=== PATIENT | male | born 1960 | race Caucasian/White ===

== ENCOUNTER 2016-12-25 20:22 | Inpatient (IN) | payer MEDICAID ==
[~2016-12-25] VITALS: Ht 175.3 cm; Wt 60.1 kg
[~2016-12-25 20:22] MED LIST: AMIT8CAP6 PO; BACL20TA PO; CIPR500T4 PO; FURO1TAB93 PO; GABA600T PO; HYDR10TA16 PO; POTA20PA PO; PROS5TAB2 PO
[2016-12-25 20:30] VITALS: BP 103/55; PULSE 108; RESP 20; TEMP 98.5; O2SAT 95
[2016-12-25] MEDS ORDERED: PIPERACIL-TAZO 4.5 GM PREMIX 100 ML IV STA (20:40)
[2016-12-25] MEDS ORDERED: SODIUM CHLOR 0.9% 1000 ML INJ 1,000 ML IV ONE (20:40)
[2016-12-25] MEDS ORDERED: SODIUM CHLOR 0.9% 1000 ML INJ 800 ML IV ONE (20:40)
[2016-12-25] MEDS ORDERED: VANCOMYCIN INJ 1,000 MG in SODIUM CHLOR 0.9% 250 ML INJ 250 ML IV STA (20:40)
[2016-12-25] MEDS ORDERED: BACL20TA PO (20:45)
[2016-12-25] MEDS ORDERED: CIPR-9 PO (20:45)
[2016-12-25] MEDS ORDERED: GABA600T PO (20:45)
[2016-12-25] MEDS ORDERED: FURO40TA PO (20:45)
[2016-12-25] MEDS ORDERED: POTA-243 PO (20:45)
[2016-12-25] MEDS ORDERED: HYDR-3583 PO (20:45)
[2016-12-25] MEDS ORDERED: AMIT24CA5 PO (20:45)
[2016-12-25] MEDS ORDERED: FINA5TAB2 PO (20:45)
[2016-12-25 20:52] VITALS: O2SAT 96
[2016-12-25 21:09] LABS: AUTOMATED NEUTROPHIL # 13.2 TH/MM3 (1.8-7.7); BASOPHIL # 0.1 TH/MM3 (0-0.2); BASOPHIL % 0.4 % (0.0-2.0); EOSINOPHIL # 0.1 TH/MM3 (0-0.4); EOSINOPHIL % 0.4 % (0.0-4.0); HEMATOCRIT 32.7 % (39.0-51.0); LYMPH % 7.8 % (9.0-44.0); LYMPHOCYTE # 1.2 TH/MM3 (1.0-4.8); MEAN CELL VOLUME 70.5 FL (80.0-100.0); MEAN CORPUSCULAR HEMOGLOBIN 21.6 PG (27.0-34.0); MEAN CORPUSCULAR HGB CONC 30.6 % (32.0-36.0); MONO % 6.7 % (0.0-8.0); NEUT % 84.7 % (16.0-70.0); PLATELET COUNT 527 TH/MM3 (150-450); RED BLOOD COUNT 4.64 MIL/MM3 (4.50-5.90); RED CELL DISTRIBUTION WIDTH 18.8 % (11.6-17.2); WHITE BLOOD COUNT 15.6 TH/MM3 (4.0-11.0)
[2016-12-25 21:12] LABS: HEMO FLAGS AUTO DIFF
--- NOTE | 2016-12-25 21:12 | PD ---
HPI Chief Complaint: Wound/Suture/Staple Re-Check Time Seen by Provider: 20:40 Travel History International Travel<30 days: No Contact w/Intl Traveler<30days: No Traveled to known affect area: No History of Present Illness HPI Patient is a 56-year-old male with history of T1 fracture and resultant paraplegia, neurogenic bowel and bladder, tobacco abuse and with peripheral vascular disease and left lower extremity BKA approximately one month ago at [facility] with complaint of wound. Patient states that he has had wounds on the sacrum/back and bilateral hips that has been increasingly malodorous, draining and painful. Patient also notes that the left lower shortly BKA site is black and malodorous. He has "stay well home health" that has been coming on to dress his wounds and states that despite this they have been getting worse. He denies any fevers but states that he has been having "hot flashes". PFSH Past Medical History Arthritis: No Asthma: No Autoimmune Disease: No Depression: Yes Heart Rhythm Problems: No Cancer: No Cardiovascular Problems: No High Cholesterol: No Chest Pain: No Congestive Heart Failure: No COPD: No Cerebrovascular Accident: No Diabetes: No Diminished Hearing: No Gastrointestinal Disorders: No GERD: No Glaucoma: No Headaches: No Hepatitis: No Hiatal Hernia: No Hypertension: No Kidney Stones: No Medical other: No Musculoskeletal: Yes (;FRACTURED LEFT TIBULA, FIBULA 01/22) Neurologic: No Respiratory: Yes (SLEEP APNEA, SMOKER 2 PPD) Integumentary: No Myocardial Infarction: No Renal Failure: No Seizures: No Sleep Apnea: No Thyroid Disease: No Ulcer: No Tetanus Vaccination: Unknown Past Surgical History Abdominal Surgery: No AICD: No Cardiac Surgery: No Ear Surgery: No Endocrine Surgery: No Eye Surgery: No Genitourinary Surgery: No Gynecologic Surgery: No Neurologic Surgery: No Oral Surgery: No Pacemaker: No Thoracic Surgery: No Tonsillectomy: Yes ( A CHILD) Other Surgery: Yes Social History Alcohol Use: No Tobacco Use: Yes (1/2 PPD) Substance Use: Yes (MARIJUANA ) Allergies-Medications (Allergen,Severity, Reaction): Coded Allergies: Levaquin (Verified Allergy, Severe, 12/25/16) *MDRO Multi-Drug Resistant Organism (Verified Allergy, Unknown, 12/25/16) MDR-Acinetobacter baumannii Urine 9/6/16 Septra (Verified Allergy, Unknown, 12/25/16) Reported Meds & Prescriptions Reported Meds & Active Scripts Active Reported Amitiza (Lubiprostone) 24 Mcg Cap 24 Mg PO DAILY Gabapentin 600 Mg Tab 600 Mg PO QID Finasteride 5 Mg Tab 5 Mg PO DAILY Do not crush. Cipro (Ciprofloxacin HCl) 500 Mg Tab 500 Mg PO BID Klor-Con 10 (Potassium Chloride) 10 Meq Tab 10 Meq PO DAILY Furosemide 40 Mg Tab 40 Mg PO BID Baclofen 20 Mg Tab 20 Mg PO QID Hydrocodone-Acetaminophen 10-325 mg Tab 1 Tab PO Q6H PRN Review of Systems ROS Limitations: Poor Historian Except as stated in HPI: all other systems reviewed are Neg Physical Exam Exam Limitations: Poor Historian Narrative GENERAL: Cachectic male in no acute distress SKIN: Multiple wounds on the bilateral hips, sacrum and perineal region that are malodorous. The area on the sacrum and perineum is deep and appears to tunnel possibly to bone of the pelvic anatomy. Left lower extremity BKA is gangrenous, malodorous HEAD: Normocephalic. EYES: No scleral icterus. No injection or drainage. ENT: Mucous membranes pink and moist. NECK: Supple CARDIOVASCULAR: Tachycardic with heart rate in the 100s, regular rhythm. No murmur appreciated. RESPIRATORY: No accessory muscle use. Clear to auscultation. Breath sounds equal bilaterally. GASTROINTESTINAL: Abdomen soft, non-tender, nondistended. Scaphoid abdomen GENITOURINARY: Indwelling Blood catheter MUSCULOSKELETAL: Left lower extremity BKA gangrenous as above. Right lower extremity with no palpable pulses but dopplerable pulses, poor capillary refill , cold but not painful. Chronic per patient. NEUROLOGICAL: Awake and alert. Normal speech. PSYCHIATRIC: insight and judgment poor Data Data Last Documented VS Vital Signs Date Time Temp Pulse Resp B/P Pulse Ox O2 Delivery O2 Flow Rate FiO2 12/25/16 20:52 96 Room Air 12/25/16 20:30 98.5 108 20 103/55 Orders Complete Blood Count With Diff (12/25/16 20:40) Comprehensive Metabolic Panel (12/25/16 20:40) Lactic Acid Sepsis Protocol (12/25/16 20:40) Troponin I (12/25/16 20:40) Urinalysis - C+S If Indicated (12/25/16 20:40) Blood Culture (12/25/16 20:40) Wound Culture And Gram Stain (12/25/16 20:40) Chest, Single Ap (12/25/16 20:40) Ecg Monitoring (12/25/16 20:40) Iv Access Insert/Monitor (12/25/16 20:40) Oximetry (12/25/16 20:40) Urinary Catheter Insert/Apply (12/25/16 20:40) Piperacil-Tazo 4.5 Gm Premix (Zosyn 4.5 (12/25/16 20:40) Vancomycin Inj (Vancomycin Inj) (12/25/16 20:40) Sodium Chlor 0.9% 1000 Ml Inj (Ns 1000 M (12/25/16 20:40) Sodium Chlor 0.9% 1000 Ml Inj (Ns 1000 M (12/25/16 20:40) Ct Pelvis W/O Iv Contrast (12/25/16 ) Urine Culture (12/25/16 21:15) Potassium Chloride (Kcl) (12/25/16 21:45) Labs Laboratory Tests Test 12/25/16 12/25/16 20:50 21:15 White Blood Count 15.6 TH/MM3 Red Blood Count 4.64 MIL/MM3 Hemoglobin 10.0 GM/DL Hematocrit 32.7 % Mean Corpuscular Volume 70.5 FL Mean Corpuscular Hemoglobin 21.6 PG Mean Corpuscular Hemoglobin 30.6 % Concent Red Cell Distribution Width 18.8 % Platelet Count 527 TH/MM3 Mean Platelet Volume 6.8 FL Neutrophils (%) (Auto) 84.7 % Lymphocytes (%) (Auto) 7.8 % Monocytes (%) (Auto) 6.7 % Eosinophils (%) (Auto) 0.4 % Basophils (%) (Auto) 0.4 % Neutrophils # (Auto) 13.2 TH/MM3 Lymphocytes # (Auto) 1.2 TH/MM3 Monocytes # (Auto) 1.0 TH/MM3 Eosinophils # (Auto) 0.1 TH/MM3 Basophils # (Auto) 0.1 TH/MM3 CBC Comment AUTO DIFF Differential Comment AUTO DIFF CONFIRMED Platelet Estimate HIGH Platelet Morphology Comment NORMAL Sodium Level 130 MEQ/L Potassium Level 2.5 MEQ/L Chloride Level 87 MEQ/L Carbon Dioxide Level 31.5 MEQ/L Anion Gap 12 MEQ/L Blood Urea Nitrogen 8 MG/DL Creatinine 1.02 MG/DL Estimat Glomerular Filtration 76 ML/MIN Rate Random Glucose 117 MG/DL Lactic Acid Level 3.2 mmol/L Calcium Level 8.6 MG/DL Total Bilirubin 0.4 MG/DL Aspartate Amino Transf 42 U/L (AST/SGOT) Alanine Aminotransferase 27 U/L (ALT/SGPT) Alkaline Phosphatase 123 U/L Troponin I LESS THAN 0.02 NG/ML Total Protein 8.9 GM/DL Albumin 2.3 GM/DL Urine Color LIGHT-YELLOW Urine Turbidity CLEAR Urine pH 7.0 Urine Specific [place] 1.005 Urine Protein NEG mg/dL Urine Glucose (UA) NEG mg/dL Urine Ketones NEG mg/dL Urine Occult Blood SMALL Urine Nitrite NEG Urine Bilirubin NEG Urine Urobilinogen LESS THAN 2.0 MG/DL Urine Leukocyte Esterase LARGE Urine RBC 15 /hpf Urine WBC 46 /hpf Urine Squamous Epithelial <1 /hpf Cells Urine Hyaline Casts 1 /lpf Urine Mucus FEW /lpf Urine Yeast (Budding) Microscopic Urinalysis Comment CULTURE INDICATED MDM Medical Decision Making Medical Screen Exam Complete: Yes Emergency Medical Condition: Yes Medical Record Reviewed: Yes Differential Diagnosis 56-year-old male here with complaint of wound. Patient on exam has multiple significant pressure ulcers, most importantly the one on his sacrum and perineal region that appears to tunnel deep to the bony anatomy. Concern for osteomyelitis of the pelvis, concurrent abscess, sepsis, wound, per full vascular disease, gangrene. Narrative Course Patient placed on monitor, IV established and blood obtained. His wounds were measured and documented appropriately by nursing. He was given IV fluids and empirically cover with vancomycin and Zosyn. CBC, CMP, lactate, troponin, urinalysis, blood and wound cultures were obtained and notable for WBC 15.6, hemoglobin 10.0, platelets 527, sodium 130, potassium 2.5. He was replaced with 80 mEq orally. Lactate elevated at 3.2. Blood catheter was replaced for a new, clean catheter as his current indwelling catheter appeared unkempt. It urine sample from his new catheter shows leukocyte esterase with white cells. Portable chest x-ray obtained that by my read shows no acute abnormalities. CT of the pelvis showed multiple decubitus ulcers which overlie the bilateral greater trochanters, left Neel, sacrum and coccyx with associated subcutaneous and muscular infiltration most significant over the left greater trochanter. Underlying osteo-difficult to rule out, recommend bone scan or MRI. Patient will be admitted for further management, vascular surgery consultation for his gangrenous left BKA stump, wound consult, etc. Critical Care Narrative Aggregate critical care time was 45 minutes. Time to perform other separately billable procedures was not included in the critical care time. My time did not include minutes spent treating any other patients simultaneously or on activities that did not directly contribute to the patient's treatment. The services I provided to this patient were to treat and/or prevent clinically significant deterioration that could result in: Cardio Pulmonary decompensation , loss of limb, , disability I provided critical care services requiring my management, as noted below: Chart data review, documentation time, medication orders and management, vital sign assessments/reviewing monitor data, ordering and reviewing lab tests, ordering and interpreting/reviewing x-rays and diagnostic studies, care of the patient and discussion of the patient with the admitting physicians. Sepsis Criteria SIRS Criteria (2 or more): Heart rate over 90, WBC > 12281, < 4000 or > 10% bands Sepsis Criteria (SIRS+source): Infect source susp/known Severe Sepsis (+one): Lactate >2 Criteria Outcome: Meets severe sepsis criteria Diagnosis Primary Impression: Severe sepsis Additional Impressions: Pressure ulcer Qualified Code: L89.94 - Pressure ulcer, stage 4, unspecified location Gangrene Leukocytosis Qualified Code: D72.829 - Leukocytosis, unspecified type Lactate blood increase Admitting Information Admitting Physician Requests: Admit Zuleika Medina MD December 25, 2016 21:12
--- NOTE | 2016-12-25 21:14 | RADRPT ---
EXAM DATE/TIME: 12/25/2016 21:00 [facility] COMPARISON: No previous studies available for comparison. INDICATIONS : Fever MEDICAL HISTORY : None. Left lower leg amputation, necrosis SURGICAL HISTORY : None. Cervical fusion ENCOUNTER: Initial ACUITY: 1 day PAIN SCORE: Non-responsive. LOCATION: Bilateral chest FINDINGS: The heart and mediastinal structures are normal. The pulmonary vascular pattern is also normal. The lungs are clear. Degenerative changes and scoliosis of the thoracic spine are noted. Hardware is noted within the upper thoracic spine. CONCLUSION: 1. No acute cardiopulmonary disease. 2. Degenerative changes and scoliosis of the thoracic spine. Hema Villalobos MD on December 25, 2016 at 21:09 Board Certified Radiologist. This report was verified electronically.
[2016-12-25 21:31] LABS: BLOOD, URINE SMALL (NEG); COMMENT (UR) CULTURE INDICATED; CULTURE IF INDICATED CULTURE INDICATED; GLUCOSE,URINE NEG (NEG); HYALINE CAST, URINE 1 /lpf (RARE); KETONE, URINE NEG (NEG); MUCUS URINE FEW /lpf (OCC); NITRITE,URINE NEG (NEG); SQUAMOUS EPITHELIAL CELL URINE <1 /hpf (0-5); URINE COLOR LIGHT-YELLOW (YELLW/STRAW)
[2016-12-25 21:38] LABS: ANION GAP 12 MEQ/L (5-15); AST (GOT) 42 U/L (15-37); BICARBONATE 31.5 MEQ/L (21.0-32.0); BLOOD UREA NITROGEN 8 MG/DL (7-18); CHLORIDE 87 MEQ/L (98-107); GLOMERULAR FILTRATION RATE 76 ML/MIN (>89); SODIUM (NA) 130 MEQ/L (136-145)
[2016-12-25 21:39] LABS: POTASSIUM 2.5 MEQ/L (3.5-5.1)
[2016-12-25 21:42] LABS: ALKALINE PHOSPHATASE 123 U/L (45-117); ALT (GPT) 27 U/L (12-78); TOTAL BILIRUBIN ADULT 0.4 MG/DL (0.2-1.0)
[2016-12-25] MEDS ORDERED: POTASSIUM CHLORIDE 20 MEQ CONTROLLED RELEASE TAB PO ONE (21:45)
[2016-12-25 21:47] LABS: PLATELET ESTIMATE SMEAR HIGH (NORMAL); PLATELET MORPHOLOGY NORMAL (NORMAL); SCAN/DIFF AUTO DIFF CONFIRMED
--- NOTE | 2016-12-25 22:29 | RADRPT ---
EXAM DATE/TIME: 12/25/2016 21:50 [facility] COMPARISON: No previous studies available for comparison. INDICATIONS : Evaluate for osteomyelitis. ORAL CONTRAST: No oral contrast ingested. RADIATION DOSE: 10.37 CTDIvol (mGy) MEDICAL HISTORY : None SURGICAL HISTORY : Tonsillectomy. Cervical fusion. Left lower leg amputation, necrosis. ENCOUNTER: Initial ACUITY: 1 day PAIN SCALE: 5/10 LOCATION: Pelvis TECHNIQUE: Volumetric scanning of the pelvis was performed. Using automated exposure control and adjustment of the mA and/or kV according to patient size, radiation dose was kept as low as reasonably achievable t o obtain optimal diagnostic quality images. FINDINGS: Large decubitus ulcers are noted overlying the left proximal femoral greater trochanter and the left ischium and to a lesser extent the right proximal femoral greater trochanter. Infiltration of the cao bcutaneous tissues and overlying musculature in the regions of the greater trochanters is also noted and is slightly worse on the left than the right. Underlying osteomyelitis is difficult to rule out on the basis of this examination. There is also a decubitus ulcer overlying the sacrum and coccyx. Bone scan or MRI with contrast would be much more sensitive to rule out osteomyelitis in this patient , if clinically indicated. Extensive hypertrophic bone formation is noted surrounding the proximal f emurs bilaterally. A Blood catheter is noted within the urinary bladder. An inferior vena cava filt er is noted. Calcification of the visualized portion of the abdominal aorta and iliac arteries is no willian. Scattered cystic lesions are noted within the left hemipelvis and may represent bladder diverti cula. A small umbilical hernia containing a portion of a bowel loop is noted. CONCLUSION: Multiple decubitus ulcers which overlie the bilateral greater trochanters, left ischium and sacrum/co ccyx with associated subcutaneous and muscular infiltration which is most significant overlying the l eft greater trochanter. Underlying osteomyelitis is difficult to rule out on the basis of this exami nation. Bone scan or MRI with contrast would be more sensitive for osteomyelitis, if clinically migdalia cated. Hema Villalobos MD on December 25, 2016 at 22:09 Board Certified Radiologist. This report was verified electronically.
[2016-12-25] MEDS ORDERED: HYDROmorphone HCL PF 1 MG/ML VIAL IV PRN (23:00)
[2016-12-25] MEDS ORDERED: BISACODYL 10 MG SUPP RECTAL PRN (23:00)
[2016-12-25] MEDS ORDERED: ONDANSETRON HCL 4 MG/2 ML VIAL IVP PRN (23:00)
[2016-12-25] MEDS ORDERED: SODIUM CHLORIDE 0.9% FLUSH 10 ML FLUSH IV FLUSH PRN (23:00)
[2016-12-25] MEDS ORDERED: ACETAMINOPHEN 325 MG TAB PO PRN (23:00)
[2016-12-25] MEDS ORDERED: Vancomycin Consult Pharmacy 1 EA OTHER SCH (23:00)
[2016-12-25 23:04] LABS: LACTIC ACID GHOST NOT REPORTABLE
[2016-12-25] MEDS: SODIUM CHLOR 0.9% 1000 ML INJ 1,000 ML IV SCH (23:18)
[2016-12-26] VITALS (7 sets, daily range): BP systolic 90–109; BP diastolic 50–59; PULSE 77–98; RESP 16–24; TEMP 97.8–99; O2SAT 97–100
--- NOTE | 2016-12-26 01:47 | HHI.HP ---
HPI Service [facility] Primary Care Physician Dustin Coleman Admission Diagnosis severe sepsis, wound infection/r/o osteo, L BKA stump gangrene Diagnoses: (1) Sepsis Diagnosis: Principal (2) Gangrene of lower extremity Diagnosis: Principal (3) Osteomyelitis Diagnosis: Principal (4) Decubitus skin ulcer Diagnosis: Principal (5) Pressure ulcer Diagnosis: Principal (6) UTI (urinary tract infection) Diagnosis: Principal (7) Lactic acidosis Diagnosis: Principal (8) Hypokalemia Diagnosis: Principal Travel History International Travel<30 Days: No Contact w/Intl Traveler <30 Da: No Traveled to Known Affected Are: No History of Present Illness This is a 56 year old male with a PMH of T1 Fracture, Paraplegia, Neurogenic Bowel/Bladder, PVD, Depression, Tobacco Abuse and Left BKA who presented to the ER with complaints of worsening decubitus ulcers and worsening stump infection. Recent Left BKA at [facility] approx 1 month ago, now w/ worsening wound infection. Also reports multiple sacral decubitus ulcers, now foul-smelling and increasingly painful. Per pt, [facility] has been visiting him daily for dressing changes, however no improvement. On arrival, WBC 15.6. K+ 2.5. Lactate 3.2, repeat 1.2. Trop negative. UA positive for UTI. CXR with no acute findings. CT Pelvis with multiple decubitus ulcers and associated subcutaneous and muscular infiltration, possible. S/p Wound/Blood Cultures, Vanc/Zosyn in ER. Vascular Surgery consulted for further eval of stump infection w/ likely conversion to AKA. Review of Systems Except as stated in HPI: all other systems reviewed are Neg ROS: 14 point review of systems otherwise negative. Past Family Social History Past Medical History PMH: T1 Fracture, Paraplegia, Neurogenic Bowel/Bladder, PVD, Depression, Tobacco Abuse and Left BKA Past Surgical History PAST SURGICAL HISTORY: Tonsillectomy Allergies: Coded Allergies: Levaquin (Verified Allergy, Severe, 12/25/16) *MDRO Multi-Drug Resistant Organism (Verified Allergy, Unknown, 12/25/16) MDR-Acinetobacter baumannii Urine 04/20/16 Septra (Verified Allergy, Unknown, 12/25/16) Family History PAST FAMILY HISTORY: Reviewed. No h/o DM or CAD Social History PAST SOCIAL HISTORY: Negative for alcohol. Positive for tobacco. Positive for Marijuana. Physical Exam Vital Signs Vital Signs Date Time Temp Pulse Resp B/P Pulse Ox O2 Delivery O2 Flow Rate FiO2 12/25/16 20:52 96 Room Air 12/25/16 20:30 98.5 108 20 103/55 95 Physical Exam PE: GENERAL: Middle-aged male in no acute distress, foul-smelling odor due to infections. HEENT: PERRLA, EOMI. No scleral icterus or conjunctival pallor. No lid lag or facial droop. CARDIOVASCULAR: Regular rate and rhythm. No obvious murmurs to auscultation. No chest tenderness to palpation. RESPIRATORY: No obvious rhonchi or wheezing. Clear to auscultation. Breath sounds equal bilaterally. GASTROINTESTINAL: Abdomen soft, non-tender, nondistended. BS normal. MUSCULOSKELETAL: Extremities without clubbing, cyanosis, or edema. No obvious deformities. Multiple wounds involving sacrum and perineum, malodorous, + drainage. Left BKA +gangrene. Right heel ulcer NEUROLOGICAL: Awake, alert and oriented x4. No focal neurologic deficits. Moving both upper and lower extremities spontaneously. Laboratory Laboratory Tests Test 12/25/16 12/25/16 12/25/16 20:50 21:15 23:45 White Blood Count 15.6 Red Blood Count 4.64 Hemoglobin 10.0 Hematocrit 32.7 Mean Corpuscular Volume 70.5 Mean Corpuscular Hemoglobin 21.6 Mean Corpuscular Hemoglobin 30.6 Concent Red Cell Distribution Width 18.8 Platelet Count 527 Mean Platelet Volume 6.8 Neutrophils (%) (Auto) 84.7 Lymphocytes (%) (Auto) 7.8 Monocytes (%) (Auto) 6.7 Eosinophils (%) (Auto) 0.4 Basophils (%) (Auto) 0.4 Neutrophils # (Auto) 13.2 Lymphocytes # (Auto) 1.2 Monocytes # (Auto) 1.0 Eosinophils # (Auto) 0.1 Basophils # (Auto) 0.1 CBC Comment AUTO DIFF Differential Comment AUTO DIFF CONFIRMED Platelet Estimate HIGH Platelet Morphology Comment NORMAL Sodium Level 130 Potassium Level 2.5 Chloride Level 87 Carbon Dioxide Level 31.5 Anion Gap 12 Blood Urea Nitrogen 8 Creatinine 1.02 Estimat Glomerular Filtration 76 Rate Random Glucose 117 Lactic Acid Level 3.2 1.2 Calcium Level 8.6 Total Bilirubin 0.4 Aspartate Amino Transf 42 (AST/SGOT) Alanine Aminotransferase 27 (ALT/SGPT) Alkaline Phosphatase 123 Troponin I LESS THAN 0.02 Total Protein 8.9 Albumin 2.3 Urine Color LIGHT-YELLOW Urine Turbidity CLEAR Urine pH 7.0 Urine Specific [place] 1.005 Urine Protein NEG Urine Glucose (UA) NEG Urine Ketones NEG Urine Occult Blood SMALL Urine Nitrite NEG Urine Bilirubin NEG Urine Urobilinogen LESS THAN 2.0 Urine Leukocyte Esterase LARGE Urine RBC 15 Urine WBC 46 Urine Squamous Epithelial <1 Cells Urine Hyaline Casts 1 Urine Mucus FEW Urine Yeast (Budding) Microscopic Urinalysis Comment CULTURE INDICATED Date/Time Procedure Status Source Growth 12/25/16 21:15 Urine Culture Received Urine Clean Catch Pending 12/25/16 20:50 Gram Stain Received Wound Buttock Pending 12/25/16 20:50 Wound Culture Received Wound Buttock Pending 12/25/16 20:50 Aerobic Blood Culture Received Blood Peripheral Pending 12/25/16 20:50 Anaerobic Blood Culture Received Blood Peripheral Pending Result Diagram: 12/25/16204912/25/162049 Assessment and Plan Problem List: (1) Sepsis ICD Code: A41.9 Status: Acute (2) Gangrene of lower extremity ICD Code: I96 Status: Acute (3) Osteomyelitis ICD Code: M86.9 Status: Acute (4) Decubitus skin ulcer ICD Code: L89.90 Status: Acute (5) Pressure ulcer ICD Code: L89.90 Status: Acute (6) UTI (urinary tract infection) ICD Code: N39.0 Status: Acute (7) Lactic acidosis ICD Code: E87.2 Status: Acute (8) Hypokalemia ICD Code: E87.6 Status: Acute Assessment and Plan A/P: 1. Sepsis: HR 108, WBC 15.6, Lactate 3.2, s/p Blood/Wound Cultures, Vanc/ Zosyn in ER. Follow up cultures, continue w/ IV Abx, IVF for hydration, repeat Lactate normalized. 2. Left BKA Wound Infection: s/p Left BKA approx 1 month ago at [facility], now w/ gangrenous stump infection, +malodorous, +drainage, s/p Wound Culture/ Blood Cultures. Continue w/ IV Abx as above. Vascular Surgery consulted by ER physician for further eval and likely transition to Left AKA. 3. Decubitus Ulcers: h/o TI Fx w/ Paraplegia, mostly wheelchair bound w/ limited mobility, multiple decubitus ulcers present on arrival. CT Pelvis w/ decubitus ulcers overlying bilateral greater trochanters, left ischium and sacrum/coccyx, possible underlying osteomyelitis, images reviewed by me. Continue w/ above IV Abx therapy as mentioned, Wound Consult, Vascular Sx eval. 4. Osteomyelitis: CT Pelvis w/ above findings, recommendation for MRI w/ contrast for further evaluation of osteomyelitis. 5. Pressure Ulcer: Right Heel. Wound Management for eval. 6. UTI: U/a w/ UTI, IV Abx, IVF for hydration. 7. Lactic Acidosis: secondary to infection/sepsis, now resolved. Continue w/ IVF, monitor, repeat lactate in am. 8. Tobacco Abuse: Counselled. Ativan prn if needed. No NicoDerm to avoid further vasoconstriction. 9. DVT Prophylaxis: Mechanical contraindication in light of lower extremity wounds. 10. Social work for d/c planning as needed. 11. Case discussed w/ ER physician at length. Physician Certification 2 Midnight Certification Type: Admission for Inpatient Services Order for Inpatient Services The services are ordered in accordance with Medicare regulations or non- Medicare payer requirements, as applicable. In the case of services not specified as inpatient-only, they are appropriately provided as inpatient services in accordance with the 2-midnight benchmark. Estimated LOS (days): 2 days is the estimated time the patient will need to remain in the hospital, assuming treatment plan goals are met and no additional complications. Post-Hospital Plan: Not yet determined Problem Qualifiers (1) Pressure ulcer: Qualified Code: L89.94 - Pressure ulcer, stage 4, unspecified location Antonia Farley MD December 26, 2016 01:47
[2016-12-26] MEDS ORDERED: SODIUM CHLORID 0.9% 500 ML INJ 500 ML IV ONE (02:15)
[2016-12-26] MEDS: FINASTERIDE 5 MG TAB PO SCH (08:23)
[2016-12-26] MEDS: GABAPENTIN 300 MG CAP PO SCH ×4 (08:23→20:38)
[2016-12-26] MEDS: SODIUM CHLORIDE 0.9% FLUSH 10 ML FLUSH IV FLUSH SCH ×2 (08:24→20:38)
[2016-12-26] MEDS: AMITIZA 24 MG PO SCH (08:24)
[2016-12-26] MEDS: BACLOFEN 20 MG TAB PO SCH ×4 (08:24→20:37)
[2016-12-26] MEDS: CEFEPIME INJ 1,000 MG in SODIUM CHLORIDE 0.9% INJ 100 ML IV SCH ×2 (08:25→20:37)
[2016-12-26] MEDS: SODIUM CHLOR 0.9% 1000 ML INJ 1,000 ML IV SCH ×2 (08:33→18:36)
[2016-12-26 09:14] LABS: AUTOMATED NEUTROPHIL # 9.3 TH/MM3 (1.8-7.7); BASOPHIL # 0.1 TH/MM3 (0-0.2); BASOPHIL % 0.6 % (0.0-2.0); EOSINOPHIL # 0.1 TH/MM3 (0-0.4); EOSINOPHIL % 0.9 % (0.0-4.0); HEMATOCRIT 25.8 % (39.0-51.0); LYMPH % 12.3 % (9.0-44.0); LYMPHOCYTE # 1.5 TH/MM3 (1.0-4.8); MEAN CORPUSCULAR HGB CONC 31.4 % (32.0-36.0); MONO % 8.9 % (0.0-8.0); NEUT % 77.3 % (16.0-70.0); PLATELET COUNT 456 TH/MM3 (150-450); RED BLOOD COUNT 3.69 MIL/MM3 (4.50-5.90); RED CELL DISTRIBUTION WIDTH 18.5 % (11.6-17.2)
[2016-12-26 09:16] LABS: HEMO FLAGS AUTO DIFF
[2016-12-26 09:48] LABS: ALKALINE PHOSPHATASE 97 U/L (45-117); ALT (GPT) 19 U/L (12-78); ANION GAP 7 MEQ/L (5-15); AST (GOT) 29 U/L (15-37); BICARBONATE 29.6 MEQ/L (21.0-32.0); BLOOD UREA NITROGEN 6 MG/DL (7-18); CHLORIDE 100 MEQ/L (98-107); GLOMERULAR FILTRATION RATE 115 ML/MIN (>89); POTASSIUM 3.4 MEQ/L (3.5-5.1); SODIUM (NA) 137 MEQ/L (136-145); TOTAL BILIRUBIN ADULT 0.4 MG/DL (0.2-1.0)
[2016-12-26 09:54] LABS: PLATELET ESTIMATE SMEAR HIGH (NORMAL); PLATELET MORPHOLOGY NORMAL (NORMAL); SCAN/DIFF AUTO DIFF CONFIRMED
[2016-12-26] MEDS: VANCOMYCIN INJ 1,250 MG in SODIUM CHLOR 0.9% 250 ML INJ 250 ML IV SCH (12:06)
--- NOTE | 2016-12-26 12:53 | HHI.FPPN ---
Subjective Remarks The patient has been seen and examined this morning. The patient is without fever, his vitals are stable. Saturating well on room air. Reports he was told as an outpatient he needed to have his leg amputated further, he states his leg his healing fine, he is most concerned about his decubitus ulcers. Objective Vitals Vital Signs Date Time Temp Pulse Resp B/P Pulse Ox O2 Delivery O2 Flow Rate FiO2 12/26/16 04:00 99.0 77 16 95/53 97 12/26/16 02:24 Room Air 12/26/16 00:15 98 12/26/16 00:00 Room Air 12/26/16 00:00 98.1 85 16 90/50 97 12/25/16 20:52 96 Room Air 12/25/16 20:30 98.5 108 20 103/55 95 I/O 12/25/16 12/25/16 12/25/16 12/26/16 12/26/16 12/26/16 06:59 14:59 22:59 06:59 14:59 22:59 Intake Total 480 ml Output Total 1750 ml Balance -1270 ml Intake Oral 480 ml Output Urine Total 1750 ml # Bowel Movements 0 Result Diagram: 12/26/16 0804 12/26/16 0804 Imaging Last Impressions Chest X-Ray 12/25/162039 Signed Impressions: Service Date/Time: Sunday, December 25, 2016 21:00 - CONCLUSION: 1. No acute cardiopulmonary disease. 2. Degenerative changes and scoliosis of the thoracic spine. Hema Villalobos MD Pelvis CT 12/25/16 0000 Signed Impressions: Service Date/Time: Sunday, December 25, 2016 21:50 - CONCLUSION: Multiple decubitus ulcers which overlie the bilateral greater trochanters, left ischium and sacrum/coccyx with associated subcutaneous and muscular infiltration which is most significant overlying the left greater trochanter. Underlying osteomyelitis is difficult to rule out on the basis of this examination. Bone scan or MRI with contrast would be more sensitive for osteomyelitis, if clinically indicated. Hema Villalobos MD Objective Remarks GENERAL: Middle-aged male in no acute distress, foul-smelling odor due to infections. HEENT: PERRLA, EOMI. No scleral icterus or conjunctival pallor. No lid lag or facial droop. CARDIOVASCULAR: Regular rate and rhythm. No obvious murmurs to auscultation. No chest tenderness to palpation. RESPIRATORY: No obvious rhonchi or wheezing. Clear to auscultation. Breath sounds equal bilaterally. GASTROINTESTINAL: Abdomen soft, non-tender, nondistended. BS normal. MUSCULOSKELETAL: Extremities without clubbing, cyanosis, or edema. No obvious deformities. Multiple wounds involving sacrum and perineum with dressing, malodorous. Left BKA +gangrene. Right heel ulcer NEUROLOGICAL: Awake, alert and oriented x4. No focal neurologic deficits. Moving both upper and lower extremities spontaneously. A/P Assessment and Plan This is a 56-year-old male with 1. Sepsis on admission: HR 108, WBC 15.6, Lactate 3.2 * Leukocytosis improved. The patient is afebrile. Lactic acid within normal limits. * Blood cultures negative to date. Wound cultures pending. Urine culture pending. see below. * Continue Vanc 12/25 and cefepime 12/26 2. Left BKA Wound Infection: s/p Left BKA approx 1 month ago at [facility], now w/ gangrenous stump infection, +malodorous, +drainage. * see imaging above, pelvis CT cannot rule out osteomyelitis. MRI recommended. This has been ordered. * Continue Vanco and cefepime * Vascular Surgery consulted by ER physician for further eval and likely transition to Left AKA. 3. Decubitus Ulcers: h/o TI Fx w/ Paraplegia, mostly wheelchair bound w/ limited mobility, multiple decubitus ulcers present on arrival. CT Pelvis w/ decubitus ulcers overlying bilateral greater trochanters, left ischium and sacrum/coccyx, possible underlying osteomyelitis. MRI ordered and pending. Continue w/ above IV Abx therapy as mentioned, Wound Consult, Vascular Sx eval. 4. Osteomyelitis: CT Pelvis w/ above findings, recommendation for MRI w/ contrast for further evaluation of osteomyelitis. 5. Pressure Ulcer: Right Heel. Wound Management for eval. 6. UTI: U/a w/ UTI, IV Abx, IVF for hydration. 7. Tobacco Abuse: Counselled. Ativan prn if needed. No NicoDerm to avoid further vasoconstriction. 8. DVT Prophylaxis: Mechanical contraindication in light of lower extremity wounds. 9. Social work for d/c planning as needed. Discharge Planning D/C pending further workup. Vascu surgery consulted, patient may require surgical intervention. Problem List: (1) Gangrene Status: Acute (2) Sepsis Status: Acute (3) UTI (urinary tract infection) Status: Acute (4) Osteomyelitis Status: Acute (5) Gangrene of lower extremity Status: Acute Verónica Barcenas MD R3 December 26, 2016 12:53
--- NOTE | 2016-12-26 20:27 | MB ---
cc: NELSY ANDERSEN MD DATE OF CONSULTATION: 12/26/2016. This is a 62-year-old gentleman with multiple medical problems including paraplegia. He recently underwent a left [id number] amputation at [facility]. He arrived in the [facility] Emergency Room with a gangrenous left stump. I was asked to see him for above-knee amputation. I have reviewed the patient's chart. I discussed this with the patient. He basically has a black eschar surrounding his left BKA stump. He refuses amputation at this point in time. I have ordered wound care for him and I would suggest talking to plastic surgery as far as debriding this area if they were to be agreeable in the future. At this point in time, if he should require an above-knee amputation, I would consult orthopedic surgery as vascular surgery does not to be a need to be involved with this. Thank you very much for allowing me to see your patient. Nelsy Andersen MD MPH/JCC /8:01 PM /8:25 PM
[2016-12-27] VITALS (7 sets, daily range): BP systolic 86–104; BP diastolic 48–61; PULSE 79–87; RESP 16–20; TEMP 97.4–98.8; O2SAT 96–98
[2016-12-27] MEDS: VANCOMYCIN INJ 1,250 MG in SODIUM CHLOR 0.9% 250 ML INJ 250 ML IV SCH ×3 (01:13→23:58)
[2016-12-27] MEDS ORDERED: SODIUM CHLORID 0.9% 500 ML INJ 500 ML IV ONE (03:00)
[2016-12-27] MEDS: SODIUM CHLOR 0.9% 1000 ML INJ 1,000 ML IV SCH ×2 (04:35→14:50)
[2016-12-27 07:12] LABS: AUTOMATED NEUTROPHIL # 8.7 TH/MM3 (1.8-7.7); BASOPHIL # 0.1 TH/MM3 (0-0.2); BASOPHIL % 0.7 % (0.0-2.0); EOSINOPHIL # 0.1 TH/MM3 (0-0.4); EOSINOPHIL % 1.2 % (0.0-4.0); HEMATOCRIT 25.7 % (39.0-51.0); LYMPH % 16.1 % (9.0-44.0); LYMPHOCYTE # 1.9 TH/MM3 (1.0-4.8); MEAN CORPUSCULAR HEMOGLOBIN 21.6 PG (27.0-34.0); MEAN CORPUSCULAR HGB CONC 30.4 % (32.0-36.0); MONO % 7.8 % (0.0-8.0); NEUT % 74.2 % (16.0-70.0); PLATELET COUNT 433 TH/MM3 (150-450); RED BLOOD COUNT 3.62 MIL/MM3 (4.50-5.90); RED CELL DISTRIBUTION WIDTH 18.4 % (11.6-17.2); WHITE BLOOD COUNT 11.7 TH/MM3 (4.0-11.0)
[2016-12-27 07:16] LABS: HEMO FLAGS AUTO DIFF
[2016-12-27 07:41] LABS: POTASSIUM 3.3 MEQ/L (3.5-5.1)
[2016-12-27 07:55] LABS: SCAN/DIFF AUTO DIFF CONFIRMED
[2016-12-27] MEDS: CEFEPIME INJ 1,000 MG in SODIUM CHLORIDE 0.9% INJ 100 ML IV SCH (08:17)
[2016-12-27] MEDS: BACLOFEN 20 MG TAB PO SCH ×4 (08:19→20:21)
[2016-12-27] MEDS: GABAPENTIN 300 MG CAP PO SCH ×4 (08:19→20:21)
[2016-12-27] MEDS: FINASTERIDE 5 MG TAB PO SCH (08:19)
[2016-12-27] MEDS: SODIUM CHLORIDE 0.9% FLUSH 10 ML FLUSH IV FLUSH SCH ×2 (08:20→20:21)
[2016-12-27] MEDS: AMITIZA 24 MG PO SCH (08:21)
[2016-12-27] MEDS ORDERED: GADODIAMIDE PF 287 MG/ML 5 ML VIAL (for RAD MRI) IV ONE (11:38)
--- NOTE | 2016-12-27 11:38 | RADRPT ---
EXAM DATE/TIME: 12/27/2016 10:25 [place] COMPARISON: CT PELVIS W/O CONTRAST, December 25, 2016, 21:50. INDICATIONS : Osteomyelitis. Abnormal CT scan. Wounds left buttock and bilat hips. CONTRAST: cc Omniscan (gadodiamide) IV MEDICAL HISTORY : Peripheral vascular disease. Paraplegia. SURGICAL HISTORY : Tonsillectomy. Fusion, cervical. Left leg surgery. BKA. ENCOUNTER: Initial ACUITY: 2 day PAIN SCORE: 4/10 LOCATION: Pelvis TECHNIQUE: Multiplanar, multisequence magnetic resonance imaging of the pelvis was performed. FINDINGS: REPRODUCTIVE: No mass is visualized. Prostate is enlarged. BLADDER: Mild bladder wall thickening. There is a Blood catheter in the bladder. RETROPERITONEUM: There is no lymphadenopathy. Vascular structures are within normal limits. BOWEL/MESENTERY: Visualized small and large bowel demonstrates no acute abnormality. There is no free fluid. There is stool throughout colon. INGUINAL: No lymphadenopathy or hernia. MUSCULOSKELETAL: There are diffuse inflammatory changes in the soft tissues adjacent to the greater trochanteric regio n of both hips, left greater than right. Patient history of decubitus ulcers. This finding correlates with the recent CT scan of the pelvis. However, there is abnormal signal with abnormal bone marrow e johnathon in the left trochanteric region of the proximal left femur. There is abnormal bone marrow edema with signal in the left ischium and left inferior pubic ramus. These findings are highly suspicious f or osteomyelitis. The rest of the bony structures of the pelvis demonstrate normal signal intensity. There is a small amount of fluid adjacent to the right trochanteric region. However, no definite locu lated fluid collections are seen to suggest an abscess at this time. CONCLUSION: 1. Abnormal bone marrow edema in the left proximal femur at the trochanteric level as well as the lef t ischium and left inferior pubic ramus suspicious for osteomyelitis. 2. Diffuse inflammatory changes in the soft tissues adjacent to the trochanteric regions bilaterally, left greater than right. Patient has a history of bilateral decubitus ulcers. Isaac Greco MD on December 27, 2016 at 11:24 Board Certified Radiologist. This report was verified electronically.
--- NOTE | 2016-12-27 15:57 | HHI.PR ---
Subjective Remarks Follow up for left lower ext stump infection, decubitus ulcer with possible osteomyelitis. Patient is doing well. Denies any fever, chills. He reports pain on the lower back. He requests an air mattress and Trapeze as well. Objective Vitals Vital Signs Date Time Temp Pulse Resp B/P Pulse Ox O2 Delivery O2 Flow Rate FiO2 12/27/16 12:00 97.4 87 20 102/56 98 12/27/16 08:20 Room Air 12/27/16 08:00 98.8 81 20 104/61 97 12/27/16 04:00 98.7 79 20 91/53 96 12/27/16 02:30 86/48 12/27/16 00:00 94/50 12/26/16 20:00 98.1 79 24 90/59 100 12/26/16 20:00 Room Air 12/26/16 16:00 98.0 79 18 92/53 98 I/O 12/26/16 12/26/16 12/26/16 12/27/16 12/27/16 12/27/16 07:00 15:00 23:00 07:00 15:00 23:00 Intake Total 480 ml 720 ml 1803 ml 2334 ml 781 ml Output Total 1750 ml 1300 ml Balance -1270 ml -580 ml 1803 ml 2334 ml 781 ml Intake Oral 480 ml 720 ml IV Total 1803 ml 2334 ml 781 ml Output Urine Total 1750 ml 1300 ml # Bowel Movements 0 0 Result Diagram: 12/27/16 0509 12/27/16 0509 Imaging Last Impressions Pelvis MRI 12/27/16 0000 Signed Impressions: Service Date/Time: Tuesday, December 27, 2016 10:25 - CONCLUSION: 1. Abnormal bone marrow edema in the left proximal femur at the trochanteric level as well as the left ischium and left inferior pubic ramus suspicious for osteomyelitis. 2. Diffuse inflammatory changes in the soft tissues adjacent to the trochanteric regions bilaterally, left greater than right. Patient has a history of bilateral decubitus ulcers. Isaac Greco MD Chest X-Ray 12/25/162039 Signed Impressions: Service Date/Time: Sunday, December 25, 2016 21:00 - CONCLUSION: 1. No acute cardiopulmonary disease. 2. Degenerative changes and scoliosis of the thoracic spine. Hema Villalobos MD Pelvis CT 12/25/16 0000 Signed Impressions: Service Date/Time: Sunday, December 25, 2016 21:50 - CONCLUSION: Multiple decubitus ulcers which overlie the bilateral greater trochanters, left ischium and sacrum/coccyx with associated subcutaneous and muscular infiltration which is most significant overlying the left greater trochanter. Underlying osteomyelitis is difficult to rule out on the basis of this examination. Bone scan or MRI with contrast would be more sensitive for osteomyelitis, if clinically indicated. Hema Villalobos MD Objective Remarks GENERAL: Alert, NAD. SKIN: Warm and dry. HEAD: Normocephalic. EYES: No scleral icterus. No injection or drainage. NECK: Supple, trachea midline. No JVD or lymphadenopathy. CARDIOVASCULAR: Regular rate and rhythm without murmurs, gallops, or rubs. RESPIRATORY: Breath sounds equal bilaterally. No accessory muscle use. GASTROINTESTINAL: Abdomen soft, non-tender, nondistended. MUSCULOSKELETAL: No cyanosis, or edema. Left BKA, decubitus ulcer covered in dressing. BACK: Nontender without obvious deformity. No CVA tenderness. Procedures None. A/P Problem List: (1) Sepsis ICD Code: A41.9 Status: Acute (2) Gangrene of lower extremity ICD Code: I96 Status: Acute (3) Osteomyelitis ICD Code: M86.9 Status: Acute (4) Decubitus skin ulcer ICD Code: L89.90 Status: Acute (5) Pressure ulcer ICD Code: L89.90 Status: Acute (6) UTI (urinary tract infection) ICD Code: N39.0 Status: Acute (7) Lactic acidosis ICD Code: E87.2 Status: Acute (8) Hypokalemia ICD Code: E87.6 Status: Acute Assessment and Plan This is a 56 year old male with a PMH of T1 Fracture, Paraplegia, Neurogenic Bowel/Bladder, PVD, Depression, Tobacco Abuse and Left BKA who presented to the ER with complaints of worsening decubitus ulcers and worsening stump infection. Recent Left BKA at [facility] approx 1 month ago, now w/ worsening wound infection. On arrival, WBC 15.6. K+ 2.5. Lactate 3.2, repeat 1.2. Trop negative. UA positive for UTI. CXR with no acute findings. Pelvis MRI indicative of probable osteomyelitis. - Left BKA stump infection - Sacral decubitus - Pelvis osteomyelitis - Urinary tract infection - Patient was initially evaluated by Dr. Soto who recommended a plastic surgery consult. - Dr. Love evaluated patient again with regards to both left BKA stump infection as well as decubitus ulcer and osteomyelitis. - Patient refuses AKA and refuses the possibility of hip disarticulation during the process of decubitus ulcer debridement. - I discussed the case with Infectious disease (Dr. López). - I believe it would be a futile effort to help this patient without aggressive surgical intervention - Will consult Palliative care for discussion about oil heaterman plan as well as possible hospice consideration. - Urine and wound Cx growing Acinetobacter - Based on discussion with ID, will continue Vancomycin. Discontinue Cefepime and start Unasyn as well as Tobramycin pharmacy consult. Full code. Start heparin SQ. Problem Qualifiers (1) Pressure ulcer: Qualified Code: L89.94 - Pressure ulcer, stage 4, unspecified location Yazmin Shelton DO December 27, 2016 15:57
--- NOTE | 2016-12-27 17:04 | PD.CAR.PN ---
CVT Progress Note Subjective/Hospital Course: 56-year-old male underwent left below-knee amputation in another hospital several months ago. Left below-knee amputation stump is completely gangrenous and area of dry gangrene extends from the tip of the stump all the way up to the knee In addition patient has osteomyelitic changes in the greater trochanter in the pelvic area or originating from a huge sacral decubitus ulcer which is involved in massive amount of wet gangrene Patient refuses above-knee amputation and when I stated that the debridement of the decubitus ulcer might involved hip disarticulation eventually patient abstained from that as well. I carefully explained to the patient several times that in absence of surgery he 'll develop systemic sepsis, point the renal failure and , yet he still refuses surgery At this point and nothing to offer to the patient as far as the care is concerned If patient changes his mind please let me know and I will attend the patient Thanks Ivan Objective: Vital Signs Date Time Temp Pulse Resp B/P Pulse Ox O2 Delivery O2 Flow Rate FiO2 12/27/16 16:00 98.3 82 16 90/55 98 12/27/16 12:00 97.4 87 20 102/56 98 12/27/16 08:20 Room Air 12/27/16 08:00 98.8 81 20 104/61 97 12/27/16 04:00 98.7 79 20 91/53 96 12/27/16 02:30 86/48 12/27/16 00:00 94/50 12/26/16 20:00 98.1 79 24 90/59 100 12/26/16 20:00 Room Air Labs: Laboratory Tests Test 12/27/16 05:09 White Blood Count 11.7 TH/MM3 (4.0-11.0) Red Blood Count 3.62 MIL/MM3 (4.50-5.90) Hemoglobin 7.8 GM/DL (13.0-17.0) Hematocrit 25.7 % (39.0-51.0) Mean Corpuscular Volume 71.0 FL (80.0-100.0) Mean Corpuscular Hemoglobin 21.6 PG (27.0-34.0) Mean Corpuscular Hemoglobin 30.4 % Concent (32.0-36.0) Red Cell Distribution Width 18.4 % (11.6-17.2) Platelet Count 433 TH/MM3 (150-450) Mean Platelet Volume 6.9 FL (7.0-11.0) Neutrophils (%) (Auto) 74.2 % (16.0-70.0) Lymphocytes (%) (Auto) 16.1 % (9.0-44.0) Monocytes (%) (Auto) 7.8 % (0.0-8.0) Eosinophils (%) (Auto) 1.2 % (0.0-4.0) Basophils (%) (Auto) 0.7 % (0.0-2.0) Neutrophils # (Auto) 8.7 TH/MM3 (1.8-7.7) Lymphocytes # (Auto) 1.9 TH/MM3 (1.0-4.8) Monocytes # (Auto) 0.9 TH/MM3 (0-0.9) Eosinophils # (Auto) 0.1 TH/MM3 (0-0.4) Basophils # (Auto) 0.1 TH/MM3 (0-0.2) CBC Comment AUTO DIFF Differential Comment AUTO DIFF CONFIRMED Sodium Level 138 MEQ/L (136-145) Potassium Level 3.3 MEQ/L (3.5-5.1) Chloride Level 102 MEQ/L (98-107) Carbon Dioxide Level 28.0 MEQ/L (21.0-32.0) Anion Gap 8 MEQ/L (5-15) Blood Urea Nitrogen 5 MG/DL (7-18) Creatinine 0.59 MG/DL (0.60-1.30) Estimat Glomerular Filtration 143 ML/MIN Rate (>89) Random Glucose 73 MG/DL (74-106) Calcium Level 7.9 MG/DL (8.5-10.1) Result Diagram: 12/27/16 0509 12/27/16 0509 Sen Robertson MD December 27, 2016 17:04
[2016-12-27] MEDS ORDERED: Tobramycin Consult Pharmacy 1 EA OTHER SCH (17:45)
[2016-12-27] MEDS: AMPICILLIN-SULBACTAM INJ 3 GM in SODIUM CHLORIDE 0.9% INJ 100 ML IV SCH ×2 (18:28→23:58)
[2016-12-27] MEDS ORDERED: TOBRAMYCIN INJ 400 MG in SODIUM CHLORIDE 0.9% INJ 100 ML IV ONE (20:00)
[2016-12-28] VITALS: BP 98/58; PULSE 68; RESP 18; TEMP 98.3; O2SAT 93
[2016-12-28] MEDS: SODIUM CHLOR 0.9% 1000 ML INJ 1,000 ML IV SCH ×3 (00:02→20:50)
[2016-12-28] MEDS: ACETAMINOPHEN/HYDROcodone 325 MG/5 MG TAB PO PRN ×3 (00:05→20:51)
[2016-12-28 04:00] VITALS: BP 96/62; PULSE 70; RESP 18; TEMP 98.7; O2SAT 94
[2016-12-28] MEDS: AMPICILLIN-SULBACTAM INJ 3 GM in SODIUM CHLORIDE 0.9% INJ 100 ML IV SCH ×4 (05:27→23:59)
[2016-12-28 08:00] VITALS: BP 104/59; PULSE 90; RESP 20; TEMP 98.6; O2SAT 96
[2016-12-28] MEDS: SODIUM CHLORIDE 0.9% FLUSH 10 ML FLUSH IV FLUSH SCH ×2 (09:00→20:51)
[2016-12-28] MEDS: AMITIZA 24 MG PO SCH (09:00)
[2016-12-28] MEDS: BACLOFEN 20 MG TAB PO SCH ×4 (09:11→20:51)
[2016-12-28] MEDS: FINASTERIDE 5 MG TAB PO SCH (09:11)
[2016-12-28] MEDS: HEPARIN SODIUM - SQ 10,000 UNITS/ML VIAL SQ SCH ×2 (09:12→20:53)
[2016-12-28] MEDS: GABAPENTIN 300 MG CAP PO SCH ×4 (09:15→20:51)
--- NOTE | 2016-12-28 11:09 | PD.ID.CON ---
History of Present Illness Service ID Consult Requested By Dr Shelton Reason for Consult pelvic osteo Primary Care Physician Dustin Coleman Diagnoses: History of Present Illness DUPLICATE DOCUMENT PLEASE SEE ANOTHER CONSULTATION REPORT Past Family Social History Allergies: Coded Allergies: Levaquin (Verified Allergy, Severe, 12/25/16) *MDRO Multi-Drug Resistant Organism (Verified Allergy, Unknown, 12/28/16) MDR-Acinetobacter baumannii Urine 04/20/16 & 12/25/16 MDR-Acinetobacter baumannii (buttock)-12/25/16 Septra (Verified Allergy, Unknown, 12/25/16) Past Medical History T1 Fracture, Paraplegia, Neurogenic Bowel/Bladder, PVD, Depression, Tobacco Abuse and Left BKA Past Surgical History Tonsillectomy Active Ordered Medications Medications where reviewed in EMR Antibiotics Include: Unasyn vanco tobra Family History Reviewed. No h/o DM or CAD Social History Negative for alcohol. Positive for tobacco. Positive for Marijuana. Physical Exam Vital Signs Vital Signs Date Time Temp Pulse Resp B/P Pulse Ox O2 Delivery O2 Flow Rate FiO2 12/28/16 04:00 98.7 70 18 96/62 94 12/28/16 00:00 98.3 68 18 98/58 93 12/27/16 20:00 98.4 84 20 92/60 97 12/27/16 16:00 98.3 82 16 90/55 98 12/27/16 12:00 97.4 87 20 102/56 98 Laboratory Laboratory Tests Test 12/28/16 06:15 Tobramycin Level Trough 2.5 Date/Time Procedure Status Source Growth 12/25/16 21:15 Urine Culture - Preliminary Resulted Urine Clean Catch Acinetobacter Baumannii/Haemol 12/25/16 20:50 Gram Stain - Final Resulted Wound Buttock 12/25/16 20:50 Wound Culture - Preliminary Resulted Acinetobacter Baumannii/Haemol Group D Enterococcus 12/25/16 20:50 Aerobic Blood Culture - Preliminary Resulted Blood Peripheral NO GROWTH IN 2 DAYS 12/25/16 20:50 Anaerobic Blood Culture - Preliminary Resulted Blood Peripheral NO GROWTH IN 2 DAYS Result Diagram: 12/27/16 0509 12/27/16 0509 Imaging Last Impressions Pelvis MRI 12/27/16 0000 Signed Impressions: Service Date/Time: Tuesday, December 27, 2016 10:25 - CONCLUSION: 1. Abnormal bone marrow edema in the left proximal femur at the trochanteric level as well as the left ischium and left inferior pubic ramus suspicious for osteomyelitis. 2. Diffuse inflammatory changes in the soft tissues adjacent to the trochanteric regions bilaterally, left greater than right. Patient has a history of bilateral decubitus ulcers. Isaac Greco MD Chest X-Ray 12/25/162039 Signed Impressions: Service Date/Time: Sunday, December 25, 2016 21:00 - CONCLUSION: 1. No acute cardiopulmonary disease. 2. Degenerative changes and scoliosis of the thoracic spine. Hema Villalobos MD Pelvis CT 12/25/16 0000 Signed Impressions: Service Date/Time: Sunday, December 25, 2016 21:50 - CONCLUSION: Multiple decubitus ulcers which overlie the bilateral greater trochanters, left ischium and sacrum/coccyx with associated subcutaneous and muscular infiltration which is most significant overlying the left greater trochanter. Underlying osteomyelitis is difficult to rule out on the basis of this examination. Bone scan or MRI with contrast would be more sensitive for osteomyelitis, if clinically indicated. MD Maribel Conti Alexandra A. MD December 28, 2016 11:09 osteomyelitis is difficult to rule out on the basis of this examination. Bone scan or MRI with contrast would be more sensitive for osteomyelitis, if clinically indicated. MD Maribel Conti Alexandra A. MD December 28, 2016 11:09
[2016-12-28] MEDS ORDERED: PHARMACY ORDERED LAB ONE (11:45)
[2016-12-28 12:00] VITALS: BP 98/59; PULSE 67; RESP 22; TEMP 97.3; O2SAT 98
--- NOTE | 2016-12-28 14:04 | PD.ID.CON ---
History of Present Illness Service ID Consult Requested By Dr Shelton Reason for Consult pelvic osteo Primary Care Physician Dustin Coleman Diagnoses: History of Present Illness 56 yo paraplegic male with chronic decubitus ulcers and BKA presented with long standing sacral/buttocks ulcers x 8 yrs He is a poor historian and not very coopertive Per nursing staff, refuses turns He apparently sees a wound care provider in [place] , but could not recall his last name He also presented with dry gangrene of L LE stupm, was seen by Dr Robertson and offeredn DALILA but he reused it CT and MRI Abnormal were suspicious for osteomyelitis of left ischium and left inferior pubic ramus . 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 Social History + Tobacco; 1ppd No ETOH. No IVDU + MJ. Physical Exam Vital Signs Vital Signs Date Time Temp Pulse Resp B/P Pulse Ox O2 Delivery O2 Flow Rate FiO2 12/28/16 08:00 Room Air 12/28/16 04:00 98.7 70 18 96/62 94 12/28/16 00:00 98.3 68 18 98/58 93 12/27/16 20:00 98.4 84 20 92/60 97 12/27/16 16:00 98.3 82 16 90/55 98 Physical Exam CONSTITUTIONAL/GENERAL: This is an thin poorly nourished patient, in no apparent distress. TUBES/LINES/DRAINS: SKIN: No jaundice, rashes, Stage IV decubitus ulcers sacrum, L ischial and L greater throchangteric area He has 100% roth - black necrotic foul smelling eschar on L ischial with rough bone in the bed sacral wound with necrotic bed, tunneling to the R , bone palpable L hip wound with yellow eschar HEAD: Atraumatic. Normocephalic. EYES: Pupils equal and round and reactive. Extraocular motions intact. No scleral icterus. No injection or drainage. Fundi not examined. ENT: Hearing grossly normal. Nose without bleeding or purulent drainage. Oral mucosae without visible erythema, exudates, masses, or lesions. Poor dentition NECK: Trachea midline. Supple, nontender. No palpable thyroid enlargement or nodularity. CARDIOVASCULAR: Regular rate and rhythm without murmurs, gallops, or rubs. No JVD. RESPIRATORY/CHEST: Symmetric, unlabored respirations. Clear to auscultation. Breath sounds equal bilaterally. No wheezes, rales, or rhonchi. GASTROINTESTINAL: Abdomen soft, non-tender, nondistended. No hepato-splenomegaly , or palpable masses. No guarding. Bowel sounds present. GENITOURINARY: Without palpable bladder distension. Bernal catheter in place with light yellow urine; bernal was changed 2 days ago - per pt MUSCULOSKELETAL: Extremities without clubbing, cyanosis Muscle bulk loss cw pt's long h/o paraplegia R foot wo palpable pedal plses + loss of skin appenadges + stigmata of poor perfusion LLE sp BKA with dry gangreneous changes exending to the knee Knee cap also having a black eschar No e/o infx on LBKA stump LYMPHATICS: No palpable cervical or supraclavicular adenopathy. NEUROLOGICAL: Awake and alert. Motor and sensory grossly within normal limits BUE. Plegic BLE Follows commands. Normal speech. PSYCHIATRIC: No obvious anxiety/depression. no apparent hallucinations or other psychotic thought process. Laboratory Laboratory Tests Test 12/28/16 06:15 Tobramycin Level Trough 2.5 Date/Time Procedure Status Source Growth 12/25/16 21:15 Urine Culture - Preliminary Resulted Urine Clean Catch Acinetobacter Baumannii/Haemol 12/25/16 20:50 Gram Stain - Final Resulted Wound Buttock 12/25/16 20:50 Wound Culture - Preliminary Resulted Acinetobacter Baumannii/Haemol Group D Enterococcus 12/25/16 20:50 Aerobic Blood Culture - Preliminary Resulted Blood Peripheral NO GROWTH IN 3 DAYS 12/25/16 20:50 Anaerobic Blood Culture - Preliminary Resulted Blood Peripheral NO GROWTH IN 3 DAYS Result Diagram: 12/27/16 0509 12/27/16 0509 Imaging Last Impressions Pelvis MRI 12/27/16 0000 Signed Impressions: Service Date/Time: Tuesday, December 27, 2016 10:25 - CONCLUSION: 1. Abnormal bone marrow edema in the left proximal femur at the trochanteric level as well as the left ischium and left inferior pubic ramus suspicious for osteomyelitis. 2. Diffuse inflammatory changes in the soft tissues adjacent to the trochanteric regions bilaterally, left greater than right. Patient has a history of bilateral decubitus ulcers. Isaac Greco MD Chest X-Ray 12/25/[id number] Signed Impressions: Service Date/Time: Sunday, December 25, 2016 21:00 - CONCLUSION: 1. No acute cardiopulmonary disease. 2. Degenerative changes and scoliosis of the thoracic spine. Hema Villalobos MD Pelvis CT 12/25/16 0000 Signed Impressions: Service Date/Time: Sunday, December 25, 2016 21:50 - CONCLUSION: Multiple decubitus ulcers which overlie the bilateral greater trochanters, left ischium and sacrum/coccyx with associated subcutaneous and muscular infiltration which is most significant overlying the left greater trochanter. Underlying osteomyelitis is difficult to rule out on the basis of this examination. Bone scan or MRI with contrast would be more sensitive for osteomyelitis, if clinically indicated. 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 - growing MDRO Acinetobacter S unasyn, Enterococcus - previously Ent fealis L LE BKA - dry gangrene UTI, MDRO Acinetobacter - I Unasyn - S Meropeem Non compliance: pt refuses colostomy, AKA - this is a very advanced situation and treatment of his pelvic osteomyelitis will involve surgery, divertive colostomy and adjunctive abx - without surgical treatment colostomy followed by wound care the treatment failure will be closeto 100% - abx alone use in this case will obly contribute to further resistance and also side effects - pt at this point is not interested in colostomy and insists he needs to go to [place] - pt was informed that w/o the above treatment his pelvic osteo will cont to get worse and he can develop sepsis as a result of infection - he shows understanding but still refuses teratment - nurse was present in the room during my conversation with emelina pt REC's: - suggest palliative care involvement to help pt to define his goals of treatment - prabhjot Lou - jah jalloh - Discussed Condition With Dr Cat Robertson RN pt Tahmina López MD December 28, 2016 14:04
[2016-12-28] MEDS: VANCOMYCIN INJ 1,250 MG in SODIUM CHLOR 0.9% 250 ML INJ 250 ML IV SCH ×3 (15:14→23:59)
[2016-12-28 16:00] VITALS: BP 113/73; PULSE 97; RESP 22; TEMP 97.7; O2SAT 98
--- NOTE | 2016-12-28 16:54 | PD.CONS ---
Consult Service Palliative Care Consult Requested By Dr. Shelton . Primary Care Physician Dustin Coleman . Reason for Consultation a. To assist with evaluation and management of symptoms including: Pain, Nausea b. To assist medical decision maker(s) with: better understanding of current medical conditions; weighing benefits/burdens of medical treatment options; making medical treatment decisions. . HPI History of Present Illness 56-year-old male, with a past history of paraplegia since 2003, stage IV decubiti, recurrent UTI, anemia, and recent left BKA, presented to the emergency department because of nausea, worsened fatigue, and wound drainage. He had aches and pains in his back and abdomen, but did not notice any fever. He had been on Cipro daily for the past few years "to prevent urine infection." In the emergency department, findings included: * Alert * Gangrenous appearing left BKA stump, stage IV complicated sacral wounds * Temp 98.5, pulse 108, respirations 20, blood pressure 103/55, oxygen saturation 96% on room air * White count 15.6, hemoglobin 10.0 * Sodium 1:30, creatinine 1.02, albumin 2.3 * Potassium 2.5 * Urinalysis consistent with infection * Chest x-ray with no acute disease * Pelvis CT scan revealed the multiple decubiti, and a recommended MRI or bone scan. The patient was admitted for further workup and treatment. A follow-up pelvis MRI was consistent with osteomyelitis in multiple locations. The patient was seen in consultation by general surgery, vascular surgery, and ID; significant surgical intervention would be needed if the patient wanted to aggressively treat the current problems, including possible left AKA amputation, diverting colostomy, wound debridement, possible disarticulation of the hips, prolonged courses of antibiotics, etc. The patient was refusing surgery of any kind, stating that he wanted to go home. Palliative Care was consulted to assist with symptom management, and to enter into discussions with the patient regarding his current illnesses and problems, the prognosis, and the benefits and burdens of the various treatment options. . Function/Cognitive Trajectory The patient is paraplegic, but was getting around at his home and in his workshop using a wheelchair until the past few days. . Review of Systems Constitutional: COMPLAINS OF: Weight loss Endocrine: DENIES: Polyuria Eyes: DENIES: Eye inflammation Ears, nose, mouth, throat: DENIES: Epistaxis Respiratory: DENIES: Cough, Hemoptysis, Shortness of breath Cardiovascular: DENIES: Chest pain Gastrointestinal: COMPLAINS OF: Abdominal pain, DENIES: Bloody stools, Constipation, Diarrhea, Nausea, Vomiting Genitourinary: DENIES: Hematuria Musculoskeletal: COMPLAINS OF: Back pain Integumentary: DENIES: Rash Hematologic/Lymphatics: DENIES: Lymphadenopathy Immunologic/Allergic: DENIES: Urticaria Neurologic: DENIES: Headache, Seizures Psychiatric: DENIES: Confusion, Hallucinations Past Family Social History Coded Allergies: Levaquin (Verified Allergy, Severe, 12/25/16) *MDRO Multi-Drug Resistant Organism (Verified Allergy, Unknown, 12/28/16) MDR-Acinetobacter baumannii Urine 04/20/16 & 12/25/16 MDR-Acinetobacter baumannii (buttock)-12/25/16 Septra (Verified Allergy, Unknown, 12/25/16) Past Medical History * Sepsis, left stump gangrene, complicated wounds * Osteomyelitis * Paraplegia, with complications including recurrent UTI, skin wounds, neurogenic bladder * PVD, recent left BKA * Neurogenic bladder * Malnutrition * Anemia * History of sleep apnea * History of depression . Past Surgical History * Tonsillectomy * Left herniorrhaphy * Urethrotomy and dilation of urethra * Cervical fusion * Left BKA November 2016 * Left tib/fib fracture 2009 . Reported Medications He takes Lortab 1 or 2 per day at home . Current Medications Medications (Trade) Dose Ordered Sig/Vivien Route Start Time Stop Time Status Last Admin Pharmacy Profile Note 0 ml @ 0 mls/hr UNSCH OTHER 12/25/16 23:00 (NS 1000 ml Inj) 1,000 ml @ 100 mls/hr Q10H IV 12/25/16 22:50 12/28/16 10:50 (NS Flush) 2 ml UNSCH PRN IV FLUSH 12/25/16 23:00 (NS Flush) 2 ml BID IV FLUSH 12/26/16 09:00 12/26/16 20:38 (Zofran Inj) 4 mg Q6H PRN IVP 12/25/16 23:00 (Dulcolax Supp) 10 mg DAILY PRN RECTAL 12/25/16 23:00 (Tylenol) 650 mg Q6H PRN PO 12/25/16 23:00 ([place] 5-325 Mg) 1 tab Q4H PRN PO 12/25/16 23:00 12/28/16 09:29 (Dilaudid Pf Inj) 1 mg Q3H PRN IV 12/25/16 23:00 (Lioresal) 20 mg QID PO 12/26/16 09:00 12/28/16 15:14 (Proscar) 5 mg DAILY PO 12/26/16 09:00 12/28/16 09:11 (Neurontin) 600 mg QID PO 12/26/16 09:00 12/27/16 17:11 Patient Own Medication PT OWN MED: AMITIZA... DAILY PO 12/26/16 09:00 Vancomycin HCl 1250 mg/Sodium Chloride 262.5 ml @ 250 mls/hr Q12H IV 12/26/16 12:00 12/27/16 23:58 (Unasyn Inj/NS Inj) 100 ml @ 200 mls/hr Q6H IV 12/27/16 18:00 12/28/16 15:24 (Heparin Inj) 5,000 units Q12HR SQ 12/28/16 09:00 12/28/16 09:12 Family History The patient's father at age 81 of "old age," and his mother at age 66 of unknown causes. No h/o DM or CAD. . Substance Use Tobacco: 1.5 pack per day for many years Alcohol: "Heavy drinking in the past" Prescription med abuse: None Illicits: Marijuana on a fairly regular basis . Psychosocial History Born and raised in [place], [place], moved to [place] about 25 years ago. He has never been and has no children. He lives currently with a roommate who was an ex-girlfriend, and her mother also lives in the home. He worked in [employer], and now does some model building. . Spiritual/Cultural Factors The patient reports that he was "Uatsdin when I was young," but he wants no curing press maintainer or other clergy visits. "They can't help." . Living Will: Never completed Health Care Surrogate: Never completed Durable Power of Cut Off Machine Unloader: Never completed Health Care Surrogate(s): At the time of this consultation, the patient elects his sister Kailee Poole of [place] as his healthcare surrogate. . Today's verbally stated goals: The patient is adamant that he wants to focus on comfort, that he does not want to "start down that road of surgery and antibiotics," and he acknowledges that will likely come within weeks. "Just keep me from suffering." It is important to him that he be able to return home, with some help, and with hospice services for end-of-life care. He requests DNR status. . Ethical and Legal Issues There are no ethical issues that would impact his care or decision-making at this time. The patient has capacity for decision-making at this time, and has a clear understanding of the ramifications of the decisions he is making. He has selected his sister Kailee as healthcare surrogate. . Physical Exam Vital Signs Date Time Temp Pulse Resp B/P Pulse Ox O2 Delivery O2 Flow Rate FiO2 12/28/16 12:00 97.3 67 22 98/59 98 12/28/16 08:00 Room Air 12/28/16 08:00 98.6 90 20 104/59 96 12/28/16 04:00 98.7 70 18 96/62 94 12/28/16 00:00 98.3 68 18 98/58 93 12/27/16 20:00 98.4 84 20 92/60 97 12/27/16 12/28/16 19:00 07:00 Intake Total 1501 ml 360 ml Output Total 4925 ml 2050 ml Balance -3424 ml -1690 ml Intake Oral 720 ml 360 ml IV Total 781 ml Output Urine Total 4925 ml 2050 ml # Bowel Movements 0 0 Exam CONSTITUTIONAL/GENERAL: This is an adequately nourished patient, quite cantankerous - angry at times, in no apparent distress. TUBES/LINES/DRAINS: Splint and dressings on left leg/stump, peripheral IV SKIN: No jaundice, rashes, or lesions. No wounds seen anteriorly, but hip/ sacral/left leg dressings not removed. Skin temperature appropriate. Not diaphoretic. HEAD: Atraumatic. Normocephalic. EYES: Pupils equal and round and reactive. Extraocular motions intact. No scleral icterus. No injection or drainage. Fundi not examined. ENT: Hearing grossly normal. Nose without bleeding or purulent drainage. Throat without visible erythema, exudates, masses, or lesions. NECK: Trachea midline. Supple, nontender. No palpable thyroid enlargement or nodularity. CARDIOVASCULAR: Regular rate and rhythm without murmurs, gallops, or rubs. No JVD. RESPIRATORY/CHEST: Symmetric, unlabored respirations. Clear to auscultation. Breath sounds equal bilaterally. No wheezes, rales, or rhonchi. GASTROINTESTINAL: Abdomen soft, non-tender, nondistended. No hepato-splenomegaly , or palpable masses. No guarding. Bowel sounds present. GENITOURINARY: Without palpable bladder distension. Blood catheter in place. MUSCULOSKELETAL: dressing on L BKA stump LYMPHATICS: No palpable cervical or supraclavicular adenopathy. NEUROLOGICAL: Awake and alert. Follows commands. Cognitively sharp. Paraplegia. PSYCHIATRIC: No obvious anxiety/depression. no apparent hallucinations or other psychotic thought process. . Diagnostic Tests Laboratory Laboratory Tests Test 12/25/16 12/25/16 12/25/16 12/26/16 20:50 21:15 23:45 08:04 Sodium Level 130 MEQ/L 137 MEQ/L (136-145) (136-145) Potassium Level 2.5 MEQ/L 3.4 MEQ/L (3.5-5.1) (3.5-5.1) Chloride Level 87 MEQ/L 100 MEQ/L (98-107) (98-107) Carbon Dioxide Level 31.5 MEQ/L 29.6 MEQ/L (21.0-32.0) (21.0-32.0) Anion Gap 12 MEQ/L (5-15) 7 MEQ/L (5-15) Blood Urea Nitrogen 8 MG/DL (7-18) 6 MG/DL (7-18) Creatinine 1.02 MG/DL 0.71 MG/DL (0.60-1.30) (0.60-1.30) Estimat Glomerular Filtration 76 ML/MIN (>89) 115 ML/MIN Rate (>89) Random Glucose 117 MG/DL 87 MG/DL (74-106) (74-106) Lactic Acid Level 3.2 mmol/L 1.2 mmol/L (0.4-2.0) (0.4-2.0) Calcium Level 8.6 MG/DL 7.9 MG/DL (8.5-10.1) (8.5-10.1) Total Bilirubin 0.4 MG/DL 0.4 MG/DL (0.2-1.0) (0.2-1.0) Aspartate Amino Transf 42 U/L (15-37) 29 U/L (15-37) (AST/SGOT) Alanine Aminotransferase 27 U/L (12-78) 19 U/L (12-78) (ALT/SGPT) Alkaline Phosphatase 123 U/L 97 U/L (45-117) (45-117) Troponin I LESS THAN 0.02 NG/ML (0.02-0.05) Total Protein 8.9 GM/DL 6.6 GM/DL (6.4-8.2) (6.4-8.2) Albumin 2.3 GM/DL 1.6 GM/DL (3.4-5.0) (3.4-5.0) White Blood Count 15.6 TH/MM3 12.0 TH/MM3 (4.0-11.0) (4.0-11.0) Red Blood Count 4.64 MIL/MM3 3.69 MIL/MM3 (4.50-5.90) (4.50-5.90) Hemoglobin 10.0 GM/DL 8.1 GM/DL (13.0-17.0) (13.0-17.0) Hematocrit 32.7 % 25.8 % (39.0-51.0) (39.0-51.0) Mean Corpuscular Volume 70.5 FL 70.0 FL (80.0-100.0) (80.0-100.0) Mean Corpuscular Hemoglobin 21.6 PG 22.0 PG (27.0-34.0) (27.0-34.0) Mean Corpuscular Hemoglobin 30.6 % 31.4 % Concent (32.0-36.0) (32.0-36.0) Red Cell Distribution Width 18.8 % 18.5 % (11.6-17.2) (11.6-17.2) Platelet Count 527 TH/MM3 456 TH/MM3 (150-450) (150-450) Mean Platelet Volume 6.8 FL 6.9 FL (7.0-11.0) (7.0-11.0) Neutrophils (%) (Auto) 84.7 % 77.3 % (16.0-70.0) (16.0-70.0) Lymphocytes (%) (Auto) 7.8 % 12.3 % (9.0-44.0) (9.0-44.0) Monocytes (%) (Auto) 6.7 % (0.0-8.0) 8.9 % (0.0-8.0) Eosinophils (%) (Auto) 0.4 % (0.0-4.0) 0.9 % (0.0-4.0) Basophils (%) (Auto) 0.4 % (0.0-2.0) 0.6 % (0.0-2.0) Neutrophils # (Auto) 13.2 TH/MM3 9.3 TH/MM3 (1.8-7.7) (1.8-7.7) Lymphocytes # (Auto) 1.2 TH/MM3 1.5 TH/MM3 (1.0-4.8) (1.0-4.8) Monocytes # (Auto) 1.0 TH/MM3 1.1 TH/MM3 (0-0.9) (0-0.9) Eosinophils # (Auto) 0.1 TH/MM3 0.1 TH/MM3 (0-0.4) (0-0.4) Basophils # (Auto) 0.1 TH/MM3 0.1 TH/MM3 (0-0.2) (0-0.2) CBC Comment AUTO DIFF AUTO DIFF Differential Comment AUTO DIFF AUTO DIFF CONFIRMED CONFIRMED Platelet Estimate HIGH (NORMAL) HIGH (NORMAL) Platelet Morphology Comment NORMAL NORMAL (NORMAL) (NORMAL) Urine Color LIGHT-YELLOW (YELLW/STRAW) Urine Turbidity CLEAR (CLEAR) Urine pH 7.0 (5.0-8.5) Urine Specific [place] 1.005 (1.002-1.035) Urine Protein NEG mg/dL (NEG-TRACE) Urine Glucose (UA) NEG mg/dL (NEG) Urine Ketones NEG mg/dL (NEG) Urine Occult Blood SMALL (NEG) Urine Nitrite NEG (NEG) Urine Bilirubin NEG (NEG) Urine Urobilinogen LESS THAN 2.0 MG/DL (LESS THAN 2.0) Urine Leukocyte Esterase LARGE (NEG) Urine RBC 15 /hpf (0-3) Urine WBC 46 /hpf (0-5) Urine Squamous Epithelial <1 /hpf (0-5) Cells Urine Hyaline Casts 1 /lpf (RARE) Urine Mucus FEW /lpf (OCC) Urine Yeast (Budding) (NONE) Microscopic Urinalysis Comment CULTURE INDICATED Test 12/27/16 12/28/16 05:09 06:15 White Blood Count 11.7 TH/MM3 (4.0-11.0) Red Blood Count 3.62 MIL/MM3 (4.50-5.90) Hemoglobin 7.8 GM/DL (13.0-17.0) Hematocrit 25.7 % (39.0-51.0) Mean Corpuscular Volume 71.0 FL (80.0-100.0) Mean Corpuscular Hemoglobin 21.6 PG (27.0-34.0) Mean Corpuscular Hemoglobin 30.4 % Concent (32.0-36.0) Red Cell Distribution Width 18.4 % (11.6-17.2) Platelet Count 433 TH/MM3 (150-450) Mean Platelet Volume 6.9 FL (7.0-11.0) Neutrophils (%) (Auto) 74.2 % (16.0-70.0) Lymphocytes (%) (Auto) 16.1 % (9.0-44.0) Monocytes (%) (Auto) 7.8 % (0.0-8.0) Eosinophils (%) (Auto) 1.2 % (0.0-4.0) Basophils (%) (Auto) 0.7 % (0.0-2.0) Neutrophils # (Auto) 8.7 TH/MM3 (1.8-7.7) Lymphocytes # (Auto) 1.9 TH/MM3 (1.0-4.8) Monocytes # (Auto) 0.9 TH/MM3 (0-0.9) Eosinophils # (Auto) 0.1 TH/MM3 (0-0.4) Basophils # (Auto) 0.1 TH/MM3 (0-0.2) CBC Comment AUTO DIFF Differential Comment AUTO DIFF CONFIRMED Sodium Level 138 MEQ/L (136-145) Potassium Level 3.3 MEQ/L (3.5-5.1) Chloride Level 102 MEQ/L (98-107) Carbon Dioxide Level 28.0 MEQ/L (21.0-32.0) Anion Gap 8 MEQ/L (5-15) Blood Urea Nitrogen 5 MG/DL (7-18) Creatinine 0.59 MG/DL (0.60-1.30) Estimat Glomerular Filtration 143 ML/MIN Rate (>89) Random Glucose 73 MG/DL (74-106) Calcium Level 7.9 MG/DL (8.5-10.1) Tobramycin Level Trough 2.5 mcg/mL (0.5-2.0) Result Diagram: 12/27/16 0509 12/27/16 0509 Microbiology Microbiology Date/Time Procedure Status Source Growth 12/25/16 20:45 Aerobic Blood Culture - Preliminary Resulted Blood Peripheral NO GROWTH IN 3 DAYS 12/25/16 20:45 Anaerobic Blood Culture - Preliminary Resulted Blood Peripheral NO GROWTH IN 3 DAYS 12/25/16 20:50 Aerobic Blood Culture - Preliminary Resulted Blood Peripheral NO GROWTH IN 3 DAYS 12/25/16 20:50 Anaerobic Blood Culture - Preliminary Resulted Blood Peripheral NO GROWTH IN 3 DAYS 12/25/16 20:50 Gram Stain - Final Resulted Wound Buttock 12/25/16 20:50 Wound Culture - Preliminary Resulted Acinetobacter Baumannii/Haemol Group D Enterococcus 12/25/16 21:15 Urine Culture - Preliminary Resulted Urine Clean Catch Acinetobacter Baumannii/Haemol Imaging Last Impressions Pelvis MRI 12/27/16 0000 Signed Impressions: Service Date/Time: Tuesday, December 27, 2016 10:25 - CONCLUSION: 1. Abnormal bone marrow edema in the left proximal femur at the trochanteric level as well as the left ischium and left inferior pubic ramus suspicious for osteomyelitis. 2. Diffuse inflammatory changes in the soft tissues adjacent to the trochanteric regions bilaterally, left greater than right. Patient has a history of bilateral decubitus ulcers. sIaac Greco MD Chest X-Ray 12/25/162039 Signed Impressions: Service Date/Time: Sunday, December 25, 2016 21:00 - CONCLUSION: 1. No acute cardiopulmonary disease. 2. Degenerative changes and scoliosis of the thoracic spine. Hema Villalobos MD Pelvis CT 12/25/16 0000 Signed Impressions: Service Date/Time: Sunday, December 25, 2016 21:50 - CONCLUSION: Multiple decubitus ulcers which overlie the bilateral greater trochanters, left ischium and sacrum/coccyx with associated subcutaneous and muscular infiltration which is most significant overlying the left greater trochanter. Underlying osteomyelitis is difficult to rule out on the basis of this examination. Bone scan or MRI with contrast would be more sensitive for osteomyelitis, if clinically indicated. Hema Villalobos MD Patient/Family Conference Present at Family Conference: The patient . Family Conference Time (mins): 33 Family Conference Location: Bedside Issues Discussed: * Palliative care role, purpose, approach * Hospice care role, purpose, approach * Additional medical, psychosocial, and spiritual history * Patients general health, functional status, and cognitive changes in the months leading up to the current hospitalization * Patient/family understanding of the current medical problems * Patient/family understanding of prognosis * Patients goals of care as best understood from advance directives and/or conversations and/or values * Current medical treatment options and benefits/burdens of those options * Likely scenarios comparing ongoing aggressive care with a transition to comfort measures only * Questions answered to the best of my ability * Palliative care contact information provided The patient is quite determined to not have any surgery or invasive procedures, to initiate the DNR status now, to get home as soon as he can with hospice help , and to seek comfort measures only and a peaceful . . Assessment and Plan Disease Oriented Problem List: (1) sepsis, left BKA stump gangrene, complicated wounds (2) osteomyelitis, hips/pelvis (3) malnutrition (4) paraplegic, with multiple complications in recent years (5) history of depression (6) PVD, recent left BKA (7) neurogenic bladder (8) anemia Symptom Scale: (1) anxiety 0-10 Scale: 2 (2) nausea 0-10 Scale: 0 (3) pain 0-10 Scale: 2 Pertinent Non-Medical Issues Psychosocial: Paraplegic since 2003, lives in wheelchair to bed, never , no children. Former automotive painting work Spiritual: The patient reports that he was "U[place] when I was young," but he wants no curing press maintainer or other clergy visits. "They can't help." Legal: The patient has capacity for decision-making at this time, and has a clear understanding of the ramifications of the decisions he is making. He has selected his sister Kailee as healthcare surrogate. Ethical issues impacting care: None . Important Contacts Sister in [place], [place] care [place] [facility] [phone] Brother Danny Curtis, in [place], . Prognosis The patient's prognosis is poor. He has underlying malnutrition, anemia, paraplegia, and now has osteomyelitis, infected wounds, gangrenous stump. He would likely need AKA amputation, diverting colostomy, wound debridements, possible hip disarticulation, prolonged antibiotic courses, etc., requiring a lengthy hospitalization with limited chance of success to the point of meaningful life and existence, and he therefore wants to transition to comfort care, hospice services. He likely has just weeks to live. . Code Status: No Code Plan * DO NOT RESUSCITATE * DECISION-MAKING: The patient has capacity for decision-making at this time, and has a clear understanding of the ramifications of the decisions he is making. He has selected his sister Kailee as healthcare surrogate. * GOALS: The patient is adamant that he wants to focus on comfort, that he does not want to "start down that road of surgery and antibiotics," and he acknowledges that will likely come within weeks. "Just keep me from suffering." It is important to him that he be able to return home, with some help, and with hospice services for end-of-life care. * Hospice consult placed. * SYMPTOMS: The patient's pain is intermittent. He used Lortab at home, and is getting occasional doses here. As he transitions to hospice services, he will likely benefit from whatever opiate dosing is required to achieve satisfactory comfort levels. * Palliative Care will continue to follow the patient during this hospitalization. . Time Spent Total Floor Time (mins): 76 Face to Face Time (mins): 44 >50% Counseling/Coord of Care: Yes (d/w Dr. Shelton and w RN) Thank you for the opportunity to participate in the care of Mr. Sheehan. Attestation To help prompt me to consider important information that might be impacting today's encounter and assessment, information from prior notes written by myself or my colleagues may have been "brought forward" into today's note. My signature on this note, however, is an attestation that I personally performed the exam, history, and/or decision-making noted today, and, unless otherwise indicated, the interactions with patient, family, and staff as well as the review of records all occurred today. I also attest that the listed assessment and stated plan reflect my best clinical judgment today based on the combination of historical information, prior notes, and today's exam/ interactions. When time spent is documented, it refers only to time spent today by the signer, or if indicated, combined time spent today by collaborating physician/nurse practitioner. Katty Valles MD December 28, 2016 16:54
[2016-12-28] MEDS ORDERED: TOBRAMYCIN INJ 400 MG in SODIUM CHLORIDE 0.9% INJ 100 ML IV SCH (20:00)
[2016-12-28 20:24] VITALS: BP 92/53; PULSE 101; RESP 20; TEMP 98.7; O2SAT 98
--- NOTE | 2016-12-28 23:00 | HHI.PR ---
Subjective Remarks Follow up for left lower ext stump infection, decubitus ulcer with possible osteomyelitis. Mr. Sheehan is agitated and wants to leave AMA. He is alert, oriented x 3 and understands the gravity of his clinical condition. He has the capacity to make medical decision for himself. He denies any chest pain, SOB, fever, chill. Objective Vitals Vital Signs Date Time Temp Pulse Resp B/P Pulse Ox O2 Delivery O2 Flow Rate FiO2 12/28/16 20:24 98.7 101 20 92/53 98 12/28/16 16:00 97.7 97 22 113/73 98 12/28/16 12:00 97.3 67 22 98/59 98 12/28/16 08:00 Room Air 12/28/16 08:00 98.6 90 20 104/59 96 12/28/16 04:00 98.7 70 18 96/62 94 12/28/16 00:00 98.3 68 18 98/58 93 I/O 12/27/16 12/27/16 12/27/16 12/28/16 12/28/16 12/28/16 07:00 15:00 23:00 07:00 15:00 23:00 Intake Total 2334 ml 1501 ml 240 ml 120 ml 720 ml 600 ml Output Total 4925 ml 300 ml 1750 ml 2375 ml 800 ml Balance 2334 ml -3424 ml -60 ml -1630 ml -1655 ml -200 ml Intake Oral 720 ml 240 ml 120 ml 720 ml 600 ml IV Total 2334 ml 781 ml Output Urine Total 4925 ml 300 ml 1750 ml 2375 ml 800 ml # Bowel Movements 0 0 0 0 0 Result Diagram: 12/27/16 0509 12/27/16 0509 Objective Remarks GENERAL: Alert, NAD. SKIN: Warm and dry. HEAD: Normocephalic. EYES: No scleral icterus. No injection or drainage. NECK: Supple, trachea midline. No JVD or lymphadenopathy. CARDIOVASCULAR: Regular rate and rhythm without murmurs, gallops, or rubs. RESPIRATORY: Breath sounds equal bilaterally. No accessory muscle use. GASTROINTESTINAL: Abdomen soft, non-tender, nondistended. MUSCULOSKELETAL: No cyanosis, or edema. Left BKA, decubitus ulcer covered in dressing. BACK: Nontender without obvious deformity. No CVA tenderness. Procedures None. A/P Problem List: (1) Sepsis ICD Code: A41.9 Status: Acute (2) Gangrene of lower extremity ICD Code: I96 Status: Acute (3) Osteomyelitis ICD Code: M86.9 Status: Acute (4) Decubitus skin ulcer ICD Code: L89.90 Status: Acute (5) Pressure ulcer ICD Code: L89.90 Status: Acute (6) UTI (urinary tract infection) ICD Code: N39.0 Status: Acute (7) Lactic acidosis ICD Code: E87.2 Status: Acute (8) Hypokalemia ICD Code: E87.6 Status: Acute Assessment and Plan This is a 56 year old male with a PMH of T1 Fracture, Paraplegia, Neurogenic Bowel/Bladder, PVD, Depression, Tobacco Abuse and Left BKA who presented to the ER with complaints of worsening decubitus ulcers and worsening stump infection. Recent Left BKA at [facility] 1 month ago, now w/ worsening wound infection. On arrival, WBC 15.6. K+ 2.5. Lactate 3.2, repeat 1.2. Trop negative. UA positive for UTI. CXR with no acute findings. Pelvis MRI indicative of probable osteomyelitis. 12/28/2016: Despite multiple physician input, he refuses to undergo any surgical intervention. He wants to follow up with a wound care clinic in [place], [place]. Palliative care physician discussed with him. Hospice team was subsequently consulted. I spoke to hospice team in the evening. Patient does not clearly indicate his choice. However, per discussion with hospice team - one option may be for him to go to the care center and continue some wound care which may not include any aggressive surgical wound care. - Left BKA stump infection - Sacral decubitus - Pelvis osteomyelitis - Urinary tract infection - Patient was initially evaluated by Dr. Soto who recommended a plastic surgery consult. - Dr. Love evaluated patient again with regards to both left BKA stump infection as well as decubitus ulcer and osteomyelitis. - Patient refuses AKA and refuses the possibility of hip disarticulation during the process of decubitus ulcer debridement. - I discussed the case with Infectious disease (Dr. López). - I believe it would be a futile effort to help this patient without aggressive surgical intervention - Urine and wound Cx growing Acinetobacter - Continue Unasyn, Vancomycin. Tobramycin discontinued by ID. Full code. Heparin SQ. Discharge plan: If patient insists on no surgical intervention, likely discharge to hospice on 12/29/2016. Problem Qualifiers (1) Pressure ulcer: Qualified Code: L89.94 - Pressure ulcer, stage 4, unspecified location Yazmin Shelton DO December 28, 2016 23:00
[2016-12-29] VITALS: BP 98/53; PULSE 89; RESP 19; TEMP 99; O2SAT 99
[2016-12-29] MEDS ORDERED: diphenhydrAMINE HCL 50 MG CAP PO ONE (00:45)
[2016-12-29 04:17] VITALS: BP 108/56; PULSE 72; RESP 18; TEMP 97.6; O2SAT 100
[2016-12-29] MEDS: AMPICILLIN-SULBACTAM INJ 3 GM in SODIUM CHLORIDE 0.9% INJ 100 ML IV SCH (06:00)
[2016-12-29] MEDS: SODIUM CHLOR 0.9% 1000 ML INJ 1,000 ML IV SCH (06:50)
[2016-12-29 08:00] VITALS: BP 104/63; PULSE 81; RESP 18; TEMP 97.9; O2SAT 99
[2016-12-29] MEDS: GABAPENTIN 300 MG CAP PO SCH ×2 (08:54→13:00)
[2016-12-29] MEDS: FINASTERIDE 5 MG TAB PO SCH (08:54)
[2016-12-29] MEDS: BACLOFEN 20 MG TAB PO SCH ×2 (08:54→13:00)
[2016-12-29] MEDS: AMITIZA 24 MG PO SCH (08:55)
[2016-12-29] MEDS: HEPARIN SODIUM - SQ 10,000 UNITS/ML VIAL SQ SCH (08:55)
[2016-12-29] MEDS: SODIUM CHLORIDE 0.9% FLUSH 10 ML FLUSH IV FLUSH SCH (08:56)
--- NOTE | 2016-12-29 10:30 | HHI.PR ---
Subjective Remarks Follow up for left lower ext stump infection, decubitus ulcer with possible osteomyelitis. Patient reports no fever, chills. He wants to leave AMA. We have had multiple discussion about leaving against medical advice. I have told patient leaving against medical advice may result in loss of life. I also told him I discussed with ID today and I have placed a consult for wound care physician. Patient wants to leave AMA. Objective Vitals Vital Signs Date Time Temp Pulse Resp B/P Pulse Ox O2 Delivery O2 Flow Rate FiO2 12/29/16 04:17 97.6 72 18 108/56 100 12/29/16 00:00 99.0 89 19 98/53 99 12/28/16 21:00 Room Air 12/28/16 20:24 98.7 101 20 92/53 98 12/28/16 16:00 97.7 97 22 113/73 98 12/28/16 12:00 97.3 67 22 98/59 98 I/O 12/28/16 12/28/16 12/28/16 12/29/16 12/29/16 12/29/16 07:00 15:00 23:00 07:00 15:00 23:00 Intake Total 120 ml 720 ml 600 ml 720 ml Output Total 1750 ml 2375 ml 800 ml 800 ml 2500 ml Balance -1630 ml -1655 ml -200 ml -80 ml -2500 ml Intake Oral 120 ml 720 ml 600 ml 720 ml Output Urine Total 1750 ml 2375 ml 800 ml 800 ml 2500 ml # Bowel Movements 0 0 0 0 Result Diagram: 12/27/16 0509 12/29/16 0545 Objective Remarks Physical exam not done. Procedures None. A/P Problem List: (1) Sepsis ICD Code: A41.9 Status: Acute (2) Gangrene of lower extremity ICD Code: I96 Status: Acute (3) Osteomyelitis ICD Code: M86.9 Status: Acute (4) Decubitus skin ulcer ICD Code: L89.90 Status: Acute (5) Pressure ulcer ICD Code: L89.90 Status: Acute (6) UTI (urinary tract infection) ICD Code: N39.0 Status: Acute (7) Lactic acidosis ICD Code: E87.2 Status: Acute (8) Hypokalemia ICD Code: E87.6 Status: Acute Assessment and Plan This is a 56 year old male with a PMH of T1 Fracture, Paraplegia, Neurogenic Bowel/Bladder, PVD, Depression, Tobacco Abuse and Left BKA who presented to the ER with complaints of worsening decubitus ulcers and worsening stump infection. Recent Left BKA at [facility] 1 month ago, now w/ worsening wound infection. On arrival, WBC 15.6. K+ 2.5. Lactate 3.2, repeat 1.2. Trop negative. UA positive for UTI. CXR with no acute findings. Pelvis MRI indicative of probable osteomyelitis. 12/28/2016: Despite multiple physician input, he refuses to undergo any surgical intervention. He wants to follow up with a wound care clinic in [place], [place]. Palliative care physician discussed with him. Hospice team was subsequently consulted. I spoke to hospice team in the evening. Patient does not clearly indicate his choice. However, per discussion with hospice team - one option may be for him to go to the care center and continue some wound care which may not include any aggressive surgical wound care. 12/29/2016: Patient wants to leave AMA. I informed him that we are waiting to have one of the wound care physician evaluate him. If wound care physician cannot evaluate or if Plastic surgery consult needed, we will consider transferring him to a tertiary care center. Patient listened and understood. However, he still decided to leave AMA. RN present in the room and will provide paperwork for AMA discharge. - Left BKA stump infection - Sacral decubitus - Pelvis osteomyelitis - Urinary tract infection - Patient was initially evaluated by Dr. Soto who recommended a plastic surgery consult. - Dr. Love evaluated patient again with regards to both left BKA stump infection as well as decubitus ulcer and osteomyelitis. - Patient refuses AKA and refuses the possibility of hip disarticulation during the process of decubitus ulcer debridement. - I discussed the case with Infectious disease (Dr. López). - I believe it would be a futile effort to help this patient without aggressive surgical intervention - Urine and wound Cx growing Acinetobacter - Continue Unasyn, Vancomycin. Tobramycin discontinued by ID. Full code. Heparin SQ. Problem Qualifiers (1) Pressure ulcer: Qualified Code: L89.94 - Pressure ulcer, stage 4, unspecified location Yazmin Shelton DO December 29, 2016 10:30 am
[2016-12-29] MEDS ORDERED: AMPICILLIN-SULBACTAM INJ 3 GM in SODIUM CHLORIDE 0.9% INJ 100 ML IV SCH (11:00)
--- NOTE | 2016-12-29 13:42 | HHI.PR ---
Addendum to Inpatient Note Additional Information Dw Dr Shelton Pt signed out AMA, refusing plastic sx consult and is awaiting for his ride Tahmina López MD December 29, 2016 13:42
[2016-12-29] MEDS ORDERED: VANCOMYCIN INJ 1,250 MG in SODIUM CHLOR 0.9% 250 ML INJ 250 ML IV SCH (18:00)
[2016-12-29] MEDS ORDERED: PHARMACY ORDERED LAB ONE (23:45)
[2016-12-31] MEDS ORDERED: PHARMACY ORDERED LAB ONE (05:45)
== END 2016-12-29 14:15 | disposition left against medical advice (07) | DRG 871 ==
LOC: NEPE 20:22 → NEDA 22:42 → N04B 23:59
PROVIDERS: ADMIT Hospitalist; ATTEND Hospitalist
DX: A41.9 Sepsis, unspecified organism (principal); L89.224 Pressure ulcer of left hip, stage 4; E87.2 Acidosis; L89.214 Pressure ulcer of right hip, stage 4; G82.20 Paraplegia, unspecified; K59.2 Neurogenic bowel, not elsewhere classified; L89.150 Pressure ulcer of sacral region, unstageable; E46 Unspecified protein-calorie malnutrition; T87.44 Infection of amputation stump, left lower extremity; N39.0 Urinary tract infection, site not specified; M86.8X8 Other osteomyelitis, other site; Z68.1 Body mass index [BMI] 19.9 or less, adult; B96.89 Other specified bacterial agents as the cause of diseases classified elsewhere; Z16.24 Resistance to multiple antibiotics; Y83.5 Amputation of limb(s) as the cause of abnormal reaction of the patient, or of later complication, without mention of misadventure at the time of the procedure; L89.619 Pressure ulcer of right heel, unspecified stage; F17.210 Nicotine dependence, cigarettes, uncomplicated; F12.90 Cannabis use, unspecified, uncomplicated; N31.9 Neuromuscular dysfunction of bladder, unspecified; D64.9 Anemia, unspecified; Z66 Do not resuscitate; Z99.3 Dependence on wheelchair; E87.6 Hypokalemia
CPT/HCPCS: 51702; 71010; 72192; 72197; 76937; 80048; 80053; 80200; 80202; 81001; 82565; 83605; 84484; 85025; 87040; 87070; 87077; 87086; 87186; 87205; 96365; 96368; A9579; J0295; J0692; J1644; J2543; J3260; J3370; J7030; J7040; J7050; Q0163

== ENCOUNTER 2017-01-12 15:39 | Inpatient (IN) | payer MEDICAID ==
[~2017-01-12] VITALS: Ht 167.6 cm; Wt 85.5 kg
[2017-01-12] VITALS (7 sets, daily range): BP systolic 80–100; BP diastolic 49–59; PULSE 85–95; RESP 16–20; TEMP 97.6–99.6; O2SAT 96–100
[~2017-01-12 15:39] MED LIST changes: +AMIT24CA5 PO; -AMIT8CAP6 PO; +CIPR-9 PO; -CIPR500T4 PO; +FINA5TAB2 PO; -FURO1TAB93 PO; +FURO40TA PO; +HYDR-3583 PO; -HYDR10TA16 PO; +POTA-243 PO; -POTA20PA PO; -PROS5TAB2 PO
--- NOTE | 2017-01-12 17:45 | PD ---
HPI Chief Complaint: Injury Time Seen by Provider: 17:43 Travel History International Travel<30 days: No Contact w/Intl Traveler<30days: No Traveled to known affect area: No History of Present Illness HPI 56-year-old male with a history of T1 fracture and paraplegia, neurogenic bowel and bladder, peripheral vascular disease, left lower extremity BKA about 1.5 months ago presents to the emergency department from hospice care facility for evaluation of left leg wound. It should be noted that the patient is a poor historian and provides vague history regarding his recent illnesses. I reviewed the EMR which shows that the patient was admitted to our hospital 2 weeks ago for infection of left lower extremity BKA, deep peroneal and sacral wounds/pressure ulcers with osteomyelitis and he subsequently left AGAINST MEDICAL ADVICE 12/29/16. The patient states that since he left our hospital he went to a hospice care facility (unknown name?) in [place] where he has been getting dressing changes and morphine. He does not believe he has been taking any antibiotics since he left here. He complains of pain "all over"that has been ongoing since his neck injury. He does admit he has pain in his back and bottom where he has sacral ulcers. He denies fever, chills, nausea, vomiting, chest pain, shortness of breath, abdominal pain. PCP Dr. Cody malhotra. No other complaints. PFSH Past Medical History Arthritis: No Asthma: No Autoimmune Disease: No Anxiety: No Depression: Yes Heart Rhythm Problems: No Cancer: No Cardiovascular Problems: No High Cholesterol: No Chest Pain: No Congestive Heart Failure: No COPD: No Cerebrovascular Accident: No Diabetes: No Diminished Hearing: No Gastrointestinal Disorders: No GERD: No Glaucoma: No Headaches: No Hepatitis: No Hiatal Hernia: No Hypertension: No Immune Disorder: No Kidney Stones: No Musculoskeletal: Yes (;FRACTURED LEFT TIBULA, FIBULA 01/22) Neurologic: No Psychiatric: No Respiratory: Yes (SLEEP APNEA, SMOKER 2 PPD) Integumentary: No Myocardial Infarction: No Renal Failure: No Seizures: No Sleep Apnea: No Thyroid Disease: No Ulcer: No Past Surgical History Abdominal Surgery: No AICD: No Cardiac Surgery: No Ear Surgery: No Endocrine Surgery: No Eye Surgery: No Genitourinary Surgery: No Gynecologic Surgery: No Neurologic Surgery: No Oral Surgery: No Pacemaker: No Thoracic Surgery: No Tonsillectomy: Yes ( A CHILD) Other Surgery: Yes Social History Alcohol Use: No Tobacco Use: Yes (1/2 PPD) Substance Use: Yes (MARIJUANA ) Allergies-Medications (Allergen,Severity, Reaction): Coded Allergies: Levaquin (Verified Allergy, Severe, 12/25/16) *MDRO Multi-Drug Resistant Organism (Verified Allergy, Unknown, 12/28/16) MDR-Acinetobacter baumannii Urine 04/20/16 & 12/25/16 MDR-Acinetobacter baumannii (buttock)-12/25/16 Septra (Verified Allergy, Unknown, 12/25/16) Reported Meds & Prescriptions Reported Meds & Active Scripts Active Reported Cipro (Ciprofloxacin HCl) 250 Mg Tab 500 Mg PO BID Amitiza (Lubiprostone) 24 Mcg Cap 24 Mg PO DAILY Finasteride 5 Mg Tab 5 Mg PO DAILY Do not crush. Klor-Con 10 (Potassium Chloride) 10 Meq Tab 10 Meq PO DAILY Furosemide 40 Mg Tab 40 Mg PO BID Baclofen 20 Mg Tab 20 Mg PO QID Hydrocodone-Acetaminophen 10-325 mg Tab 1 Tab PO Q6H PRN Review of Systems Except as stated in HPI: all other systems reviewed are Neg Physical Exam Exam Limitations: Other: (performed in ambulance hallway) Narrative GENERAL: Well-nourished and well-developed male patient in no acute distress. SKIN: Warm and dry. Unable to view the buttocks or back while in the ambulance hallway. HEAD: Normocephalic and atraumatic. EYES: No injection, drainage, or hyphema noted. PERRLA. EOMI. ENT: No nasal drainage noted. Oropharynx is clear. NECK: Supple and the trachea is midline. CARDIOVASCULAR: Regular rate and rhythm. RESPIRATORY: Breath sounds are equal bilaterally with no accessory muscle use, wheezing, rhonchi, or crackles. GASTROINTESTINAL: Abdomen is soft, non-tender, and nondistended. MUSCULOSKELETAL: Left leg status post BKA with black eschar-like skin from the base of the stump to above the knee. All extremities are weak and there is muscle wasting, per patient this is chronic since his accident. No other deformities. No swelling. NEUROLOGICAL: Awake, alert, and oriented. Normal speech and gait. Cranial nerves are grossly intact. Data Data Last Documented VS Vital Signs Date Time Temp Pulse Resp B/P Pulse Ox O2 Delivery O2 Flow Rate FiO2 01/12/17 20:06 98.5 95 18 100/56 100 Room Air Orders Complete Blood Count With Diff (01/12/17 17:39) Comprehensive Metabolic Panel (01/12/17 17:39) Lactic Acid Sepsis Protocol (01/12/17 17:39) Urinalysis - C+S If Indicated (01/12/17 17:39) Blood Culture (01/12/17 17:39) Chest, Single Ap (01/12/17 17:39) Blood Glucose (01/12/17 17:39) Ecg Monitoring (01/12/17 17:39) Iv Access Insert/Monitor (01/12/17 17:39) Oximetry (01/12/17 17:39) Sodium Chlor 0.9% 1000 Ml Inj (Ns 1000 M (01/12/17 17:56) Sodium Chlor 0.9% 1000 Ml Inj (Ns 1000 M (01/12/17 17:56) Vancomycin Inj (Vancomycin Inj) (01/12/17 18:30) Piperacil-Tazo 4.5 Gm Premix (Zosyn 4.5 (01/12/17 18:30) Diet Npo Except Meds (01/12/17 Dinner) Consent (01/12/17 18:21) Red Blood Cells (Rbc) (01/12/17 18:21) Type And Screen (01/12/17 18:21) Sodium Chlor 0.9% 1000 Ml Inj (Ns 1000 M (01/12/17 18:45) Lactic Acid (01/12/17 18:35) Wound Culture And Gram Stain (01/12/17 18:44) Labs Laboratory Tests Test 01/12/17 01/12/17 17:30 19:15 White Blood Count 13.8 TH/MM3 Red Blood Count 3.87 MIL/MM3 Hemoglobin 8.2 GM/DL Hematocrit 27.3 % Mean Corpuscular Volume 70.6 FL Mean Corpuscular Hemoglobin 21.2 PG Mean Corpuscular Hemoglobin 30.1 % Concent Red Cell Distribution Width 18.5 % Platelet Count 514 TH/MM3 Mean Platelet Volume 6.8 FL Neutrophils (%) (Auto) 83.1 % Lymphocytes (%) (Auto) 9.0 % Monocytes (%) (Auto) 7.1 % Eosinophils (%) (Auto) 0.5 % Basophils (%) (Auto) 0.3 % Neutrophils # (Auto) 11.4 TH/MM3 Lymphocytes # (Auto) 1.2 TH/MM3 Monocytes # (Auto) 1.0 TH/MM3 Eosinophils # (Auto) 0.1 TH/MM3 Basophils # (Auto) 0.0 TH/MM3 CBC Comment DIFF FINAL Differential Comment Sodium Level 130 MEQ/L Potassium Level 3.6 MEQ/L Chloride Level 93 MEQ/L Carbon Dioxide Level 29.7 MEQ/L Anion Gap 7 MEQ/L Blood Urea Nitrogen 10 MG/DL Creatinine 0.94 MG/DL Estimat Glomerular Filtration 83 ML/MIN Rate Random Glucose 112 MG/DL Calcium Level 8.0 MG/DL Total Bilirubin 0.2 MG/DL Aspartate Amino Transf 22 U/L (AST/SGOT) Alanine Aminotransferase 14 U/L (ALT/SGPT) Alkaline Phosphatase 96 U/L Total Protein 7.1 GM/DL Albumin 1.6 GM/DL Lactic Acid Level 1.4 mmol/L MDM Medical Decision Making Medical Screen Exam Complete: Yes Emergency Medical Condition: Yes Differential Diagnosis Sepsis versus osteomyelitis versus peripheral vascular disease versus wound infection Narrative Course 56-year-old male was brought to the emergency department for evaluation of left leg wound status post BKA. The patient's temperature is 99.5F. He is hypotensive blood pressure of 80/50. Otherwise vital signs within normal limits. The patient left AGAINST MEDICAL ADVICE from our hospital 2 weeks ago after being diagnosed with severe sepsis, infection of left BKA stump, sacral decubitus ulcers with pelvic osteomyelitis. It does not appear the patient has been receiving any antibiotics since he left our hospital. I evaluated the patient in the ambulance hallway and therefore will to have him undress and evaluate his sacral ulcers. IV access is obtained, labs were drawn and sent. Patient is administered IV fluids. Initial laboratory and imaging studies have been ordered and the patient will be evaluated by another provider when a medical bed becomes available. The triage nurse is aware of the plan. The proposed plan of evaluation and treatment was discussed with the patient who verbalizes an understanding and agrees to proceed. Shirley Otero January 12, 2017 17:45
[2017-01-12] MEDS ORDERED: SODIUM CHLOR 0.9% 1000 ML INJ 1,000 ML IV SCH ×2 (17:56)
[2017-01-12 17:59] LABS: AUTOMATED NEUTROPHIL # 11.4 TH/MM3 (1.8-7.7); BASOPHIL % 0.3 % (0.0-2.0); EOSINOPHIL # 0.1 TH/MM3 (0-0.4); EOSINOPHIL % 0.5 % (0.0-4.0); HEMATOCRIT 27.3 % (39.0-51.0); HEMO FLAGS DIFF FINAL; LYMPHOCYTE # 1.2 TH/MM3 (1.0-4.8); MEAN CELL VOLUME 70.6 FL (80.0-100.0); MEAN CORPUSCULAR HEMOGLOBIN 21.2 PG (27.0-34.0); MEAN CORPUSCULAR HGB CONC 30.1 % (32.0-36.0); MONO % 7.1 % (0.0-8.0); NEUT % 83.1 % (16.0-70.0); PLATELET COUNT 514 TH/MM3 (150-450); RED BLOOD COUNT 3.87 MIL/MM3 (4.50-5.90); RED CELL DISTRIBUTION WIDTH 18.5 % (11.6-17.2); WHITE BLOOD COUNT 13.8 TH/MM3 (4.0-11.0)
[2017-01-12 18:16] LABS: ALT (GPT) 14 U/L (12-78)
[2017-01-12 18:19] LABS: ALKALINE PHOSPHATASE 96 U/L (45-117); TOTAL BILIRUBIN ADULT 0.2 MG/DL (0.2-1.0)
--- NOTE | 2017-01-12 18:20 | PD.CAR.PN ---
CVT Progress Note Subjective/Hospital Course: 56-year-old male known to me from last visit about 10 days ago. 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 after surgery performed at another hospital Patient has essentially mummified left BKA stump going all the way over the patella to distal above the knee level Patient was here a week or so ago and of course we recommended above-knee amputation of the time but patient stated that the thing is healing nicely and was very angry about even mention of amputation Now patient has progressive more necrosis in addition he is losing weight and is in functional decline because of the same Patient will need above-knee amputation on urgent basis He ate and will go ahead with an amputation tomorrow In addition patient has extensive sacral and lumbar decubiti needing debridement as well Full consult to follow Robinson Love Objective: Vital Signs Date Time Temp Pulse Resp B/P Pulse Ox O2 Delivery O2 Flow Rate FiO2 01/12/17 16:37 99.6 88 16 80/50 100 Labs: Laboratory Tests Test 01/12/17 17:30 White Blood Count 13.8 TH/MM3 (4.0-11.0) Red Blood Count 3.87 MIL/MM3 (4.50-5.90) Hemoglobin 8.2 GM/DL (13.0-17.0) Hematocrit 27.3 % (39.0-51.0) Mean Corpuscular Volume 70.6 FL (80.0-100.0) Mean Corpuscular Hemoglobin 21.2 PG (27.0-34.0) Mean Corpuscular Hemoglobin 30.1 % Concent (32.0-36.0) Red Cell Distribution Width 18.5 % (11.6-17.2) Platelet Count 514 TH/MM3 (150-450) Mean Platelet Volume 6.8 FL (7.0-11.0) Neutrophils (%) (Auto) 83.1 % (16.0-70.0) Lymphocytes (%) (Auto) 9.0 % (9.0-44.0) Monocytes (%) (Auto) 7.1 % (0.0-8.0) Eosinophils (%) (Auto) 0.5 % (0.0-4.0) Basophils (%) (Auto) 0.3 % (0.0-2.0) Neutrophils # (Auto) 11.4 TH/MM3 (1.8-7.7) Lymphocytes # (Auto) 1.2 TH/MM3 (1.0-4.8) Monocytes # (Auto) 1.0 TH/MM3 (0-0.9) Eosinophils # (Auto) 0.1 TH/MM3 (0-0.4) Basophils # (Auto) 0.0 TH/MM3 (0-0.2) CBC Comment DIFF FINAL Differential Comment Result Diagram: 01/12/17 1730 Sen Robertson MD January 12, 2017 18:20
--- NOTE | 2017-01-12 18:27 | RADRPT ---
EXAM DATE/TIME: 01/12/2017 18:02 [facility] COMPARISON: CHEST SINGLE AP, December 25, 2016, 21:00. INDICATIONS : Fever and cough. MEDICAL HISTORY : None. SURGICAL HISTORY : None. ENCOUNTER: Initial ACUITY: 2 days PAIN SCORE: 0/10 LOCATION: chest FINDINGS: Single AP view of the chest. Mild patchy opacity at the left lung base indicating mild consolidation versus atelectasis. The lungs are otherwise clear. Cardiomediastinal silhouette within normal limits. No evidence of pleural effusion or pneumothorax. CONCLUSION: Mild consolidation versus atelectasis at the left lung base. Marcell Loredo MD on January 12, 2017 at 18:25 Board Certified Radiologist. This report was verified electronically.
[2017-01-12] MEDS ORDERED: PIPERACIL-TAZO 4.5 GM PREMIX 100 ML IV ONE (18:30)
[2017-01-12] MEDS ORDERED: VANCOMYCIN INJ 1,000 MG in SODIUM CHLOR 0.9% 250 ML INJ 250 ML IV ONE (18:30)
[2017-01-12 18:32] LABS: ANION GAP 7 MEQ/L (5-15); AST (GOT) 22 U/L (15-37); BICARBONATE 29.7 MEQ/L (21.0-32.0); BLOOD UREA NITROGEN 10 MG/DL (7-18); CHLORIDE 93 MEQ/L (98-107); GLOMERULAR FILTRATION RATE 83 ML/MIN (>89); POTASSIUM 3.6 MEQ/L (3.5-5.1); SODIUM (NA) 130 MEQ/L (136-145)
--- NOTE | 2017-01-12 18:38 | PD ---
Data Data Last Documented VS Vital Signs Date Time Temp Pulse Resp B/P Pulse Ox O2 Delivery O2 Flow Rate FiO2 01/12/17 16:37 99.6 88 16 80/50 100 Orders Complete Blood Count With Diff (01/12/17 17:39) Comprehensive Metabolic Panel (01/12/17 17:39) Lactic Acid Sepsis Protocol (01/12/17 17:39) Urinalysis - C+S If Indicated (01/12/17 17:39) Blood Culture (01/12/17 17:39) Chest, Single Ap (01/12/17 17:39) Blood Glucose (01/12/17 17:39) Ecg Monitoring (01/12/17 17:39) Iv Access Insert/Monitor (01/12/17 17:39) Oximetry (01/12/17 17:39) Sodium Chlor 0.9% 1000 Ml Inj (Ns 1000 M (01/12/17 17:56) Sodium Chlor 0.9% 1000 Ml Inj (Ns 1000 M (01/12/17 17:56) Vancomycin Inj (Vancomycin Inj) (01/12/17 18:30) Piperacil-Tazo 4.5 Gm Premix (Zosyn 4.5 (01/12/17 18:30) Diet Npo Except Meds (01/12/17 Dinner) Consent (01/12/17 18:21) Red Blood Cells (Rbc) (01/12/17 18:21) Type And Screen (01/12/17 18:21) Sodium Chlor 0.9% 1000 Ml Inj (Ns 1000 M (01/12/17 18:45) Lactic Acid (01/12/17 18:35) Wound Culture And Gram Stain (01/12/17 18:44) Labs Laboratory Tests Test 01/12/17 17:30 White Blood Count 13.8 TH/MM3 Red Blood Count 3.87 MIL/MM3 Hemoglobin 8.2 GM/DL Hematocrit 27.3 % Mean Corpuscular Volume 70.6 FL Mean Corpuscular Hemoglobin 21.2 PG Mean Corpuscular Hemoglobin 30.1 % Concent Red Cell Distribution Width 18.5 % Platelet Count 514 TH/MM3 Mean Platelet Volume 6.8 FL Neutrophils (%) (Auto) 83.1 % Lymphocytes (%) (Auto) 9.0 % Monocytes (%) (Auto) 7.1 % Eosinophils (%) (Auto) 0.5 % Basophils (%) (Auto) 0.3 % Neutrophils # (Auto) 11.4 TH/MM3 Lymphocytes # (Auto) 1.2 TH/MM3 Monocytes # (Auto) 1.0 TH/MM3 Eosinophils # (Auto) 0.1 TH/MM3 Basophils # (Auto) 0.0 TH/MM3 CBC Comment DIFF FINAL Differential Comment Sodium Level 130 MEQ/L Potassium Level 3.6 MEQ/L Chloride Level 93 MEQ/L Carbon Dioxide Level 29.7 MEQ/L Anion Gap 7 MEQ/L Blood Urea Nitrogen 10 MG/DL Creatinine 0.94 MG/DL Estimat Glomerular Filtration 83 ML/MIN Rate Random Glucose 112 MG/DL Calcium Level 8.0 MG/DL Total Bilirubin 0.2 MG/DL Aspartate Amino Transf 22 U/L (AST/SGOT) Alanine Aminotransferase 14 U/L (ALT/SGPT) Alkaline Phosphatase 96 U/L Total Protein 7.1 GM/DL Albumin 1.6 GM/DL MDM Supervised Visit with LOAN: Yes Narrative Course Patient care assumed from Katherine Otero PA-C. Patient was initially worked up in a nonswollen and moved to emergency room bed further workup. Patient was recently admitted for osteomyelitis of the pelvis, he had been followed by infectious disease. Ultimately signed out AMA. Patient is back today stating he "needs antibiotics because his Velcro hurts him". Patient has a history of a BKA on the left side and now has some ischemic changes of the stump. His been seen by Dr. Kulkarni who is going to take him for revision and make him an AKA on the left. He is mildly hypotensive 82/49, lactic acid is still pending. Fluid resuscitation in progress and vancomycin and Zosyn of been ordered. Patient was discussed with Dr. Villarreal to reassess patient after fluid status and lactic acid has returned for probable admission ICU versus floor. Admitting Information Admitting Physician Requests: Admit Condition: Hema Mullen MD January 12, 2017 18:38
[2017-01-12] MEDS ORDERED: SODIUM CHLOR 0.9% 1000 ML INJ 1,000 ML IV ONE (18:45)
[2017-01-12] MEDS ORDERED: CIPR250T52 PO (19:01)
[2017-01-12 20:37] LABS: BACTERIA, URINE FEW /hpf; BLOOD, URINE MOD (NEG); GLUCOSE,URINE NEG (NEG); KETONE, URINE NEG (NEG); MUCUS URINE FEW /lpf (OCC); NITRITE,URINE NEG (NEG); SQUAMOUS EPITHELIAL CELL URINE 1 /hpf (0-5); URINE COLOR YELLOW (YELLW/STRAW)
[2017-01-12 20:41] LABS: COMMENT (UR) CATH-CULTURE IND; CULTURE IF INDICATED CATH CULTURE IND
--- NOTE | 2017-01-12 20:50 | PD ---
Physical Exam Date Seen by Provider: January 12, 2017 Time Seen by Provider: 20:45 Narrative Accepted in transfer of care from Dr. Orozco Data Data Last Documented VS Vital Signs Date Time Temp Pulse Resp B/P Pulse Ox O2 Delivery O2 Flow Rate FiO2 01/12/17 20:06 98.5 95 18 100/56 100 Room Air Orders Complete Blood Count With Diff (01/12/17 17:39) Comprehensive Metabolic Panel (01/12/17 17:39) Lactic Acid Sepsis Protocol (01/12/17 17:39) Urinalysis - C+S If Indicated (01/12/17 17:39) Blood Culture (01/12/17 17:39) Chest, Single Ap (01/12/17 17:39) Blood Glucose (01/12/17 17:39) Ecg Monitoring (01/12/17 17:39) Iv Access Insert/Monitor (01/12/17 17:39) Oximetry (01/12/17 17:39) Sodium Chlor 0.9% 1000 Ml Inj (Ns 1000 M (01/12/17 17:56) Sodium Chlor 0.9% 1000 Ml Inj (Ns 1000 M (01/12/17 17:56) Vancomycin Inj (Vancomycin Inj) (01/12/17 18:30) Piperacil-Tazo 4.5 Gm Premix (Zosyn 4.5 (01/12/17 18:30) Diet Npo Except Meds (01/12/17 Dinner) Consent (01/12/17 18:21) Red Blood Cells (Rbc) (01/12/17 18:21) Type And Screen (01/12/17 18:21) Sodium Chlor 0.9% 1000 Ml Inj (Ns 1000 M (01/12/17 18:45) Lactic Acid (01/12/17 18:35) Wound Culture And Gram Stain (01/12/17 18:44) Urine Culture (01/12/17 20:00) Labs Laboratory Tests Test 01/12/17 01/12/17 01/12/17 17:30 19:15 20:00 White Blood Count 13.8 TH/MM3 Red Blood Count 3.87 MIL/MM3 Hemoglobin 8.2 GM/DL Hematocrit 27.3 % Mean Corpuscular Volume 70.6 FL Mean Corpuscular Hemoglobin 21.2 PG Mean Corpuscular Hemoglobin 30.1 % Concent Red Cell Distribution Width 18.5 % Platelet Count 514 TH/MM3 Mean Platelet Volume 6.8 FL Neutrophils (%) (Auto) 83.1 % Lymphocytes (%) (Auto) 9.0 % Monocytes (%) (Auto) 7.1 % Eosinophils (%) (Auto) 0.5 % Basophils (%) (Auto) 0.3 % Neutrophils # (Auto) 11.4 TH/MM3 Lymphocytes # (Auto) 1.2 TH/MM3 Monocytes # (Auto) 1.0 TH/MM3 Eosinophils # (Auto) 0.1 TH/MM3 Basophils # (Auto) 0.0 TH/MM3 CBC Comment DIFF FINAL Differential Comment Sodium Level 130 MEQ/L Potassium Level 3.6 MEQ/L Chloride Level 93 MEQ/L Carbon Dioxide Level 29.7 MEQ/L Anion Gap 7 MEQ/L Blood Urea Nitrogen 10 MG/DL Creatinine 0.94 MG/DL Estimat Glomerular Filtration 83 ML/MIN Rate Random Glucose 112 MG/DL Calcium Level 8.0 MG/DL Total Bilirubin 0.2 MG/DL Aspartate Amino Transf 22 U/L (AST/SGOT) Alanine Aminotransferase 14 U/L (ALT/SGPT) Alkaline Phosphatase 96 U/L Total Protein 7.1 GM/DL Albumin 1.6 GM/DL Blood Type A POSITIVE A POSITIVE Lactic Acid Level 1.4 mmol/L Antibody Screen NEGATIVE Crossmatch Leukocyte-Reduced Red Blood Cells Blood Bank Comment Urine Color YELLOW Urine Turbidity HAZY Urine pH 6.0 Urine Specific [place] 1.021 Urine Protein 30 mg/dL Urine Glucose (UA) NEG mg/dL Urine Ketones NEG mg/dL Urine Occult Blood MOD Urine Nitrite NEG Urine Bilirubin NEG Urine Urobilinogen 2.0 MG/DL Urine Leukocyte Esterase LARGE Urine RBC /hpf Urine WBC 56 /hpf Urine Squamous Epithelial 1 /hpf Cells Urine Bacteria FEW /hpf Urine Mucus FEW /lpf Urine Yeast with Hyphae MOD Urine Yeast (Budding) MOD Microscopic Urinalysis Comment CATH-CULTURE IND MDM Medical Record Reviewed: Yes Supervised Visit with LOAN: No Interpretation(s) Last Impressions Chest X-Ray 01/12/17 6784 Signed Impressions: Service Date/Time: Thursday, January 12, 2017 18:02 - CONCLUSION: Mild consolidation versus atelectasis at the left lung base. Marcell Loredo MD Vital Signs Date Time Temp Pulse Resp B/P Pulse Ox O2 Delivery O2 Flow Rate FiO2 01/12/17 20:06 98.5 95 18 100/56 100 Room Air 01/12/17 19:10 85 18 82/49 100 Room Air 01/12/17 16:37 99.6 88 16 80/50 100 CBC & BMP Diagram 01/12/17 17:30 lactic acid: 1.4 Differential Diagnosis accepted in transfer of care from Dr. Orozco please refer to his dictation Narrative Course Accepted in transfer of care from Dr. Orozco for follow-up of pending lactic and patient admission Sepsis Criteria SIRS Criteria (2 or more): Heart rate over 90, WBC > 97853, < 4000 or > 10% bands Sepsis Criteria (SIRS+source): Infect source susp/known Physician Communication Physician Communication call placed to [facility] service Diagnosis Primary Impression: Gangrene of lower extremity Additional Impressions: osteomyelitis, hips/pelvis Decubitus skin ulcer Sepsis Admitting Information Admitting Physician Requests: Admit Condition: Chrissy Morales MD January 12, 2017 20:50
[2017-01-12] MEDS ORDERED: SODIUM CHLORIDE 0.9% FLUSH 10 ML FLUSH IVF PRN (21:45)
[2017-01-12] MEDS ORDERED: NALOXONE HCL 0.4 MG/ML AMP IV PRN (21:45)
[2017-01-12] MEDS ORDERED: Vancomycin Consult Pharmacy 1 EA OTHER SCH (22:00)
--- NOTE | 2017-01-12 23:53 | HHI.HP ---
HPI Service [facility] Hospitalists Primary Care Physician Non-Staff Admission Diagnosis L BKA stump gangrene; sacral decubiti; pelvis osteomyelitis; sepsis Diagnoses: Travel History International Travel<30 Days: No Contact w/Intl Traveler <30 Da: No Traveled to Known Affected Are: No History of Present Illness Patient is extremely poor historian. he is quite angry at the time of my arrival. He stated that multiple staff members have been telling him different things. He stated he was initially told that he was going to go to OR yesterday at 8 PM. Then the OR time was changed and he was quite mad about that. He refused to talk to me for history. He Advises me to look at the computer to get information instead. When asked whether he noticed any purulent discharge or draining from his stump , he stated he does not notice anything. He states [facility] told him to come here instead. Then he changed and reported it was the home health care nurse from [place] from told him that his wound was not doing well and which was why he came. Next and apart from that, patient would not give any further information. Therefore rest of the medical history is obtained from EMR. For any patient was sent from his home health care nurse because of worsening purulent discharge at his left BKA stump. He was also found to have low blood pressure while in ER but on review of medical records, this has been chronic as well. Patient has no reflex tachycardia, no lactic acid acidosis. Review of Systems ROS Limitations: Poor Historian (limited ROS due to above situation) Past Family Social History Past Medical History Paraplegia with decubitus ulcers/wheelchair bound History of UTIs History of T1 fracture Neurogenic bladder/bowel Peripheral vascular disease Depression Chronic tobacco abuse Likely underlying COPD Past Surgical History left tib fib fx cervical fusion left bka Allergies: Coded Allergies: Levaquin (Verified Allergy, Severe, 12/25/16) *MDRO Multi-Drug Resistant Organism (Verified Allergy, Unknown, 01/17/17) MDR-Acinetobacter baumannii (Urine) - 04/20/16, 12/25/16, 01/12/17 MDR-Acinetobacter baumannii (wounds)-12/25/16, 01/12/17 Septra (Verified Allergy, Unknown, 12/25/16) Family History does not remember, refused to answer Social History refused to answer Physical Exam Vital Signs Vital Signs Date Time Temp Pulse Resp B/P Pulse Ox O2 Delivery O2 Flow Rate FiO2 01/12/17 22:46 97.6 91 20 90/59 98 01/12/17 21:52 100 01/12/17 21:40 91 19 93/55 96 Room Air 01/12/17 20:06 98.5 95 18 100/56 100 Room Air 01/12/17 19:10 85 18 82/49 100 Room Air 01/12/17 16:37 99.6 88 16 80/50 100 Physical Exam GENERAL: This is a well-nourished, well-developed patient, in no apparent distress. SKIN: No rashes, ecchymoses or lesions. Cool and dry. HEAD: Atraumatic. Normocephalic. No temporal or scalp tenderness. EYES: No scleral icterus. No injection or drainage. ENT: Nose without bleeding, purulent drainage or septal hematoma. Airway patent. NECK: Trachea midline. No JVD CARDIOVASCULAR: Regular rate and rhythm without murmurs, gallops, or rubs. RESPIRATORY: Clear to auscultation. Breath sounds equal bilaterally. No wheezes , rales, or rhonchi. GASTROINTESTINAL: Abdomen soft, non-tender, nondistended. No guarding. MUSCULOSKELETAL: Extremities without clubbing, cyanosis, or edema. left bka stump erythema, warmth, NEUROLOGICAL: Awake and alert. Normal speech. Laboratory Laboratory Tests Test 01/12/17 01/12/17 01/12/17 17:30 19:15 20:00 White Blood Count 13.8 Red Blood Count 3.87 Hemoglobin 8.2 Hematocrit 27.3 Mean Corpuscular Volume 70.6 Mean Corpuscular Hemoglobin 21.2 Mean Corpuscular Hemoglobin 30.1 Concent Red Cell Distribution Width 18.5 Platelet Count 514 Mean Platelet Volume 6.8 Neutrophils (%) (Auto) 83.1 Lymphocytes (%) (Auto) 9.0 Monocytes (%) (Auto) 7.1 Eosinophils (%) (Auto) 0.5 Basophils (%) (Auto) 0.3 Neutrophils # (Auto) 11.4 Lymphocytes # (Auto) 1.2 Monocytes # (Auto) 1.0 Eosinophils # (Auto) 0.1 Basophils # (Auto) 0.0 CBC Comment DIFF FINAL Differential Comment Sodium Level 130 Potassium Level 3.6 Chloride Level 93 Carbon Dioxide Level 29.7 Anion Gap 7 Blood Urea Nitrogen 10 Creatinine 0.94 Estimat Glomerular Filtration 83 Rate Random Glucose 112 Calcium Level 8.0 Total Bilirubin 0.2 Aspartate Amino Transf 22 (AST/SGOT) Alanine Aminotransferase 14 (ALT/SGPT) Alkaline Phosphatase 96 Total Protein 7.1 Albumin 1.6 Blood Type A POSITIVE A POSITIVE Lactic Acid Level 1.4 Antibody Screen NEGATIVE Crossmatch Leukocyte-Reduced Red Blood Cells Blood Bank Comment Urine Color YELLOW Urine Turbidity HAZY Urine pH 6.0 Urine Specific [place] 1.021 Urine Protein 30 Urine Glucose (UA) NEG Urine Ketones NEG Urine Occult Blood MOD Urine Nitrite NEG Urine Bilirubin NEG Urine Urobilinogen 2.0 Urine Leukocyte Esterase LARGE Urine RBC Urine WBC 56 Urine Squamous Epithelial 1 Cells Urine Bacteria FEW Urine Mucus FEW Urine Yeast with Hyphae MOD Urine Yeast (Budding) MOD Microscopic Urinalysis Comment CATH-CULTURE IND Date/Time Procedure Status Source Growth 01/12/17 20:00 Urine Culture Received Urine Catheterized Urine Pending 01/12/17 19:15 Gram Stain Received Wound Skin Pending 01/12/17 19:15 Wound Culture Received Wound Skin Pending 01/12/17 19:15 Aerobic Blood Culture Received Blood Peripheral Pending 01/12/17 19:15 Anaerobic Blood Culture Received Blood Peripheral Pending Result Diagram: 01/12/17 1730 01/12/17 1730 Assessment and Plan Assessment and Plan Impression: 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 Vascular surgery was consulted and has seen patient in the emergency room emergently. Patient is to go for BKA of the left. Nothing by mouth. Pain control. resume home meds DVT prophylaxis- chemical prophylaxis post op DVT prophylaxisto start chemical prophylaxis postoperatively. Discussed Condition With patient, ER MD, nursing staff Physician Certification 2 Midnight Certification Type: Admission for Inpatient Services Order for Inpatient Services The services are ordered in accordance with Medicare regulations or non- Medicare payer requirements, as applicable. In the case of services not specified as inpatient-only, they are appropriately provided as inpatient services in accordance with the 2-midnight benchmark. Estimated LOS (days): 2 days is the estimated time the patient will need to remain in the hospital, assuming treatment plan goals are met and no additional complications. Post-Hospital Plan: Home Clotilde Santiago MD January 12, 2017 23:52
[2017-01-13] VITALS (8 sets, daily range): BP systolic 80–104; BP diastolic 50–57; PULSE 73–97; RESP 18–20; TEMP 97–98.2; O2SAT 94–98
[2017-01-13] MEDS: ACETAMINOPHEN/HYDROcodone 325 MG/5 MG TAB PO PRN ×3 (02:44→20:25)
[2017-01-13] MEDS: PIPERACIL-TAZO 4.5 GM PREMIX 100 ML IV SCH ×4 (02:44→20:25)
[2017-01-13 07:15] LABS: AUTOMATED NEUTROPHIL # 7.6 TH/MM3 (1.8-7.7); BASOPHIL % 0.4 % (0.0-2.0); EOSINOPHIL # 0.1 TH/MM3 (0-0.4); EOSINOPHIL % 1.2 % (0.0-4.0); HEMATOCRIT 23.8 % (39.0-51.0); HEMO FLAGS DIFF FINAL; LYMPH % 15.9 % (9.0-44.0); LYMPHOCYTE # 1.6 TH/MM3 (1.0-4.8); MEAN CELL VOLUME 69.5 FL (80.0-100.0); MEAN CORPUSCULAR HEMOGLOBIN 21.6 PG (27.0-34.0); NEUT % 73.5 % (16.0-70.0); PLATELET COUNT 522 TH/MM3 (150-450); RED BLOOD COUNT 3.43 MIL/MM3 (4.50-5.90); RED CELL DISTRIBUTION WIDTH 18.5 % (11.6-17.2); WHITE BLOOD COUNT 10.3 TH/MM3 (4.0-11.0)
[2017-01-13 07:59] LABS: BICARBONATE 28.5 MEQ/L (21.0-32.0); POTASSIUM 3.1 MEQ/L (3.5-5.1)
[2017-01-13] MEDS: VANCOMYCIN 1,000 MG/NS 250 ML IV SCH ×8 (08:35→21:33)
[2017-01-13] MEDS: SODIUM CHLORIDE 0.9% FLUSH 10 ML FLUSH IV FLUSH SCH ×2 (08:35→19:37)
[2017-01-13] MEDS ORDERED: SODIUM CHLORIDE 0.9% FLUSH 10 ML FLUSH IV FLUSH SCH (09:00)
[2017-01-13] MEDS ORDERED: BUPIVACAINE HCL PF 0.25% 30 ML VIAL ONE (10:00)
[2017-01-13] MEDS ORDERED: ePHEDrine/NS 25 MG/5 ML SYR IV ONE (12:00)
[2017-01-13] MEDS ORDERED: NEOSTIGMINE 3 MG/3 ML SYR IV ONE (12:00)
[2017-01-13] MEDS ORDERED: PHENYLEPH/NS 1000 MCG/10 ML SYR IV ONE (12:00)
[2017-01-13] MEDS ORDERED: PROPOFOL 200 MG/20 ML AMP IV ONE (12:00)
[2017-01-13] MEDS ORDERED: ETOMIDATE 20 MG/10 ML VIAL IV PUSH ONE (12:00)
[2017-01-13] MEDS ORDERED: ONDANSETRON HCL 4 MG/2 ML VIAL IV PUSH ONE (12:00)
[2017-01-13] MEDS ORDERED: NORMOSOL R INJ 1,000 ML IV ONE (12:00)
[2017-01-13] MEDS ORDERED: DO NOT ADM ANY ANTICOAGULANT DRUGS PRN (12:42)
[2017-01-13] MEDS ORDERED: fentaNYL CITRATE 250 MCG/5 ML AMP ONE (12:53)
--- NOTE | 2017-01-13 16:22 | HHI.PR ---
Subjective Remarks awake and alert, feisty, not complaining of foot pain but complains of our food Objective Vitals Vital Signs Date Time Temp Pulse Resp B/P Pulse Ox O2 Delivery O2 Flow Rate FiO2 01/13/17 13:22 97.4 71 15 95/52 100 Room Air 01/13/17 13:15 74 13 97/59 100 Room Air 01/13/17 13:00 82 13 92/55 100 Room Air 01/13/17 12:45 97.4 76 15 94/51 94 Room Air 01/13/17 09:46 95 21 01/13/17 09:00 75 01/13/17 08:00 97.0 73 18 104/57 97 01/13/17 08:00 94 Room Air 01/13/17 04:00 97.9 76 20 80/50 94 01/13/17 03:22 76 01/13/17 00:00 Room Air 01/13/17 00:00 97.9 86 20 89/50 94 01/12/17 23:09 87 01/12/17 22:46 97.6 91 20 90/59 98 01/12/17 21:52 100 01/12/17 21:40 91 19 93/55 96 Room Air 01/12/17 20:06 98.5 95 18 100/56 100 Room Air 01/12/17 19:10 85 18 82/49 100 Room Air 01/12/17 16:37 99.6 88 16 80/50 100 I/O 01/12/17 01/12/17 01/12/17 01/13/17 01/13/17 01/13/17 07:00 15:00 23:00 07:00 15:00 23:00 Intake Total 0 ml 2100 ml Output Total 750 ml 400 ml Balance -750 ml 1700 ml Intake Oral 0 ml 0 ml IV Total 600 ml Packed Cells 500 ml Other 1000 ml Output Urine Total 750 ml 250 ml Estimated Blood Loss 150 ml Result Diagram: 01/13/1729 01/13/17628 Imaging Last Impressions Chest X-Ray 01/12/17 4129 Signed Impressions: Service Date/Time: Thursday, January 12, 2017 18:02 - CONCLUSION: Mild consolidation versus atelectasis at the left lung base. Marcell Loredo MD Objective Remarks awake and alerrt, NAD anciteric lungs clear regular rhythm abdomen soft, nontender left hip wound left AKA- stump - post op dressing in place left hip/ischium decubitus wounds Procedures left AKA A/P Assessment and Plan 56 years old male S/P left KA due to Left BKA stump infection/gangrene- 01/13 - DR Ivan mckeon --on Vancomycin and zosyn - ID consult in am- known to Dr. López Left hip wound/ulcersacral decubituus stage 4 - wound care team consult. Microcytic anemia- check iron studies UTI- gram negative rods. on zosyn. ff cultures Paraplegia with decubitus ulcers/wheelchair bound with left hip/ischial decubitus ulcers. wound care team consult History of T1 fracture Neurogenic bladder/bowel Peripheral vascular disease Depression Chronic tobacco abuse Likely underlying COPD Aline Ibarra MD Jan 13, 2017 16:22
[2017-01-13] MEDS ORDERED: POTASSIUM CHLORIDE 10 MEQ CONTROLLED RELEASE TAB PO ONE (19:30)
[2017-01-14] VITALS (7 sets, daily range): BP systolic 77–130; BP diastolic 51–78; PULSE 80–95; RESP 16–20; TEMP 97.4–98.3; O2SAT 98–100
[2017-01-14] MEDS: PIPERACIL-TAZO 4.5 GM PREMIX 100 ML IV SCH ×2 (02:25→08:00)
[2017-01-14] MEDS: ACETAMINOPHEN/HYDROcodone 325 MG/5 MG TAB PO PRN ×2 (06:23→20:24)
[2017-01-14] MEDS ORDERED: PHARMACY ORDERED LAB ONE (08:45)
[2017-01-14] MEDS: SODIUM CHLORIDE 0.9% FLUSH 10 ML FLUSH IV FLUSH SCH ×2 (09:00→20:29)
[2017-01-14] MEDS: VANCOMYCIN 1,000 MG/NS 250 ML IV SCH ×4 (09:30→20:26)
--- NOTE | 2017-01-14 12:32 | HHI.PR ---
Subjective Remarks patient awake and alert, short tempered does not want to be bothered Objective Vitals Vital Signs Date Time Temp Pulse Resp B/P Pulse Ox O2 Delivery O2 Flow Rate FiO2 01/14/17 08:00 97.4 83 16 82/52 99 01/14/17 04:00 98.0 95 19 80/51 100 01/14/17 00:00 98.1 84 19 83/54 98 01/13/17 20:00 98.2 97 20 84/54 98 01/13/17 20:00 Room Air 01/13/17 16:00 98.0 84 18 90/55 97 01/13/17 13:22 97.4 71 15 95/52 100 Room Air 01/13/17 13:15 74 13 97/59 100 Room Air 01/13/17 13:00 82 13 92/55 100 Room Air 01/13/17 12:45 97.4 76 15 94/51 94 Room Air I/O 01/13/17 01/13/17 01/13/17 01/14/17 01/14/17 01/14/17 07:00 15:00 23:00 07:00 15:00 23:00 Intake Total 0 ml 2100 ml 858 ml 600 ml Output Total 750 ml 500 ml 600 ml 550 ml Balance -750 ml 1600 ml 258 ml 50 ml Intake Oral 0 ml 0 ml 580 ml 600 ml IV Total 600 ml 278 ml Packed Cells 500 ml Other 1000 ml Output Urine Total 750 ml 350 ml 600 ml 550 ml Estimated Blood Loss 150 ml # Bowel Movements 0 Result Diagram: 01/13/17 0629 01/13/17 0629 Imaging Last Impressions Chest X-Ray 01/12/17 [id number] Signed Impressions: Service Date/Time: Thursday, January 12, 2017 18:02 - CONCLUSION: Mild consolidation versus atelectasis at the left lung base. Marcell Loredo MD Objective Remarks awake and alerrt, NAD anciteric lungs clear regular rhythm abdomen soft, nontender left hip wound left AKA- stump - post op dressing in place left hip 13 cm x 9 cm 2.6 cm depth , left iscium 12 cm x 7 cm x 3.3 cm, right heel 3 cm x 8 cm wounds right ankle 2.5 cm x 1.5 cm wound Procedures left AKA Urinary Catheter: Yes Assessment to: Continue Blood insert reason: Prolonged Immobilization Date of Insertion: Jan 13, 2017 A/P Assessment and Plan 56 years old male - paraplegia- wheelchair bound S/P left AKA due to Left BKA stump infection/gangrene- 01/13 - DR Ivan mckeon --on Vancomycin and zosyn - ID consult i known to Dr. López Left hip wound/ulcer - s/p debridement wound care team consulted. Sacral decubitus wound stage 4 D/w - VAC will be applied today consider diverting colostomy Multiple right heel wounds- minimal drainage. wopund care team consult. Podiatry consult for evaluation Microcytic anemia- check iron studies UTI- gram negative rods. on Zosyn. ff cultures History of T1 fracture Neurogenic bladder/bowel Peripheral vascular disease Depression Chronic tobacco abuse Likely underlying COPD Aline Ibarra MD Jan 14, 2017 12:32
[2017-01-14] MEDS ORDERED: MISCELLANEOUS PHARMACY INFORMATION XX PRN (12:45)
[2017-01-14] MEDS ORDERED: ASP: Documented ESBL, MDR A baumannii or P. aeruginosa PRN (12:45)
--- NOTE | 2017-01-14 12:45 | PD.ID.CON ---
History of Present Illness Service ID Consult Requested By Dr Ibarra Reason for Consult sepsis, infected stump Primary Care Physician Non-Staff Diagnoses: History of Present Illness Pt known to known to me from his previous admission Pt is not very coopertive and hostile 56 yo paraplegic male with T1 fracture neurogenic bowel and bladder, peripheral vascular disease and chronic decubitus ulcers and BKA about 1.5 months ago presented initially 2 weeks ago with dry gangrene of L LE stump and long standing sacral/buttocks ulcers x [address]. [address] and MRI Abnormal were suspicious for osteomyelitis of left ischium and left inferior pubic ramus . On physical exam he has back 2 weeks ago he has stage IV infected decubitus ulcers with exposed ruohg bone Bone and urine clx back 2 weeks ago were positive for MDRO Acinetobacter S Meropenem/tobra. He was seen by Dr Robertson offered AKA and wound debridement then, but he refused and left AMA This time he presented with c/o pain all over and was noted to be hypotensive on presentation with prominent leukocytosis. His UA was very abnormal. He self- caths, but admits to catheterise self only once a day He has some C in [place] where they attend to his wounds - per notes. He underwent L BKA revision/AKA and multiple sacral /ischial wounds debridement He was started on broad spectrum abx and urine clx is growing Acinetobacter S only to tobra. 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 Social History + Tobacco; 1ppd No ETOH. No IVDU + MJ. Physical Exam Vital Signs Vital Signs Date Time Temp Pulse Resp B/P Pulse Ox O2 Delivery O2 Flow Rate FiO2 01/14/17 12:00 97.4 80 16 77/51 99 01/14/17 08:00 97.4 83 16 82/52 99 01/14/17 04:00 98.0 95 19 80/51 100 01/14/17 00:00 98.1 84 19 83/54 98 01/13/17 20:00 98.2 97 20 84/54 98 01/13/17 20:00 Room Air 01/13/17 16:00 98.0 84 18 90/55 97 01/13/17 13:22 97.4 71 15 95/52 100 Room Air 01/13/17 13:15 74 13 97/59 100 Room Air 01/13/17 13:00 82 13 92/55 100 Room Air 01/13/17 12:45 97.4 76 15 94/51 94 Room Air Physical Exam CONSTITUTIONAL/GENERAL: This is an adequately nourished patient, in no apparent distress. TUBES/LINES/DRAINS: SKIN: No jaundice, rashes, or lesions.Skin temperature appropriate. Not diaphoretic. HEAD: Atraumatic. Normocephalic. EYES: Pupils equal and round and reactive. Extraocular motions intact. No scleral icterus. No injection or drainage. Fundi not examined. ENT: Hearing grossly normal. Nose without bleeding or purulent drainage. Oral mucosae without visible erythema, exudates, masses, or lesions. Dentition is poor NECK: Trachea midline. Supple, nontender. CARDIOVASCULAR: Regular rate and rhythm without murmurs, gallops, or rubs. No JVD. Peripheral pulses symmetric. RESPIRATORY/CHEST: Symmetric, unlabored respirations. Clear to auscultation. Breath sounds equal bilaterally. No wheezes, rales, or rhonchi. GASTROINTESTINAL: Abdomen soft, non-tender, nondistended. No hepato-splenomegaly , or palpable masses. No guarding. Bowel sounds present. GENITOURINARY: Without palpable bladder distension. Blood catheter in place with failry clear pale yellow urine MUSCULOSKELETAL: Extremities without clubbing, cyanosis, or edema. L LE sps AKA - surg dressing in place R foot with dry non t infected apparittg wounds on the heel and 2 nd toe PELVIS: op dressing in place LYMPHATICS: No palpable cervical or supraclavicular adenopathy. NEUROLOGICAL: Awake and alert. Motor and sensory grossly within normal limits. Follows commands. Clear speech. Moves all extremities. PSYCHIATRIC: No obvious anxiety/depression. no apparent hallucinations or other psychotic thought process. Non cooperative and hostile Laboratory Date/Time Procedure Status Source Growth 01/13/17 12:12 Gram Stain - Final Resulted Wound Other 01/13/17 12:12 Wound Culture Resulted Wound Other Pending 01/13/17 12:12 Fungal Smear Received Wound Other Pending 01/13/17 12:12 Fungal Culture Received Wound Other Pending 01/13/17 12:12 Acid Fast Stain Received Wound Other Pending 01/13/17 12:12 Mycobacterial Culture Received Wound Other Pending 01/12/17 20:00 Urine Culture - Preliminary Resulted Urine Catheterized Urine Gram Negative Justin 01/12/17 19:15 Aerobic Blood Culture - Preliminary Resulted Blood Peripheral NO GROWTH IN 2 DAYS 01/12/17 19:15 Anaerobic Blood Culture - Preliminary Resulted Gram Positive Cocci Result Diagram: 01/13/17 0629 01/13/1729 Imaging Last Impressions Chest X-Ray 01/12/17 9939 Signed Impressions: Service Date/Time: Tuesday, January 12, 2017 18:02 - CONCLUSION: Mild consolidation versus atelectasis at the left lung base. Marcell Loredo MD Assessment and Plan Assessment and Plan Paraplegia 2/2 traumaticc T 1 fracture PVD NOn compliance Tobaccoism Long standing infrected decubs involving sacrum and buttocks, infected with MDRO Acinetobacter clinically and radiologically ce contigiuous osteomyelitis Pelvic osteomyelitis, contigious from the wounds - this is a very advanced situation and treatment of his pelvic osteomyelitis will involve surgery, divertive colostomy and adjunctive abx - without surgical treatment colostomy followed by wound care the treatment failure will be closeto 100% - abx alone use in this case will obly contribute to further resistance and also side effects pt previously refuses colostomy 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 UTI, MDRO Acinetobacter previously in the setting s of neurogenic bladder - I Unasyn - P Meropeem - poor compliance with self cath Staph epi low grade bacteremia, 1/4 bottles - likley contamination REC's: - dc zosyn start meropenem, add Unasyn - cont , vancomycn pt needs divertive colostomy fu clx Discussed Condition With Tahmina Young MD Jan 14, 2017 12:45
[2017-01-14] MEDS: MEROPENEM INJ 1,000 MG in SODIUM CHLORIDE 0.9% INJ 100 ML IV SCH ×2 (14:00→22:18)
[2017-01-14] MEDS: COLLAGENASE OINT 30 GM TUBE TOPICAL SCH (15:00)
[2017-01-14] MEDS: AMPICILLIN-SULBACTAM INJ 3 GM in SODIUM CHLORIDE 0.9% INJ 100 ML IV SCH ×2 (16:00→22:20)
--- NOTE | 2017-01-14 17:32 | PD.CAR.PN ---
CVT Progress Note Subjective/Hospital Course: 56-year-old male known to me from last visit about 10 days ago. 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 after surgery performed at another hospital Patient has essentially mummified left BKA stump going all the way over the patella to distal above the knee level Patient was here a week or so ago and of course we recommended above-knee amputation of the time but patient stated that the thing is healing nicely and was very angry about even mention of amputation Now patient has progressive more necrosis in addition he is losing weight and is in functional decline because of the same Patient will need above-knee amputation on urgent basis He ate and will go ahead with an amputation tomorrow In addition patient has extensive sacral and lumbar decubiti needing debridement as well Full consult to follow Robinson J 01/14/17 Patient status post the left above-knee amputation and debridement of the huge sacral decubiti and a left hip decubitus As noted in my operative report is a very deep great for decubiti and chance of healing this is miniscule Dressing intact on left AKA I have discussed the care with wound care nurse and patient will have a large wound VAC placed Tuesday and . This may help to reduce some granulation tissue and start healing processes but I'm afraid 15 DN patient may require left hip disarticulation which is of course a large and unfortunately procedure if necessary Every effort should be made to avoid this if possible Objective: Vital Signs Date Time Temp Pulse Resp B/P Pulse Ox O2 Delivery O2 Flow Rate FiO2 01/14/17 16:00 98.0 81 20 130/78 100 01/14/17 12:00 97.4 80 16 77/51 99 01/14/17 08:30 16 01/14/17 08:00 99 Room Air 01/14/17 08:00 97.4 83 16 82/52 99 01/14/17 04:00 98.0 95 19 80/51 100 01/14/17 00:00 98.1 84 19 83/54 98 01/13/17 20:00 98.2 97 20 84/54 98 01/13/17 20:00 Room Air Result Diagram: 01/13/17 0629 01/13/17 0629 Sen Robertson MD Jan 14, 2017 17:32
[2017-01-14 20:50] LABS: ANION GAP 7 MEQ/L (5-15); AST (GOT) 18 U/L (15-37); BICARBONATE 29.7 MEQ/L (21.0-32.0); BLOOD UREA NITROGEN 4 MG/DL (7-18); CHLORIDE 98 MEQ/L (98-107); GLOMERULAR FILTRATION RATE 115 ML/MIN (>89); MAGNESIUM 2.1 MG/DL (1.5-2.5); POTASSIUM 3.3 MEQ/L (3.5-5.1); SODIUM (NA) 135 MEQ/L (136-145)
[2017-01-14 20:52] LABS: AUTOMATED NEUTROPHIL # 8.5 TH/MM3 (1.8-7.7); BASOPHIL # 0.1 TH/MM3 (0-0.2); BASOPHIL % 0.7 % (0.0-2.0); EOSINOPHIL % 0.4 % (0.0-4.0); HEMATOCRIT 32.3 % (39.0-51.0); HEMO FLAGS DIFF FINAL; LYMPH % 9.8 % (9.0-44.0); MEAN CELL VOLUME 73.5 FL (80.0-100.0); MEAN CORPUSCULAR HEMOGLOBIN 22.9 PG (27.0-34.0); MEAN CORPUSCULAR HGB CONC 31.1 % (32.0-36.0); MONO % 7.5 % (0.0-8.0); NEUT % 81.6 % (16.0-70.0); PLATELET COUNT 446 TH/MM3 (150-450); RED BLOOD COUNT 4.39 MIL/MM3 (4.50-5.90); WHITE BLOOD COUNT 10.4 TH/MM3 (4.0-11.0)
[2017-01-14 20:54] LABS: ALKALINE PHOSPHATASE 84 U/L (45-117); ALT (GPT) 10 U/L (12-78); FERRITIN 547 NG/ML (26-388); TOTAL BILIRUBIN ADULT 0.6 MG/DL (0.2-1.0); TRANSFERRIN IRON PROFILE 70 MG/DL (200-360)
[2017-01-15] VITALS (8 sets, daily range): BP systolic 78–104; BP diastolic 48–60; PULSE 75–90; RESP 18–20; TEMP 97.1–98.2; O2SAT 92–100
[2017-01-15] MEDS: MEROPENEM INJ 1,000 MG in SODIUM CHLORIDE 0.9% INJ 100 ML IV SCH ×3 (00:30→14:06)
[2017-01-15] MEDS: ACETAMINOPHEN/HYDROcodone 325 MG/5 MG TAB PO PRN ×3 (02:55→23:07)
[2017-01-15] MEDS: AMPICILLIN-SULBACTAM INJ 3 GM in SODIUM CHLORIDE 0.9% INJ 100 ML IV SCH ×5 (02:56→16:59)
[2017-01-15] MEDS: SODIUM CHLORIDE 0.9% FLUSH 10 ML FLUSH IV FLUSH SCH ×2 (09:59→21:00)
[2017-01-15] MEDS: VANCOMYCIN 1,000 MG/NS 250 ML IV SCH ×4 (10:00→23:06)
--- NOTE | 2017-01-15 11:31 | PD.CAR.PN ---
CVT Progress Note Subjective/Hospital Course: 56-year-old male known to me from last visit about 10 days ago. 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 after surgery performed at another hospital Patient has essentially mummified left BKA stump going all the way over the patella to distal above the knee level Patient was here a week or so ago and of course we recommended above-knee amputation of the time but patient stated that the thing is healing nicely and was very angry about even mention of amputation Now patient has progressive more necrosis in addition he is losing weight and is in functional decline because of the same Patient will need above-knee amputation on urgent basis He ate and will go ahead with an amputation tomorrow In addition patient has extensive sacral and lumbar decubiti needing debridement as well Full consult to follow Robinson J 01/14/17 Patient status post the left above-knee amputation and debridement of the huge sacral decubiti and a left hip decubitus As noted in my operative report is a very deep great for decubiti and chance of healing this is miniscule Dressing intact on left AKA I have discussed the care with wound care nurse and patient will have a large wound VAC placed Tuesday and . This may help to reduce some granulation tissue and start healing processes but I'm afraid 15 DN patient may require left hip disarticulation which is of course a large and unfortunately procedure if necessary Every effort should be made to avoid this if possible 01/15/17 Status post left above-knee amputation and debridement of the sacral and the hip decubiti We'll keep dressing on until tomorrow The decubiti care has been discussed with the wound care nurse and patient currently has wound vacs on all these We should continue this for a while and see it granulates that there is a very high chance the patient will require left hip disarticulation in the future Continue current care Objective: Vital Signs Date Time Temp Pulse Resp B/P Pulse Ox O2 Delivery O2 Flow Rate FiO2 01/15/17 08:15 Room Air 01/15/17 08:00 98.2 76 18 104/55 96 01/15/17 04:00 97.1 77 20 92/52 99 01/15/17 00:30 82/50 01/15/17 00:00 97.6 81 20 78/48 100 01/14/17 22:37 21 01/14/17 20:07 90 01/14/17 20:00 98.3 87 16 92/54 98 01/14/17 19:30 Room Air 01/14/17 16:00 98.0 81 20 130/78 100 01/14/17 12:00 97.4 80 16 77/51 99 Result Diagram: 01/14/17201201/14/172012 Sen Robertson MD Jan 15, 2017 11:31
--- NOTE | 2017-01-15 12:03 | PD.CONS ---
History of Present Illness Service Podiatry Consult Requested By Reason for Consult R heel ulcer Primary Care Physician Non-Staff Diagnoses: History of Present Illness 56 yo paraplegic male with T1 fracture neurogenic bowel and bladder, peripheral vascular disease and chronic decubitus ulcers and BKA about 1.5 months ago. Recent AKA L and consulted to assess R heel ulcer. 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 PVD T1 Fracture Paraplegia Neurogenic Bowel/Bladder PVD Depression Past Surgical History L AKA Active Ordered Medications Current Medications Medications (Trade) Dose Ordered Sig/Vivien Route Start Time Stop Time Status Last Admin (NS Flush) 2 ml UNSCH PRN IV FLUSH 01/12/17 21:45 (NS Flush) 2 ml BID IV FLUSH 01/13/17 09:00 01/15/17 09:59 Naloxone HCl 0.4 mg 0.4 mg UNSCH PRN IV 01/12/17 21:45 (Vancomycin Consult Pharmacy) 0 ml @ 0 mls/hr UNSCH OTHER 01/12/17 22:00 Acetaminophen/ Hydrocodone Bitart 1 tab 1 tab Q6H PRN PO 01/13/17 01:30 01/15/17 02:55 (Vancomycin Inj/ NS 250 ml Inj) 250 ml @ 250 mls/hr Q12H IV 01/14/17 09:00 01/15/17 10:00 Miscellaneous Information SPECIFIC LAB TO BE [facility]... ONCE ONCE .XX 01/15/17 20:45 01/15/17 20:46 Meropenem 1000 mg/ Sodium Chloride 100 ml @ 200 mls/hr Q8H IV 01/14/17 14:00 01/15/17 05:20 (Unasyn Inj/NS Inj) 100 ml @ 200 mls/hr Q6H IV 01/14/17 16:00 01/15/17 09:58 (Santyl Oint) 1 applic MoTh TOPICAL 01/14/17 15:00 Social History + Tobacco; 1ppd Denies ETOH Denies IVD, but smokes marijuana Physical Exam Vital Signs Vital Signs Date Time Temp Pulse Resp B/P Pulse Ox O2 Delivery O2 Flow Rate FiO2 01/15/17 08:15 Room Air 01/15/17 08:00 98.2 76 18 104/55 96 01/15/17 04:00 97.1 77 20 92/52 99 01/15/17 00:30 82/50 01/15/17 00:00 97.6 81 20 78/48 100 01/14/17 22:37 21 01/14/17 20:07 90 01/14/17 20:00 98.3 87 16 92/54 98 01/14/17 19:30 Room Air 01/14/17 16:00 98.0 81 20 130/78 100 01/14/17 12:00 97.4 80 16 77/51 99 Physical Exam L AKA R plantar/posterior heel with stable appearance to eschar. Not boggy. No purulence. Approx 3.5cm diameter Nonpalpable pulses. Laboratory Laboratory Tests Test 01/14/17 20:13 White Blood Count 10.4 Red Blood Count 4.39 Hemoglobin 10.1 Hematocrit 32.3 Mean Corpuscular Volume 73.5 Mean Corpuscular Hemoglobin 22.9 Mean Corpuscular Hemoglobin 31.1 Concent Red Cell Distribution Width 20.0 Platelet Count 446 Mean Platelet Volume 6.7 Neutrophils (%) (Auto) 81.6 Lymphocytes (%) (Auto) 9.8 Monocytes (%) (Auto) 7.5 Eosinophils (%) (Auto) 0.4 Basophils (%) (Auto) 0.7 Neutrophils # (Auto) 8.5 Lymphocytes # (Auto) 1.0 Monocytes # (Auto) 0.8 Eosinophils # (Auto) 0.0 Basophils # (Auto) 0.1 CBC Comment DIFF FINAL Differential Comment Sodium Level 135 Potassium Level 3.3 Chloride Level 98 Carbon Dioxide Level 29.7 Anion Gap 7 Blood Urea Nitrogen 4 Creatinine 0.71 Estimat Glomerular Filtration 115 Rate Random Glucose 109 Calcium Level 7.8 Magnesium Level 2.1 Iron Level 14 Total Iron Binding Capacity 98 Percent Iron Saturation 14.3 Ferritin 547 Total Bilirubin 0.6 Aspartate Amino Transf 18 (AST/SGOT) Alanine Aminotransferase 10 (ALT/SGPT) Alkaline Phosphatase 84 Total Protein 6.4 Albumin 1.5 Date/Time Procedure Status Source Growth 01/13/17 12:12 Gram Stain - Final Resulted Wound Other 01/13/17 12:12 Wound Culture - Preliminary Resulted Acinetobacter Baumannii/Haemol Group D Enterococcus 01/13/17 12:12 Fungal Smear - Final Resulted Wound Other NO FUNGAL ELEMENTS SEEN. 01/13/17 12:12 Fungal Culture Resulted Wound Other Pending 01/13/17 12:12 Acid Fast Stain - Final Resulted Wound Other NO ACID FAST BACILLI SEEN 01/13/17 12:12 Mycobacterial Culture Resulted Wound Other Pending 01/12/17 20:00 Urine Culture - Final Complete Urine Catheterized Urine Acinetobacter Baumannii/Haemol 01/12/17 19:15 Aerobic Blood Culture - Preliminary Resulted Blood Peripheral NO GROWTH IN 3 DAYS 01/12/17 19:15 Anaerobic Blood Culture - Preliminary Resulted Staphylococcus Epidermidis Result Diagram: 01/14/17201201/14/172012 Imaging Last Impressions Chest X-Ray 01/12/17 7479 Signed Impressions: Service Date/Time: Tuesday, January 12, 2017 18:02 - CONCLUSION: Mild consolidation versus atelectasis at the left lung base. Marcell Loredo MD Assessment and Plan Assessment and Plan Stable heel ulcer R Strongly recommend offloading the area when in bed and betadine with dry dressing to keep stable. Ordered betadine wet to dry daily and offloading at all times when in bed. Recommend against debridement, or more proximal amputation will be eminent. Podiatry signing off. Thank you for consultation. Jacob Clement DPM Jan 15, 2017 12:03
--- NOTE | 2017-01-15 13:35 | HHI.PR ---
Subjective Remarks complains of consitpation Objective Vitals Vital Signs Date Time Temp Pulse Resp B/P Pulse Ox O2 Delivery O2 Flow Rate FiO2 01/15/17 12:00 98.0 82 18 100/60 96 01/15/17 08:15 Room Air 01/15/17 08:00 98.2 76 18 104/55 96 01/15/17 04:00 97.1 77 20 92/52 99 01/15/17 00:30 82/50 01/15/17 00:00 97.6 81 20 78/48 100 01/14/17 22:37 21 01/14/17 20:07 90 01/14/17 20:00 98.3 87 16 92/54 98 01/14/17 19:30 Room Air 01/14/17 16:00 98.0 81 20 130/78 100 I/O 01/14/17 01/14/17 01/14/17 01/15/17 01/15/17 01/15/17 07:00 15:00 23:00 07:00 15:00 23:00 Intake Total 600 ml 240 ml 360 ml 480 ml Output Total 550 ml 1350 ml 600 ml 500 ml Balance 50 ml -1110 ml -240 ml -20 ml Intake Oral 600 ml 240 ml 360 ml 480 ml Output Urine Total 550 ml 1350 ml 600 ml 500 ml # Bowel Movements 1 Result Diagram: 01/14/17201201/14/172012 Imaging Last Impressions Chest X-Ray 01/12/17 1739 Signed Impressions: Service Date/Time: Thursday, January 12, 2017 18:02 - CONCLUSION: Mild consolidation versus atelectasis at the left lung base. Marcell Loredo MD Objective Remarks awake and alerrt, NAD anicteric lungs clear regular rhythm abdomen soft, nontender sacral area with VAC in place left AKA- stump - post op dressing in place left hip 13 cm x 9 cm 2.6 cm depth , left ishcium 12 cm x 7 cm x 3.3 cm, right heel 3 cm x 8 cm wounds right ankle 2.5 cm x 1.5 cm wound Procedures left AKA VAC application Urinary Catheter: Yes Blood insert reason: Prolonged Immobilization Date of Insertion: Jan 13, 2017 A/P Assessment and Plan 56 years old male S/P left KA due to Left BKA stump infection/gangrene- with VAC application - 01/13 Left hip wound/ulcersacral decubituus stage 4 - wound care team consult. - DR Love ff --on Vancomycin, Unasyn and Meropenem - ID Dr. 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 Low serum Iron. start po Iron daily UTI- gram negative rods. on zosyn. ff cultures Paraplegia with decubitus ulcers/wheelchair bound with left hip/ischial decubitus ulcers. History of T1 fracture. Neurogenic bladder/bowel- patient at this time refuse diverting colostomy. start a bowel regimen- complains of constipation Peripheral vascular disease Depression Likely underlying COPD. lungs clear. IS hourly Hypokalemia- start KCL 30 meq po daily. recheck in am Lovenox for DVT prophylaxis PT consult Aline Ibarra MD Jan 15, 2017 13:35
[2017-01-15] MEDS: ENOXAPARIN SODIUM 30 MG/0.3 ML SYRINGE SQ SCH (14:05)
[2017-01-15] MEDS: POTASSIUM CHLORIDE 10 MEQ CONTROLLED RELEASE TAB PO SCH (14:05)
[2017-01-15] MEDS: POLYETHYLENE GLYCOL 17 GM PKG PO SCH (14:50)
--- NOTE | 2017-01-15 16:42 | MP ---
cc: MD HALI,SEN DATE OF SURGERY: 01/15/2017. PREOPERATIVE DIAGNOSIS: 1. Gangrene of the left below-knee amputation stump. 2. Large decubiti of the sacral area. 3. Left hip sepsis OPERATIVE PROCEDURE PERFORMED: Left above-knee amputation and debridement of the decubiti. SURGEON: Sen Robertson M.D. INDICATIONS FOR THE PROCEDURE: This 56-year-old male underwent below-knee amputation somewhere else. Since then, the wound got infected and gangrenous and the gangrene is now spreading all the way up to the knee exposing the patella. The patient was in complete denial about this and signed out against medical advice before. He is now for the above procedures. DESCRIPTION OF THE PROCEDURE IN DETAIL: The patient was prepped and draped in the usual fashion. Incision was made above the knee in a fish mouth fashion and deepened down with the cautery down to the femur and then around the femur. The superficial femoral artery was completely occluded; this was divided and ligated anyway and the same was done with the femoral vein. The bone was now dissected with a periosteal elevator about 3 inches above the level of the incision and then transected with an oscillating saw. A posterior flap was created with the amputation knife and the specimen removed. Meticulous hemostasis was obtained. The sciatic nerve was allowed to retract. The area was irrigated with copious amounts of saline. The incision was closed in layers using 0 Vicryl for deep layer and then superficial fascia. The skin was closed with 3-0 Prolene interrupted stitches and dressing applied. The patient was now turned with the left side up which exposed two huge sacral decubiti and a decubitus on the left hip. The sacral decubitus was first debrided. It measured about 18 cm in diameter. There was a tremendous amount necrotic tissue and this was all debrided and cleaned out down to the clean tissue. The bone was essentially right there in the area. This was a stage IV decubitus. Next the smaller of the two decubiti was debrided the same. It extended to the bone and to the sacrum and then the third decubitus was on the left hip which was debrided at this went all the way down to the capsule of the left hip. All three decubiti were irrigated with copious amounts of saline and meticulous hemostasis obtained and then dressing was applied. The patient was taken out of the operating room in stable condition. It should be noted that I explained to the patient that he will likely need a hip disarticulation at some point and he vehemently refuses to even talk about it. Sen HOFF/JIGNESH /4:47 PM /4:32 PM
[2017-01-15] MEDS ORDERED: PHARMACY ORDERED LAB ONE (20:45)
[2017-01-15 23:57] LABS: VANCOMYCIN TROUGH 18.1 MCG/ML (5.0-10.0)
[2017-01-16] VITALS (10 sets, daily range): BP systolic 82–116; BP diastolic 50–68; PULSE 68–97; RESP 16–20; TEMP 97.8–98.6; O2SAT 99–100
[2017-01-16] MEDS: AMPICILLIN-SULBACTAM INJ 3 GM in SODIUM CHLORIDE 0.9% INJ 100 ML IV SCH ×4 (04:42→20:51)
[2017-01-16] MEDS: MEROPENEM INJ 1,000 MG in SODIUM CHLORIDE 0.9% INJ 100 ML IV SCH ×3 (05:41→20:53)
[2017-01-16] MEDS: VANCOMYCIN 1,000 MG/NS 250 ML IV SCH ×2 (08:24)
[2017-01-16] MEDS: POTASSIUM CHLORIDE 10 MEQ CONTROLLED RELEASE TAB PO SCH (08:25)
[2017-01-16] MEDS: SODIUM CHLORIDE 0.9% FLUSH 10 ML FLUSH IV FLUSH SCH ×2 (08:25→20:50)
[2017-01-16] MEDS: POLYETHYLENE GLYCOL 17 GM PKG PO SCH (08:26)
[2017-01-16] MEDS: ACETAMINOPHEN/HYDROcodone 325 MG/5 MG TAB PO PRN ×2 (08:51→17:36)
--- NOTE | 2017-01-16 12:24 | HHI.PR ---
Subjective Remarks patient cooperative this am, in a good mood no complains Objective Vitals Vital Signs Date Time Temp Pulse Resp B/P Pulse Ox O2 Delivery O2 Flow Rate FiO2 01/16/17 08:15 98.5 83 18 86/51 99 86/58 01/16/17 08:00 78 01/16/17 07:00 Room Air 21 01/16/17 04:00 Room Air 01/16/17 04:00 98.0 68 18 116/60 100 01/16/17 00:00 Room Air 01/16/17 00:00 98.6 84 18 98/62 99 01/15/17 20:00 97.7 76 18 92/60 99 01/15/17 20:00 75 01/15/17 20:00 Room Air 01/15/17 16:00 Room Air 01/15/17 16:00 97.9 90 18 89/54 99 I/O 01/15/17 01/15/17 01/15/17 01/16/17 01/16/17 01/16/17 07:00 15:00 23:00 07:00 15:00 23:00 Intake Total 480 ml 1097 ml 606 ml 400 ml Output Total 500 ml 6000 ml Balance -20 ml 1097 ml -5394 ml 400 ml Intake Oral 480 ml 240 ml IV Total 1097 ml 366 ml 400 ml Output Urine Total 500 ml 6000 ml # Bowel Movements 0 Result Diagram: 01/14/17201201/15/17 2300 Imaging Last Impressions Chest X-Ray 01/12/17 1739 Signed Impressions: Service Date/Time: Thursday, January 12, 2017 18:02 - CONCLUSION: Mild consolidation versus atelectasis at the left lung base. Marcell Loredo MD Objective Remarks awake and alerrt, NAD anicteric lungs clear regular rhythm abdomen soft, nontender sacral area with VAC in place left AKA- stump - post op dressing in place left hip 13 cm x 9 cm 2.6 cm depth , left ishcium 12 cm x 7 cm x 3.3 cm, right heel 3 cm x 8 cm wounds right ankle 2.5 cm x 1.5 cm wound Procedures left AKA VAC application Blood insert reason: Prolonged Immobilization Date of Insertion: Jan 13, 2017 A/P Assessment and Plan 56 years old male S/P left KA due to Left BKA stump infection/gangrene- with VAC application - 01/13 Left hip wound/ulcer/sacral decubituus stage 4 - wound care team consult. - DR Ivan mckeon --on Vancomycin, Unasyn and Meropenem - ID Dr. 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 Low serum Iron. start po Iron daily UTI- gram negative rods. on zosyn. ff cultures Paraplegia with decubitus ulcers/wheelchair bound with left hip/ischial decubitus ulcers. History of T1 fracture. Neurogenic bladder/bowel- patient at this time refuse diverting colostomy. start a bowel regimen- complains of constipation Peripheral vascular disease Depression Likely underlying COPD. lungs clear. IS hourly Hypokalemia- start KCL 30 meq po daily. recheck today- spoke with nurse to call lab- refused earlier Lovenox for DVT prophylaxis PT consult Aline Ibarra MD Jan 16, 2017 12:24
--- NOTE | 2017-01-16 13:26 | PD.CAR.PN ---
CVT Progress Note Subjective/Hospital Course: 56-year-old male known to me from last visit about 10 days ago. 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 after surgery performed at another hospital Patient has essentially mummified left BKA stump going all the way over the patella to distal above the knee level Patient was here a week or so ago and of course we recommended above-knee amputation of the time but patient stated that the thing is healing nicely and was very angry about even mention of amputation Now patient has progressive more necrosis in addition he is losing weight and is in functional decline because of the same Patient will need above-knee amputation on urgent basis He ate and will go ahead with an amputation tomorrow In addition patient has extensive sacral and lumbar decubiti needing debridement as well Full consult to follow Robinson J 01/14/17 Patient status post the left above-knee amputation and debridement of the huge sacral decubiti and a left hip decubitus As noted in my operative report is a very deep great for decubiti and chance of healing this is miniscule Dressing intact on left AKA I have discussed the care with wound care nurse and patient will have a large wound VAC placed Tuesday and . This may help to reduce some granulation tissue and start healing processes but I'm afraid 15 DN patient may require left hip disarticulation which is of course a large and unfortunately procedure if necessary Every effort should be made to avoid this if possible 01/15/17 Status post left above-knee amputation and debridement of the sacral and the hip decubiti We'll keep dressing on until tomorrow The decubiti care has been discussed with the wound care nurse and patient currently has wound vacs on all these We should continue this for a while and see it granulates that there is a very high chance the patient will require left hip disarticulation in the future Continue current care 01/16/17 Patient doing well incisions clean and dry dressing is intact Will start changing the dressing today Back decubiti are covered with wound vacs and we can try to give it a chance to heal however this may be lethal and may cause sepsis resulting in dire outcome Patient refuses diverting colostomy and I don't see any way any of this will heal without diverting the stool Objective: Vital Signs Date Time Temp Pulse Resp B/P Pulse Ox O2 Delivery O2 Flow Rate FiO2 01/16/17 12:17 97.9 83 18 82/52 99 90/60 01/16/17 08:15 98.5 83 18 86/51 99 86/58 01/16/17 08:00 78 01/16/17 07:00 Room Air 21 01/16/17 04:00 Room Air 01/16/17 04:00 98.0 68 18 116/60 100 01/16/17 00:00 Room Air 01/16/17 00:00 98.6 84 18 98/62 99 01/15/17 20:00 97.7 76 18 92/60 99 01/15/17 20:00 75 01/15/17 20:00 Room Air 01/15/17 16:00 Room Air 01/15/17 16:00 97.9 90 18 89/54 99 Result Diagram: 01/14/17201201/15/17 2300 Sen Robertson MD Jan 16, 2017 13:25
[2017-01-16 13:58] LABS: BICARBONATE 28.1 MEQ/L (21.0-32.0); POTASSIUM 3.5 MEQ/L (3.5-5.1)
[2017-01-16] MEDS ORDERED: POTASSIUM CHLORIDE 20 MEQ CONTROLLED RELEASE TAB PO SCH (14:15)
[2017-01-16] MEDS: ENOXAPARIN SODIUM 30 MG/0.3 ML SYRINGE SQ SCH (14:18)
[2017-01-17] MEDS ORDERED: BISACODYL 10 MG SUPP RECTAL PRN (00:30)
[2017-01-17] MEDS: SENNOSIDES 8.6 MG TAB PO SCH ×2 (00:48→09:00)
[2017-01-17 05:27] VITALS: BP 90/60; PULSE 97; RESP 16; TEMP 98.6; O2SAT 100
[2017-01-17] MEDS: MEROPENEM INJ 1,000 MG in SODIUM CHLORIDE 0.9% INJ 100 ML IV SCH ×2 (05:40→14:00)
[2017-01-17] MEDS: AMPICILLIN-SULBACTAM INJ 3 GM in SODIUM CHLORIDE 0.9% INJ 100 ML IV SCH ×4 (05:43→21:04)
[2017-01-17 08:00] VITALS: BP 96/61; PULSE 93; RESP 20; TEMP 98.6; O2SAT 99
[2017-01-17] MEDS: POLYETHYLENE GLYCOL 17 GM PKG PO SCH (09:00)
[2017-01-17] MEDS: SODIUM CHLORIDE 0.9% FLUSH 10 ML FLUSH IV FLUSH SCH ×2 (09:00→20:20)
[2017-01-17] MEDS: POTASSIUM CHLORIDE 10 MEQ CONTROLLED RELEASE TAB PO SCH (09:00)
--- NOTE | 2017-01-17 12:49 | HHI.PR ---
Subjective Remarks no complains no diarrhea no pain complains Objective Vitals Vital Signs Date Time Temp Pulse Resp B/P Pulse Ox O2 Delivery O2 Flow Rate FiO2 01/17/17 08:00 98.6 93 20 96/61 99 01/17/17 05:27 98.6 97 16 90/60 100 01/17/17 00:00 Room Air 01/16/17 23:54 Room Air 01/16/17 23:54 97.8 88 16 90/68 100 01/16/17 20:57 84/50 01/16/17 20:09 97 01/16/17 20:00 Room Air 01/16/17 20:00 98.0 85 20 99 01/16/17 16:07 97.8 91 18 97/61 99 I/O 01/16/17 01/16/17 01/16/17 01/17/17 01/17/17 01/17/17 07:00 15:00 23:00 07:00 15:00 23:00 Intake Total 400 ml 930 ml Output Total 1550 ml 525 ml 175 ml Balance 400 ml -620 ml -525 ml -175 ml Intake Oral 480 ml IV Total 400 ml 450 ml Output Urine Total 1550 ml 525 ml 175 ml # Bowel Movements 0 Result Diagram: 01/14/17201201/16/17 1250 Imaging Last Impressions Chest X-Ray 01/12/17 1739 Signed Impressions: Service Date/Time: Thursday, January 12, 2017 18:02 - CONCLUSION: Mild consolidation versus atelectasis at the left lung base. Marcell Loredo MD Objective Remarks awake and alerrt, NAD anicteric lungs clear regular rhythm abdomen soft, nontender sacral area with VAC in place left AKA- stump - post op dressing in place left hip 13 cm x 9 cm 2.6 cm depth , left ischium 12 cm x 7 cm x 3.3 cm, right heel 3 cm x 8 cm wounds right ankle 2.5 cm x 1.5 cm wound Procedures left AKA VAC application Urinary Catheter: Yes Assessment to: Continue Blood insert reason: Prolonged Immobilization Date of Insertion: Jan 13, 2017 A/P Assessment and Plan 56 years old male S/P left KA due to Left BKA stump infection/gangrene- with VAC application - 01/13 Left hip wound/ulcer/sacral decubituus stage 4 - wound care team consult. - DR Love ff --on IV antibiotics - ID Dr. 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 Low serum Iron. start po Iron daily UTI- gram negative rods. on zosyn. ff cultures Paraplegia with decubitus ulcers/wheelchair bound with left hip/ischial decubitus ulcers. History of T1 fracture. Neurogenic bladder/bowel- patient at this time refuse diverting colostomy. start a bowel regimen- complains of constipation Peripheral vascular disease Depression Likely underlying COPD. lungs clear. IS hourly Hypokalemia- KCL 30 meq po daily. r Lovenox for DVT prophylaxis PT daily Aline Ibarra MD Jan 17, 2017 12:49
[2017-01-17] MEDS: ENOXAPARIN SODIUM 30 MG/0.3 ML SYRINGE SQ SCH (14:00)
[2017-01-17] MEDS: QUEtiapine FUMARATE 25 MG TAB PO SCH (14:00)
[2017-01-17] MEDS ORDERED: PILL SPLITTER OTHER PRN (14:00)
--- NOTE | 2017-01-17 14:26 | HHI.IDPN ---
Subjective Subjective Remarks pt is confused afebrile Antibiotics meropenem ampicillin Allergies: Coded Allergies: Levaquin (Verified Allergy, Severe, 12/25/16) *MDRO Multi-Drug Resistant Organism (Verified Allergy, Unknown, 01/17/17) MDR-Acinetobacter baumannii (Urine) - 04/20/16, 12/25/16, 01/12/17 MDR-Acinetobacter baumannii (wounds)-12/25/16, 01/12/17 Septra (Verified Allergy, Unknown, 12/25/16) Objective . Vital Signs Date Time Temp Pulse Resp B/P Pulse Ox O2 Delivery O2 Flow Rate FiO2 01/17/17 08:00 98.6 93 20 96/61 99 01/17/17 05:27 98.6 97 16 90/60 100 01/17/17 00:00 Room Air 01/16/17 23:54 Room Air 01/16/17 23:54 97.8 88 16 90/68 100 01/16/17 20:57 84/50 01/16/17 20:09 97 01/16/17 20:00 Room Air 01/16/17 20:00 98.0 85 20 99 01/16/17 16:07 97.8 91 18 97/61 99 01/16/17 01/16/17 01/17/17 15:00 23:00 07:00 Intake Total 930 ml Output Total 1550 ml 525 ml 175 ml Balance -620 ml -525 ml -175 ml Intake Oral 480 ml IV Total 450 ml Output Urine Total 1550 ml 525 ml 175 ml # Bowel Movements 0 . Laboratory Tests Test 01/15/17 01/16/17 23:00 12:50 Creatinine 0.62 MG/DL 0.54 MG/DL Estimat Glomerular Filtration 135 ML/MIN 158 ML/MIN Rate Sodium Level 138 MEQ/L Potassium Level 3.5 MEQ/L Chloride Level 102 MEQ/L Carbon Dioxide Level 28.1 MEQ/L Anion Gap 8 MEQ/L Blood Urea Nitrogen 3 MG/DL Random Glucose 107 MG/DL Calcium Level 8.0 MG/DL Imaging Last Impressions Chest X-Ray 01/12/17 7237 Signed Impressions: Service Date/Time: Thursday, January 12, 2017 18:02 - CONCLUSION: Mild consolidation versus atelectasis at the left lung base. Marcell Loredo MD Physical Exam CONSTITUTIONAL/GENERAL: This is an adequately nourished patient, in no apparent distress. TUBES/LINES/DRAINS: SKIN: No jaundice, rashes, or lesions.Skin temperature appropriate. Not diaphoretic. Sacral, decubes: stage IV sp debridement, <10% of necrotic tissue, no odor B/l trochanter major decubs, stage IV > 50 % of necrotic tissue Ischial decub L: fairly clean now stage 4 CARDIOVASCULAR: Regular rate and rhythm without murmurs, gallops, or rubs. No JVD. Peripheral pulses symmetric. RESPIRATORY/CHEST: Symmetric, unlabored respirations. Clear to auscultation. Breath sounds equal bilaterally. No wheezes, rales, or rhonchi. GASTROINTESTINAL: Abdomen soft, non-tender, nondistended. No hepato-splenomegaly , or palpable masses. No guarding. Bowel sounds present. GENITOURINARY: Without palpable bladder distension. Blood catheter in place with failry clear pale yellow urine MUSCULOSKELETAL: Extremities without clubbing, cyanosis, or edema. L LE sps AKA - well approximated, clean and dry incision R foot with dry gangrenous changes in the heel region PELVIS: op dressing in place LYMPHATICS: No palpable cervical or supraclavicular adenopathy. NEUROLOGICAL: Awake and alert. confused. Follows commands PSYCHIATRIC: fairly calm today; cooperative Assessment & Plan Remarks Paraplegia 2/2 traumaticc T 1 fracture PVD NOn compliance Tobaccoism Long standing infrected decubs involving sacrum and buttocks, infected with MDRO Acinetobacter clinically and radiologically ce contigiuous osteomyelitis sp debridement , wounds look clean Pelvic osteomyelitis, contigious from the wounds - this is a very advanced situation and treatment of his pelvic osteomyelitis will involve surgery, divertive colostomy and adjunctive abx - without surgical treatment colostomy followed by wound care the treatment failure will be closeto 100% - abx alone use in this case will obly contribute to further resistance and also side effects pt previously refuses colostomy 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, healing nicely UTI, MDRO Acinetobacter previously in the setting s of neurogenic bladder - I Unasyn - P Meropeem - poor compliance with self cath Staph epi low grade bacteremia, 1/ bottles - likley contamination REC's: dc meropenem, cont Unasyn - even its I to Unasyn the accumulation of this agent in the usrine is very high to create concentrations much high than YOSHI dc vancomycn pt needs divertive colostomy repeat UA, C+S if fever/leukocytsis Tahmina López MD Jan 17, 2017 14:26 01/12/17 19:15 Aerobic Blood Culture - Preliminary Resulted Blood Peripheral NO GROWTH IN 2 DAYS 01/12/17 19:15 Anaerobic Blood Culture - Preliminary Resulted Gram Positive Cocci Result Diagram: 01/13/17 0629 01/13/17 0629 Imaging Last Impressions Chest X-Ray 01/12/17 1459 Signed Impressions: Service Date/Time: Tuesday, January 12, 2017 18:02 - CONCLUSION: Mild consolidation versus atelectasis at the left lung base. Marcell Loredo MD Assessment and Plan Assessment and Plan Assessment & Plan Remarks Paraplegia 2/2 traumaticc T 1 fracture PVD NOn compliance Tobaccoism Long standing infrected decubs involving sacrum and buttocks, infected with MDRO Acinetobacter clinically and radiologically ce contigiuous osteomyelitis sp debridement , wounds look clean Pelvic osteomyelitis, contigious from the wounds - this is a very advanced situation and treatment of his pelvic osteomyelitis will involve surgery, divertive colostomy and adjunctive abx - without surgical treatment colostomy followed by wound care the treatment failure will be closeto 100% - abx alone use in this case will obly contribute to further resistance and also side effects pt previously refuses colostomy 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
[2017-01-17] MEDS: COLLAGENASE OINT 30 GM TUBE TOPICAL SCH (14:45)
--- NOTE | 2017-01-17 15:54 | PD.CAR.PN ---
CVT Progress Note Subjective/Hospital Course: 56-year-old male known to me from last visit about 10 days ago. 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 after surgery performed at another hospital Patient has essentially mummified left BKA stump going all the way over the patella to distal above the knee level Patient was here a week or so ago and of course we recommended above-knee amputation of the time but patient stated that the thing is healing nicely and was very angry about even mention of amputation Now patient has progressive more necrosis in addition he is losing weight and is in functional decline because of the same Patient will need above-knee amputation on urgent basis He ate and will go ahead with an amputation tomorrow In addition patient has extensive sacral and lumbar decubiti needing debridement as well Full consult to follow Robinson J 01/14/17 Patient status post the left above-knee amputation and debridement of the huge sacral decubiti and a left hip decubitus As noted in my operative report is a very deep great for decubiti and chance of healing this is miniscule Dressing intact on left AKA I have discussed the care with wound care nurse and patient will have a large wound VAC placed Tuesday and . This may help to reduce some granulation tissue and start healing processes but I'm afraid 15 DN patient may require left hip disarticulation which is of course a large and unfortunately procedure if necessary Every effort should be made to avoid this if possible 01/15/17 Status post left above-knee amputation and debridement of the sacral and the hip decubiti We'll keep dressing on until tomorrow The decubiti care has been discussed with the wound care nurse and patient currently has wound vacs on all these We should continue this for a while and see it granulates that there is a very high chance the patient will require left hip disarticulation in the future Continue current care 01/16/17 Patient doing well incisions clean and dry dressing is intact Will start changing the dressing today Back decubiti are covered with wound vacs and we can try to give it a chance to heal however this may be lethal and may cause sepsis resulting in dire outcome Patient refuses diverting colostomy and I don't see any way any of this will heal without diverting the stool 01/17/17 AKA stump is clean and dry The back decubiti appeared to be clean and looked much better than I thought they would. Area is granulating nicely, however patient refuses diverting colostomy and sooner later this is all going get infected and patient will of sepsis Objective: Vital Signs Date Time Temp Pulse Resp B/P Pulse Ox O2 Delivery O2 Flow Rate FiO2 01/17/17 08:00 99 Room Air 01/17/17 08:00 98.6 93 20 96/61 99 01/17/17 05:27 98.6 97 16 90/60 100 01/17/17 00:00 Room Air 01/16/17 23:54 Room Air 01/16/17 23:54 97.8 88 16 90/68 100 01/16/17 20:57 84/50 01/16/17 20:09 97 01/16/17 20:00 Room Air 01/16/17 20:00 98.0 85 20 99 01/16/17 16:07 97.8 91 18 97/61 99 Result Diagram: 01/14/17201201/16/17 1250 Sen Robertson MD Jan 17, 2017 15:54
[2017-01-17 16:00] VITALS: BP 107/68; PULSE 87; RESP 22; TEMP 97.6; O2SAT 100
[2017-01-17 20:01] VITALS: BP 108/66; PULSE 77; RESP 18; TEMP 97.1; O2SAT 100
[2017-01-18] VITALS (7 sets, daily range): BP systolic 91–125; BP diastolic 52–66; PULSE 79–96; RESP 16–20; TEMP 97.6–98.3; O2SAT 98–100
[2017-01-18] MEDS: AMPICILLIN-SULBACTAM INJ 3 GM in SODIUM CHLORIDE 0.9% INJ 100 ML IV SCH ×4 (03:53→21:24)
[2017-01-18] MEDS: SODIUM CHLORIDE 0.9% FLUSH 10 ML FLUSH IV FLUSH SCH ×2 (09:00→19:41)
[2017-01-18] MEDS: POTASSIUM CHLORIDE 10 MEQ CONTROLLED RELEASE TAB PO SCH (09:17)
[2017-01-18] MEDS: QUEtiapine FUMARATE 25 MG TAB PO SCH ×2 (09:17→11:52)
[2017-01-18] MEDS: POLYETHYLENE GLYCOL 17 GM PKG PO SCH (09:18)
[2017-01-18] MEDS: SENNOSIDES 8.6 MG TAB PO SCH (09:18)
--- NOTE | 2017-01-18 11:53 | PD.CONS ---
Provisional Diagnosis Admission Date January 12, 2017 at 21:51 [place]. Adjustment disorder with mixed disturbance of emotions and conduct. History of Present Illness Service Psychiatry Consult Requested By Primary Care Physician Non-Staff HPI Patient seen at bed side with one of his close friends present. He is more calm today compared to previous notes. He does acknowledge his irritability and frustration with his medical treatment. Both the patient and the patient's friend reports that he historically takes Valium, 10 mg, when he is stressed and upset. This physician agrees with that plan and will order same for patient. He does not have a history of psychiatric treatment or drug abuse or alcoholism. He does have symptoms of depression including depressed mood, irritability, anhedonia, etc. but he is not suicidal. His depressive symptoms appear to be situational. Review of Systems ROS Limitations: Poor Historian Past Family Social History Coded Allergies: Levaquin (Verified Allergy, Severe, 12/25/16) *MDRO Multi-Drug Resistant Organism (Verified Allergy, Unknown, 01/17/17) MDR-Acinetobacter baumannii (Urine) - 04/20/16, 12/25/16, 01/12/17 MDR-Acinetobacter baumannii (wounds)-12/25/16, 01/12/17 Septra (Verified Allergy, Unknown, 12/25/16) Reported Medications Ciprofloxacin (Cipro)250 Mg [id number] Mg PO BID Ref 0 01/12/17 Lubiprostone (Amitiza)24 Mcg Cap24 Mg PO DAILY Ref 0 12/25/16 Finasteride 5 Mg Tab5 Mg PO DAILY #30 TAB Ref 0 Do not crush. 12/25/16 Potassium Chloride ER (Klor-Con 10)10 Meq Tab10 Meq PO DAILY #30 TAB Ref 0 12/25/16 Furosemide 40 Mg Tab40 Mg PO BID #60 TAB Ref 0 12/25/16 Baclofen 20 Mg Tab20 Mg PO QID Ref 0 12/25/16 Hydrocodone-Acetaminophen 10-325 mg Tab1 Tab PO Q6H PRN (PAIN) Ref 0 12/25/16 Discontinued Reported Medications Gabapentin 600 Mg [id number] Mg PO QID #90 TAB Ref 0 12/25/16 Ciprofloxacin (Cipro)500 Mg [id number] Mg PO BID Ref 0 12/25/16 Current Medications Medications (Trade) Dose Ordered Sig/Vivien Route Start Time Stop Time Status Last Admin (NS Flush) 2 ml UNSCH PRN IV FLUSH 01/12/17 21:45 (NS Flush) 2 ml BID IV FLUSH 01/13/17 09:00 01/18/17 09:00 (Narcan Inj) 0.4 mg UNSCH PRN IV 01/12/17 21:45 Acetaminophen/ Hydrocodone Bitart 1 tab 1 tab Q6H PRN PO 01/13/17 01:30 01/16/17 17:36 (Unasyn Inj/NS Inj) 100 ml @ 200 mls/hr Q6H IV 01/14/17 16:00 01/18/17 09:18 (Santyl Oint) 1 applic MoTh TOPICAL 01/14/17 15:00 (KCl) 30 meq DAILY PO 01/15/17 13:45 01/18/17 09:17 (Lovenox Inj) 30 mg Q24H SQ 01/15/17 14:00 01/17/17 14:00 (Dilaudid Pf Inj) 0.5 mg Q4H PRN IV PUSH 01/15/17 13:45 (Miralax) 17 gm DAILY PO 01/15/17 14:00 01/18/17 09:18 (Dulcolax Supp) 10 mg DAILY PRN RECTAL 01/17/17 00:30 01/17/17 00:48 (Senokot) 8.6 mg DAILY PO 01/17/17 00:30 01/18/17 09:18 (SEROquel) 12.5 mg BID@09,12 PO 01/17/17 14:00 01/18/17 09:17 (Pill Splitter) 1 ea UNSCH PRN OTHER 01/17/17 14:00 Family History Denied for mental illness, alcoholism or substance abuse. Social History Patient is unemployed and receives Social Security. He is not . He has not been using drugs or alcohol. Patient's Strengths (min. 2) Resilient and has access to healthcare. Physical Exam Vital Signs Vital Signs Date Time Temp Pulse Resp B/P Pulse Ox O2 Delivery O2 Flow Rate FiO2 01/18/17 09:00 80 01/18/17 08:00 Room Air 01/18/17 08:00 97.7 20 98/66 99 01/16/17 07:00 21 I/O 01/17/17 01/17/17 01/18/17 08:00 16:00 00:00 Intake Total 720 ml 570 ml Output Total 175 ml 1275 ml 800 ml Balance -175 ml -555 ml -230 ml Mental Status Examination Speech: Tangential Orientation: x3 Memory: Unremarkable Thought Process: Organized, Goal Directed Thought Content: Unremarkable Hallucination Type: None Attention and Concentration: Easily Distracted Suicidal Ideation: No Previous Suicide Attempts: No Homicidal Ideation: No Previous Homicide Attempts: No Insight: Fair Judgment: Unrealistic Affect: Irritable Mood: Irritable Motor Activity: Abnormal gait-specify Assessment & Plan Problem List: (1) Adjustment disorder with mixed disturbance of emotions and conduct ICD Code: F43.25 Assessment & Plan Estimated LOS: 5 days this physician recommends providing the patient with Valium on an as-needed basis, 10 mg daily, for irritability and anxiety. This order will be written. Unless the hospitalist service feels it is unwise, this physician feels there will be no short term consequences to using this medicine. Asher Walker MD Jan 18, 2017 11:53
--- NOTE | 2017-01-18 13:24 | HHI.PR ---
Subjective Remarks very pleasant on exam today, not irritable, no complains of pain "in a good mood" Objective Vitals Vital Signs Date Time Temp Pulse Resp B/P Pulse Ox O2 Delivery O2 Flow Rate FiO2 01/18/17 09:00 80 01/18/17 08:00 Room Air 01/18/17 08:00 97.7 89 20 98/66 99 01/18/17 04:00 98.3 81 17 106/65 98 01/18/17 00:00 97.8 85 16 125/64 99 01/17/17 20:01 97.1 77 18 108/66 100 01/17/17 20:00 Room Air 01/17/17 16:00 97.6 87 22 107/68 100 I/O 01/17/17 01/17/17 01/17/17 01/18/17 01/18/17 01/18/17 07:00 15:00 23:00 07:00 15:00 23:00 Intake Total 720 ml 570 ml 580 ml Output Total 175 ml 1275 ml 800 ml 400 ml Balance -175 ml -555 ml -230 ml 180 ml Intake Oral 720 ml 280 ml 580 ml IV Total 290 ml Output Urine Total 175 ml 1275 ml 800 ml 400 ml # Bowel Movements 1 0 Result Diagram: 01/14/17201201/16/17 1250 Imaging Last Impressions Chest X-Ray 01/12/17 1739 Signed Impressions: Service Date/Time: Thursday, January 12, 2017 18:02 - CONCLUSION: Mild consolidation versus atelectasis at the left lung base. Marcell Loredo MD Objective Remarks awake and alert, NAD, pleasant anicteric lungs clear regular rhythm abdomen soft, nontender sacral area with VAC in place left AKA- stump - post op dressing in place left hip 13 cm x 9 cm 2.6 cm depth , left ischium 12 cm x 7 cm x 3.3 cm, right heel 3 cm x 8 cm wounds right ankle 2.5 cm x 1.5 cm wound Procedures left AKA VAC application Urinary Catheter: Yes Assessment to: Continue Blood insert reason: Prolonged Immobilization Date of Insertion: Jan 13, 2017 A/P Assessment and Plan 56 years old male S/P left KA due to Left BKA stump infection/gangrene- with VAC application - 01/13 Left hip wound/ulcer/sacral decubituus stage 4 - wound care team consult. - DR Love ff --on Unasyn - ID Dr. 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 Low serum Iron. start po Iron daily UTI- gram negative rods. on zosyn. ff cultures Paraplegia with decubitus ulcers/wheelchair bound with left hip/ischial decubitus ulcers. History of T1 fracture. Neurogenic bladder/bowel- patient at this time refuse diverting colostomy. started on a bowel regimen- complains of constipation Peripheral vascular disease Depression Likely underlying COPD. lungs clear. IS hourly Hypokalemia- KCL 30 meq po daily. FF BMP Lovenox for DVT prophylaxis PT daily Aline Ibarra MD Jan 18, 2017 13:24
[2017-01-18] MEDS: DIAZEPAM 10 MG TAB PO PRN (16:46)
[2017-01-18] MEDS: ENOXAPARIN SODIUM 30 MG/0.3 ML SYRINGE SQ SCH (16:46)
[2017-01-19] VITALS (7 sets, daily range): BP systolic 99–118; BP diastolic 54–72; PULSE 73–104; RESP 18–20; TEMP 97–98.4; O2SAT 97–100
[2017-01-19] MEDS: AMPICILLIN-SULBACTAM INJ 3 GM in SODIUM CHLORIDE 0.9% INJ 100 ML IV SCH ×4 (04:19→22:02)
[2017-01-19] MEDS: QUEtiapine FUMARATE 25 MG TAB PO SCH ×2 (08:23→13:23)
[2017-01-19] MEDS: SENNOSIDES 8.6 MG TAB PO SCH (08:23)
[2017-01-19] MEDS: POTASSIUM CHLORIDE 10 MEQ CONTROLLED RELEASE TAB PO SCH (08:23)
[2017-01-19] MEDS: POLYETHYLENE GLYCOL 17 GM PKG PO SCH (08:24)
[2017-01-19] MEDS: SODIUM CHLORIDE 0.9% FLUSH 10 ML FLUSH IV FLUSH SCH ×2 (08:24→22:01)
--- NOTE | 2017-01-19 13:01 | HHI.PR ---
Subjective Remarks patient with no complains - aloof but more interactive discussed case with him was started on Valium by Psychiatry 01/18 Objective Vitals Vital Signs Date Time Temp Pulse Resp B/P Pulse Ox O2 Delivery O2 Flow Rate FiO2 01/19/17 12:00 97.9 77 20 118/72 100 01/19/17 08:00 98.0 83 18 114/60 97 01/19/17 04:00 98.1 95 20 101/58 99 01/19/17 00:00 98.4 84 20 99/54 100 01/18/17 20:00 Room Air 01/18/17 20:00 97.8 96 20 116/52 99 01/18/17 20:00 79 01/18/17 16:00 97.9 96 20 114/56 100 I/O 01/18/17 01/18/17 01/18/17 01/19/17 01/19/17 01/19/17 07:00 15:00 23:00 07:00 15:00 23:00 Intake Total 580 ml 120 ml 300 ml 100 ml Output Total 400 ml 825 ml 225 ml 800 ml Balance 180 ml -705 ml 75 ml -700 ml Intake Oral 580 ml 120 ml IV Total 300 ml 100 ml Output Urine Total 400 ml 825 ml 225 ml 550 ml Drainage Total 250 ml # Bowel Movements 1 0 Result Diagram: 01/16/17 1250 Imaging Last Impressions Chest X-Ray 01/12/17 7559 Signed Impressions: Service Date/Time: Thursday, January 12, 2017 18:02 - CONCLUSION: Mild consolidation versus atelectasis at the left lung base. Marcell Loredo MD Objective Remarks awake and alert, NAD anicteric lungs clear regular rhythm abdomen soft, nontender sacral area with VAC in place left AKA- stump - post op dressing in place left hip 13 cm x 9 cm 2.6 cm depth , left ischium 12 cm x 7 cm x 3.3 cm, right heel 3 cm x 8 cm wounds right ankle 2.5 cm x 1.5 cm wound Procedures left AKA VAC application Urinary Catheter: Yes Blood insert reason: Prolonged Immobilization Date of Insertion: Jan 13, 2017 A/P Assessment and Plan 56 years old male S/P left AKA due to Left BKA stump infection/gangrene- 01/13 Left hip wound/ulcer/sacral decubituus stage 4 - VAC in place- wound care team consult. - DR Ivan mckeon --on Unasyn - ID Dr. López ff Acinetobacter/E faecalis UTI- sensitive to Ampicillin- patient on Unasyn Adjustment disorder. mood improved. 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 Low serum Iron. po Iron daily Paraplegia with decubitus ulcers/wheelchair bound with left hip/ischial decubitus ulcers. History of T1 fracture. Neurogenic bladder/bowel- patient at this time refuse diverting colostomy. started on a bowel regimen- complains of constipation Peripheral vascular disease Likely underlying COPD. lungs clear. IS hourly Hypokalemia- KCL 30 meq po daily. FF BMP Lovenox for DVT prophylaxis PT daily Aline Ibarra MD Jan 19, 2017 13:01
[2017-01-19] MEDS: ENOXAPARIN SODIUM 30 MG/0.3 ML SYRINGE SQ SCH (13:23)
--- NOTE | 2017-01-19 16:14 | HHI.IDPN ---
Subjective Subjective Remarks better calmer afebrile no active c/o Antibiotics ampicillin Allergies: Coded Allergies: Levaquin (Verified Allergy, Severe, 12/25/16) *MDRO Multi-Drug Resistant Organism (Verified Allergy, Unknown, 01/17/17) MDR-Acinetobacter baumannii (Urine) - 04/20/16, 12/25/16, 01/12/17 MDR-Acinetobacter baumannii (wounds)-12/25/16, 01/12/17 Septra (Verified Allergy, Unknown, 12/25/16) Objective . Vital Signs Date Time Temp Pulse Resp B/P Pulse Ox O2 Delivery O2 Flow Rate FiO2 01/19/17 12:00 97.9 77 20 118/72 100 01/19/17 08:00 98.0 83 18 114/60 97 01/19/17 04:00 98.1 95 20 101/58 99 01/19/17 00:00 98.4 84 20 99/54 100 01/18/17 20:00 Room Air 01/18/17 20:00 97.8 96 20 116/52 99 01/18/17 20:00 79 01/18/17 01/18/17 01/19/17 15:00 23:00 07:00 Intake Total 120 ml 300 ml 100 ml Output Total 825 ml 225 ml 800 ml Balance -705 ml 75 ml -700 ml Intake Oral 120 ml IV Total 300 ml 100 ml Output Urine Total 825 ml 225 ml 550 ml Drainage Total 250 ml # Bowel Movements 1 0 Imaging Last Impressions Chest X-Ray 01/12/17 9209 Signed Impressions: Service Date/Time: Thursday, January 12, 2017 18:02 - CONCLUSION: Mild consolidation versus atelectasis at the left lung base. Marcell Loredo MD Physical Exam CONSTITUTIONAL/GENERAL: This is an adequately nourished patient, in no apparent distress. TUBES/LINES/DRAINS: SKIN: No jaundice, rashes, CARDIOVASCULAR: Regular rate and rhythm without murmurs, gallops, or rubs. No JVD. Peripheral pulses symmetric. RESPIRATORY/CHEST: Symmetric, unlabored respirations. Clear to auscultation. Breath sounds equal bilaterally. No wheezes, rales, or rhonchi. GASTROINTESTINAL: Abdomen soft, non-tender, nondistended. No hepato-splenomegaly , or palpable masses. No guarding. Bowel sounds present. GENITOURINARY: Without palpable bladder distension. Blood catheter in place with failry clear pale yellow urine MUSCULOSKELETAL: Extremities without clubbing, cyanosis, or edema. L LE sps AKA -dressing in place R foot with -dressing in place PELVIS: VAC in place with serosang dc LYMPHATICS: No palpable cervical or supraclavicular adenopathy. NEUROLOGICAL: sleepy but arousable. confused. Follows commands PSYCHIATRIC: calm and cooperative today; Assessment & Plan Remarks Paraplegia 2/2 traumaticc T 1 fracture PVD NOn compliance Tobaccoism Long standing infrected decubs involving sacrum and buttocks, infected with MDRO Acinetobacter clinically and radiologically ce contigiuous osteomyelitis sp debridement , wounds look clean Pelvic osteomyelitis, contigious from the wounds - this is a very advanced situation and treatment of his pelvic osteomyelitis will involve surgery, divertive colostomy and adjunctive abx - without surgical treatment colostomy followed by wound care the treatment failure will be closeto 100% - abx alone use in this case will obly contribute to further resistance and also side effects pt previously refuses colostomy 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
[2017-01-19] MEDS: DIAZEPAM 10 MG TAB PO PRN (16:20)
[2017-01-19] MEDS: ACETAMINOPHEN/HYDROcodone 325 MG/5 MG TAB PO PRN (22:02)
[2017-01-20] VITALS (7 sets, daily range): BP systolic 99–146; BP diastolic 57–82; PULSE 64–96; RESP 16–20; TEMP 94.7–98.1; O2SAT 95–100
[2017-01-20] MEDS: AMPICILLIN-SULBACTAM INJ 3 GM in SODIUM CHLORIDE 0.9% INJ 100 ML IV SCH ×4 (04:31→22:48)
[2017-01-20] MEDS: ACETAMINOPHEN/HYDROcodone 325 MG/5 MG TAB PO PRN ×4 (04:31→22:48)
[2017-01-20] MEDS: POLYETHYLENE GLYCOL 17 GM PKG PO SCH (07:41)
[2017-01-20] MEDS: SODIUM CHLORIDE 0.9% FLUSH 10 ML FLUSH IV FLUSH SCH ×2 (07:41→22:50)
[2017-01-20] MEDS: POTASSIUM CHLORIDE 10 MEQ CONTROLLED RELEASE TAB PO SCH (07:41)
[2017-01-20] MEDS: QUEtiapine FUMARATE 25 MG TAB PO SCH ×2 (07:41→12:21)
[2017-01-20] MEDS: DIAZEPAM 10 MG TAB PO PRN (07:42)
[2017-01-20] MEDS: SENNOSIDES 8.6 MG TAB PO SCH (07:42)
[2017-01-20 07:53] LABS: AUTOMATED NEUTROPHIL # 4.2 TH/MM3 (1.8-7.7); BASOPHIL # 0.1 TH/MM3 (0-0.2); BASOPHIL % 0.9 % (0.0-2.0); EOSINOPHIL # 0.2 TH/MM3 (0-0.4); EOSINOPHIL % 2.4 % (0.0-4.0); HEMATOCRIT 29.6 % (39.0-51.0); HEMO FLAGS DIFF FINAL; LYMPH % 31.8 % (9.0-44.0); LYMPHOCYTE # 2.3 TH/MM3 (1.0-4.8); MEAN CELL VOLUME 73.6 FL (80.0-100.0); MEAN CORPUSCULAR HEMOGLOBIN 23.1 PG (27.0-34.0); MEAN CORPUSCULAR HGB CONC 31.4 % (32.0-36.0); MONO % 8.4 % (0.0-8.0); NEUT % 56.5 % (16.0-70.0); PLATELET COUNT 475 TH/MM3 (150-450); RED BLOOD COUNT 4.02 MIL/MM3 (4.50-5.90); RED CELL DISTRIBUTION WIDTH 21.1 % (11.6-17.2); WHITE BLOOD COUNT 7.4 TH/MM3 (4.0-11.0)
[2017-01-20 08:18] LABS: ANION GAP 5 MEQ/L (5-15); AST (GOT) 48 U/L (15-37); BICARBONATE 28.7 MEQ/L (21.0-32.0); BLOOD UREA NITROGEN 7 MG/DL (7-18); CHLORIDE 104 MEQ/L (98-107); GLOMERULAR FILTRATION RATE 169 ML/MIN (>89); SODIUM (NA) 138 MEQ/L (136-145)
[2017-01-20 08:23] LABS: ALKALINE PHOSPHATASE 69 U/L (45-117); ALT (GPT) 30 U/L (12-78); TOTAL BILIRUBIN ADULT 0.2 MG/DL (0.2-1.0)
[2017-01-20] MEDS: COLLAGENASE OINT 30 GM TUBE TOPICAL SCH (12:21)
[2017-01-20] MEDS: ENOXAPARIN SODIUM 30 MG/0.3 ML SYRINGE SQ SCH (12:21)
--- NOTE | 2017-01-20 13:00 | PD.WCN.NOT ---
Wound Consult Description: Patient seen on for evaluation of deteriorating wound to R hip and wound VAC dressing change to L hip, L ischium, and sacrum. Wound to R hip previously noted as Deep tissue injury to to R hip that was opening. Wound has now opened measuring 5 x 4.9 consisting mostly of macerated broken skin that is opened at 3 o'clock at ~1x~0.5 x ~1.5 . Wound depth is obscured by presence of yellow slough. Periwound is is erythematous. Cleansed wound with wound cleanser and applied 2x2 gauze loosely packed in wound and covered with dry 4x4 gauze. secured dressing with medifix tape. Applied skin prep before applying tape to skin. Communicated with: Call placed to Doctor Robertson to notify and obtain orders. Spoke with Doctor Pritchett regarding findings and recommendations. Doctor Shreyas to write orders for R hip wound Recommendation: Recommend to cleanse wound to R hip with normal saline only and apply skin prep to macerated skin and erythematous periwound.Apply santyl ointment to wound bed with mikey thick coverage and cover with loosely packed slightly moistened calcium alginate (Maxorb II) to wound bed. Secure with ABD pad and tape. please change dressing to R hip daily. Additional Information: Patient may need surgical debridement of R hip wound will discuss with Doctor Robertson and Attending Doctor Neg Pressure Wound Therapy Wound Location Wound Location: L ischium Wound Description Length: 10.3 Width: 7 Depth: 3 Underminin.4 at 11 to 1 o'clock Wound bed appearance: L ischium presents with ~30% yellow slough, ~10% black eschar at 6 o'clock and ~ 50% red granulation tissue, 10% visible bone. Periwound appearance: Other (Periwound noted with new scar tissue forming) Settings Suction: 125 mmHg, Continuous Intensity: Low Other Information: Bridged, Windowpaned Foam type: Black Number of pieces: 2 Additonal Information Wound to L ischium cleansed with normal saline and applied santyl ointment mikey thick coverage to wound bed before applying skin prep to periwound. Window paned wound with VAC drape and bridged VAC drape and black granufoam up to L lateral thigh. Covered all exposed foam with VAC drape.Y connector used and attached to wound VAC canister. VAC machine suctioning at 125 mm/hg with some leaks. Sealed leaking areas with stoma paste. VAC dressing noted without leaks upon writer technical publications leaving room. Wound Location Wound Location: L hip Wound Description Length: 6.9 Width: 4.3 Depth: 3.2 Wound bed appearance: Wound bed presents with 90% pale red tissue with bone and muscle visible in center of wound.Wound is noted with minimal sanguinous drainage. Periwound appearance: Other (Periwound noted wih new epithelial tissue ) Settings Suction: 125 mmHg, Continuous Intensity: Low Other Information: Bridged, Windowpaned Foam type: Black Number of pieces: 2 Additonal Information Wound to L hip cleansed with normal saline and applied santyl ointment mikey thick coverage to wound bed before applying skin prep to periwound. Window paned wound with VAC drape and bridged VAC drape and black granufoam up to L lateral thigh. Covered all exposed foam with VAC drape.Y connector used and attached to wound VAC canister. VAC machine suctioning at 125 mm/hg with some leaks. Sealed leaking areas with stoma paste. VAC dressing noted without leaks upon writer technical publications leaving room. Wound Location Wound Location: Sacrum Wound Description Length: 13 Width: 10.9 Depth: 3 Underminin.5 undermining 11 to 1 o'clock Periwound appearance: Other (Periwound noted with some scattered full thickness skin loss) Settings Suction: 125 mmHg, Continuous Intensity: Low Other Information: Bridged, Windowpaned Foam type: Black Number of pieces: 2 Additonal Information Wound to sacrum cleansed with normal saline and applied santyl ointment mikey thick coverage to wound bed before applying skin prep to periwound. Window paned wound with VAC drape and bridged VAC drape and black granufoam up to L hip. Covered all exposed foam with VAC drape.Y connector used and attached to wound VAC canister. VAC machine suctioning at 125 mm/hg with some leaks. Sealed leaking areas with stoma paste. VAC dressing noted without leaks upon writer technical publications leaving room. Missy Huerta [facility] Jan 20, 2017 12:59
--- NOTE | 2017-01-20 17:31 | HHI.PR ---
Subjective Remarks Pt seen earlier, has no complaints. denies any CP/SOB/N/V Objective Vitals Vital Signs Date Time Temp Pulse Resp B/P Pulse Ox O2 Delivery O2 Flow Rate FiO2 01/20/17 16:00 97.6 96 20 99/57 99 01/20/17 12:00 95.7 69 20 146/82 95 01/20/17 10:33 18 01/20/17 08:00 94.7 71 20 103/66 97 01/20/17 04:00 97.9 72 20 111/66 100 01/20/17 00:00 97.7 64 18 135/73 100 01/19/17 22:00 78 01/19/17 20:30 Room Air 01/19/17 20:00 97.1 104 20 114/60 99 I/O 01/19/17 01/19/17 01/19/17 01/20/17 01/20/17 01/20/17 07:00 15:00 23:00 07:00 15:00 23:00 Intake Total 100 ml 240 ml 240 ml 480 ml 240 ml Output Total 800 ml 800 ml 500 ml 475 ml 750 ml Balance -700 ml -560 ml -260 ml 5 ml -510 ml Intake Oral 240 ml 240 ml 480 ml 240 ml IV Total 100 ml Output Urine Total 550 ml 800 ml 500 ml 475 ml 750 ml Drainage Total 250 ml # Bowel Movements 0 1 0 0 Result Diagram: 01/20/17 0651 01/20/17 0651 Imaging Last Impressions Chest X-Ray 01/12/17 1739 Signed Impressions: Service Date/Time: Thursday, January 12, 2017 18:02 - CONCLUSION: Mild consolidation versus atelectasis at the left lung base. 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 pelvic osteomyelitis, per consultants pt would need extensive debridement w diverting colostomy however pt refusintg Discussed w location director and there is a Wound has now opened on the right hip measuring 5 x 4.9 consisting mostly of macerated broken skin that is opened at 3 o'clock at ~1x~0.5 x ~1.5 . Wound depth is obscured by presence of yellow slough. Periwound is is erythematous. She is concerned that this may need to be debrided. she has placed a call to Dr. Love regarding this. - DR Love ff --on Unasyn - ID Dr. López ff Acinetobacter/E faecalis UTI- sensitive to Ampicillin- patient on Unasyn Adjustment disorder. mood improved. 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 Low serum Iron. po Iron daily Paraplegia with decubitus ulcers/wheelchair bound with left hip/ischial decubitus ulcers. History of T1 fracture. Neurogenic bladder/bowel- patient at this time refuse diverting colostomy. started on a bowel regimen- complains of constipation Peripheral vascular disease Likely underlying COPD. lungs clear. IS hourly Hypokalemia- resolved. Lovenox for DVT prophylaxis Discharge Planning d/c pending further work-up and clinical improvement Rose Mary Pritchett MD Jan 20, 2017 17:31
[2017-01-21] VITALS (8 sets, daily range): BP systolic 91–137; BP diastolic 53–78; PULSE 70–110; RESP 18–20; TEMP 97.5–98.7; O2SAT 96–100
[2017-01-21] MEDS: AMPICILLIN-SULBACTAM INJ 3 GM in SODIUM CHLORIDE 0.9% INJ 100 ML IV SCH ×4 (03:30→21:19)
[2017-01-21] MEDS: ACETAMINOPHEN/HYDROcodone 325 MG/5 MG TAB PO PRN ×3 (05:19→21:19)
[2017-01-21] MEDS: POLYETHYLENE GLYCOL 17 GM PKG PO SCH (08:18)
[2017-01-21] MEDS: QUEtiapine FUMARATE 25 MG TAB PO SCH ×2 (08:18→12:30)
[2017-01-21] MEDS: SENNOSIDES 8.6 MG TAB PO SCH (08:18)
[2017-01-21] MEDS: POTASSIUM CHLORIDE 10 MEQ CONTROLLED RELEASE TAB PO SCH (08:18)
[2017-01-21] MEDS: SODIUM CHLORIDE 0.9% FLUSH 10 ML FLUSH IV FLUSH SCH ×2 (08:19→21:20)
--- NOTE | 2017-01-21 14:39 | HHI.IDPN ---
Subjective Subjective Remarks STATES HE IS DOING WELL afebrile no active c/o Adamantly refusing colostomy Antibiotics ampicillin/S Allergies: Coded Allergies: Levaquin (Verified Allergy, Severe, 12/25/16) *MDRO Multi-Drug Resistant Organism (Verified Allergy, Unknown, 01/17/17) MDR-Acinetobacter baumannii (Urine) - 04/20/16, 12/25/16, 01/12/17 MDR-Acinetobacter baumannii (wounds)-12/25/16, 01/12/17 Septra (Verified Allergy, Unknown, 12/25/16) Objective . Vital Signs Date Time Temp Pulse Resp B/P Pulse Ox O2 Delivery O2 Flow Rate FiO2 01/21/17 12:00 97.7 76 20 95/60 99 01/21/17 08:00 97.7 70 20 103/68 99 01/21/17 04:00 97.5 75 20 100/65 100 01/21/17 00:10 98.3 71 20 137/78 99 01/20/17 20:45 Room Air 01/20/17 20:06 73 01/20/17 20:00 98.1 86 16 103/66 98 01/20/17 16:56 18 01/20/17 16:00 97.6 96 20 99/57 99 01/20/17 01/20/17 01/21/17 15:00 23:00 07:00 Intake Total 240 ml 240 ml 700 ml Output Total 750 ml 175 ml 750 ml Balance -510 ml 65 ml -50 ml Intake Oral 240 ml 240 ml 700 ml Output Urine Total 750 ml 175 ml 750 ml # Bowel Movements 0 0 0 . Laboratory Tests Test 01/20/17 06:51 White Blood Count 7.4 TH/MM3 Red Blood Count 4.02 MIL/MM3 Hemoglobin 9.3 GM/DL Hematocrit 29.6 % Mean Corpuscular Volume 73.6 FL Mean Corpuscular Hemoglobin 23.1 PG Mean Corpuscular Hemoglobin 31.4 % Concent Red Cell Distribution Width 21.1 % Platelet Count 475 TH/MM3 Mean Platelet Volume 6.5 FL Neutrophils (%) (Auto) 56.5 % Lymphocytes (%) (Auto) 31.8 % Monocytes (%) (Auto) 8.4 % Eosinophils (%) (Auto) 2.4 % Basophils (%) (Auto) 0.9 % Neutrophils # (Auto) 4.2 TH/MM3 Lymphocytes # (Auto) 2.3 TH/MM3 Monocytes # (Auto) 0.6 TH/MM3 Eosinophils # (Auto) 0.2 TH/MM3 Basophils # (Auto) 0.1 TH/MM3 CBC Comment DIFF FINAL Differential Comment Laboratory Tests Test 01/20/17 06:51 Sodium Level 138 MEQ/L Potassium Level 4.0 MEQ/L Chloride Level 104 MEQ/L Carbon Dioxide Level 28.7 MEQ/L Anion Gap 5 MEQ/L Blood Urea Nitrogen 7 MG/DL Creatinine 0.51 MG/DL Estimat Glomerular Filtration 169 ML/MIN Rate Random Glucose 68 MG/DL Calcium Level 8.2 MG/DL Total Bilirubin 0.2 MG/DL Aspartate Amino Transf 48 U/L (AST/SGOT) Alanine Aminotransferase 30 U/L (ALT/SGPT) Alkaline Phosphatase 69 U/L Total Protein 6.5 GM/DL Albumin 1.5 GM/DL Imaging Last I Last Impressions Chest X-Ray 01/12/17 8031 Signed Impressions: Service Date/Time: Thursday, January 12, 2017 18:02 - CONCLUSION: Mild consolidation versus atelectasis at the left lung base. Marcell Loredo MD Physical Exam CONSTITUTIONAL/GENERAL: This is an adequately nourished patient, in no apparent distress. TUBES/LINES/DRAINS: SKIN: No jaundice, rashes, CARDIOVASCULAR: Regular rate and rhythm without murmurs, gallops, or rubs. No JVD. Peripheral pulses symmetric. RESPIRATORY/CHEST: Symmetric, unlabored respirations. Clear to auscultation. Breath sounds equal bilaterally. No wheezes, rales, or rhonchi. GASTROINTESTINAL: Abdomen soft, non-tender, nondistended. No hepato-splenomegaly , or palpable masses. No guarding. Bowel sounds present. GENITOURINARY: Without palpable bladder distension. Blood catheter in place with failry clear pale yellow urine MUSCULOSKELETAL: Extremities without clubbing, cyanosis, or edema. L LE sps AKA -dressing in place R foot with -dressing in place PELVIS: VAC in place with serosang dc R hip with small unstageible decub with nearly 100% necrotic base, at least stage III no purulence, no foul odor LYMPHATICS: No palpable cervical or supraclavicular adenopathy. NEUROLOGICAL: sleepy but arousable. confused. Follows commands PSYCHIATRIC: calm and cooperative today; Assessment & Plan Remarks Paraplegia 2/2 traumaticc T 1 fracture PVD NOn compliance Tobaccoism Long standing infrected decubs involving sacrum and buttocks, infected with MDRO Acinetobacter clinically and radiologically ce contigiuous osteomyelitis sp debridement , wounds look clean Pelvic osteomyelitis, contigious from the wounds - this is a very advanced situation and treatment of his pelvic osteomyelitis will involve surgery, divertive colostomy and adjunctive abx - without surgical treatment colostomy followed by wound care the treatment failure will be closeto 100% - abx alone use in this case will obly contribute to further resistance and also side effects pt previously refuses colostomy 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, healing nicely UTI, MDRO Acinetobacter previously in the setting s of neurogenic bladder - I Unasyn - P Meropeem - poor compliance with self cath Staph epi low grade bacteremia, 1/ bottles - likley contamination REC's: cont Unasyn x 8 wks - even its I to Unasyn the accumulation of this agent in the usrine is very high to create concentrations much high than YOSHI pt needs divertive colostomy, how ever he is not agreable repeat UA, C+S if fever/leukocytsis - will rechk CBC, CMP - cont VAC dw Tahmina Hancock MD Jan 21, 2017 14:39
--- NOTE | 2017-01-21 14:43 | HHI.PR ---
Subjective Remarks Patient states that he is fine. He tells me that he was told he needed more surgery and "I won't let anybody else cut into me anymore". He denies any chest pain, shortness of breath, nausea or vomiting. Objective Vitals Vital Signs Date Time Temp Pulse Resp B/P Pulse Ox O2 Delivery O2 Flow Rate FiO2 01/21/17 12:00 97.7 76 20 95/60 99 01/21/17 08:00 97.7 70 20 103/68 99 01/21/17 04:00 97.5 75 20 100/65 100 01/21/17 00:10 98.3 71 20 137/78 99 01/20/17 20:45 Room Air 01/20/17 20:06 73 01/20/17 20:00 98.1 86 16 103/66 98 01/20/17 16:56 18 01/20/17 16:00 97.6 96 20 99/57 99 I/O 01/20/17 01/20/17 01/20/17 01/21/17 01/21/17 01/21/17 07:00 15:00 23:00 07:00 15:00 23:00 Intake Total 480 ml 240 ml 240 ml 700 ml Output Total 475 ml 750 ml 175 ml 750 ml Balance 5 ml -510 ml 65 ml -50 ml Intake Oral 480 ml 240 ml 240 ml 700 ml Output Urine Total 475 ml 750 ml 175 ml 750 ml # Bowel Movements 0 0 0 0 Result Diagram: 01/20/17 0651 01/20/17 0651 Imaging Last Impressions Chest X-Ray 01/12/17 2769 Signed Impressions: Service Date/Time: Thursday, January 12, 2017 18:02 - CONCLUSION: Mild consolidation versus atelectasis at the left lung base. 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 pelvic osteomyelitis, per consultants pt would need extensive debridement w diverting colostomy however patient made it clear to me today that he is refusing any surgical intervention even if that means that he could if he doesn't proceed with surgery. I offered to get a palliative care consult and he is agreeable to this. Palliative care consult in place to assist with goals of care. Discussed w career development specialist and there is a Wound has now opened on the right hip measuring 5 x 4.9 consisting mostly of macerated broken skin that is opened at 3 o'clock at ~1x~0.5 x ~1.5 . Wound depth is obscured by presence of yellow slough. Periwound is is erythematous. She is concerned that this may need to be debrided. she has placed a call to Dr. Love regarding this. - DR Love ff --on Unasyn - ID Dr. López ff Acinetobacter/E faecalis UTI- sensitive to Ampicillin- patient on Unasyn Adjustment disorder. mood improved. 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 Low serum Iron. po Iron daily Paraplegia with decubitus ulcers/wheelchair bound with left hip/ischial decubitus ulcers. History of T1 fracture. Neurogenic bladder/bowel- patient at this time refuse diverting colostomy. started on a bowel regimen- complains of constipation Peripheral vascular disease Likely underlying COPD. lungs clear. IS hourly Hypokalemia- resolved. Lovenox for DVT prophylaxis Discharge Planning Awaiting palliative care recommendations. Rose Mary Pritchett MD Jan 21, 2017 14:43
[2017-01-21] MEDS: ENOXAPARIN SODIUM 30 MG/0.3 ML SYRINGE SQ SCH (15:15)
--- NOTE | 2017-01-21 17:17 | PD.CAR.PN ---
CVT Progress Note Subjective/Hospital Course: 56-year-old male known to me from last visit about 10 days ago. 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 after surgery performed at another hospital Patient has essentially mummified left BKA stump going all the way over the patella to distal above the knee level Patient was here a week or so ago and of course we recommended above-knee amputation of the time but patient stated that the thing is healing nicely and was very angry about even mention of amputation Now patient has progressive more necrosis in addition he is losing weight and is in functional decline because of the same Patient will need above-knee amputation on urgent basis He ate and will go ahead with an amputation tomorrow In addition patient has extensive sacral and lumbar decubiti needing debridement as well Full consult to follow Robinson J 01/14/17 Patient status post the left above-knee amputation and debridement of the huge sacral decubiti and a left hip decubitus As noted in my operative report is a very deep great for decubiti and chance of healing this is miniscule Dressing intact on left AKA I have discussed the care with wound care nurse and patient will have a large wound VAC placed Tuesday and . This may help to reduce some granulation tissue and start healing processes but I'm afraid 15 DN patient may require left hip disarticulation which is of course a large and unfortunately procedure if necessary Every effort should be made to avoid this if possible 01/15/17 Status post left above-knee amputation and debridement of the sacral and the hip decubiti We'll keep dressing on until tomorrow The decubiti care has been discussed with the wound care nurse and patient currently has wound vacs on all these We should continue this for a while and see it granulates that there is a very high chance the patient will require left hip disarticulation in the future Continue current care 01/16/17 Patient doing well incisions clean and dry dressing is intact Will start changing the dressing today Back decubiti are covered with wound vacs and we can try to give it a chance to heal however this may be lethal and may cause sepsis resulting in dire outcome Patient refuses diverting colostomy and I don't see any way any of this will heal without diverting the stool 01/17/17 AKA stump is clean and dry The back decubiti appeared to be clean and looked much better than I thought they would. Area is granulating nicely, however patient refuses diverting colostomy and sooner later this is all going get infected and patient will of sepsis 01/21/17 The debrided decubiti are covered with wound VAC and actually looked nice and clean but encompassed massive amount of patient's back. Left AKA stump is healing nicely Patient has right hip decubitus this going very deep into the hip which also needs debridement At this point there is no other option but to do diverting colostomy in this gentleman for otherwise he will from sepsis Patient refuses diverting colostomy so I have no other options to offer to him Objective: Vital Signs Date Time Temp Pulse Resp B/P Pulse Ox O2 Delivery O2 Flow Rate FiO2 01/21/17 16:00 97.7 100 18 118/66 99 01/21/17 12:00 97.7 76 20 95/60 99 01/21/17 10:00 Room Air 01/21/17 08:00 97.7 70 20 103/68 99 01/21/17 04:00 97.5 75 20 100/65 100 01/21/17 00:10 98.3 71 20 137/78 99 01/20/17 20:45 Room Air 01/20/17 20:06 73 01/20/17 20:00 98.1 86 16 103/66 98 Result Diagram: 01/20/17 0651 01/20/17 0651 Sen Robertson MD Jan 21, 2017 17:17
--- NOTE | 2017-01-21 18:42 | PD.CONS ---
Consult Service Palliative Care Consult Requested By Dr. Pritchett. Primary Care Physician Non-Staff Reason for Consultation a. To assist with evaluation and management of symptoms including: Pain and wound care. b. To assist medical decision maker(s) with: better understanding of current medical conditions; weighing benefits/burdens of medical treatment options; making medical treatment decisions. . HPI History of Present Illness Mrs. Sheehan is a 56 y/o male, with a past history of paraplegia since 2003, stage IV decubital ulcer, PVD, recurrent UTI, anemia, and recent left BKA, presented to the emergency department on 01/12/17 requests antibiotic treatment for nonhealing wound. Upon further examination, patient was found to have a deep pressure ulcer to the left greater trochanter as well as to over his sacrum and lumbar spine both of which are softball sized and complete thickness , with bone exposure. Patient was evaluated by Dr. Cohen. He did workup included chest x-ray revealing mild consolidation versus atelectasis at the left lung base. Laboratory workup revealed WBC 13.8, Hgb 8.2, platelet count 514. Sodium 1:30, potassium 3.6, BUN/creatinine 10/0.94. Albumin 1.6. Patient was admitted for further management. Patient underwent left hip wound debridement and left AKA on 01/13/17 secondary to gangrene of the left below the knee amputation stump. ID, Dr. López consulted on 01/14/17 for evaluation of long standing infected decubitus ulcer involving sacrum and buttocks, infected with MDRO Acinetobacter. Pelvic osteomyelitis, contagious from the wounds. It was determined that surgical treatment for his very advance infection will involve surgery, diverting to colostomy and antibiotics. In addition, he was determined that without surgical intervention, colostomy followed by wound care, the treatment failure would be close to 100%. Podiatry, Dr. Clement on 01/15/17 for evaluation of right heel ulcer. Medical management recommended. Wound care was consulted. Wound VAC was placed to left hip wound. Psychiatry consulted and 01/18/17 for evaluation of irritability. Patient diagnosed with adjustment disorder with mixed disturbances of emotions and conduct. Thought processes organized, Insight was found to be fair. Patient was started on Valium as needed for irritability and anxiety. Palliative Care was consulted to assist with symptom management, and to enter into discussions with the patient regarding his current illnesses and problems, the prognosis, and the benefits and burdens of the various treatment options. Review recent prior hospitalization from 12/25/16 to 12/29/16. Patient presented with a history of left BKA a month prior at [facility]. Patient endorsing worsening wounds to the sacrum and bilateral hips which have been increasingly painful. Pelvis CT 12/25/16 showing multiple decubitus ulcer to bilateral greater trochanters, left ischium and sacrum/coccyx. Dr. Soto consulted on 12/26/16. Left AKA recommended. Pelvis MRI 12/27/16 showing abnormal bone marrow edema in the left proximal femur at the trochanteric level as well as the left ischium and left inferior pubic ramus suspicious for osteomyelitis. ID also consulted. Patient refused surgical intervention and left AMA on 12/29/16. Patient was under hospice services from to 01/12/17 when he revoked in order to seek medical treatment. Patient seen in his room, he was resting in bed in no acute distress. Patient alert and oriented times self, place, time and situation. Reviewed events leading to these hospitalization, clinical course and current treatment plan. Reviewed surgical recommendations to involve diverting colostomy, antibiotics. Reviewed that without surgical intervention as recommended, the treatment failure would be close to 100%. Meaning that he will from this infection, likely secondary to sepsis. Patient verbalized multiple times during our conversation that he wants to focus on comfort, that he does not want to "start all over again with surgery and antibiotics,". Furthermore, he added "I don't want to carry a bag of sh*t around, I'm just not going to do that". When asked what would be the consequence of not proceeding with the recommended surgical intervention, diverting colostomy and antibiotics, he acknowledges that will likely come within weeks and reports being "fine with it". Further adding, "Just keep me comfortable, that is all I ask." It is important to patient to be able to return home with hospice services for end-of-life care and wound care. At the end of our conversation, patient reports that he will think about wound surgery and colostomy but at this time, is a "big fat NO". Patient will like to continue with wound VAC upon discharge. Patient remains afebrile, slightly hypertensive with SBP in the 90s to low 100. Tolerating room air, oxygen saturation in the high 90s. Most recent laboratory work showing WBC 7.4, Hgb 9.3, platelet count 475. Sodium 138 , potassium 4.0, BUN/creatinine 7/0.51. Albumin 1.5. . Function/Cognitive Trajectory The patient is paraplegic, but was getting around at his home and in his workshop using a wheelchair until recently. No cognitive decline has been documented. . Review of Systems Constitutional: COMPLAINS OF: Weight loss, Pain, Generalized weakness Endocrine: DENIES: Heat/cold intolerance Eyes: DENIES: Eye pain Ears, nose, mouth, throat: DENIES: Hearing loss, Nasal discharge, Running Nose Respiratory: DENIES: Apneas, Sputum production, Shortness of breath Cardiovascular: COMPLAINS OF: Claudication, DENIES: Chest pain, Lower Extremity Edema Gastrointestinal: COMPLAINS OF: Abdominal pain, Constipation, DENIES: Nausea, Vomiting, Difficulty Swallowing Musculoskeletal: COMPLAINS OF: Muscle aches, Back pain, DENIES: Neck pain Integumentary: COMPLAINS OF: Abnormal pigmentation, Non-healing sores Hematologic/Lymphatics: COMPLAINS OF: Bruising Immunologic/Allergic: DENIES: Eczema Neurologic: COMPLAINS OF: Poor Balance (secondary to AKA), DENIES: Localized weakness, Seizures, Speech Problems Psychiatric: COMPLAINS OF: Anxiety, DENIES: Hallucinations, Agitation Past Family Social History Coded Allergies: Levaquin (Verified Allergy, Severe, 12/25/16) *MDRO Multi-Drug Resistant Organism (Verified Allergy, Unknown, 01/17/17) MDR-Acinetobacter baumannii (Urine) - 04/20/16, 12/25/16, 01/12/17 MDR-Acinetobacter baumannii (wounds)-12/25/16, 01/12/17 Septra (Verified Allergy, Unknown, 12/25/16) Past Medical History * left stump gangrene, complicated wounds * Osteomyelitis * COPD * Depression * Paraplegia, with complications including recurrent UTI, skin wounds, neurogenic bladder * PVD, recent left AKA * Neurogenic bladder * Malnutrition * Anemia * History of sleep apnea * History of depression . Past Surgical History * Tonsillectomy * Left herniorrhaphy * Urethrotomy and dilation of urethra * Cervical fusion * Left BKA November 2016 * Left tib/fib fracture 2009 . Reported Medications Cipro (Ciprofloxacin HCl) 250 Mg Tab 500 Mg PO BID Amitiza (Lubiprostone) 24 Mcg Cap 24 Mg PO DAILY Finasteride 5 Mg Tab 5 Mg PO DAILY Klor-Con 10 (Potassium Chloride) 10 Meq Tab 10 Meq PO DAILY Furosemide 40 Mg Tab 40 Mg PO BID Baclofen 20 Mg Tab 20 Mg PO QID Hydrocodone-Acetaminophen 10-325 mg Tab 1 Tab PO Q6H PRN . Current Medications Medications (Trade) Dose Ordered Sig/Vivien Route Start Time Stop Time Status Last Admin (NS Flush) 2 ml UNSCH PRN IV FLUSH 01/12/17 21:45 (NS Flush) 2 ml BID IV FLUSH 01/13/17 09:00 01/21/17 08:19 (Narcan Inj) 0.4 mg UNSCH PRN IV 01/12/17 21:45 Acetaminophen/ Hydrocodone Bitart 1 tab 1 tab Q6H PRN PO 01/13/17 01:30 01/21/17 12:39 (Unasyn Inj/NS Inj) 100 ml @ 200 mls/hr Q6H IV 01/14/17 16:00 01/21/17 15:16 (Santyl Oint) 1 applic MoTh TOPICAL 01/14/17 15:00 01/20/17 12:21 (KCl) 30 meq DAILY PO 01/15/17 13:45 01/21/17 08:18 (Lovenox Inj) 30 mg Q24H SQ 01/15/17 14:00 01/21/17 15:15 (Dilaudid Pf Inj) 0.5 mg Q4H PRN IV PUSH 01/15/17 13:45 (Miralax) 17 gm DAILY PO 01/15/17 14:00 01/21/17 08:18 (Dulcolax Supp) 10 mg DAILY PRN RECTAL 01/17/17 00:30 01/17/17 00:48 (Senokot) 8.6 mg DAILY PO 01/17/17 00:30 01/21/17 08:18 (SEROquel) 12.5 mg BID@09,12 PO 01/17/17 14:00 01/21/17 12:30 (Pill Splitter) 1 ea UNSCH PRN OTHER 01/17/17 14:00 (Valium) 10 mg DAILY PRN PO 01/18/17 12:00 01/20/17 07:42 Family History The patient's father at age 81 of "old age," and his mother at age 66 of unknown causes. No h/o DM or CAD. . Substance Use Tobacco: 1.5 pack per day for many years. Alcohol: "Heavy drinking in the past". Prescription med abuse: denies. Illicits: Marijuana on a fairly regular basis . Psychosocial History Patient was born and raised in [place], [place], moved to [place] about 25 years ago. He has never been and has no children. He lives currently with a roommate who was an ex-girlfriend, and her mother also lives in the home. 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 . Spiritual/Cultural Factors The patient reports that he was "Spiritism when I was young," but declined spiritual services. . Living Will: Never completed Health Care Surrogate: Copy in medical record Durable Power of Waist Fitter: Never completed Date completed: 12/29/16. . Health Care Surrogate(s): Sister Kailee Poole. . Documented care wishes: No living will completed. Information provided, patient declined assistance with completion today. . Today's verbally stated goals: NO CODE. DNR/DNI. Patient verbalized multiple times during our conversation that he wants to focus on comfort, that he does not want to "start all over again with surgery and antibiotics,". Furthermore, he added "I don't want to carry a bag of sh*t around, I'm just not going to do that". When asked what would be the consequence of not proceeding with the recommended surgical intervention, diverting colostomy and antibiotics, he acknowledges that will likely come within weeks and reports being "fine with it". Further adding, "Just keep me comfortable, that is all I ask." It is important to patient to be able to return home with hospice services for end-of-life care and wound care. At the end of our conversation, patient reports that he will think about wound surgery and colostomy but at this time, is a "big fat NO". Patient will like to continue with wound VAC upon discharge. . Family/friends goals: No family available. . Ethical and Legal Issues No ethical or legal issues identified. . Physical Exam Vital Signs Date Time Temp Pulse Resp B/P Pulse Ox O2 Delivery O2 Flow Rate FiO2 01/21/17 16:00 97.7 100 18 118/66 99 01/21/17 12:00 97.7 76 20 95/60 99 01/21/17 10:00 Room Air 01/21/17 08:00 97.7 70 20 103/68 99 01/21/17 04:00 97.5 75 20 100/65 100 01/21/17 00:10 98.3 71 20 137/78 99 01/20/17 20:45 Room Air 01/20/17 20:06 73 01/20/17 20:00 98.1 86 16 103/66 98 01/20/17 01/21/17 19:00 07:00 Intake Total 240 ml 940 ml Output Total 750 ml 925 ml Balance -510 ml 15 ml Intake Oral 240 ml 940 ml Output Urine Total 750 ml 925 ml # Bowel Movements 0 0 Exam CONSTITUTIONAL/GENERAL: This is a cachectic male resting in bed in no acute distress. TUBES/LINES/DRAINS: PIV's, wound VAC to left hip. SKIN: No jaundice, rashes. Left hip wound/ulcer sacral decubitus stage 4. Wound VAC in place. HEAD: Atraumatic. Normocephalic. EYES: Pupils equal and round and reactive. Extraocular motions intact. No scleral icterus. No injection or drainage. ENT: Hearing grossly normal. Nose without bleeding or purulent drainage. Moist oral mucosa. NECK: Trachea midline. Supple, nontender. CARDIOVASCULAR: Regular rate and rhythm without murmurs, gallops, or rubs. Unable to appreciate pedal pulses to right foot. same is ashen, stasis dermatitis changes. RESPIRATORY/CHEST: Symmetric, unlabored respirations. Clear to auscultation. Breath sounds equal bilaterally. No wheezes, rales, or rhonchi. GASTROINTESTINAL: Abdomen soft, nondistended. No guarding. Bowel sounds present. GENITOURINARY: Without palpable bladder distension. MUSCULOSKELETAL: Left AKA. NEUROLOGICAL: Awake and alert x self, place, time and situation. Motor grossly within normal limits. Follows commands. Moves all extremities. PSYCHIATRIC: Anxious at times. Limited filter/frequent use of curse words. . Diagnostic Tests Laboratory Laboratory Tests Test 01/20/17 06:51 White Blood Count 7.4 TH/MM3 (4.0-11.0) Red Blood Count 4.02 MIL/MM3 (4.50-5.90) Hemoglobin 9.3 GM/DL (13.0-17.0) Hematocrit 29.6 % (39.0-51.0) Mean Corpuscular Volume 73.6 FL (80.0-100.0) Mean Corpuscular Hemoglobin 23.1 PG (27.0-34.0) Mean Corpuscular Hemoglobin 31.4 % Concent (32.0-36.0) Red Cell Distribution Width 21.1 % (11.6-17.2) Platelet Count 475 TH/MM3 (150-450) Mean Platelet Volume 6.5 FL (7.0-11.0) Neutrophils (%) (Auto) 56.5 % (16.0-70.0) Lymphocytes (%) (Auto) 31.8 % (9.0-44.0) Monocytes (%) (Auto) 8.4 % (0.0-8.0) Eosinophils (%) (Auto) 2.4 % (0.0-4.0) Basophils (%) (Auto) 0.9 % (0.0-2.0) Neutrophils # (Auto) 4.2 TH/MM3 (1.8-7.7) Lymphocytes # (Auto) 2.3 TH/MM3 (1.0-4.8) Monocytes # (Auto) 0.6 TH/MM3 (0-0.9) Eosinophils # (Auto) 0.2 TH/MM3 (0-0.4) Basophils # (Auto) 0.1 TH/MM3 (0-0.2) CBC Comment DIFF FINAL Differential Comment Sodium Level 138 MEQ/L (136-145) Potassium Level 4.0 MEQ/L (3.5-5.1) Chloride Level 104 MEQ/L (98-107) Carbon Dioxide Level 28.7 MEQ/L (21.0-32.0) Anion Gap 5 MEQ/L (5-15) Blood Urea Nitrogen 7 MG/DL (7-18) Creatinine 0.51 MG/DL (0.60-1.30) Estimat Glomerular Filtration 169 ML/MIN Rate (>89) Random Glucose 68 MG/DL (74-106) Calcium Level 8.2 MG/DL (8.5-10.1) Total Bilirubin 0.2 MG/DL (0.2-1.0) Aspartate Amino Transf 48 U/L (15-37) (AST/SGOT) Alanine Aminotransferase 30 U/L (12-78) (ALT/SGPT) Alkaline Phosphatase 69 U/L (45-117) Total Protein 6.5 GM/DL (6.4-8.2) Albumin 1.5 GM/DL (3.4-5.0) Result Diagram: 01/20/17 0651 01/20/17 0651 Imaging Last Impressions Chest X-Ray 01/12/17 1739 Signed Impressions: Service Date/Time: Tuesday, January 12, 2017 18:02 - CONCLUSION: Mild consolidation versus atelectasis at the left lung base. Marcell Loredo MD Procedures * 01/13/17 -left AKA, wound debridement of left hip decubitus ulcer. . Patient/Family Conference Present at Family Conference: Patient. Family Conference Location: Bedside Issues Discussed: * Palliative care role, purpose, approach * Additional medical, psychosocial, and spiritual history * Patients general health, functional status, and cognitive changes in the months leading up to the current hospitalization * Patient's understanding of the current medical problems -pelvic osteomyelitis * Patient's understanding of prognosis -terminal if not treatment with recommended surgical intervention. * Patients goals of care as best understood from advance directives and/or conversations and/or values * Current medical treatment options and benefits/burdens of those options - surgical intervention with diverting colostomy vs comfort care with hospice. * Likely scenarios comparing ongoing aggressive care with a transition to comfort measures only * Questions answered to the best of my ability * Palliative care contact information provided * Hospice philosophy and benefits * Risks, benefits and limitations of CPR, intubation and mechanical ventilation given his current clinical condition and goals of care. . Assessment and Plan Disease Oriented Problem List: (1) osteomyelitis, hips/pelvis (2) Decubitus skin ulcer (3) paraplegic, with multiple complications in recent years Symptom Scale: Pertinent Non-Medical Issues Psychosocial: Paraplegic since 2003, lives in wheelchair to bed, never , no children. Former automotive painting work. Spiritual: Spiritism kristine. Legal: No living will completed. Designation of healthcare surrogate completed during prior hospitalization. Copy in EMS. Ethical issues impacting care: None identified. . Important Contacts Sister in [place], health care surrogate Kailee Poole Brother Danny Curtis, in [place] . Prognosis The patient's prognosis is poor. He has underlying malnutrition, anemia, paraplegia, and now has osteomyelitis, infected wounds. Surgical intervention recommended to include wound debridement, diverting colostomy, and prolonged antibiotic course. Patient at a very high risk for further decline, further complications and given his acute illness, malnutrition, multiple chronic illnesses and profound physical deconditioning. Likely to require lengthy hospitalization postop with limited chance at improving quality of life given the above. In addition, patient will likely require hip disarticulation at some point in the future. Therefore, patient electing NOT to proceed with surgical intervention and to transition to comfort care with hospice services. . Code Status: No Code Plan * CODE STATUS: No code status previously recorded. Patient electing no code. DNR/DNI. * HEALTHCARE DECISION-MAKING: Patient participating in medical decision-making. Patient has a clear understanding of the ramifications of the decisions he is making. He has selected his sister Kailee Poole as healthcare surrogate. Copy of designation of HCS in EMR. * GOALS OF CARE: NO CODE. DNR/DNI. Patient verbalized multiple times during our conversation that he wants to focus on comfort, that he does not want to "start all over again with surgery and antibiotics,". Furthermore, he added "I don't want to carry a bag of sh*t around, I'm just not going to do that". When asked what would be the consequence of not proceeding with the recommended surgical intervention, diverting colostomy and antibiotics, he acknowledges that will likely come within weeks and reports being "fine with it". Further adding, "Just keep me comfortable, that is all I ask." Patient previously under hospice services, revoked on 01/12/17 in order to seek medical treatment. Patient verbalized wishing to be discharge home with hospice services for wound management and end-of-life care. At the end of our conversation, patient reports that he will think about wound surgery and colostomy but at this time, is a "big fat NO". Patient reports just wanting to go home with the understanding that his clinical status will continue to worsen. Patient will like to continue with wound VAC upon discharge. * SYMPTOMS: =Pain, secondary to nonhealing wound, osteomyelitis. [place] 5/325 mg q6h and Hydromorphone 0.5 IV Q4h available as needed. Patient reports pain is controlled with current regimen. = Constipation, secondary to opioid use and exacerbated by immobility. Senokot and Miralax daily, Dulcolax suppository as needed. = Anxiety, has been seen by psych. Currently on Valium 10 mg daily as needed. Seroquel 12.5 mg twice a day. * Hospice consult placed. * Palliative care contact information has been provided. * Case has been discussed with programmer analyst consultant and Dr. Valles. * Palliative care will continue to follow-up for further clarifications of goals of care as patient's clinical course evolves. . Time Spent Time Periods: Total Floor Time (mins): 115 (Total time to include review and summarization of available medical records to include multiple hospitalizations, physical exam , goals of care discussion with patient, case discussion with programmer analyst consultant and Dr. Valles.) Face to Face Time (mins): 75 >50% Counseling/Coord of Care: Yes Thank you for the opportunity to participate in the care of Mr. Sheehan. Attestation To help prompt me to consider important information that might be impacting today's encounter and assessment, information from prior notes written by myself or my colleagues may have been "brought forward" into today's note. My signature on this note, however, is an attestation that I personally performed the exam, history, and/or decision-making noted today, and, unless otherwise indicated, the interactions with patient, family, and staff as well as the review of records all occurred today. I also attest that the listed assessment and stated plan reflect my best clinical judgment today based on the combination of historical information, prior notes, and today's exam/ interactions. When time spent is documented, it refers only to time spent today by the signer, or if indicated, combined time spent today by collaborating physician/nurse practitioner. Flor Hastings Jan 21, 2017 18:11
[2017-01-22] MEDS: HYDROmorphone HCL PF 1 MG/ML VIAL IV PUSH PRN (01:14)
[2017-01-22] MEDS: AMPICILLIN-SULBACTAM INJ 3 GM in SODIUM CHLORIDE 0.9% INJ 100 ML IV SCH ×4 (04:04→22:00)
[2017-01-22 04:10] VITALS: BP_SYST 82; BP_SYST 94; BP_DIAS 55; BP_DIAS 58; PULSE 103; RESP 18; TEMP 97.5; O2SAT 100
[2017-01-22 07:09] VITALS: PULSE 99
[2017-01-22 08:00] VITALS: BP 90/64; PULSE 103; RESP 18; TEMP 97.7; O2SAT 100
[2017-01-22] MEDS: POLYETHYLENE GLYCOL 17 GM PKG PO SCH (09:58)
[2017-01-22] MEDS: QUEtiapine FUMARATE 25 MG TAB PO SCH ×2 (09:58→12:38)
[2017-01-22] MEDS: SODIUM CHLORIDE 0.9% FLUSH 10 ML FLUSH IV FLUSH SCH ×2 (09:59→21:00)
[2017-01-22] MEDS: SENNOSIDES 8.6 MG TAB PO SCH (09:59)
[2017-01-22] MEDS: POTASSIUM CHLORIDE 10 MEQ CONTROLLED RELEASE TAB PO SCH (09:59)
[2017-01-22] MEDS: ACETAMINOPHEN/HYDROcodone 325 MG/5 MG TAB PO PRN ×3 (10:00→22:00)
[2017-01-22 12:00] VITALS: BP 110/70; PULSE 98; RESP 18; TEMP 98.2; O2SAT 100
[2017-01-22] MEDS: ENOXAPARIN SODIUM 30 MG/0.3 ML SYRINGE SQ SCH (12:38)
[2017-01-22] MEDS: DIAZEPAM 10 MG TAB PO PRN (12:38)
[2017-01-22 16:00] VITALS: BP 100/68; PULSE 87; RESP 18; TEMP 97.4; O2SAT 100
--- NOTE | 2017-01-22 16:50 | HHI.PR ---
Subjective Remarks This is a pleasant 56 y/o Male stable in his bedroom in the presence of Nurse Miss Patel and his Sister and Caregiver, he gave me the Permission to talk in front of his relatives, no nausea, vomit or diarrhea, as per his own words he asked for Hospice and is awaiting for Hospice specialist to discuss with him and relatives. Objective Vital Signs Date Time Temp Pulse Resp B/P Pulse Ox O2 Delivery O2 Flow Rate FiO2 01/22/17 16:00 97.4 87 18 100/68 100 01/22/17 12:00 98.2 98 18 110/70 100 01/22/17 11:15 16 01/22/17 08:00 97.7 103 18 90/64 100 01/22/17 07:09 99 01/22/17 07:00 Room Air 01/22/17 04:10 97.5 103 18 82/55 100 94/58 01/22/17 04:00 Room Air 01/22/17 00:00 Room Air 01/21/17 23:35 98.0 87 18 113/66 96 01/21/17 21:20 Room Air 01/21/17 20:00 84 01/21/17 19:45 98.7 110 18 91/53 100 I/O 01/21/17 01/21/17 01/21/17 01/22/17 01/22/17 01/22/17 07:00 15:00 23:00 07:00 15:00 23:00 Intake Total 700 ml 720 ml 100 ml 345 ml 820 ml Output Total 750 ml 1050 ml 250 ml 850 ml 1000 ml Balance -50 ml -330 ml -150 ml -505 ml -180 ml Intake Oral 700 ml 720 ml 0 ml 240 ml 720 ml IV Total 100 ml 105 ml 100 ml Output Urine Total 750 ml 1050 ml 250 ml 850 ml 1000 ml # Bowel Movements 0 0 0 0 0 Result Diagram: 01/20/17 0651 01/20/17 0651 Imaging Last Impressions Chest X-Ray 01/12/17 6380 Signed Impressions: Service Date/Time: Thursday, January 12, 2017 18:02 - CONCLUSION: Mild consolidation versus atelectasis at the left lung base. Marcell Loredo MD Procedures left AKA VAC application Other Results Laboratory Tests Test 01/20/17 06:51 White Blood Count 7.4 TH/MM3 Red Blood Count 4.02 MIL/MM3 Hemoglobin 9.3 GM/DL Hematocrit 29.6 % Mean Corpuscular Volume 73.6 FL Mean Corpuscular Hemoglobin 23.1 PG Mean Corpuscular Hemoglobin 31.4 % Concent Red Cell Distribution Width 21.1 % Platelet Count 475 TH/MM3 Mean Platelet Volume 6.5 FL Neutrophils (%) (Auto) 56.5 % Lymphocytes (%) (Auto) 31.8 % Monocytes (%) (Auto) 8.4 % Eosinophils (%) (Auto) 2.4 % Basophils (%) (Auto) 0.9 % Neutrophils # (Auto) 4.2 TH/MM3 Lymphocytes # (Auto) 2.3 TH/MM3 Monocytes # (Auto) 0.6 TH/MM3 Eosinophils # (Auto) 0.2 TH/MM3 Basophils # (Auto) 0.1 TH/MM3 CBC Comment DIFF FINAL Differential Comment Sodium Level 138 MEQ/L Potassium Level 4.0 MEQ/L Chloride Level 104 MEQ/L Carbon Dioxide Level 28.7 MEQ/L Anion Gap 5 MEQ/L Blood Urea Nitrogen 7 MG/DL Creatinine 0.51 MG/DL Estimat Glomerular Filtration 169 ML/MIN Rate Random Glucose 68 MG/DL Calcium Level 8.2 MG/DL Total Bilirubin 0.2 MG/DL Aspartate Amino Transf 48 U/L (AST/SGOT) Alanine Aminotransferase 30 U/L (ALT/SGPT) Alkaline Phosphatase 69 U/L Total Protein 6.5 GM/DL Albumin 1.5 GM/DL Objective Remarks GENERAL: no Distress. SKIN: Sacral ulcer with Vacuum in place. HEAD: Atraumatic. Normocephalic. EYES: Pupils equal and round. No scleral icterus. No injection or drainage. ENT: No nasal bleeding or discharge. NECK: Trachea midline. No JVD. CARDIOVASCULAR: Regular rate and rhythm. RESPIRATORY: No accessory muscle use. Clear to auscultation. GASTROINTESTINAL: Abdomen soft, non-tender. MUSCULOSKELETAL: Extremities left AKA stump post op dressing in place. NEUROLOGICAL: Awake and alert. No obvious cranial nerve deficits. Motor grossly within normal limits. Five out of 5 muscle strength in the arms and legs. Normal speech. PSYCHIATRIC: Appropriate mood and affect; insight and judgment normal. Medications and IVs Current Medications Medications (Trade) Dose Ordered Sig/Vivien Route Start Time Stop Time Status Last Admin (NS Flush) 2 ml UNSCH PRN IV FLUSH 5/31/17 21:45 (NS Flush) 2 ml BID IV FLUSH 01/13/17 09:00 01/22/17 09:59 (Narcan Inj) 0.4 mg UNSCH PRN IV 01/12/17 21:45 Acetaminophen/ Hydrocodone Bitart 1 tab 1 tab Q6H PRN PO 01/13/17 01:30 01/22/17 16:28 (Unasyn Inj/NS Inj) 100 ml @ 200 mls/hr Q6H IV 01/14/17 16:00 01/22/17 16:27 (Santyl Oint) 1 applic MoTh TOPICAL 01/14/17 15:00 01/20/17 12:21 (KCl) 30 meq DAILY PO 01/15/17 13:45 01/21/17 08:18 (Lovenox Inj) 30 mg Q24H SQ 01/15/17 14:00 01/22/17 12:38 (Dilaudid Pf Inj) 0.5 mg Q4H PRN IV PUSH 01/15/17 13:45 01/22/17 01:14 (Miralax) 17 gm DAILY PO 01/15/17 14:00 01/22/17 09:58 (Dulcolax Supp) 10 mg DAILY PRN RECTAL 01/17/17 00:30 01/17/17 00:48 (Senokot) 8.6 mg DAILY PO 01/17/17 00:30 01/22/17 09:59 (SEROquel) 12.5 mg BID@09,12 PO 01/17/17 14:00 01/22/17 12:38 (Pill Splitter) 1 ea UNSCH PRN OTHER 01/17/17 14:00 (Valium) 10 mg DAILY PRN PO 01/18/17 12:00 01/22/17 12:38 A/P Assessment and Plan 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 pelvic osteomyelitis, per consultants pt would need extensive debridement w diverting colostomy however patient made it clear to me today that he is refusing any surgical intervention even if that means that he could if he doesn't proceed with surgery. Hospice consult in progress awaiting final decision Wound Care Following, right hip measuring 5 x 4.9 consisting mostly of macerated broken skin that is opened at 3 o'clock at ~1x~0.5 x ~1.5 . Wound depth is obscured by presence of yellow slough. Periwound is is erythematous. as per Surgery he needs Diverting Colostomy and patient refused. --on Unasyn - ID Dr. López ff Acinetobacter/E faecalis UTI- sensitive to Ampicillin- patient on Unasyn Adjustment disorder. mood improved. 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 Low serum Iron. po Iron daily Paraplegia with decubitus ulcers/wheelchair bound with left hip/ischial decubitus ulcers. History of T1 fracture. Neurogenic bladder/bowel- patient at this time refuse diverting colostomy. started on a bowel regimen- complains of constipation Peripheral vascular disease Likely underlying COPD. lungs clear. IS hourly Hypokalemia- resolved. Lovenox for DVT prophylaxis Discharge Planning Expected after Hospice consult. Demarcus Jasmine MD Jan 22, 2017 16:50
[2017-01-22 20:00] VITALS: BP 130/68; PULSE 74; PULSE 84; RESP 16; TEMP 97.8; O2SAT 99
[2017-01-23] VITALS (7 sets, daily range): BP systolic 90–108; BP diastolic 58–71; PULSE 65–99; RESP 16–19; TEMP 97.6–98.6; O2SAT 96–100
[2017-01-23] MEDS: AMPICILLIN-SULBACTAM INJ 3 GM in SODIUM CHLORIDE 0.9% INJ 100 ML IV SCH ×4 (04:10→21:23)
[2017-01-23] MEDS: ACETAMINOPHEN/HYDROcodone 325 MG/5 MG TAB PO PRN ×4 (04:10→23:10)
[2017-01-23] MEDS: POTASSIUM CHLORIDE 10 MEQ CONTROLLED RELEASE TAB PO SCH (09:36)
[2017-01-23] MEDS: QUEtiapine FUMARATE 25 MG TAB PO SCH ×2 (09:36→12:52)
[2017-01-23] MEDS: POLYETHYLENE GLYCOL 17 GM PKG PO SCH (09:37)
[2017-01-23] MEDS: SENNOSIDES 8.6 MG TAB PO SCH (09:37)
[2017-01-23] MEDS: SODIUM CHLORIDE 0.9% FLUSH 10 ML FLUSH IV FLUSH SCH ×2 (09:37→21:32)
[2017-01-23] MEDS: DIAZEPAM 10 MG TAB PO PRN (12:53)
[2017-01-23] MEDS: ENOXAPARIN SODIUM 30 MG/0.3 ML SYRINGE SQ SCH (12:53)
--- NOTE | 2017-01-23 14:07 | HHI.PR ---
Subjective Remarks Patient stable in his bedroom, no nausea, vomit or diarrhea, discussed with patient and nurse miss Patel, he accepted to have his Colostomy performed. Objective Vital Signs Date Time Temp Pulse Resp B/P Pulse Ox O2 Delivery O2 Flow Rate FiO2 01/23/17 12:02 97.6 76 18 96/62 99 01/23/17 10:40 16 01/23/17 08:02 97.8 86 18 99/71 100 01/23/17 07:57 97 01/23/17 07:00 Room Air 01/23/17 04:00 97.7 86 16 98/62 99 01/23/17 02:00 Room Air 01/23/17 00:00 97.9 82 16 108/58 98 01/22/17 22:00 Room Air 01/22/17 20:00 74 01/22/17 20:00 97.8 84 16 130/68 99 01/22/17 16:00 97.4 87 18 100/68 100 I/O 01/22/17 01/22/17 01/22/17 01/23/17 01/23/17 01/23/17 07:00 15:00 23:00 07:00 15:00 23:00 Intake Total 345 ml 820 ml 240 ml 300 ml Output Total 850 ml 1000 ml 400 ml 150 ml Balance -505 ml -180 ml -160 ml 150 ml Intake Oral 240 ml 720 ml 240 ml 120 ml IV Total 105 ml 100 ml 180 ml Output Urine Total 850 ml 1000 ml 400 ml 150 ml # Bowel Movements 0 0 0 0 Result Diagram: 01/20/17 0651 01/20/17 0651 Imaging Last Impressions Chest X-Ray 01/12/17 8235 Signed Impressions: Service Date/Time: Thursday, January 12, 2017 18:02 - CONCLUSION: Mild consolidation versus atelectasis at the left lung base. Marcell Loredo MD Procedures left AKA VAC application Other Results Laboratory Tests Test 01/20/17 06:51 White Blood Count 7.4 TH/MM3 Red Blood Count 4.02 MIL/MM3 Hemoglobin 9.3 GM/DL Hematocrit 29.6 % Mean Corpuscular Volume 73.6 FL Mean Corpuscular Hemoglobin 23.1 PG Mean Corpuscular Hemoglobin 31.4 % Concent Red Cell Distribution Width 21.1 % Platelet Count 475 TH/MM3 Mean Platelet Volume 6.5 FL Neutrophils (%) (Auto) 56.5 % Lymphocytes (%) (Auto) 31.8 % Monocytes (%) (Auto) 8.4 % Eosinophils (%) (Auto) 2.4 % Basophils (%) (Auto) 0.9 % Neutrophils # (Auto) 4.2 TH/MM3 Lymphocytes # (Auto) 2.3 TH/MM3 Monocytes # (Auto) 0.6 TH/MM3 Eosinophils # (Auto) 0.2 TH/MM3 Basophils # (Auto) 0.1 TH/MM3 CBC Comment DIFF FINAL Differential Comment Sodium Level 138 MEQ/L Potassium Level 4.0 MEQ/L Chloride Level 104 MEQ/L Carbon Dioxide Level 28.7 MEQ/L Anion Gap 5 MEQ/L Blood Urea Nitrogen 7 MG/DL Creatinine 0.51 MG/DL Estimat Glomerular Filtration 169 ML/MIN Rate Random Glucose 68 MG/DL Calcium Level 8.2 MG/DL Total Bilirubin 0.2 MG/DL Aspartate Amino Transf 48 U/L (AST/SGOT) Alanine Aminotransferase 30 U/L (ALT/SGPT) Alkaline Phosphatase 69 U/L Total Protein 6.5 GM/DL Albumin 1.5 GM/DL Objective Remarks GENERAL: no Distress. SKIN: Sacral ulcer with Vacuum in place. HEAD: Atraumatic. Normocephalic. EYES: Pupils equal and round. No scleral icterus. No injection or drainage. ENT: No nasal bleeding or discharge. NECK: Trachea midline. No JVD. CARDIOVASCULAR: Regular rate and rhythm. RESPIRATORY: No accessory muscle use. Clear to auscultation. GASTROINTESTINAL: Abdomen soft, non-tender. MUSCULOSKELETAL: Extremities left AKA stump post op dressing in place. NEUROLOGICAL: Awake and alert. Paraplegic. PSYCHIATRIC: Appropriate mood and affect; insight and judgment normal. Medications and IVs Current Medications Medications (Trade) Dose Ordered Sig/Vivien Route Start Time Stop Time Status Last Admin (NS Flush) 2 ml UNSCH PRN IV FLUSH 01/12/17 21:45 (NS Flush) 2 ml BID IV FLUSH 01/13/17 09:00 01/23/17 09:37 (Narcan Inj) 0.4 mg UNSCH PRN IV 01/12/17 21:45 Acetaminophen/ Hydrocodone Bitart 1 tab 1 tab Q6H PRN PO 01/13/17 01:30 01/23/17 09:38 (Unasyn Inj/NS Inj) 100 ml @ 200 mls/hr Q6H IV 01/14/17 16:00 01/23/17 09:37 (Santyl Oint) 1 applic MoTh TOPICAL 01/14/17 15:00 01/20/17 12:21 (KCl) 30 meq DAILY PO 01/15/17 13:45 01/23/17 09:36 (Lovenox Inj) 30 mg Q24H SQ 01/15/17 14:00 01/23/17 12:53 (Dilaudid Pf Inj) 0.5 mg Q4H PRN IV PUSH 01/15/17 13:45 01/22/17 01:14 (Miralax) 17 gm DAILY PO 01/15/17 14:00 01/22/17 09:58 (Dulcolax Supp) 10 mg DAILY PRN RECTAL 01/17/17 00:30 01/17/17 00:48 (Senokot) 8.6 mg DAILY PO 01/17/17 00:30 01/22/17 09:59 (SEROquel) 12.5 mg BID@09,12 PO 01/17/17 14:00 01/23/17 12:52 (Pill Splitter) 1 ea UNSCH PRN OTHER 01/17/17 14:00 01/23/17 09:39 (Valium) 10 mg DAILY PRN PO 01/18/17 12:00 01/23/17 12:53 A/P Assessment and Plan 1. 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 pelvic osteomyelitis, per consultants pt would need extensive debridement w diverting colostomy, today after a meeting with the patient and his relatives he changed his mind and now wants to continue with Diverting colostomy will discuss with inventory specialist. 2. Right hip wound measuring 5 x 4.9 consisting mostly of macerated broken skin that is opened at 3 o'clock at ~1x~0.5 x ~1.5 . Wound depth is obscured by presence of yellow slough. followed by ID specialist to continue Unasyn, Acinetobacter/E faecalis UTI- sensitive to Ampicillin- patient on Unasyn 3. Adjustment disorder. mood improved. Started on Valium 10 mg po daily 01/18 4. Right foot/heel wound- Podiatry ff 5. 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 Low serum Iron. po Iron daily 6. Paraplegia with decubitus ulcers/wheelchair bound with left hip/ischial decubitus ulcers. History of T1 fracture. Neurogenic bladder/bowel 7. Peripheral vascular disease 8. COPD stable no Exacerbation. Lovenox for DVT prophylaxis Discharge Planning Expected after Hospice consult. Demarcus Jasmine MD Jan 23, 2017 14:07
[2017-01-24] VITALS (8 sets, daily range): BP systolic 93–110; BP diastolic 55–66; PULSE 77–98; RESP 16–20; TEMP 97.6–98.5; O2SAT 99–100
[2017-01-24] MEDS: AMPICILLIN-SULBACTAM INJ 3 GM in SODIUM CHLORIDE 0.9% INJ 100 ML IV SCH ×4 (03:59→21:50)
[2017-01-24] MEDS: HYDROmorphone HCL PF 1 MG/ML VIAL IV PUSH PRN (04:43)
--- NOTE | 2017-01-24 08:35 | HHI.PR ---
Subjective Remarks Patient stable in his bedroom, no nausea, vomit or diarrhea, discussed with patient and nurse miss Patel, he accepted to have his Colostomy performed. 01/24: Seen in his bedroom and discussed with nurse Miss Espinal the patient accepts to get the Colostomy, I had the Opportunity to talk with doctor Shad and he will program Colostomy and I and D of the Sacral wound , also was discussed with database management specialist, no nausea, vomit or diarrhea. Objective Vital Signs Date Time Temp Pulse Resp B/P Pulse Ox O2 Delivery O2 Flow Rate FiO2 01/24/17 04:00 Room Air 01/24/17 04:00 97.6 96 20 98/58 100 01/24/17 00:00 Room Air 01/24/17 00:00 97.9 96 20 93/60 99 01/23/17 20:00 98.6 69 18 97/70 99 01/23/17 20:00 65 01/23/17 19:50 Room Air 01/23/17 17:55 16 01/23/17 16:04 97.6 99 19 90/60 96 01/23/17 12:02 97.6 76 18 96/62 99 I/O 01/23/17 01/23/17 01/23/17 01/24/17 01/24/17 01/24/17 07:00 15:00 23:00 07:00 15:00 23:00 Intake Total 300 ml 910 ml 240 ml 680 ml Output Total 150 ml 1150 ml 425 ml 450 ml Balance 150 ml -240 ml -185 ml 230 ml Intake Oral 120 ml 720 ml 240 ml 480 ml IV Total 180 ml 190 ml 200 ml Output Urine Total 150 ml 1150 ml 425 ml 450 ml # Bowel Movements 0 0 1 2 Result Diagram: 01/20/17 0651 01/20/17 0651 Imaging Last Impressions Chest X-Ray 01/12/17 8408 Signed Impressions: Service Date/Time: Thursday, January 12, 2017 18:02 - CONCLUSION: Mild consolidation versus atelectasis at the left lung base. Marcell Loredo MD Procedures left AKA VAC application Other Results Laboratory Tests Test 01/20/17 06:51 White Blood Count 7.4 TH/MM3 Red Blood Count 4.02 MIL/MM3 Hemoglobin 9.3 GM/DL Hematocrit 29.6 % Mean Corpuscular Volume 73.6 FL Mean Corpuscular Hemoglobin 23.1 PG Mean Corpuscular Hemoglobin 31.4 % Concent Red Cell Distribution Width 21.1 % Platelet Count 475 TH/MM3 Mean Platelet Volume 6.5 FL Neutrophils (%) (Auto) 56.5 % Lymphocytes (%) (Auto) 31.8 % Monocytes (%) (Auto) 8.4 % Eosinophils (%) (Auto) 2.4 % Basophils (%) (Auto) 0.9 % Neutrophils # (Auto) 4.2 TH/MM3 Lymphocytes # (Auto) 2.3 TH/MM3 Monocytes # (Auto) 0.6 TH/MM3 Eosinophils # (Auto) 0.2 TH/MM3 Basophils # (Auto) 0.1 TH/MM3 CBC Comment DIFF FINAL Differential Comment Sodium Level 138 MEQ/L Potassium Level 4.0 MEQ/L Chloride Level 104 MEQ/L Carbon Dioxide Level 28.7 MEQ/L Anion Gap 5 MEQ/L Blood Urea Nitrogen 7 MG/DL Creatinine 0.51 MG/DL Estimat Glomerular Filtration 169 ML/MIN Rate Random Glucose 68 MG/DL Calcium Level 8.2 MG/DL Total Bilirubin 0.2 MG/DL Aspartate Amino Transf 48 U/L (AST/SGOT) Alanine Aminotransferase 30 U/L (ALT/SGPT) Alkaline Phosphatase 69 U/L Total Protein 6.5 GM/DL Albumin 1.5 GM/DL Objective Remarks GENERAL: no Distress. SKIN: Sacral ulcer with Vacuum in place. HEAD: Atraumatic. Normocephalic. EYES: Pupils equal and round. No scleral icterus. No injection or drainage. ENT: No nasal bleeding or discharge. NECK: Trachea midline. No JVD. CARDIOVASCULAR: Regular rate and rhythm. RESPIRATORY: No accessory muscle use. Clear to auscultation. GASTROINTESTINAL: Abdomen soft, non-tender. MUSCULOSKELETAL: Extremities left AKA stump post op dressing in place. NEUROLOGICAL: Awake and alert. Paraplegic. PSYCHIATRIC: Appropriate mood and affect; insight and judgment normal. Medications and IVs Current Medications Medications (Trade) Dose Ordered Sig/Vivien Route Start Time Stop Time Status Last Admin (NS Flush) 2 ml UNSCH PRN IV FLUSH 01/12/17 21:45 (NS Flush) 2 ml BID IV FLUSH 01/13/17 09:00 01/23/17 21:32 (Narcan Inj) 0.4 mg UNSCH PRN IV 01/12/17 21:45 Acetaminophen/ Hydrocodone Bitart 1 tab 1 tab Q6H PRN PO 01/13/17 01:30 01/23/17 23:10 (Unasyn Inj/NS Inj) 100 ml @ 200 mls/hr Q6H IV 01/14/17 16:00 01/24/17 03:59 (Santyl Oint) 1 applic MoTh TOPICAL 01/14/17 15:00 01/20/17 12:21 (KCl) 30 meq DAILY PO 01/15/17 13:45 01/23/17 09:36 (Lovenox Inj) 30 mg Q24H SQ 01/15/17 14:00 01/23/17 12:53 (Dilaudid Pf Inj) 0.5 mg Q4H PRN IV PUSH 01/15/17 13:45 01/24/17 04:43 (Miralax) 17 gm DAILY PO 01/15/17 14:00 01/22/17 09:58 (Dulcolax Supp) 10 mg DAILY PRN RECTAL 01/17/17 00:30 01/17/17 00:48 (Senokot) 8.6 mg DAILY PO 01/17/17 00:30 01/22/17 09:59 (SEROquel) 12.5 mg BID@09,12 PO 01/17/17 14:00 01/23/17 12:52 (Pill Splitter) 1 ea UNSCH PRN OTHER 01/17/17 14:00 01/23/17 09:39 (Valium) 10 mg DAILY PRN PO 01/18/17 12:00 01/23/17 12:53 A/P Assessment and Plan 1. 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 pelvic osteomyelitis, per consultants pt would need extensive debridement w diverting colostomy, today after a meeting with the patient and his relatives he changed his mind and now wants to continue with Diverting colostomy, discussed with Doctor Sen Robertson he will program the procedue for the Patient, as Sacral Wound I and D and Diverting Colostomy. 2. Right hip wound measuring 5 x 4.9 consisting mostly of macerated broken skin that is opened at 3 o'clock at ~1x~0.5 x ~1.5 . Wound depth is obscured by presence of yellow slough. followed by ID specialist to continue Unasyn, Acinetobacter/E faecalis UTI- sensitive to Ampicillin- patient on Unasyn 3. Adjustment disorder. mood improved. Started on Valium 10 mg po daily 01/18 4. Right foot/heel wound- Podiatry ff 5. 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 Low serum Iron. po Iron daily 6. Paraplegia with decubitus ulcers/wheelchair bound with left hip/ischial decubitus ulcers. History of T1 fracture. Neurogenic bladder/bowel 7. Peripheral vascular disease 8. COPD stable no Exacerbation. Lovenox for DVT prophylaxis Discharge Planning Not yet cleared by Specialists. Demarcus Jasmine MD Jan 24, 2017 08:35
[2017-01-24] MEDS: SENNOSIDES 8.6 MG TAB PO SCH (09:00)
[2017-01-24] MEDS: SODIUM CHLORIDE 0.9% FLUSH 10 ML FLUSH IV FLUSH SCH ×2 (09:00→21:50)
[2017-01-24] MEDS: POLYETHYLENE GLYCOL 17 GM PKG PO SCH (09:00)
[2017-01-24] MEDS: POTASSIUM CHLORIDE 10 MEQ CONTROLLED RELEASE TAB PO SCH (09:18)
[2017-01-24] MEDS: ACETAMINOPHEN/HYDROcodone 325 MG/5 MG TAB PO PRN ×2 (09:20→21:49)
[2017-01-24] MEDS: QUEtiapine FUMARATE 25 MG TAB PO SCH ×2 (09:20→13:58)
--- NOTE | 2017-01-24 12:55 | HHI.HCPN ---
Reason for visit a. To assist with evaluation and management of symptoms including: Pain and wound care. b. To assist medical decision maker(s) with: better understanding of current medical conditions; weighing benefits/burdens of medical treatment options; making medical treatment decisions. . (Flor Hastings) Subjective/Interval History Mrs. Sheehan is a 56 y/o male, with a past history of paraplegia since 2003, stage IV decubital ulcer, PVD, recurrent UTI, anemia, and recent left BKA, presented to the emergency department on 01/12/17 requests antibiotic treatment for nonhealing wound. Upon further examination, patient was found to have a deep pressure ulcer to the left greater trochanter as well as to over his sacrum and lumbar spine both of which are softball sized and complete thickness , with bone exposure. Patient was evaluated by Dr. Cohen and underwent left AKA on 01/13/17 secondary to gangrene of the left below the knee amputation stump. Clinical course complicated by pelvic osteomyelitis, contagious from the wounds. It was determined that treatment for his very advance infection will involve surgery, diverting to colostomy and antibiotics. Palliative care was consulted for further clarifications of goals of care given patient's refusal of treatment. Patient was seen in his room, he was resting in bed in no acute distress. Endorsing pain to bilateral knees and abdomen. Pain exacerbated by movement, alleviated by pain medication and rest. Denies shortness of breath, nausea or vomiting. Patient afebrile, stable hemodynamically. Tolerating room air with oxygen saturation in the high 90s. No new laboratory workup or imaging for review.Patient originally seen by palliative care on 01/21/17, at the time patient verbalized not wishing to proceed with surgical intervention and to be discharged home with hospice services. [facility] has been following this patient was previously under their services. Hospice met with patient and his sister Winsome on Tuesday01/22/17 to further discuss. patient verbalized that after much discussion with his sister and additional family members, he is electing to pursue surgical intervention to include diverting colostomy, wound debridement and antibiotic course. In addition, patient tells me that he wishes to be discharge home with hospice services after his medical clearance from a surgical standpoint. . Family/friend interactions No family at bedside. . (Flor Hastings Advance Directives Living Will: Never completed Health Care Surrogate: Copy in medical record Durable Power of Ticker Maintainer: Never completed (Flor Hastings) Advance Directive Specifics Date completed: 12/29/16. . Health Care Surrogate(s): Sister Kailee Poole. . Documented care wishes: No living will completed. Information provided, patient declined assistance with completion today. . Significant change in goals: No code. DNR/DNI. Patient electing to pursue surgical intervention to include diverting colostomy. . (Flor Hastings) Objective Vital Signs Date Time Temp Pulse Resp B/P Pulse Ox O2 Delivery O2 Flow Rate FiO2 01/24/17 08:01 98.4 86 16 109/66 100 01/24/17 04:00 Room Air 01/24/17 04:00 97.6 96 20 98/58 100 01/24/17 00:00 Room Air 01/24/17 00:00 97.9 96 20 93/60 99 01/23/17 20:00 98.6 69 18 97/70 99 01/23/17 20:00 65 01/23/17 19:50 Room Air 01/23/17 17:55 16 01/23/17 16:04 97.6 99 19 90/60 96 Intake & Output 01/24/17 01/24/17 06:59 18:59 Intake Total 920 ml Output Total 875 ml Balance 45 ml Intake Oral 720 ml IV Total 200 ml Output Urine Total 875 ml # Bowel Movements 3 Physical Exam CONSTITUTIONAL/GENERAL: This is a cachectic male resting in bed in no acute distress. TUBES/LINES/DRAINS: PIV's, wound VAC to left hip. SKIN: No jaundice, rashes. Left hip wound/ulcer sacral decubitus stage 4. Wound VAC in place. HEAD: Atraumatic. Normocephalic. EYES: Pupils equal and round and reactive. Extraocular motions intact. No scleral icterus. No injection or drainage. ENT: Hearing grossly normal. Nose without bleeding or purulent drainage. Moist oral mucosa. NECK: Trachea midline. Supple, nontender. CARDIOVASCULAR: Regular rate and rhythm without murmurs, gallops, or rubs. Unable to appreciate pedal pulses to right foot. same is ashen, stasis dermatitis changes. RESPIRATORY/CHEST: Symmetric, unlabored respirations. Clear to auscultation. Breath sounds equal bilaterally. No wheezes, rales, or rhonchi. GASTROINTESTINAL: Abdomen soft, nondistended. No guarding. Bowel sounds present. GENITOURINARY: Without palpable bladder distension. MUSCULOSKELETAL: Left AKA. NEUROLOGICAL: Awake and alert x self, place, time and situation. Motor grossly within normal limits. Follows commands. Moves all extremities. PSYCHIATRIC: Calm. . (Flor Hastings) Diagnostic Tests Result Diagram: 01/20/1751 01/20/1751 Procedures * 01/13/17 -left AKA, wound debridement of left hip decubitus ulcer. . (Flor Hastings) Assessment and Plan Disease Oriented Problem List: (1) osteomyelitis, hips/pelvis (2) Decubitus skin ulcer (3) paraplegic, with multiple complications in recent years Symptom Scale: Pertinent Non-Medical Issues Psychosocial: Paraplegic since 2003, lives in wheelchair to bed, never , no children. Former automotive painting work. Spiritual: Taoist kristine. Legal: No living will completed. Designation of healthcare surrogate completed during prior hospitalization. Copy in EMS. Ethical issues impacting care: None identified. . Important Contacts Sister in [place], health care surrogate Kailee Poole Brother Danny Curtis, in [place] . Prognosis The patient's prognosis is poor. He has underlying malnutrition, anemia, paraplegia, and now has osteomyelitis, infected wounds. Surgical intervention recommended to include wound debridement, diverting colostomy, and prolonged antibiotic course. Patient at a very high risk for further decline, further complications and given his acute illness, malnutrition, multiple chronic illnesses and profound physical deconditioning. Likely to require lengthy hospitalization postop with limited chance at improving quality of life given the above. In addition, patient will likely require hip disarticulation at some point in the future. Therefore, patient electing NOT to proceed with surgical intervention and to transition to comfort care with hospice services. . Code Status: No Code Plan * CODE STATUS: No code status previously recorded. Patient electing no code. DNR/DNI. * HEALTHCARE DECISION-MAKING: Patient participating in medical decision-making. Patient has a clear understanding of the ramifications of the decisions he is making. He has selected his sister Kailee Poole as healthcare surrogate. Copy of designation of HCS in EMR. * GOALS OF CARE: NO CODE. DNR/DNI. Patient electing to pursue surgical intervention to pressure ulcer to include diverting colostomy and antibiotic course. Patient originally seen by palliative care on 01/21/17, at that time, patient verbalized not wishing to proceed with surgical intervention and asked be discharged home with hospice services. [facility] has been following as this patient was previously under their services. Hospice met with patient and his sister Winsome on Tuesday01/22/17 to further discuss. Patient verbalized that after much discussion with his sister and additional family members, he is electing to pursue surgical intervention. In addition, patient tells me that he wishes to be discharge home with hospice services after medical clearance from a surgical standpoint. * SYMPTOMS: =Pain, secondary to nonhealing wound, osteomyelitis. Bly 5/325 mg q6h and Hydromorphone 0.5 IV Q4h available as needed. = Constipation, secondary to opioid use and exacerbated by immobility. Senokot and Miralax daily, Dulcolax suppository as needed. = Anxiety, has been seen by psych. Currently on Valium 10 mg daily as needed. Seroquel 12.5 mg twice a day. * [facility] following. * Palliative care contact information has been provided. * Case has been discussed with online content developer. * Palliative care will continue to follow-up for further clarifications of goals of care as patient's clinical course evolves. . (Flor Hastings) Time Spent Total Floor Time (mins): 34 (Total time to include review of medical records, physical exam, goals of care conversation with patient, and case discussion with online content developer.) >50% Counseling/Coord of Care: Yes (Flor Hastings) Attestation To help prompt me to consider important information that might be impacting today's encounter and assessment, information from prior notes written by myself or my colleagues may have been "brought forward" into today's note. My signature on this note, however, is an attestation that I personally performed the exam, history, and/or decision-making noted today, and, unless otherwise indicated, the interactions with patient, family, and staff as well as the review of records all occurred today. I also attest that the listed assessment and stated plan reflect my best clinical judgment today based on the combination of historical information, prior notes, and today's exam/ interactions. When time spent is documented, it refers only to time spent today by the signer, or if indicated, combined time spent today by collaborating physician/nurse practitioner. (Flor Hastings) Collaborating Comments Discussed with WALLY, agree with assessment and plan (Praveen Castillo MD) Flor Hastings Jan 24, 2017 12:55 Praveen Castillo MD Jan 26, 2017 13:44
[2017-01-24] MEDS: ENOXAPARIN SODIUM 30 MG/0.3 ML SYRINGE SQ SCH (14:00)
[2017-01-24] MEDS: COLLAGENASE OINT 30 GM TUBE TOPICAL SCH (15:00)
[2017-01-25] VITALS (8 sets, daily range): BP systolic 91–127; BP diastolic 60–69; PULSE 70–88; RESP 18–20; TEMP 97.3–98.5; O2SAT 99–100
[2017-01-25] MEDS: HYDROmorphone HCL PF 1 MG/ML VIAL IV PUSH PRN ×2 (00:33→09:30)
[2017-01-25] MEDS: AMPICILLIN-SULBACTAM INJ 3 GM in SODIUM CHLORIDE 0.9% INJ 100 ML IV SCH ×4 (04:47→21:55)
[2017-01-25] MEDS: ACETAMINOPHEN/HYDROcodone 325 MG/5 MG TAB PO PRN ×3 (04:48→18:34)
[2017-01-25] MEDS: POTASSIUM CHLORIDE 10 MEQ CONTROLLED RELEASE TAB PO SCH (08:38)
[2017-01-25] MEDS: QUEtiapine FUMARATE 25 MG TAB PO SCH ×2 (08:38→12:28)
[2017-01-25] MEDS: SODIUM CHLORIDE 0.9% FLUSH 10 ML FLUSH IV FLUSH SCH ×2 (08:39→21:56)
[2017-01-25] MEDS: POLYETHYLENE GLYCOL 17 GM PKG PO SCH (08:39)
[2017-01-25] MEDS: SENNOSIDES 8.6 MG TAB PO SCH (08:39)
--- NOTE | 2017-01-25 08:49 | PD.WCN.NOT ---
Neg Pressure Wound Therapy Wound Location Wound Location: L ischium Wound Description Wound bed appearance: Late entry from 01/24/2017 at 1000:L ischium presents with ~30% yellow slough, ~60% red granulation tissue, 10% visible bone.Black eschar previously noted has softened and turned to yellow slough that is loosening. Wound drainage is minimal sero-sanguinous without odor Periwound appearance: Other (full thickness skin loss at 6 oclock) Settings Suction: 125 mmHg, Continuous Intensity: Low Other Information: Bridged, Windowpaned Foam type: Black Number of pieces: 2 Additonal Information Late entry from 01/24/2017 at 1000: Wound to L ischium cleansed with normal saline and applied santyl ointment mikey thick coverage to wound bed before applying skin prep to periwound. Window paned wound with VAC drape and bridged VAC drape and black granufoam up to L lateral thigh. Covered all exposed foam with VAC drape.Y connector used and attached to wound VAC canister. VAC machine suctioning at 125 mm/hg with some leaks. Sealed leaking areas with stoma paste. VAC dressing noted without leaks upon entry writer leaving room. Wound Location Wound Location: L hip Wound Description Wound bed appearance: Late entry from 01/24/2017 at 1000: Wound bed presents with 90% pale red tissue with bone and muscle visible in center of wound.Wound is noted with minimal sanguinous drainage without odor.wound has little change from previous assessment. Periwound appearance: Unremarkable Settings Suction: 125 mmHg, Continuous Intensity: Low Other Information: Bridged, Windowpaned Foam type: Black Number of pieces: 2 Additonal Information Late entry from 01/24/2017 at 1000: Wound to L hip cleansed with normal saline and applied santyl ointment mikey thick coverage to wound bed before applying skin prep to periwound. Window paned wound with VAC drape and bridged VAC drape and black granufoam up to L lateral thigh. Covered all exposed foam with VAC drape.Y connector used and attached to wound VAC canister. VAC machine suctioning at 125 mm/hg with some leaks. Sealed leaking areas with stoma paste. VAC dressing noted without leaks upon entry writer leaving room. Wound Location Wound Location: Sacrum Wound Description Wound bed appearance: Late entry from 01/24/2017 at 1000: Wound bed to sacral area presents with ~60% red non granulation tissue, 10% visible bone, and 30% slough that is loosening. Periwound appearance: Unremarkable Settings Suction: 125 mmHg, Continuous Intensity: Low Other Information: Bridged, Windowpaned Foam type: Black Number of pieces: 3 Additonal Information Late entry from 01/24/2017 at 1000: Wound to sacrum cleansed with normal saline and applied santyl ointment mikey thick coverage to wound bed before applying skin prep to periwound. Window paned wound with VAC drape and bridged VAC drape and black granufoam up to L hip. Covered all exposed foam with VAC drape.Y connector used and attached to wound VAC canister. VAC machine suctioning at 125 mm/hg with some leaks. Sealed leaking areas with stoma paste. VAC dressing noted without leaks upon entry writer leaving room. Missy [facility] Jan 25, 2017 08:49
--- NOTE | 2017-01-25 10:31 | HHI.PR ---
Subjective Remarks Patient stable in his bedroom, no nausea, vomit or diarrhea, discussed with patient and nurse miss Patel, he accepted to have his Colostomy performed. 01/24: Seen in his bedroom and discussed with nurse Miss Espinal the patient accepts to get the Colostomy, I had the Opportunity to talk with doctor Shad and he will program Colostomy and I and D of the Sacral wound. 01/25; Seen in his bedroom, he states he changed his mind and wants to go to hospice, then I was called by Hospitalist Nurse to tell me the patient refused Hospice, no nausea, vomit or diarrhea, will continue with previous Plan for Colostomy, I already discussed with Doctor Sen for this matter. Objective Vital Signs Date Time Temp Pulse Resp B/P Pulse Ox O2 Delivery O2 Flow Rate FiO2 01/25/17 08:00 97.3 81 20 127/69 100 01/25/17 04:00 98.5 80 18 102/68 100 01/25/17 00:00 97.9 78 18 117/62 99 01/24/17 20:31 87 01/24/17 20:30 Room Air 01/24/17 20:00 97.8 98 18 98/55 100 01/24/17 16:02 98.5 88 16 108/66 100 01/24/17 12:01 98.2 86 16 110/64 100 I/O 01/24/17 01/24/17 01/24/17 01/25/17 01/25/17 01/25/17 07:00 15:00 23:00 07:00 15:00 23:00 Intake Total 680 ml 420 ml 240 ml 240 ml Output Total 450 ml 2200 ml 450 ml 350 ml Balance 230 ml -1780 ml -210 ml -110 ml Intake Oral 480 ml 420 ml 240 ml 240 ml IV Total 200 ml Output Urine Total 450 ml 2200 ml 450 ml 350 ml # Bowel Movements 2 2 1 1 Imaging Last Impressions Chest X-Ray 01/12/17 [id number] Signed Impressions: Service Date/Time: Thursday, January 12, 2017 18:02 - CONCLUSION: Mild consolidation versus atelectasis at the left lung base. Marcell Loredo MD Procedures left AKA VAC application Other Results No new laboratory Objective Remarks GENERAL: no Distress. SKIN: Sacral ulcer with Vacuum in place. HEAD: Atraumatic. Normocephalic. EYES: Pupils equal and round. No scleral icterus. No injection or drainage. ENT: No nasal bleeding or discharge. NECK: Trachea midline. No JVD. CARDIOVASCULAR: Regular rate and rhythm. RESPIRATORY: No accessory muscle use. Clear to auscultation. GASTROINTESTINAL: Abdomen soft, non-tender. MUSCULOSKELETAL: Extremities left AKA stump post op dressing in place. NEUROLOGICAL: Awake and alert. Paraplegic. PSYCHIATRIC: Appropriate mood and affect; insight and judgment normal. Medications and IVs Current Medications Medications (Trade) Dose Ordered Sig/Vivien Route Start Time Stop Time Status Last Admin (NS Flush) 2 ml UNSCH PRN IV FLUSH 01/12/17 21:45 (NS Flush) 2 ml BID IV FLUSH 01/13/17 09:00 01/25/17 08:39 (Narcan Inj) 0.4 mg UNSCH PRN IV 01/12/17 21:45 Acetaminophen/ Hydrocodone Bitart 1 tab 1 tab Q6H PRN PO 01/13/17 01:30 01/25/17 04:48 (Unasyn Inj/NS Inj) 100 ml @ 200 mls/hr Q6H IV 01/14/17 16:00 01/25/17 09:30 (Santyl Oint) 1 applic MoTh TOPICAL 01/14/17 15:00 01/24/17 15:00 (KCl) 30 meq DAILY PO 01/15/17 13:45 01/25/17 08:38 (Lovenox Inj) 30 mg Q24H SQ 01/15/17 14:00 01/24/17 14:00 (Dilaudid Pf Inj) 0.5 mg Q4H PRN IV PUSH 01/15/17 13:45 01/25/17 09:30 (Miralax) 17 gm DAILY PO 01/15/17 14:00 01/24/17 09:00 (Dulcolax Supp) 10 mg DAILY PRN RECTAL 01/17/17 00:30 01/17/17 00:48 (Senokot) 8.6 mg DAILY PO 01/17/17 00:30 01/22/17 09:59 (SEROquel) 12.5 mg BID@09,12 PO 01/17/17 14:00 01/25/17 08:38 (Pill Splitter) 1 ea UNSCH PRN OTHER 01/17/17 14:00 01/23/17 09:39 (Valium) 10 mg DAILY PRN PO 01/18/17 12:00 01/23/17 12:53 A/P Assessment and Plan 1. S/P left AKA due to Left BKA stump infection/gangrene- 01/13 Left hip wound/ulcer/sacral decubitus stage 4 - VAC in place- baggage checker following. pelvic osteomyelitis, per consultants pt would need extensive debridement w diverting colostomy, today after a meeting with the patient and his relatives he changed his mind and now wants to continue with Diverting colostomy, discussed with Doctor Sen Robertson he will program the procedue for the Patient, as Sacral Wound I and D and Diverting Colostomy. 2. Right hip wound measuring 5 x 4.9 consisting mostly of macerated broken skin that is opened at 3 o'clock at ~1x~0.5 x ~1.5 . Wound depth is obscured by presence of yellow slough. followed by ID specialist to continue Unasyn, Acinetobacter/E faecalis UTI- sensitive to Ampicillin- patient on Unasyn 3. Adjustment disorder. mood improved. Started on Valium 10 mg po daily 01/18 4. Right foot/heel wound- Podiatry ff 5. 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 Low serum Iron. po Iron daily 6. Paraplegia with decubitus ulcers/wheelchair bound with left hip/ischial decubitus ulcers. History of T1 fracture. Neurogenic bladder/bowel 7. Peripheral vascular disease 8. COPD stable no Exacerbation. Lovenox for DVT prophylaxis Initially the patient told me that he changed his mind and want s to go to Hospice but then he refused Hospice will continue previous management for Colostomy. Discharge Planning Not yet cleared by Specialists. Demarcus Jasmine MD Jan 25, 2017 10:31
--- NOTE | 2017-01-25 13:58 | HHI.IDPN ---
Subjective Subjective Remarks doing OK now agreabel for stoma though keep chnaging his mind afebrile no active c/o BMs 3-4 /day Antibiotics ampicillin/S Allergies: Coded Allergies: Levaquin (Verified Allergy, Severe, 12/25/16) *MDRO Multi-Drug Resistant Organism (Verified Allergy, Unknown, 01/17/17) MDR-Acinetobacter baumannii (Urine) - 04/20/16, 12/25/16, 01/12/17 MDR-Acinetobacter baumannii (wounds)-12/25/16, 01/12/17 Septra (Verified Allergy, Unknown, 12/25/16) Objective . Vital Signs Date Time Temp Pulse Resp B/P Pulse Ox O2 Delivery O2 Flow Rate FiO2 01/25/17 12:00 97.7 86 20 98/68 100 01/25/17 08:00 97.3 81 20 127/69 100 01/25/17 04:00 98.5 80 18 102/68 100 01/25/17 00:00 97.9 78 18 117/62 99 01/24/17 20:31 87 01/24/17 20:30 Room Air 01/24/17 20:00 97.8 98 18 98/55 100 01/24/17 16:02 98.5 88 16 108/66 100 01/24/17 01/24/17 01/25/17 15:00 23:00 07:00 Intake Total 420 ml 240 ml 240 ml Output Total 2200 ml 450 ml 350 ml Balance -1780 ml -210 ml -110 ml Intake Oral 420 ml 240 ml 240 ml Output Urine Total 2200 ml 450 ml 350 ml # Bowel Movements 2 1 1 Imaging Last Impressions Chest X-Ray 01/12/17 [id number] Signed Impressions: Service Date/Time: Thursday, January 12, 2017 18:02 - CONCLUSION: Mild consolidation versus atelectasis at the left lung base. Marcell Loredo MD Physical Exam CONSTITUTIONAL/GENERAL: This is an adequately nourished patient, in no apparent distress. TUBES/LINES/DRAINS: SKIN: No jaundice, rashes, CARDIOVASCULAR: Regular rate and rhythm without murmurs, gallops, or rubs. No JVD. Peripheral pulses symmetric. RESPIRATORY/CHEST: Symmetric, unlabored respirations. Clear to auscultation. Breath sounds equal bilaterally. No wheezes, rales, or rhonchi. GASTROINTESTINAL: Abdomen soft, non-tender, nondistended. No hepato-splenomegaly , or palpable masses. No guarding. Bowel sounds present. GENITOURINARY: Without palpable bladder distension. Blood catheter in place with failry clear pale yellow urine MUSCULOSKELETAL: Extremities without clubbing, cyanosis, or edema. PELVIS: VAC in place with serosang dc R hip decub with 100% necrotic base, looks worse today, more purulent drainage no foul odor LYMPHATICS: No palpable cervical or supraclavicular adenopathy. NEUROLOGICAL: awkae, alert . Follows commands PSYCHIATRIC: calm and cooperative today; Assessment & Plan Remarks Paraplegia 2/2 traumaticc T 1 fracture PVD NOn compliance Tobaccoism Long standing infrected decubs involving sacrum and buttocks, infected with MDRO Acinetobacter clinically and radiologically ce contigiuous osteomyelitis sp debridement , wounds look clean Pelvic osteomyelitis, contigious from the wounds - this is a very advanced situation and treatment of his pelvic osteomyelitis will involve surgery, divertive colostomy and adjunctive abx - without surgical treatment colostomy followed by wound care the treatment failure will be closeto 100% - abx alone use in this case will obly contribute to further resistance and also side effects pt previously refuses colostomy, now seems agreable 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, healing nicely UTI, MDRO Acinetobacter previously in the setting s of neurogenic bladder - I Unasyn - P Meropeem - poor compliance with self cath Staph epi low grade bacteremia, 1/4 bottles - likley contamination abx associated diarrhea REC's: cont Unasyn x 8 wks - even its I to Unasyn the accumulation of this agent in the usrine is very high to create concentrations much high than YOSHI pt needs divertive colostomy, how ever he is not agreable also needs R hip debridement which is planned by Dr Love repeat UA, C+S if fever/leukocytsis - will rechk CBC, CMP - cont VAC - rechk CBC, BMP - chk stool for C.diff dw Dr Marcelo mendoza RN Tahmina López MD Jan 25, 2017 13:58
[2017-01-25] MEDS: ENOXAPARIN SODIUM 30 MG/0.3 ML SYRINGE SQ SCH (14:20)
--- NOTE | 2017-01-25 16:51 | PD.CAR.PN ---
CVT Progress Note Subjective/Hospital Course: 56-year-old male known to me from last visit about 10 days ago. 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 after surgery performed at another hospital Patient has essentially mummified left BKA stump going all the way over the patella to distal above the knee level Patient was here a week or so ago and of course we recommended above-knee amputation of the time but patient stated that the thing is healing nicely and was very angry about even mention of amputation Now patient has progressive more necrosis in addition he is losing weight and is in functional decline because of the same Patient will need above-knee amputation on urgent basis He ate and will go ahead with an amputation tomorrow In addition patient has extensive sacral and lumbar decubiti needing debridement as well Full consult to follow Robinson J 01/14/17 Patient status post the left above-knee amputation and debridement of the huge sacral decubiti and a left hip decubitus As noted in my operative report is a very deep great for decubiti and chance of healing this is miniscule Dressing intact on left AKA I have discussed the care with wound care nurse and patient will have a large wound VAC placed Tuesday and . This may help to reduce some granulation tissue and start healing processes but I'm afraid 15 DN patient may require left hip disarticulation which is of course a large and unfortunately procedure if necessary Every effort should be made to avoid this if possible 01/15/17 Status post left above-knee amputation and debridement of the sacral and the hip decubiti We'll keep dressing on until tomorrow The decubiti care has been discussed with the wound care nurse and patient currently has wound vacs on all these We should continue this for a while and see it granulates that there is a very high chance the patient will require left hip disarticulation in the future Continue current care 01/16/17 Patient doing well incisions clean and dry dressing is intact Will start changing the dressing today Back decubiti are covered with wound vacs and we can try to give it a chance to heal however this may be lethal and may cause sepsis resulting in dire outcome Patient refuses diverting colostomy and I don't see any way any of this will heal without diverting the stool 01/17/17 AKA stump is clean and dry The back decubiti appeared to be clean and looked much better than I thought they would. Area is granulating nicely, however patient refuses diverting colostomy and sooner later this is all going get infected and patient will of sepsis 01/21/17 The debrided decubiti are covered with wound VAC and actually looked nice and clean but encompassed massive amount of patient's back. Left AKA stump is healing nicely Patient has right hip decubitus this going very deep into the hip which also needs debridement At this point there is no other option but to do diverting colostomy in this gentleman for otherwise he will from sepsis Patient refuses diverting colostomy so I have no other options to offer to him 01/25/17 Patient paraplegic with multiple huge decubiti in sacral area and in both hips Patient refused diverting colostomy but no finally agreed to it Will proceed with diverting colostomy tomorrow and at the same time debride the right hip decubitus Objective: Vital Signs Date Time Temp Pulse Resp B/P Pulse Ox O2 Delivery O2 Flow Rate FiO2 01/25/17 12:00 97.7 86 20 98/68 100 01/25/17 08:00 97.3 81 20 127/69 100 01/25/17 04:00 98.5 80 18 102/68 100 01/25/17 00:00 97.9 78 18 117/62 99 01/24/17 20:31 87 01/24/17 20:30 Room Air 01/24/17 20:00 97.8 98 18 98/55 100 Sen Robertson MD Jan 25, 2017 16:51
[2017-01-26] VITALS: BP 129/76; PULSE 71; RESP 18; TEMP 97.4; O2SAT 99
[2017-01-26] MEDS: ACETAMINOPHEN/HYDROcodone 325 MG/5 MG TAB PO PRN ×2 (02:38→21:22)
[2017-01-26 04:00] VITALS: BP 107/65; PULSE 98; RESP 20; TEMP 97.9; O2SAT 100
[2017-01-26] MEDS: DIAZEPAM 10 MG TAB PO PRN (04:09)
[2017-01-26] MEDS: AMPICILLIN-SULBACTAM INJ 3 GM in SODIUM CHLORIDE 0.9% INJ 100 ML IV SCH ×4 (04:09→21:25)
[2017-01-26] MEDS: HYDROmorphone HCL PF 1 MG/ML VIAL IV PUSH PRN (05:56)
[2017-01-26 08:00] VITALS: BP 116/74; PULSE 85; RESP 20; TEMP 97.5; O2SAT 97
[2017-01-26] MEDS: POLYETHYLENE GLYCOL 17 GM PKG PO SCH (09:00)
[2017-01-26] MEDS: SODIUM CHLORIDE 0.9% FLUSH 10 ML FLUSH IV FLUSH SCH ×2 (09:30→21:24)
[2017-01-26] MEDS: POTASSIUM CHLORIDE 10 MEQ CONTROLLED RELEASE TAB PO SCH (09:33)
[2017-01-26] MEDS: SENNOSIDES 8.6 MG TAB PO SCH (09:33)
[2017-01-26] MEDS: QUEtiapine FUMARATE 25 MG TAB PO SCH ×2 (09:33→12:00)
[2017-01-26] MEDS ORDERED: ceFAZolin INJ 1,000 MG VIAL ONE (10:36)
[2017-01-26] MEDS ORDERED: BUPIVACAINE HCL PF 0.5% 30 ML VIAL ONE (10:36)
[2017-01-26] MEDS ORDERED: BUPIVACAINE/EPINEPHRINE 0.5% PF 30 ML VIAL ONE (10:36)
[2017-01-26] MEDS ORDERED: BACITRACIN TOP OINT 15 GM TUBE ONE (10:37)
--- NOTE | 2017-01-26 10:42 | HHI.PR ---
Subjective Remarks Patient stable in his bedroom, no nausea, vomit or diarrhea, discussed with patient and nurse miss Patel, he accepted to have his Colostomy performed. 01/24: Seen in his bedroom and discussed with nurse Miss Espinal the patient accepts to get the Colostomy, I had the Opportunity to talk with doctor Shad and he will program Colostomy and I and D of the Sacral wound. 01/25; Seen in his bedroom, he states he changed his mind and wants to go to hospice, then I was called by Hospitalist Nurse to tell me the patient refused Hospice, no nausea, vomit or diarrhea, will continue with previous Plan for Colostomy, I already discussed with Doctor Sen for this matter. 01/26: Stable seen in his bedroom, no nausea, vomit or diarrhea, will go for Diverting Colostomy later today, seen in the presence of female nurse Milena qi. Objective Vital Signs Date Time Temp Pulse Resp B/P Pulse Ox O2 Delivery O2 Flow Rate FiO2 01/26/17 08:00 97.5 85 20 116/74 97 01/26/17 04:00 97.9 98 20 107/65 100 01/26/17 00:00 97.4 71 18 129/76 99 01/25/17 20:26 70 01/25/17 20:00 97.6 88 20 104/62 99 01/25/17 16:00 97.7 76 20 91/60 99 01/25/17 12:00 97.7 86 20 98/68 100 I/O 01/25/17 01/25/17 01/25/17 01/26/17 01/26/17 01/26/17 06:59 14:59 22:59 06:59 14:59 22:59 Intake Total 240 ml 820 ml 480 ml Output Total 350 ml 1650 ml 125 ml 700 ml Balance -110 ml -830 ml 355 ml -700 ml Intake Oral 240 ml 720 ml 480 ml IV Total 100 ml Output Urine Total 350 ml 1450 ml 125 ml 700 ml Drainage Total 200 ml # Voids 2 # Bowel Movements 1 0 0 0 Imaging Last Impressions Chest X-Ray 01/12/17 9452 Signed Impressions: Service Date/Time: Thursday, January 12, 2017 18:02 - CONCLUSION: Mild consolidation versus atelectasis at the left lung base. Marcell Loredo MD Procedures left AKA VAC application Other Results Laboratory Tests Test 01/25/17 22:55 Blood Type A POSITIVE Antibody Screen NEGATIVE Crossmatch Leukocyte-Reduced Red Blood Cells Blood Bank Comment Objective Remarks GENERAL: no Distress. SKIN: Sacral ulcer with Vacuum in place. HEAD: Atraumatic. Normocephalic. EYES: Pupils equal and round. No scleral icterus. No injection or drainage. ENT: No nasal bleeding or discharge. NECK: Trachea midline. No JVD. CARDIOVASCULAR: Regular rate and rhythm. RESPIRATORY: No accessory muscle use. Clear to auscultation. GASTROINTESTINAL: Abdomen soft, non-tender. MUSCULOSKELETAL: Extremities left AKA stump post op dressing in place. NEUROLOGICAL: Awake and alert. Paraplegic. PSYCHIATRIC: Appropriate mood and affect; insight and judgment normal. Medications and IVs Current Medications Medications (Trade) Dose Ordered Sig/Vivien Route Start Time Stop Time Status Last Admin (NS Flush) 2 ml UNSCH PRN IV FLUSH 01/12/17 21:45 (NS Flush) 2 ml BID IV FLUSH 01/13/17 09:00 01/26/17 09:30 (Narcan Inj) 0.4 mg UNSCH PRN IV 01/12/17 21:45 Acetaminophen/ Hydrocodone Bitart 1 tab 1 tab Q6H PRN PO 01/13/17 01:30 01/26/17 02:38 (Unasyn Inj/NS Inj) 100 ml @ 200 mls/hr Q6H IV 01/14/17 16:00 01/26/17 09:30 (Santyl Oint) 1 applic MoTh TOPICAL 01/14/17 15:00 01/24/17 15:00 (KCl) 30 meq DAILY PO 01/15/17 13:45 01/26/17 09:33 (Lovenox Inj) 30 mg Q24H SQ 01/15/17 14:00 01/25/17 14:20 (Dilaudid Pf Inj) 0.5 mg Q4H PRN IV PUSH 01/15/17 13:45 01/26/17 05:56 (Miralax) 17 gm DAILY PO 01/15/17 14:00 01/24/17 09:00 (Dulcolax Supp) 10 mg DAILY PRN RECTAL 01/17/17 00:30 01/17/17 00:48 (Senokot) 8.6 mg DAILY PO 01/17/17 00:30 01/26/17 09:33 (SEROquel) 12.5 mg BID@09,12 PO 01/17/17 14:00 01/26/17 09:33 (Pill Splitter) 1 ea UNSCH PRN OTHER 01/17/17 14:00 01/23/17 09:39 (Valium) 10 mg DAILY PRN PO 01/18/17 12:00 01/26/17 04:09 A/P Assessment and Plan 1. 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 pelvic osteomyelitis, per consultants pt would need extensive debridement w diverting colostomy, today after a meeting with the patient and his relatives he changed his mind and now wants to continue with Diverting colostomy, discussed with Doctor Sen Robertson he will program the procedue for the Patient, as Sacral Wound I and D and Diverting Colostomy. for today 01/26/17. 2. Right hip wound measuring 5 x 4.9 consisting mostly of macerated broken skin that is opened at 3 o'clock at ~1x~0.5 x ~1.5 . Wound depth is obscured by presence of yellow slough. followed by ID specialist to continue Unasyn, Acinetobacter/E faecalis UTI- sensitive to Ampicillin- patient on Unasyn 3. Adjustment disorder. mood improved. Started on Valium 10 mg po daily 01/18 4. Right foot/heel wound- Podiatry ff 5. Microcytic anemia- iron studies suggestive of chronic disease. Low serum Iron. po Iron daily 6. Paraplegia with decubitus ulcers/wheelchair bound with left hip/ischial decubitus ulcers. History of T1 fracture. Neurogenic bladder/bowel 7. Peripheral vascular disease 8. COPD stable no Exacerbation. Lovenox for DVT prophylaxis No changes to anterior assessment. Discharge Planning Not yet cleared by Specialists. Demarcus Jasmine MD Jan 26, 2017 10:42
[2017-01-26] MEDS ORDERED: ETOMIDATE 20 MG/10 ML VIAL IV PUSH ONE (12:00)
[2017-01-26] MEDS ORDERED: NORMOSOL R INJ 1,000 ML IV ONE (12:00)
[2017-01-26] MEDS ORDERED: PROPOFOL 200 MG/20 ML AMP IV ONE (12:00)
[2017-01-26] MEDS ORDERED: ONDANSETRON HCL 4 MG/2 ML VIAL IV PUSH ONE (12:00)
[2017-01-26] MEDS ORDERED: PHENYLEPH/NS 1000 MCG/10 ML SYR IV ONE (12:00)
[2017-01-26] MEDS ORDERED: LACTATED RINGER'S 1000 ML INJ 1,000 ML IV ONE (12:00)
[2017-01-26] MEDS ORDERED: fentaNYL CITRATE 250 MCG/5 ML AMP ONE (13:21)
[2017-01-26] MEDS ORDERED: SUGAMMADEX SODIUM 200 MG/2 ML VIAL IV PUSH ONE ×2 (13:22)
[2017-01-26] MEDS ORDERED: *HYDROmorphone PF 1 MG VIAL PERIprocedural Use ONLY ONE ×2 (13:24→13:36)
[2017-01-26] MEDS: ENOXAPARIN SODIUM 30 MG/0.3 ML SYRINGE SQ SCH (14:00)
--- NOTE | 2017-01-26 14:42 | PD.CAR.PN ---
CVT Progress Note Subjective/Hospital Course: 56-year-old male known to me from last visit about 10 days ago. 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 after surgery performed at another hospital Patient has essentially mummified left BKA stump going all the way over the patella to distal above the knee level Patient was here a week or so ago and of course we recommended above-knee amputation of the time but patient stated that the thing is healing nicely and was very angry about even mention of amputation Now patient has progressive more necrosis in addition he is losing weight and is in functional decline because of the same Patient will need above-knee amputation on urgent basis He ate and will go ahead with an amputation tomorrow In addition patient has extensive sacral and lumbar decubiti needing debridement as well Full consult to follow Robinson J 01/14/17 Patient status post the left above-knee amputation and debridement of the huge sacral decubiti and a left hip decubitus As noted in my operative report is a very deep great for decubiti and chance of healing this is miniscule Dressing intact on left AKA I have discussed the care with wound care nurse and patient will have a large wound VAC placed Tuesday and . This may help to reduce some granulation tissue and start healing processes but I'm afraid 15 DN patient may require left hip disarticulation which is of course a large and unfortunately procedure if necessary Every effort should be made to avoid this if possible 01/15/17 Status post left above-knee amputation and debridement of the sacral and the hip decubiti We'll keep dressing on until tomorrow The decubiti care has been discussed with the wound care nurse and patient currently has wound vacs on all these We should continue this for a while and see it granulates that there is a very high chance the patient will require left hip disarticulation in the future Continue current care 01/16/17 Patient doing well incisions clean and dry dressing is intact Will start changing the dressing today Back decubiti are covered with wound vacs and we can try to give it a chance to heal however this may be lethal and may cause sepsis resulting in dire outcome Patient refuses diverting colostomy and I don't see any way any of this will heal without diverting the stool 01/17/17 AKA stump is clean and dry The back decubiti appeared to be clean and looked much better than I thought they would. Area is granulating nicely, however patient refuses diverting colostomy and sooner later this is all going get infected and patient will of sepsis 01/21/17 The debrided decubiti are covered with wound VAC and actually looked nice and clean but encompassed massive amount of patient's back. Left AKA stump is healing nicely Patient has right hip decubitus this going very deep into the hip which also needs debridement At this point there is no other option but to do diverting colostomy in this gentleman for otherwise he will from sepsis Patient refuses diverting colostomy so I have no other options to offer to him 01/25/17 Patient paraplegic with multiple huge decubiti in sacral area and in both hips Patient refused diverting colostomy but no finally agreed to it Will proceed with diverting colostomy tomorrow and at the same time debride the right hip decubitus 01/26/17 Patient underwent diverting colostomy and debridement of right hip Patient can be restarted on his diet and then can be discharged from my point as soon as colostomy works well probably in a day or 2 Follow-up with me in 2 weeks for staple removal or the [facility] Objective: Vital Signs Date Time Temp Pulse Resp B/P Pulse Ox O2 Delivery O2 Flow Rate FiO2 01/26/17 13:45 84 19 114/64 100 Nasal Cannula 2 01/26/17 13:30 80 19 142/78 100 Nasal Cannula 2 01/26/17 13:15 75 19 156/82 100 Nasal Cannula 2 01/26/17 13:10 98.2 96 19 152/86 100 Nasal Cannula 2 01/26/17 08:00 97.5 85 20 116/74 97 01/26/17 04:00 97.9 98 20 107/65 100 01/26/17 00:00 97.4 71 18 129/76 99 01/25/17 20:26 70 01/25/17 20:00 97.6 88 20 104/62 99 01/25/17 16:00 97.7 76 20 91/60 99 Sen Robertson MD Jan 26, 2017 2:42 pm
[2017-01-26] MEDS ORDERED: LACTULOSE SYRUP 20 GM/30 ML CUP PO ONE (14:45)
[2017-01-26] MEDS ORDERED: DO NOT ADM ANY ANTICOAGULANT DRUGS PRN (15:15)
[2017-01-26 20:15] VITALS: BP 130/65; PULSE 100; RESP 19; TEMP 97.1; O2SAT 97
[2017-01-27] VITALS (7 sets, daily range): BP systolic 104–130; BP diastolic 60–71; PULSE 76–101; RESP 18–20; TEMP 96.3–98.4; O2SAT 98–100
[2017-01-27] MEDS: HYDROmorphone HCL PF 1 MG/ML VIAL IV PUSH PRN ×4 (00:45→20:32)
[2017-01-27] MEDS: ACETAMINOPHEN/HYDROcodone 325 MG/5 MG TAB PO PRN ×3 (03:50→18:31)
[2017-01-27] MEDS: AMPICILLIN-SULBACTAM INJ 3 GM in SODIUM CHLORIDE 0.9% INJ 100 ML IV SCH ×4 (03:51→20:31)
[2017-01-27] MEDS: POTASSIUM CHLORIDE 10 MEQ CONTROLLED RELEASE TAB PO SCH (08:52)
[2017-01-27] MEDS: QUEtiapine FUMARATE 25 MG TAB PO SCH ×2 (08:52→11:17)
[2017-01-27] MEDS: POLYETHYLENE GLYCOL 17 GM PKG PO SCH (08:53)
[2017-01-27] MEDS: SODIUM CHLORIDE 0.9% FLUSH 10 ML FLUSH IV FLUSH SCH ×2 (09:00→20:32)
[2017-01-27] MEDS: SENNOSIDES 8.6 MG TAB PO SCH (09:00)
[2017-01-27 09:17] LABS: AUTOMATED NEUTROPHIL # 8.3 TH/MM3 (1.8-7.7); BASOPHIL # 0.1 TH/MM3 (0-0.2); BASOPHIL % 0.6 % (0.0-2.0); EOSINOPHIL # 0.1 TH/MM3 (0-0.4); EOSINOPHIL % 0.8 % (0.0-4.0); HEMATOCRIT 31.5 % (39.0-51.0); LYMPH % 17.8 % (9.0-44.0); MEAN CELL VOLUME 74.3 FL (80.0-100.0); MEAN CORPUSCULAR HEMOGLOBIN 22.8 PG (27.0-34.0); MEAN CORPUSCULAR HGB CONC 30.7 % (32.0-36.0); MONO % 6.9 % (0.0-8.0); NEUT % 73.9 % (16.0-70.0); PLATELET COUNT 367 TH/MM3 (150-450); RED BLOOD COUNT 4.24 MIL/MM3 (4.50-5.90); RED CELL DISTRIBUTION WIDTH 22.1 % (11.6-17.2); WHITE BLOOD COUNT 11.3 TH/MM3 (4.0-11.0)
[2017-01-27 09:20] LABS: HEMO FLAGS AUTO DIFF
[2017-01-27 09:23] LABS: HEMATOCRIT 30.5 % (39.0-51.0); MEAN CELL VOLUME 73.8 FL (80.0-100.0); MEAN CORPUSCULAR HEMOGLOBIN 23.1 PG (27.0-34.0); MEAN CORPUSCULAR HGB CONC 31.4 % (32.0-36.0); PLATELET COUNT 409 TH/MM3 (150-450); RED BLOOD COUNT 4.14 MIL/MM3 (4.50-5.90); RED CELL DISTRIBUTION WIDTH 21.6 % (11.6-17.2); REVIEW FLAG FINAL; WHITE BLOOD COUNT 11.2 TH/MM3 (4.0-11.0)
[2017-01-27 09:42] LABS: BICARBONATE 27.8 MEQ/L (21.0-32.0); MAGNESIUM 2.2 MG/DL (1.5-2.5); POTASSIUM 3.7 MEQ/L (3.5-5.1)
[2017-01-27 10:19] LABS: SCAN/DIFF AUTO DIFF CONFIRMED
--- NOTE | 2017-01-27 11:16 | PD.CAR.PN ---
CVT Progress Note Subjective/Hospital Course: 56-year-old male known to me from last visit about 10 days ago. 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 after surgery performed at another hospital Patient has essentially mummified left BKA stump going all the way over the patella to distal above the knee level Patient was here a week or so ago and of course we recommended above-knee amputation of the time but patient stated that the thing is healing nicely and was very angry about even mention of amputation Now patient has progressive more necrosis in addition he is losing weight and is in functional decline because of the same Patient will need above-knee amputation on urgent basis He ate and will go ahead with an amputation tomorrow In addition patient has extensive sacral and lumbar decubiti needing debridement as well Full consult to follow Robinson J 01/14/17 Patient status post the left above-knee amputation and debridement of the huge sacral decubiti and a left hip decubitus As noted in my operative report is a very deep great for decubiti and chance of healing this is miniscule Dressing intact on left AKA I have discussed the care with wound care nurse and patient will have a large wound VAC placed Tuesday and . This may help to reduce some granulation tissue and start healing processes but I'm afraid 15 DN patient may require left hip disarticulation which is of course a large and unfortunately procedure if necessary Every effort should be made to avoid this if possible 01/15/17 Status post left above-knee amputation and debridement of the sacral and the hip decubiti We'll keep dressing on until tomorrow The decubiti care has been discussed with the wound care nurse and patient currently has wound vacs on all these We should continue this for a while and see it granulates that there is a very high chance the patient will require left hip disarticulation in the future Continue current care 01/16/17 Patient doing well incisions clean and dry dressing is intact Will start changing the dressing today Back decubiti are covered with wound vacs and we can try to give it a chance to heal however this may be lethal and may cause sepsis resulting in dire outcome Patient refuses diverting colostomy and I don't see any way any of this will heal without diverting the stool 01/17/17 AKA stump is clean and dry The back decubiti appeared to be clean and looked much better than I thought they would. Area is granulating nicely, however patient refuses diverting colostomy and sooner later this is all going get infected and patient will of sepsis 01/21/17 The debrided decubiti are covered with wound VAC and actually looked nice and clean but encompassed massive amount of patient's back. Left AKA stump is healing nicely Patient has right hip decubitus this going very deep into the hip which also needs debridement At this point there is no other option but to do diverting colostomy in this gentleman for otherwise he will from sepsis Patient refuses diverting colostomy so I have no other options to offer to him 01/25/17 Patient paraplegic with multiple huge decubiti in sacral area and in both hips Patient refused diverting colostomy but no finally agreed to it Will proceed with diverting colostomy tomorrow and at the same time debride the right hip decubitus 01/26/17 Patient underwent diverting colostomy and debridement of right hip Patient can be restarted on his diet and then can be discharged from my point as soon as colostomy works well probably in a day or 2 Follow-up with me in 2 weeks for staple removal or the [facility] be [facility] 01/27/17 Status post diverting colostomy Incisions clean and dry Abdomen soft active bowel sounds patient's tolerating diet Thuan to come out in about 2 weeks Objective: Vital Signs Date Time Temp Pulse Resp B/P Pulse Ox O2 Delivery O2 Flow Rate FiO2 01/27/17 08:03 96.3 82 18 104/68 100 01/27/17 05:30 98.3 83 19 124/71 100 01/27/17 00:00 97.9 101 20 130/70 98 01/26/17 20:15 97.1 100 19 130/65 97 01/26/17 15:52 77 19 110/62 100 Room Air 01/26/17 14:45 78 19 104/57 100 Nasal Cannula 2 01/26/17 13:45 84 19 114/64 100 Nasal Cannula 2 01/26/17 13:30 80 19 142/78 100 Nasal Cannula 2 01/26/17 13:15 75 19 156/82 100 Nasal Cannula 2 01/26/17 13:10 98.2 96 19 152/86 100 Nasal Cannula 2 Labs: Laboratory Tests Test 01/27/17 09:02 White Blood Count 11.2 TH/MM3 (4.0-11.0) Red Blood Count 4.14 MIL/MM3 (4.50-5.90) Hemoglobin 9.6 GM/DL (13.0-17.0) Hematocrit 30.5 % (39.0-51.0) Mean Corpuscular Volume 73.8 FL (80.0-100.0) Mean Corpuscular Hemoglobin 23.1 PG (27.0-34.0) Mean Corpuscular Hemoglobin 31.4 % Concent (32.0-36.0) Red Cell Distribution Width 21.6 % (11.6-17.2) Platelet Count 409 TH/MM3 (150-450) Mean Platelet Volume 6.8 FL (7.0-11.0) Neutrophils (%) (Auto) 73.9 % (16.0-70.0) Lymphocytes (%) (Auto) 17.8 % (9.0-44.0) Monocytes (%) (Auto) 6.9 % (0.0-8.0) Eosinophils (%) (Auto) 0.8 % (0.0-4.0) Basophils (%) (Auto) 0.6 % (0.0-2.0) Neutrophils # (Auto) 8.3 TH/MM3 (1.8-7.7) Lymphocytes # (Auto) 2.0 TH/MM3 (1.0-4.8) Monocytes # (Auto) 0.8 TH/MM3 (0-0.9) Eosinophils # (Auto) 0.1 TH/MM3 (0-0.4) Basophils # (Auto) 0.1 TH/MM3 (0-0.2) CBC Comment AUTO DIFF Differential Comment AUTO DIFF CONFIRMED Sodium Level 135 MEQ/L (136-145) Potassium Level 3.7 MEQ/L (3.5-5.1) Chloride Level 98 MEQ/L (98-107) Carbon Dioxide Level 27.8 MEQ/L (21.0-32.0) Anion Gap 9 MEQ/L (5-15) Blood Urea Nitrogen 5 MG/DL (7-18) Creatinine 0.60 MG/DL (0.60-1.30) Estimat Glomerular Filtration 140 ML/MIN Rate (>89) Random Glucose 99 MG/DL (74-106) Calcium Level 8.1 MG/DL (8.5-10.1) Phosphorus Level 3.4 MG/DL (2.5-4.9) Magnesium Level 2.2 MG/DL (1.5-2.5) Result Diagram: 01/27/17 0902 01/27/17 0902 Sen Robertson MD Jan 27, 2017 11:16
--- NOTE | 2017-01-27 13:19 | HHI.PR ---
Subjective Remarks Patient stable in his bedroom, no nausea, vomit or diarrhea, discussed with patient and nurse miss Patel, he accepted to have his Colostomy performed. 01/24: Seen in his bedroom and discussed with nurse Miss Espinal the patient accepts to get the Colostomy, I had the Opportunity to talk with doctor Shad and he will program Colostomy and I and D of the Sacral wound. 01/25; Seen in his bedroom, he states he changed his mind and wants to go to hospice, then I was called by Hospitalist Nurse to tell me the patient refused Hospice, no nausea, vomit or diarrhea, will continue with previous Plan for Colostomy, I already discussed with Doctor Sen for this matter. 01/26: For Diverting Colostomy later today 01/27: Seen in the room in the presence of health and nutrition specialist, seen today by solution specialist Doctor Chatterjee Discussed with him on the floor, active bowel sounds and tolerating diet, after Diverting Colostomy, Weinert to come out in 2 weeks, no nausea, vomit or diarrhea. Objective Vital Signs Date Time Temp Pulse Resp B/P Pulse Ox O2 Delivery O2 Flow Rate FiO2 01/27/17 12:09 97.4 76 18 107/68 100 01/27/17 11:43 82 01/27/17 08:03 96.3 82 18 104/68 100 01/27/17 05:30 98.3 83 19 124/71 100 01/27/17 00:00 97.9 101 20 130/70 98 01/26/17 20:15 97.1 100 19 130/65 97 01/26/17 15:52 77 19 110/62 100 Room Air 01/26/17 14:45 78 19 104/57 100 Nasal Cannula 2 01/26/17 13:45 84 19 114/64 100 Nasal Cannula 2 01/26/17 13:30 80 19 142/78 100 Nasal Cannula 2 I/O 01/26/17 01/26/17 01/26/17 01/27/17 01/27/17 01/27/17 07:00 15:00 23:00 07:00 15:00 23:00 Intake Total 2000 ml 1300 ml 1000 ml Output Total 700 ml 700 ml 675 ml 900 ml Balance -700 ml 1300 ml 625 ml 100 ml Intake Oral 1100 ml 1000 ml IV Total 200 ml Other 2000 ml Output Urine Total 700 ml 675 ml 900 ml Stool Total 0 ml 0 ml Estimated Blood Loss 100 ml Other 600 ml # Bowel Movements 0 Result Diagram: 01/27/17 0902 01/27/17 09 Imaging Last Impressions Chest X-Ray 01/12/17 9731 Signed Impressions: Service Date/Time: Thursday, January 12, 2017 18:02 - CONCLUSION: Mild consolidation versus atelectasis at the left lung base. Marcell Loredo MD Procedures left AKA VAC application Diverting Colostomy and I and D of the Sacral ulcer. Other Results Laboratory Tests Test 01/25/17 01/27/17 22:55 09:02 Blood Type A POSITIVE Antibody Screen NEGATIVE Crossmatch Leukocyte-Reduced Red Blood Cells Blood Bank Comment White Blood Count 11.2 TH/MM3 Red Blood Count 4.14 MIL/MM3 Hemoglobin 9.6 GM/DL Hematocrit 30.5 % Mean Corpuscular Volume 73.8 FL Mean Corpuscular Hemoglobin 23.1 PG Mean Corpuscular Hemoglobin 31.4 % Concent Red Cell Distribution Width 21.6 % Platelet Count 409 TH/MM3 Mean Platelet Volume 6.8 FL Neutrophils (%) (Auto) 73.9 % Lymphocytes (%) (Auto) 17.8 % Monocytes (%) (Auto) 6.9 % Eosinophils (%) (Auto) 0.8 % Basophils (%) (Auto) 0.6 % Neutrophils # (Auto) 8.3 TH/MM3 Lymphocytes # (Auto) 2.0 TH/MM3 Monocytes # (Auto) 0.8 TH/MM3 Eosinophils # (Auto) 0.1 TH/MM3 Basophils # (Auto) 0.1 TH/MM3 CBC Comment AUTO DIFF Differential Comment AUTO DIFF CONFIRMED Sodium Level 135 MEQ/L Potassium Level 3.7 MEQ/L Chloride Level 98 MEQ/L Carbon Dioxide Level 27.8 MEQ/L Anion Gap 9 MEQ/L Blood Urea Nitrogen 5 MG/DL Creatinine 0.60 MG/DL Estimat Glomerular Filtration 140 ML/MIN Rate Random Glucose 99 MG/DL Calcium Level 8.1 MG/DL Phosphorus Level 3.4 MG/DL Magnesium Level 2.2 MG/DL Objective Remarks GENERAL: no Distress. SKIN: Sacral ulcer with Vacuum in place. HEAD: Atraumatic. Normocephalic. EYES: Pupils equal and round. No scleral icterus. No injection or drainage. ENT: No nasal bleeding or discharge. NECK: Trachea midline. No JVD. CARDIOVASCULAR: Regular rate and rhythm. RESPIRATORY: No accessory muscle use. Clear to auscultation. GASTROINTESTINAL: Abdomen soft, non-tender. MUSCULOSKELETAL: Extremities left AKA stump post op dressing in place. NEUROLOGICAL: Awake and alert. Paraplegic. PSYCHIATRIC: Appropriate mood and affect; insight and judgment normal. Medications and IVs Current Medications Medications (Trade) Dose Ordered Sig/Vivien Route Start Time Stop Time Status Last Admin (NS Flush) 2 ml UNSCH PRN IV FLUSH 01/12/17 21:45 (NS Flush) 2 ml BID IV FLUSH 01/13/17 09:00 01/27/17 09:00 (Narcan Inj) 0.4 mg UNSCH PRN IV 01/12/17 21:45 Acetaminophen/ Hydrocodone Bitart 1 tab 1 tab Q6H PRN PO 01/13/17 01:30 01/27/17 11:09 (Unasyn Inj/NS Inj) 100 ml @ 200 mls/hr Q6H IV 01/14/17 16:00 01/27/17 11:13 (Santyl Oint) 1 applic MoTh TOPICAL 01/14/17 15:00 01/24/17 15:00 (KCl) 30 meq DAILY PO 01/15/17 13:45 01/27/17 08:52 (Lovenox Inj) 30 mg Q24H SQ 01/15/17 14:00 01/25/17 14:20 (Dilaudid Pf Inj) 0.5 mg Q4H PRN IV PUSH 01/15/17 13:45 01/27/17 12:14 (Miralax) 17 gm DAILY PO 01/15/17 14:00 01/24/17 09:00 (Dulcolax Supp) 10 mg DAILY PRN RECTAL 01/17/17 00:30 01/17/17 00:48 (Senokot) 8.6 mg DAILY PO 01/17/17 00:30 01/26/17 09:33 (SEROquel) 12.5 mg BID@09,12 PO 01/17/17 14:00 01/27/17 11:17 (Pill Splitter) 1 ea UNSCH PRN OTHER 01/17/17 14:00 01/23/17 09:39 (Valium) 10 mg DAILY PRN PO 01/18/17 12:00 01/26/17 04:09 Miscellaneous Information ALL NURSING DEPARTME... UNSCH PRN .XX 01/26/17 15:15 01/27/17 15:14 A/P Assessment and Plan 1. 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 pelvic osteomyelitis, status post Diverting Colostomy and I and D of the Sacral wound, at this time computer support specialist in the room. 2. Right hip wound measuring 5 x 4.9 consisting mostly of macerated broken skin that is opened at 3 o'clock at ~1x~0.5 x ~1.5 . Wound depth is obscured by presence of yellow slough. followed by ID specialist to continue Unasyn, Acinetobacter/E faecalis UTI- sensitive to Ampicillin- patient on Unasyn status post I and D. 3. Adjustment disorder. mood improved. Started on Valium 10 mg po daily 01/18 4. Right foot/heel wound- Podiatry ff 5. Microcytic anemia- iron studies suggestive of chronic disease. Low serum Iron. po Iron daily 6. Paraplegia with decubitus ulcers/wheelchair bound with left hip/ischial decubitus ulcers. History of T1 fracture. Neurogenic bladder/bowel 7. Peripheral vascular disease 8. COPD stable no Exacerbation. 9. Electrolyte derangement replaced 20 meq daily. Lovenox for DVT prophylaxis Discussed with Doctor Sen Robertson appreciated assistance. Discharge Planning Not yet cleared by Specialists. Demarcus Jasmine MD Jan 27, 2017 13:19
[2017-01-27] MEDS ORDERED: POTASSIUM CHLORIDE 20 MEQ CONTROLLED RELEASE TAB PO ONE (13:30)
[2017-01-27] MEDS: ENOXAPARIN SODIUM 30 MG/0.3 ML SYRINGE SQ SCH (14:00)
--- NOTE | 2017-01-27 16:56 | HHI.HCPN ---
Reason for visit a. To assist with evaluation and management of symptoms including: Pain and wound care. b. To assist medical decision maker(s) with: better understanding of current medical conditions; weighing benefits/burdens of medical treatment options; making medical treatment decisions. . Subjective/Interval History Mrs. Sheehan is a 56 y/o male, with a past history of paraplegia since 2003, stage IV decubital ulcer, PVD, recurrent UTI, anemia, and recent left BKA, presented to the emergency department on 01/12/17 requests antibiotic treatment for nonhealing wound. Upon further examination, patient was found to have a deep pressure ulcer to the left greater trochanter as well as to over his sacrum and lumbar spine both of which are softball sized and complete thickness , with bone exposure. Patient underwent left AKA on 01/13/17. Clinical course complicated by pelvic osteomyelitis, contagious from the wounds. Patient underwent debridement of hip wound and diverting colostomy on 01/27/17. Palliative care f/u for further clarification of goals of care, patient insisting in hospice but electing to seek aggressive treatment. Patient was seen in his room, he was resting in bed in no acute distress. Underwent debridement of hip wound and diverting colostomy yesterday. He endorse some abdominal pain and discomfort, requiring frequent hydromorphone IV and [place] as needed. Patient remains afebrile, stable hemodynamically. Tolerating room air with oxygen saturation at 100%. Reports that he is tolerating regular diet, no nausea or vomiting reported. Discussed discharge planning with patient, patient previously insisting in hospice but electing aggressive treatment. Confirmed with patient that he would like to be discharge home with homehealth/PT for physical straightening. Discussed with patient that goals of care are not in line with hospice philosophy at this time. Reviewed future role of hospice should his clinical condition worsen, additional functional decline or if he elects comfort-directed care. Reviewed differences between aggressive care to include IV antibiotics, physical therapy vs. comfort directed care/allow natural to occur. Patient confirmed one more time that he is seeking continuation of aggressive medical management. Reviewed case with senior case manager, notified that patient is not hospice eligible at this moment secondary to aggressive goals of care. Patient wishing to discharge home with home health. Assisted patient in completion of community DNR. Original in file, copy sent to HIM for scanning. . Family/friend interactions No family at bedside. . Advance Directives Living Will: Never completed Health Care Surrogate: Copy in medical record Durable Power of Building Mechanic: Never completed Advance Directive Specifics Date completed: 12/29/16. . Health Care Surrogate(s): Sister Kailee Poole. . Documented care wishes: No living will completed. Information provided, patient declined assistance with completion today. . Significant change in goals: No code. DNR/DNI. Continue aggressive management short of no code. Objective Vital Signs Date Time Temp Pulse Resp B/P Pulse Ox O2 Delivery O2 Flow Rate FiO2 01/27/17 16:05 97.9 87 18 121/66 100 01/27/17 14:07 16 01/27/17 14:04 16 01/27/17 12:09 97.4 76 18 107/68 100 01/27/17 11:43 82 01/27/17 08:03 96.3 82 18 104/68 100 01/27/17 05:30 98.3 83 19 124/71 100 01/27/17 00:00 97.9 101 20 130/70 98 01/26/17 20:15 97.1 100 19 130/65 97 Intake & Output 01/27/17 01/27/17 07:00 19:00 Intake Total 1900 ml 240 ml Output Total 1200 ml 650 ml Balance 700 ml -410 ml Intake Oral 1900 ml 240 ml Output Urine Total 1200 ml 650 ml Stool Total 0 ml Physical Exam CONSTITUTIONAL/GENERAL: This is a cachectic male resting in bed in no acute distress. TUBES/LINES/DRAINS: PIV's, wound VAC to left hip. SKIN: No jaundice, rashes. Left hip wound/ulcer sacral decubitus ulcer. dressing in place. HEAD: Atraumatic. Normocephalic. EYES: Pupils equal and round and reactive. Extraocular motions intact. No scleral icterus. No injection or drainage. ENT: Hearing grossly normal. Nose without bleeding or purulent drainage. Moist oral mucosa. NECK: Trachea midline. Supple, nontender. CARDIOVASCULAR: Regular rate and rhythm without murmurs, gallops, or rubs. Unable to appreciate pedal pulses to right foot. same is ashen, stasis dermatitis changes. RESPIRATORY/CHEST: Symmetric, unlabored respirations. Clear to auscultation. Breath sounds equal bilaterally. No wheezes, rales, or rhonchi. GASTROINTESTINAL: Abdomen soft, nondistended. No guarding. Bowel sounds present. Surgical incision to midabdomen, covered by dressing. Colostomy to left upper quadrant. GENITOURINARY: Without palpable bladder distension. Blood catheter in place. MUSCULOSKELETAL: Left AKA. NEUROLOGICAL: Awake and alert x self, place, time and situation. Motor grossly within normal limits. Follows commands. Moves all extremities. PSYCHIATRIC: Calm. . Diagnostic Tests Laboratory Laboratory Tests Test 01/25/17 01/27/17 22:55 09:02 Blood Type A POSITIVE Antibody Screen NEGATIVE Crossmatch Leukocyte-Reduced Red Blood Cells Blood Bank Comment White Blood Count 11.2 TH/MM3 (4.0-11.0) Red Blood Count 4.14 MIL/MM3 (4.50-5.90) Hemoglobin 9.6 GM/DL (13.0-17.0) Hematocrit 30.5 % (39.0-51.0) Mean Corpuscular Volume 73.8 FL (80.0-100.0) Mean Corpuscular Hemoglobin 23.1 PG (27.0-34.0) Mean Corpuscular Hemoglobin 31.4 % Concent (32.0-36.0) Red Cell Distribution Width 21.6 % (11.6-17.2) Platelet Count 409 TH/MM3 (150-450) Mean Platelet Volume 6.8 FL (7.0-11.0) Neutrophils (%) (Auto) 73.9 % (16.0-70.0) Lymphocytes (%) (Auto) 17.8 % (9.0-44.0) Monocytes (%) (Auto) 6.9 % (0.0-8.0) Eosinophils (%) (Auto) 0.8 % (0.0-4.0) Basophils (%) (Auto) 0.6 % (0.0-2.0) Neutrophils # (Auto) 8.3 TH/MM3 (1.8-7.7) Lymphocytes # (Auto) 2.0 TH/MM3 (1.0-4.8) Monocytes # (Auto) 0.8 TH/MM3 (0-0.9) Eosinophils # (Auto) 0.1 TH/MM3 (0-0.4) Basophils # (Auto) 0.1 TH/MM3 (0-0.2) CBC Comment AUTO DIFF Differential Comment AUTO DIFF CONFIRMED Sodium Level 135 MEQ/L (136-145) Potassium Level 3.7 MEQ/L (3.5-5.1) Chloride Level 98 MEQ/L (98-107) Carbon Dioxide Level 27.8 MEQ/L (21.0-32.0) Anion Gap 9 MEQ/L (5-15) Blood Urea Nitrogen 5 MG/DL (7-18) Creatinine 0.60 MG/DL (0.60-1.30) Estimat Glomerular Filtration 140 ML/MIN Rate (>89) Random Glucose 99 MG/DL (74-106) Calcium Level 8.1 MG/DL (8.5-10.1) Phosphorus Level 3.4 MG/DL (2.5-4.9) Magnesium Level 2.2 MG/DL (1.5-2.5) Result Diagram: 01/27/1790101/27/17 09 Procedures * 01/26/17 -hip wound debridement and diverting colostomy. * 01/13/17 -left AKA, wound debridement of left hip decubitus ulcer. . Assessment and Plan Disease Oriented Problem List: (1) osteomyelitis, hips/pelvis (2) Decubitus skin ulcer (3) paraplegic, with multiple complications in recent years Symptom Scale: Pertinent Non-Medical Issues Psychosocial: Paraplegic since 2003, lives in wheelchair to bed, never , no children. Former automotive painting work. Spiritual: Anglican kristine. Legal: No living will completed. Designation of healthcare surrogate completed during prior hospitalization. Copy in EMS. Ethical issues impacting care: None identified. . Important Contacts Sister in [place], health care surrogate Kailee Guzmanng Brother Danny Curtis, in [place] . Prognosis The patient's prognosis is poor. He has underlying malnutrition, anemia, paraplegia, and now has osteomyelitis, infected wounds. Surgical intervention recommended to include wound debridement, diverting colostomy, and prolonged antibiotic course. Patient at a very high risk for further decline, further complications and given his acute illness, malnutrition, multiple chronic illnesses and profound physical deconditioning. Likely to require lengthy hospitalization postop with limited chance at improving quality of life given the above. In addition, patient will likely require hip disarticulation at some point in the future. Therefore, patient electing NOT to proceed with surgical intervention and to transition to comfort care with hospice services. . Code Status: No Code Plan * CODE STATUS: DNR DNI. Assisted patient in completion of community DNR. Original in chart, copy sent to HIM for scanning. * HEALTHCARE DECISION-MAKING: Patient participating in medical decision-making. He has selected his sister Kailee Poole as healthcare surrogate. * GOALS OF CARE: Patient electing to continue aggressive care short of no code. 01/27/17- Discussed discharge planning with patient, patient previously insisting in hospice but electing aggressive treatment. Confirmed with patient that he would like to be discharge home with homehealth/PT for physical straightening. Discussed with patient that goals of care are not in line with hospice philosophy at this time. Reviewed future role of hospice should his clinical condition worsen, additional functional decline or if he elects comfort -directed care. Reviewed differences between aggressive care to include IV antibiotics, physical therapy vs. comfort directed care/allow natural to occur. Patient confirmed one more time that he is seeking continuation of aggressive medical management and physical therapy. * SYMPTOMS: =Pain, secondary to nonhealing wound, osteomyelitis. One day post debridement of hip wound and diverting colostomy. [place] 5/325 mg q6h and Hydromorphone 0.5 IV Q4h available as needed. = Constipation, secondary to opioid use and exacerbated by immobility. Senokot and Miralax daily, Dulcolax suppository as needed. = Anxiety, has been seen by psych. Currently on Valium 10 mg daily as needed. Seroquel 12.5 mg twice a day. * Case discussed with senior case manager. * Palliative care contact information has been provided. * Palliative care will continue to follow-up as needed for further clarifications of goals of care as patient's clinical course evolves. . Time Spent Total Floor Time (mins): 31 (Total time to include review of medical records, physical exam, goals of care discussion with patient and assistance in completion of community DNR. Case discussed with senior case manager.) >50% Counseling/Coord of Care: Yes Attestation To help prompt me to consider important information that might be impacting today's encounter and assessment, information from prior notes written by myself or my colleagues may have been "brought forward" into today's note. My signature on this note, however, is an attestation that I personally performed the exam, history, and/or decision-making noted today, and, unless otherwise indicated, the interactions with patient, family, and staff as well as the review of records all occurred today. I also attest that the listed assessment and stated plan reflect my best clinical judgment today based on the combination of historical information, prior notes, and today's exam/ interactions. When time spent is documented, it refers only to time spent today by the signer, or if indicated, combined time spent today by collaborating physician/nurse practitioner. Flor Hastings Jan 27, 2017 16:55
--- NOTE | 2017-01-27 17:02 | PD.WCN.NOT ---
Wound Consult Description: L ischium Neg Pressure Wound Therapy Wound Location Wound Location: L ischium Wound Description Length: 11.5 Width: 5.2 Depth: 2.4 Undermining: from 11 to 1 oclock at ~1.5cm Wound bed appearance: Late entry from 01/27/2017 at 1330:L ischium presents with ~20% yellow slough, ~70% red granulation tissue, 10% visible bone.Black eschar previously noted has softened and turned to yellow slough that is loosening. Wound drainage is minimal sanguinous without odor Settings Suction: 125 mmHg, Continuous Intensity: Low Other Information: Bridged, Windowpaned Foam type: Black Number of pieces: 2 Additonal Information Late entry from 01/27/2017 at 1330: Wound to L ischium cleansed with normal saline and applied Santyl ointment mikey thick coverage to wound bed before applying skin prep to periwound. Window paned wound with VAC drape and bridged VAC drape and black granufoam up to L lateral thigh. Covered all exposed foam with VAC drape.Applied Sensi trac pad to bridged area. Y connector used and attached to wound VAC canister. VAC machine suctioning at 125 mm/hg with some leaks. Sealed leaking areas with stoma paste. VAC dressing noted without leaks upon curriculum writer leaving room. Wound Location Wound Location: L hip Wound Description Length: 6 Width: 4.9 Depth: 2.1 Wound bed appearance: Late entry from 01/27/2017 at 1330: Wound bed presents with 90% pale red tissue with bone and muscle visible in center of wound.Wound is noted with minimal sanguinous drainage without odor.Wound is measuring smaller than previously assessed.. Settings Suction: 125 mmHg, Continuous Intensity: Low Other Information: Bridged, Windowpaned Foam type: Black Number of pieces: 2 Additonal Information Late entry from 01/27/2017 at 1330: Wound to L hip cleansed with normal saline and applied santyl ointment mikey thick coverage to wound bed before applying skin prep to periwound. Window paned wound with VAC drape and bridged VAC drape and black granufoam up to L lateral thigh. Covered all exposed foam with VAC drape.Applied Sensi trac pad to bridged area .Y connector used and attached to wound VAC canister. VAC machine suctioning at 125 mm/hg with some leaks. Sealed leaking areas with stoma paste. VAC dressing noted without leaks upon curriculum writer leaving room. Wound Location Wound Location: Sacrum Wound Description Length: 11.6 Width: 11.1 Depth: 1.9 Undermining: from 7 to 10 o'clock at ~2cm Wound bed appearance: Late entry from 01/27/2017: Wound bed to sacral area presents with ~70% red non granulation tissue, ~10% visible bone, and ~20% slough that is loosening. Settings Suction: 125 mmHg, Continuous Intensity: Low Other Information: Bridged, Windowpaned Foam type: Black Number of pieces: 3 Additonal Information Late entry from : 01/27/2017 at 1330: Wound to sacrum cleansed with normal saline and applied Santyl ointment mikey thick coverage to wound bed before applying skin prep to periwound. Window paned wound with VAC drape and bridged VAC drape and black granufoam up to L hip. Covered all exposed foam with VAC drape Sensi trac pad applied to bridge and attached to VAC canister. VAC machine suctioning at 125 mm/hg with some leaks. Sealed leaking areas with stoma paste. VAC dressing noted without leaks upon curriculum writer leaving room. [facility] Jan 27, 2017 17:02
[2017-01-27] MEDS: COLLAGENASE OINT 30 GM TUBE TOPICAL SCH (18:34)
[2017-01-28] VITALS (7 sets, daily range): BP systolic 90–130; BP diastolic 59–79; PULSE 77–102; RESP 18–22; TEMP 97.2–98.5; O2SAT 98–100
[2017-01-28] MEDS: ACETAMINOPHEN/HYDROcodone 325 MG/5 MG TAB PO PRN ×2 (01:17→20:40)
[2017-01-28] MEDS: HYDROmorphone HCL PF 1 MG/ML VIAL IV PUSH PRN ×4 (02:43→18:10)
[2017-01-28] MEDS: AMPICILLIN-SULBACTAM INJ 3 GM in SODIUM CHLORIDE 0.9% INJ 100 ML IV SCH ×4 (02:43→20:34)
[2017-01-28] MEDS: POTASSIUM CHLORIDE 10 MEQ CONTROLLED RELEASE TAB PO SCH (08:25)
[2017-01-28] MEDS: SENNOSIDES 8.6 MG TAB PO SCH (08:25)
[2017-01-28] MEDS: QUEtiapine FUMARATE 25 MG TAB PO SCH ×2 (08:25→11:53)
[2017-01-28] MEDS: SODIUM CHLORIDE 0.9% FLUSH 10 ML FLUSH IV FLUSH SCH ×2 (08:26→20:34)
[2017-01-28] MEDS: POLYETHYLENE GLYCOL 17 GM PKG PO SCH (08:26)
--- NOTE | 2017-01-28 09:31 | MP ---
cc: ALIS LAL MD DATE OF SURGERY: 01/26/2017 PREOPERATIVE DIAGNOSIS Paraplegia, sacral and bilateral hip deep decubitus. POSTOPERATIVE DIAGNOSIS Paraplegia, sacral and bilateral hip deep decubitus. PROCEDURE Diverting colostomy with resection of a segment of sigmoid. SURGEON Marcelo ANESTHESIA General. ESTIMATED BLOOD LOSS 40 cc. DETAILS OF PROCEDURE The patient is prepped and draped in the usual fashion. A midline incision is made below the umbilicus and the abdomen is entered. The patient is explored in quadrants. The small bowel is nearly empty. The large bowel is filled with stool and the sigmoid is massively elongated. A point of proximal sigmoid to bring out is chosen, yet the patient has such a long sigmoid that it would cause a huge long segment distally. If I chose the distal point of transection this would kink the bowel off and would cause partial obstruction. Therefore, decision is made to remove about a foot and a half of sigmoid. This is done by firing a staple proximally and distally and then mesosigmoid is clamped with Tamara clamps, divided and ligated with 0 Vicryls. The distal end is marked with Prolene for further identification should we ever decide to put this back together, while the proximal end is brought laterally through an opening through the rectus muscle to be matured later. The abdomen is irrigated with saline. Once more the abdomen is explored in quadrants. No abnormalities are found. The bowel is run. No tumors or any masses are found. The abdomen is now closed with #1 PDS loop and thuan. The colostomy is then matured with 3-0 Vicryl interrupted stitches and a bowel bag applied. The patient tolerated the procedure well. This is dressed and now the second part of the procedure is carried out. The patient has a large deep decubitus on the right hip. This is debrided. Meticulous hemostasis is obtained and dressing applied. The patient tolerated the procedure well. Alis HOFF/LAVERN /2:36 PM /9:24 AM
[2017-01-28] MEDS: ENOXAPARIN SODIUM 30 MG/0.3 ML SYRINGE SQ SCH (14:07)
--- NOTE | 2017-01-28 15:27 | HHI.PR ---
Subjective Remarks Patient in bed. He was complaining of pain. He has no fever or chills. Says she can't move much . He is asking for trapezius to move around in bed. No n/v/d/c. Objective Vitals Vital Signs Date Time Temp Pulse Resp B/P Pulse Ox O2 Delivery O2 Flow Rate FiO2 01/28/17 12:04 97.8 77 20 130/79 100 01/28/17 08:10 97.4 79 20 122/65 99 01/28/17 04:00 97.2 88 20 100/68 100 01/28/17 01:00 97.9 89 18 97/59 100 01/27/17 20:00 98.4 86 18 105/60 100 01/27/17 16:05 97.9 87 18 121/66 100 I/O 01/27/17 01/27/17 01/27/17 01/28/17 01/28/17 01/28/17 07:00 15:00 23:00 07:00 15:00 23:00 Intake Total 1000 ml 240 ml Output Total 900 ml 650 ml 1300 ml Balance 100 ml -410 ml -1300 ml Intake Oral 1000 ml 240 ml Output Urine Total 900 ml 650 ml 1300 ml Stool Total 0 ml Result Diagram: 01/27/17 0902 01/27/17 0902 Imaging Last Impressions Chest X-Ray 01/12/17 8799 Signed Impressions: Service Date/Time: Thursday, January 12, 2017 18:02 - CONCLUSION: Mild consolidation versus atelectasis at the left lung base. Marcell Loredo MD Objective Remarks GENERAL: no Distress. SKIN: Sacral ulcer with Vacuum in place. CARDIOVASCULAR: Regular rate and rhythm. RESPIRATORY: No accessory muscle use. Clear to auscultation. GASTROINTESTINAL: Abdomen soft, non-tender. MUSCULOSKELETAL: Extremities left AKA stump post op dressing in place. NEUROLOGICAL: Awake and alert. Paraplegic. PSYCHIATRIC: Appropriate mood and affect; insight and judgment normal. Procedures left AKA VAC application Date of Insertion: Jan 13, 2017 A/P Assessment and Plan 1. 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 pelvic osteomyelitis, status post Diverting Colostomy and I and D of the Sacral wound, at this time technical sales specialist in the room. 2. Right hip wound measuring 5 x 4.9 consisting mostly of macerated broken skin that is opened at 3 o'clock at ~1x~0.5 x ~1.5 . Wound depth is obscured by presence of yellow slough. followed by ID specialist to continue Unasyn, Acinetobacter/E faecalis UTI- sensitive to Ampicillin- patient on Unasyn status post I and D. 3. Adjustment disorder. mood improved. Started on Valium 10 mg po daily 01/18 4. Right foot/heel wound- Podiatry ff 5. Microcytic anemia- iron studies suggestive of chronic disease. Low serum Iron. po Iron daily 6. Paraplegia with decubitus ulcers/wheelchair bound with left hip/ischial decubitus ulcers. History of T1 fracture. Neurogenic bladder/bowel 7. Peripheral vascular disease 8. COPD stable no Exacerbation. 9. Electrolyte derangement replaced 20 meq daily. Lovenox for DVT prophylaxis Discussed with the patient, nurse Discharge Planning Pending improvement and clearance by consultants. Adina Cabral MD Jan 28, 2017 15:27
[2017-01-29] VITALS (7 sets, daily range): BP systolic 101–120; BP diastolic 60–75; PULSE 73–88; RESP 17–20; TEMP 95.7–98.7; O2SAT 99–100
[2017-01-29] MEDS: HYDROmorphone HCL PF 1 MG/ML VIAL IV PUSH PRN ×4 (01:49→21:10)
[2017-01-29] MEDS: ACETAMINOPHEN/HYDROcodone 325 MG/5 MG TAB PO PRN ×3 (03:48→18:50)
[2017-01-29] MEDS: AMPICILLIN-SULBACTAM INJ 3 GM in SODIUM CHLORIDE 0.9% INJ 100 ML IV SCH ×4 (03:49→21:09)
[2017-01-29] MEDS: QUEtiapine FUMARATE 25 MG TAB PO SCH ×2 (08:08→13:04)
[2017-01-29] MEDS: SENNOSIDES 8.6 MG TAB PO SCH (08:08)
[2017-01-29] MEDS: POLYETHYLENE GLYCOL 17 GM PKG PO SCH (08:08)
[2017-01-29] MEDS: POTASSIUM CHLORIDE 10 MEQ CONTROLLED RELEASE TAB PO SCH (08:08)
[2017-01-29] MEDS: SODIUM CHLORIDE 0.9% FLUSH 10 ML FLUSH IV FLUSH SCH ×2 (08:11→21:10)
--- NOTE | 2017-01-29 11:28 | HHI.PR ---
Subjective Remarks Says he has pain in his abdomen. Says pain is severe at times he can't breath. Says dilaudid helps for pain. Stoma with gas. Burped by the nurse. No n/v/d/c. Objective Vitals Vital Signs Date Time Temp Pulse Resp B/P Pulse Ox O2 Delivery O2 Flow Rate FiO2 01/29/17 08:26 96.6 88 18 119/67 99 01/29/17 04:00 97.6 79 20 120/74 99 01/29/17 00:00 98.7 83 20 101/62 99 01/28/17 20:59 98.5 88 20 110/67 98 01/28/17 17:53 102 01/28/17 16:49 97.4 102 22 90/63 99 01/28/17 12:04 97.8 77 20 130/79 100 I/O 01/28/17 01/28/17 01/28/17 01/29/17 01/29/17 01/29/17 07:00 15:00 23:00 07:00 15:00 23:00 Intake Total 220 ml Output Total 1300 ml 950 ml 900 ml Balance -1300 ml -950 ml -680 ml Intake Oral 220 ml Output Urine Total 1300 ml 950 ml 900 ml Result Diagram: 01/27/17 0902 01/27/17 0902 Imaging Last Impressions Chest X-Ray 01/12/17 [id number] Signed Impressions: Service Date/Time: Thursday, January 12, 2017 18:02 - CONCLUSION: Mild consolidation versus atelectasis at the left lung base. Marcell Loredo MD Objective Remarks GENERAL: no Distress. SKIN: Sacral ulcer with Vacuum in place. CARDIOVASCULAR: Regular rate and rhythm. RESPIRATORY: No accessory muscle use. Clear to auscultation. GASTROINTESTINAL: Abdomen soft, non-tender. MUSCULOSKELETAL: Extremities left AKA stump post op dressing in place. NEUROLOGICAL: Awake and alert. Paraplegic. PSYCHIATRIC: Appropriate mood and affect; insight and judgment normal. Procedures left AKA VAC application Date of Insertion: Jan 13, 2017 A/P Assessment and Plan 1. 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 pelvic osteomyelitis, status post Diverting Colostomy and I and D of the Sacral wound, at this time outreach specialist in the room. Add simethicone for flatulence. 2. Right hip wound measuring 5 x 4.9 consisting mostly of macerated broken skin that is opened at 3 o'clock at ~1x~0.5 x ~1.5 . Wound depth is obscured by presence of yellow slough. followed by ID specialist to continue Unasyn, Acinetobacter/E faecalis UTI- sensitive to Ampicillin- patient on Unasyn status post I and D. 3. Adjustment disorder. mood improved. Started on Valium 10 mg po daily 01/18 4. Right foot/heel wound- Podiatry ff 5. Microcytic anemia- iron studies suggestive of chronic disease. Low serum Iron. po Iron daily 6. Paraplegia with decubitus ulcers/wheelchair bound with left hip/ischial decubitus ulcers. History of T1 fracture. Neurogenic bladder/bowel 7. Peripheral vascular disease 8. COPD stable no Exacerbation. 9. Electrolyte derangement replaced 20 meq daily. Lovenox for DVT prophylaxis Discussed with the patient, nurse Discharge Planning Pending improvement and clearance by consultants. Has a wound vac, might need wound vac at DC and IV abx . Adina Cabral MD Jan 29, 2017 11:28
[2017-01-29] MEDS ORDERED: SIMETHICONE 125 MG CHEWABLE TAB PO PRN (11:30)
[2017-01-29 12:35] LABS: BASOPHIL # 0.1 TH/MM3 (0-0.2); BASOPHIL % 0.7 % (0.0-2.0); EOSINOPHIL # 0.3 TH/MM3 (0-0.4); EOSINOPHIL % 3.3 % (0.0-4.0); HEMATOCRIT 28.5 % (39.0-51.0); HEMO FLAGS DIFF FINAL; LYMPH % 24.2 % (9.0-44.0); LYMPHOCYTE # 1.9 TH/MM3 (1.0-4.8); MEAN CELL VOLUME 73.1 FL (80.0-100.0); MEAN CORPUSCULAR HGB CONC 31.5 % (32.0-36.0); MONO % 7.5 % (0.0-8.0); NEUT % 64.3 % (16.0-70.0); PLATELET COUNT 364 TH/MM3 (150-450); RED CELL DISTRIBUTION WIDTH 21.7 % (11.6-17.2); WHITE BLOOD COUNT 7.7 TH/MM3 (4.0-11.0)
[2017-01-29 12:53] LABS: BICARBONATE 26.3 MEQ/L (21.0-32.0); POTASSIUM 4.1 MEQ/L (3.5-5.1)
--- NOTE | 2017-01-29 12:57 | PD.CAR.PN ---
CVT Progress Note Subjective/Hospital Course: 56-year-old male known to me from last visit about 10 days ago. 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 after surgery performed at another hospital Patient has essentially mummified left BKA stump going all the way over the patella to distal above the knee level Patient was here a week or so ago and of course we recommended above-knee amputation of the time but patient stated that the thing is healing nicely and was very angry about even mention of amputation Now patient has progressive more necrosis in addition he is losing weight and is in functional decline because of the same Patient will need above-knee amputation on urgent basis He ate and will go ahead with an amputation tomorrow In addition patient has extensive sacral and lumbar decubiti needing debridement as well Full consult to follow Robinson J 01/14/17 Patient status post the left above-knee amputation and debridement of the huge sacral decubiti and a left hip decubitus As noted in my operative report is a very deep great for decubiti and chance of healing this is miniscule Dressing intact on left AKA I have discussed the care with wound care nurse and patient will have a large wound VAC placed Tuesday and . This may help to reduce some granulation tissue and start healing processes but I'm afraid 15 DN patient may require left hip disarticulation which is of course a large and unfortunately procedure if necessary Every effort should be made to avoid this if possible 01/15/17 Status post left above-knee amputation and debridement of the sacral and the hip decubiti We'll keep dressing on until tomorrow The decubiti care has been discussed with the wound care nurse and patient currently has wound vacs on all these We should continue this for a while and see it granulates that there is a very high chance the patient will require left hip disarticulation in the future Continue current care 01/16/17 Patient doing well incisions clean and dry dressing is intact Will start changing the dressing today Back decubiti are covered with wound vacs and we can try to give it a chance to heal however this may be lethal and may cause sepsis resulting in dire outcome Patient refuses diverting colostomy and I don't see any way any of this will heal without diverting the stool 01/17/17 AKA stump is clean and dry The back decubiti appeared to be clean and looked much better than I thought they would. Area is granulating nicely, however patient refuses diverting colostomy and sooner later this is all going get infected and patient will of sepsis 01/21/17 The debrided decubiti are covered with wound VAC and actually looked nice and clean but encompassed massive amount of patient's back. Left AKA stump is healing nicely Patient has right hip decubitus this going very deep into the hip which also needs debridement At this point there is no other option but to do diverting colostomy in this gentleman for otherwise he will from sepsis Patient refuses diverting colostomy so I have no other options to offer to him 01/25/17 Patient paraplegic with multiple huge decubiti in sacral area and in both hips Patient refused diverting colostomy but no finally agreed to it Will proceed with diverting colostomy tomorrow and at the same time debride the right hip decubitus 01/26/17 Patient underwent diverting colostomy and debridement of right hip Patient can be restarted on his diet and then can be discharged from my point as soon as colostomy works well probably in a day or 2 Follow-up with me in 2 weeks for staple removal or the thuan can be removed in the assisted 01/27/17 Status post diverting colostomy Incisions clean and dry Abdomen soft active bowel sounds patient's tolerating diet Thuan to come out in about 2 weeks 01/29/17 Incision is clean and dry Colostomy is working very well with gas and stool in the bag There was a large amount of fact up stool in the large bowel so we'll take a while for this to be evacuated through the colostomy Patient's tolerating diet well From my point patient can be transferred to assisted any time Objective: Vital Signs Date Time Temp Pulse Resp B/P Pulse Ox O2 Delivery O2 Flow Rate FiO2 01/29/17 12:50 96.2 88 18 102/64 99 01/29/17 08:26 96.6 88 18 119/67 99 01/29/17 04:00 97.6 79 20 120/74 99 01/29/17 00:00 98.7 83 20 101/62 99 01/28/17 20:59 98.5 88 20 110/67 98 01/28/17 17:53 102 01/28/17 16:49 97.4 102 22 90/63 99 Labs: Laboratory Tests Test 01/29/17 11:59 White Blood Count 7.7 TH/MM3 (4.0-11.0) Red Blood Count 3.90 MIL/MM3 (4.50-5.90) Hemoglobin 9.0 GM/DL (13.0-17.0) Hematocrit 28.5 % (39.0-51.0) Mean Corpuscular Volume 73.1 FL (80.0-100.0) Mean Corpuscular Hemoglobin 23.0 PG (27.0-34.0) Mean Corpuscular Hemoglobin 31.5 % Concent (32.0-36.0) Red Cell Distribution Width 21.7 % (11.6-17.2) Platelet Count 364 TH/MM3 (150-450) Mean Platelet Volume 6.6 FL (7.0-11.0) Neutrophils (%) (Auto) 64.3 % (16.0-70.0) Lymphocytes (%) (Auto) 24.2 % (9.0-44.0) Monocytes (%) (Auto) 7.5 % (0.0-8.0) Eosinophils (%) (Auto) 3.3 % (0.0-4.0) Basophils (%) (Auto) 0.7 % (0.0-2.0) Neutrophils # (Auto) 5.0 TH/MM3 (1.8-7.7) Lymphocytes # (Auto) 1.9 TH/MM3 (1.0-4.8) Monocytes # (Auto) 0.6 TH/MM3 (0-0.9) Eosinophils # (Auto) 0.3 TH/MM3 (0-0.4) Basophils # (Auto) 0.1 TH/MM3 (0-0.2) CBC Comment DIFF FINAL Differential Comment Sodium Level 137 MEQ/L (136-145) Potassium Level 4.1 MEQ/L (3.5-5.1) Chloride Level 103 MEQ/L (98-107) Carbon Dioxide Level 26.3 MEQ/L (21.0-32.0) Anion Gap 8 MEQ/L (5-15) Blood Urea Nitrogen 9 MG/DL (7-18) Creatinine 0.59 MG/DL (0.60-1.30) Estimat Glomerular Filtration 143 ML/MIN Rate (>89) Random Glucose 79 MG/DL (74-106) Calcium Level 8.3 MG/DL (8.5-10.1) Result Diagram: 01/29/17 1159 01/29/17 1159 Sen Robertson MD Jan 29, 2017 12:57
[2017-01-29] MEDS: ENOXAPARIN SODIUM 30 MG/0.3 ML SYRINGE SQ SCH (13:03)
[2017-01-30] VITALS (7 sets, daily range): BP systolic 102–130; BP diastolic 69–80; PULSE 82–104; RESP 17–20; TEMP 96.6–98.6; O2SAT 99–100
[2017-01-30] MEDS: ACETAMINOPHEN/HYDROcodone 325 MG/5 MG TAB PO PRN (00:56)
[2017-01-30] MEDS: HYDROmorphone HCL PF 1 MG/ML VIAL IV PUSH PRN ×2 (02:47→09:28)
[2017-01-30] MEDS: AMPICILLIN-SULBACTAM INJ 3 GM in SODIUM CHLORIDE 0.9% INJ 100 ML IV SCH ×4 (04:59→21:07)
[2017-01-30] MEDS: POTASSIUM CHLORIDE 10 MEQ CONTROLLED RELEASE TAB PO SCH (09:25)
[2017-01-30] MEDS: QUEtiapine FUMARATE 25 MG TAB PO SCH ×2 (09:25→13:08)
[2017-01-30] MEDS: SODIUM CHLORIDE 0.9% FLUSH 10 ML FLUSH IV FLUSH SCH ×2 (09:25→21:06)
[2017-01-30] MEDS: POLYETHYLENE GLYCOL 17 GM PKG PO SCH (09:25)
[2017-01-30] MEDS: SENNOSIDES 8.6 MG TAB PO SCH (09:25)
--- NOTE | 2017-01-30 12:23 | HHI.PR ---
Subjective Remarks In bed, says she still has pain. No fever or chills. Says gas in stoma improving. No n/v/d/c. No fever or chills. Objective Vitals Vital Signs Date Time Temp Pulse Resp B/P Pulse Ox O2 Delivery O2 Flow Rate FiO2 01/30/17 09:58 17 01/30/17 08:00 97.1 95 18 130/69 99 01/30/17 05:00 98.6 82 17 108/76 99 01/30/17 00:00 98.1 82 18 115/80 100 01/29/17 21:20 97.7 87 17 116/75 100 01/29/17 16:15 95.7 76 18 105/60 99 01/29/17 12:50 96.2 88 18 102/64 99 I/O 01/29/17 01/29/17 01/29/17 01/30/17 01/30/17 01/30/17 07:00 15:00 23:00 07:00 15:00 23:00 Intake Total 220 ml 1120 ml 1200 ml Output Total 900 ml 1575 ml 800 ml Balance -680 ml -455 ml 400 ml Intake Oral 220 ml 1120 ml 1200 ml Output Urine Total 900 ml 1575 ml 800 ml Stool Total 0 ml # Bowel Movements 0 Result Diagram: 01/29/17 1159 01/29/17 1159 Imaging Last Impressions Chest X-Ray 01/12/17 1739 Signed Impressions: Service Date/Time: Thursday, January 12, 2017 18:02 - CONCLUSION: Mild consolidation versus atelectasis at the left lung base. Marcell Loredo MD Objective Remarks GENERAL: no Distress. SKIN: Sacral ulcer with Vacuum in place. CARDIOVASCULAR: Regular rate and rhythm. RESPIRATORY: No accessory muscle use. Clear to auscultation. GASTROINTESTINAL: Abdomen soft, non-tender. MUSCULOSKELETAL: Extremities left AKA stump post op dressing in place. NEUROLOGICAL: Awake and alert. Paraplegic. PSYCHIATRIC: Appropriate mood and affect; insight and judgment normal. Procedures left AKA VAC application Date of Insertion: Jan 13, 2017 A/P Assessment and Plan 1. 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 pelvic osteomyelitis, status post Diverting Colostomy and I and D of the Sacral wound, at this time water rights specialist in the room. Add simethicone for flatulence. 2. Right hip wound measuring 5 x 4.9 consisting mostly of macerated broken skin that is opened at 3 o'clock at ~1x~0.5 x ~1.5 . Wound depth is obscured by presence of yellow slough. followed by ID specialist to continue Unasyn, Acinetobacter/E faecalis UTI- sensitive to Ampicillin- patient on Unasyn status post I and D. 3. Adjustment disorder. mood improved. Started on Valium 10 mg po daily 01/18 4. Right foot/heel wound- Podiatry ff 5. Microcytic anemia- iron studies suggestive of chronic disease. Low serum Iron. po Iron daily 6. Paraplegia with decubitus ulcers/wheelchair bound with left hip/ischial decubitus ulcers. History of T1 fracture. Neurogenic bladder/bowel 7. Peripheral vascular disease 8. COPD stable no Exacerbation. 9. Electrolyte derangement replaced 20 meq daily. Lovenox for DVT prophylaxis Discussed with the patient, nurse Discharge Planning Pending improvement and clearance by consultants. Has a wound vac, might need wound vac at DC and IV abx . Adina Cabral MD Jan 30, 2017 12:23
[2017-01-30] MEDS: ENOXAPARIN SODIUM 30 MG/0.3 ML SYRINGE SQ SCH (13:08)
[2017-01-31] MEDS: AMPICILLIN-SULBACTAM INJ 3 GM in SODIUM CHLORIDE 0.9% INJ 100 ML IV SCH ×4 (03:44→21:00)
[2017-01-31 04:00] VITALS: BP 107/77; PULSE 120; RESP 18; TEMP 99.4; O2SAT 99
[2017-01-31 08:32] VITALS: BP 102/69; PULSE 108; RESP 18; TEMP 98.6; O2SAT 98
[2017-01-31] MEDS: POLYETHYLENE GLYCOL 17 GM PKG PO SCH (09:00)
[2017-01-31] MEDS: SENNOSIDES 8.6 MG TAB PO SCH (09:00)
[2017-01-31] MEDS: POTASSIUM CHLORIDE 10 MEQ CONTROLLED RELEASE TAB PO SCH (09:53)
[2017-01-31] MEDS: QUEtiapine FUMARATE 25 MG TAB PO SCH ×2 (09:55→12:00)
[2017-01-31] MEDS: SODIUM CHLORIDE 0.9% FLUSH 10 ML FLUSH IV FLUSH SCH ×2 (09:56→21:00)
[2017-01-31] MEDS: ACETAMINOPHEN/HYDROcodone 325 MG/5 MG TAB PO PRN (09:58)
--- NOTE | 2017-01-31 10:25 | HHI.PR ---
Subjective Remarks Bernal was removed yesterday and patient has a good UOP. Patient is asking for bernal to be placed in. Patient has h./o recurrent UTI. Currently has condom bernal. Explained to the patient risk of infection. Patient doesn't have any fever or chills. No n/v/d/c. Says she has pain at his surgical site. Objective Vitals Vital Signs Date Time Temp Pulse Resp B/P Pulse Ox O2 Delivery O2 Flow Rate FiO2 01/31/17 08:32 98.6 108 18 102/69 98 01/31/17 04:00 99.4 120 18 107/77 99 01/30/17 20:00 97.2 97 20 107/74 99 01/30/17 19:00 85 01/30/17 16:00 97.5 82 18 128/79 99 01/30/17 12:00 96.6 104 18 102/69 99 I/O 01/30/17 01/30/17 01/30/17 01/31/17 01/31/17 01/31/17 07:00 15:00 23:00 07:00 15:00 23:00 Intake Total 1200 ml 720 ml 720 ml Output Total 800 ml 750 ml Balance 400 ml -30 ml 720 ml Intake Oral 1200 ml 720 ml 720 ml Output Urine Total 800 ml 750 ml Stool Total 0 ml # Voids 3 Result Diagram: 01/29/17 1159 01/29/17 1159 Imaging Last Impressions Chest X-Ray 01/12/17 [id number] Signed Impressions: Service Date/Time: Thursday, January 12, 2017 18:02 - CONCLUSION: Mild consolidation versus atelectasis at the left lung base. Marcell Loredo MD Objective Remarks GENERAL: no Distress. SKIN: Sacral ulcer with Vacuum in place. CARDIOVASCULAR: Regular rate and rhythm. RESPIRATORY: No accessory muscle use. Clear to auscultation. GASTROINTESTINAL: Abdomen soft, non-tender. MUSCULOSKELETAL: Extremities left AKA stump post op dressing in place. NEUROLOGICAL: Awake and alert. Paraplegic. PSYCHIATRIC: Appropriate mood and affect; insight and judgment normal. Procedures left AKA VAC application Date of Insertion: Jan 13, 2017 A/P Assessment and Plan 1. 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 pelvic osteomyelitis, status post Diverting Colostomy and I and D of the Sacral wound. Add simethicone for flatulence. 2. Right hip wound measuring 5 x 4.9 consisting mostly of macerated broken skin that is opened at 3 o'clock at ~1x~0.5 x ~1.5 . Wound depth is obscured by presence of yellow slough. followed by ID specialist to continue Unasyn, Acinetobacter/E faecalis UTI- sensitive to Ampicillin- patient on Unasyn status post I and D. 3. Adjustment disorder. mood improved. Started on Valium 10 mg po daily 01/18 4. Right foot/heel wound- Podiatry ff 5. Microcytic anemia- iron studies suggestive of chronic disease. Low serum Iron. po Iron daily 6. Paraplegia with decubitus ulcers/wheelchair bound with left hip/ischial decubitus ulcers. History of T1 fracture. Neurogenic bladder/bowel 7. Peripheral vascular disease 8. COPD stable no Exacerbation. 9. Electrolyte derangement replaced 20 meq daily. Lovenox for DVT prophylaxis Discussed with the patient, nurse, Dr Chacko ID Discharge Planning Pending improvement and clearance by consultants. Has a wound vac, poss removal of wound vac , surgeon will decide. Patient might need IV abx at DC. Adina Cabral MD Jan 31, 2017 10:25
[2017-01-31 12:34] VITALS: BP 101/72; PULSE 106; RESP 18; TEMP 98.4; O2SAT 100
[2017-01-31] MEDS ORDERED: BACLOFEN 10 MG TAB PO ONE (12:45)
[2017-01-31] MEDS ORDERED: BACLOFEN 10 MG TAB PO PRN (12:45)
[2017-01-31] MEDS: ENOXAPARIN SODIUM 30 MG/0.3 ML SYRINGE SQ SCH (13:12)
[2017-01-31] MEDS: HYDROmorphone HCL PF 1 MG/ML VIAL IV PUSH PRN (13:22)
[2017-01-31] MEDS: COLLAGENASE OINT 30 GM TUBE TOPICAL SCH (15:00)
[2017-01-31 17:16] VITALS: BP 109/80; PULSE 108; RESP 16; TEMP 96.3; O2SAT 98
--- NOTE | 2017-01-31 17:17 | PD.WCN.NOT ---
Wound Consult Description: "L hip and back" per Dr Robertson Communicated with: LAWSON Nixon aware of recommendations for Santyl to Right trochanter. Recommendation: Left trochanter, Left ischium, Sacrococcygeal continue wound VAC changes as ordered with Santyl. Right trochanter Santyl with wet to dry gauze packing daily. Neg Pressure Wound Therapy Wound Location Wound Location: L ischium Wound Description Length: 11cm Width: 5cm Depth: 3.2cm Underminin.5cm undermining from 11 to 1 o'clock Wound bed appearance: Wound bed was cleansed with NS and gauze. Wound presents with ~25% yellow loosely adherent slough, ~60% red granulation tissue, and ~15% bone visualized. There is scant serosang drainage noted without odor. Periwound appearance: Other (There is dry yellow tissue noted distally from wound bed ~2cm) Settings Suction: 125 mmHg, Continuous Intensity: Low Other Information: Bridged, Windowpaned Foam type: Black Number of pieces: 2 Additonal Information Left ischium was cleansed with NS and gauze, periwound was skin prepped using Cavilon spray and then using VAC drape window paned to protect skin. Santyl was applied to necrotic yellow slough within wound bed and covered with 2 pieces black granufoam in a coil fashion that was then secured with VAC drape and bridged to left lateral/anterior thigh where it would meet the bridging of the Left trochanter where the sensitrac pad would be placed. Stoma paste used to obtain seal at distal most part of the wound. Wound Location Wound Location: L trochanter Wound Description Length: 6.5cm Width: 4.5cm Depth: 3.5cm Wound bed appearance: Wound bed was cleansed with NS and gauze. Wound presents with 90% white fascia with 5% bone and 5% muscle minimally visible in center of wound where it is deepest. Wound is noted with minimal serous drainage when cleansed with gauze. No odor is present at this time. Periwound appearance: Unremarkable Settings Suction: 125 mmHg, Continuous Intensity: Low Other Information: Bridged, Windowpaned Foam type: Black Number of pieces: 1 Additonal Information Wound was cleansed with Ns and gauze, periwound was skin prepped with Cavilon spray and window paned with VAC drape. Santyl was applied to wound bed prior to inserting black granufoam in a coiled fashion securing with VAC drape and then bridged to left lateral thigh where the sensitrac pad was placed with the bridging of the left ischium. Wound VAC turned on and working properly without leaks once stoma past was used to obtain seal. Wound Location Wound Location: Sacrococcygeal Wound Description Length: 13.4cm Width: 12.7cm Depth: 1.7cm Underminin.4cm undermining from 7 to 11 o'clock Wound bed appearance: Wound bed to sacrococcygeal area presents with ~50% muscle, ~20% red granulation tissue, ~20% loosely adherent yellow slough, ~10% visible bone after cleansing with NS and gauze. Wound has minimal serosang drainage noted without odor. Periwound appearance: Unremarkable Settings Suction: 125 mmHg, Continuous Intensity: Low Other Information: Bridged, Windowpaned Foam type: Black Number of pieces: 3 Additonal Information Sacrococcygeal wound was cleansed with NS and gauze. Periwound was skin prepped using Cavilon skin spray and window paned to protect skin. Santyl was applied to necrotic yellow slough and 3 pieces black granufoam used in wound bed then bridged to left thigh where sensitrac pad was placed and y connected to machine with settings currently @125mmHg low continuous suction working properly without leaks. Patient tolerated VAC change well. Next VAC change scheduled for 02/03/17. Esther Kingsley [facility] Jan 31, 2017 17:17 Esther Kingsley [facility] Jan 31, 2017 17:17
[2017-01-31 18:52] VITALS: PULSE 101
[2017-01-31 20:00] VITALS: BP 106/78; PULSE 104; PULSE 107; RESP 18; TEMP 98.8; O2SAT 100
--- NOTE | 2017-01-31 20:04 | PD.CAR.PN ---
CVT Progress Note Subjective/Hospital Course: 56-year-old male known to me from last visit about 10 days ago. 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 after surgery performed at another hospital Patient has essentially mummified left BKA stump going all the way over the patella to distal above the knee level Patient was here a week or so ago and of course we recommended above-knee amputation of the time but patient stated that the thing is healing nicely and was very angry about even mention of amputation Now patient has progressive more necrosis in addition he is losing weight and is in functional decline because of the same Patient will need above-knee amputation on urgent basis He ate and will go ahead with an amputation tomorrow In addition patient has extensive sacral and lumbar decubiti needing debridement as well Full consult to follow Robinson J 01/14/17 Patient status post the left above-knee amputation and debridement of the huge sacral decubiti and a left hip decubitus As noted in my operative report is a very deep great for decubiti and chance of healing this is miniscule Dressing intact on left AKA I have discussed the care with wound care nurse and patient will have a large wound VAC placed Tuesday and . This may help to reduce some granulation tissue and start healing processes but I'm afraid 15 DN patient may require left hip disarticulation which is of course a large and unfortunately procedure if necessary Every effort should be made to avoid this if possible 01/15/17 Status post left above-knee amputation and debridement of the sacral and the hip decubiti We'll keep dressing on until tomorrow The decubiti care has been discussed with the wound care nurse and patient currently has wound vacs on all these We should continue this for a while and see it granulates that there is a very high chance the patient will require left hip disarticulation in the future Continue current care 01/16/17 Patient doing well incisions clean and dry dressing is intact Will start changing the dressing today Back decubiti are covered with wound vacs and we can try to give it a chance to heal however this may be lethal and may cause sepsis resulting in dire outcome Patient refuses diverting colostomy and I don't see any way any of this will heal without diverting the stool 01/17/17 AKA stump is clean and dry The back decubiti appeared to be clean and looked much better than I thought they would. Area is granulating nicely, however patient refuses diverting colostomy and sooner later this is all going get infected and patient will of sepsis 01/21/17 The debrided decubiti are covered with wound VAC and actually looked nice and clean but encompassed massive amount of patient's back. Left AKA stump is healing nicely Patient has right hip decubitus this going very deep into the hip which also needs debridement At this point there is no other option but to do diverting colostomy in this gentleman for otherwise he will from sepsis Patient refuses diverting colostomy so I have no other options to offer to him 01/25/17 Patient paraplegic with multiple huge decubiti in sacral area and in both hips Patient refused diverting colostomy but no finally agreed to it Will proceed with diverting colostomy tomorrow and at the same time debride the right hip decubitus 01/26/17 Patient underwent diverting colostomy and debridement of right hip Patient can be restarted on his diet and then can be discharged from my point as soon as colostomy works well probably in a day or 2 Follow-up with me in 2 weeks for staple removal or the thuan can be removed in the longterm 01/27/17 Status post diverting colostomy Incisions clean and dry Abdomen soft active bowel sounds patient's tolerating diet Thuan to come out in about 2 weeks 01/29/17 Incision is clean and dry Colostomy is working very well with gas and stool in the bag There was a large amount of fact up stool in the large bowel so we'll take a while for this to be evacuated through the colostomy Patient's tolerating diet well From my point patient can be transferred to longterm any time 01/31/17 Abdominal incision is clean and dry and colostomy is working very well Abdomen is soft with active bowel sounds and patient's tolerating diet Patient is encouraged to take liquids to make stool more easily passable now that has a colostomy The debrided decubiti look great and clean and at this point wet-to-dry dressing can be applied rather than wound VAC Objective: Vital Signs Date Time Temp Pulse Resp B/P Pulse Ox O2 Delivery O2 Flow Rate FiO2 01/31/17 18:52 101 01/31/17 17:16 96.3 108 16 109/80 98 01/31/17 12:34 98.4 106 18 101/72 100 01/31/17 08:32 98.6 108 18 102/69 98 01/31/17 04:00 99.4 120 18 107/77 99 Result Diagram: 01/29/17 1159 01/29/17 1159 Sen Robertson MD Jan 31, 2017 20:04
[2017-02-01 00:07] VITALS: BP 96/63; PULSE 109; RESP 24; TEMP 98.7; O2SAT 99
[2017-02-01] MEDS ORDERED: CALCIUM CARBONATE 500 MG CHEWABLE TAB CHEW ONE (02:00)
[2017-02-01 04:30] VITALS: BP 105/77; PULSE 95; RESP 20; TEMP 97.7; O2SAT 99
[2017-02-01] MEDS ORDERED: ONDANSETRON HCL 4 MG/2 ML VIAL IV PUSH ONE (04:45)
[2017-02-01] MEDS: AMPICILLIN-SULBACTAM INJ 3 GM in SODIUM CHLORIDE 0.9% INJ 100 ML IV SCH ×4 (05:16→22:18)
[2017-02-01 08:10] VITALS: BP 101/75; PULSE 104; RESP 16; TEMP 97.4; O2SAT 96
[2017-02-01] MEDS: POLYETHYLENE GLYCOL 17 GM PKG PO SCH (08:15)
[2017-02-01] MEDS: SENNOSIDES 8.6 MG TAB PO SCH (08:16)
[2017-02-01] MEDS: POTASSIUM CHLORIDE 10 MEQ CONTROLLED RELEASE TAB PO SCH (08:16)
[2017-02-01] MEDS: SODIUM CHLORIDE 0.9% FLUSH 10 ML FLUSH IV FLUSH SCH ×2 (08:16→21:00)
[2017-02-01] MEDS: QUEtiapine FUMARATE 25 MG TAB PO SCH ×2 (08:16→12:11)
[2017-02-01] MEDS: ACETAMINOPHEN/HYDROcodone 325 MG/5 MG TAB PO PRN ×2 (08:25→14:43)
[2017-02-01] MEDS: ENOXAPARIN SODIUM 30 MG/0.3 ML SYRINGE SQ SCH (12:12)
[2017-02-01 12:21] VITALS: BP 104/74; PULSE 93; RESP 18; TEMP 98.2; O2SAT 99
[2017-02-01 17:00] VITALS: BP 111/65; PULSE 80; RESP 17; TEMP 97.9; O2SAT 98
--- NOTE | 2017-02-01 18:42 | HHI.PR ---
Subjective Remarks Follow up for decubitus ulcer, left AKA, stump infection in patient with a history of paraplegia. Mr. Sheehan is doing well. No fever, chills. However, he requests that his Blood catheter is placed back again. Currently he has a condom catheter. Patient reports using Blood for for a long time - more than 10- 15 years. Objective Vitals Vital Signs Date Time Temp Pulse Resp B/P Pulse Ox O2 Delivery O2 Flow Rate FiO2 02/01/17 17:00 97.9 80 17 111/65 98 02/01/17 12:21 98.2 93 18 104/74 99 02/01/17 08:10 97.4 104 16 101/75 96 02/01/17 04:30 97.7 95 20 105/77 99 02/01/17 00:07 98.7 109 24 96/63 99 01/31/17 20:00 104 01/31/17 20:00 98.8 107 18 106/78 100 01/31/17 18:52 101 I/O 01/31/17 01/31/17 01/31/17 02/01/17 02/01/17 02/01/17 07:00 15:00 23:00 07:00 15:00 23:00 Intake Total 720 ml 240 ml 200 ml Output Total 700 ml 675 ml Balance 720 ml 240 ml 200 ml -700 ml -675 ml Intake Oral 720 ml 240 ml IV Total 200 ml Output Urine Total 700 ml 675 ml # Voids 3 # Bowel Movements 1 Result Diagram: 01/29/17 1159 01/29/17 1159 Imaging Last Impressions Chest X-Ray 01/12/17 7409 Signed Impressions: Service Date/Time: Thursday, January 12, 2017 18:02 - CONCLUSION: Mild consolidation versus atelectasis at the left lung base. Marcell Loredo MD Objective Remarks GENERAL: Alert, Oriented x 3, NAD. SKIN: Warm and dry. HEAD: Normocephalic. EYES: No scleral icterus. No injection or drainage. NECK: Supple, trachea midline. No JVD or lymphadenopathy. CARDIOVASCULAR: Regular rate and rhythm without murmurs, gallops, or rubs. RESPIRATORY: Breath sounds equal bilaterally. No accessory muscle use. GASTROINTESTINAL: Abdomen soft, non-tender, nondistended. Diverting colostomy bag noted. MUSCULOSKELETAL: No cyanosis, or edema. Left AKA. BACK: Nontender without obvious deformity. No CVA tenderness. Procedures left AKA VAC application Date of Insertion: Jan 13, 2017 A/P Assessment and Plan Mr. Sheehan is a 56 year old male with a history of T1 fracture with neurogenic bladder and bowel, PVD, chronic decubitus ulcer and lower ext BKA who presented to the ED on 01/12/2017 due to left leg wound. He recently was evaluated by multiple physicians including vascular surgery and he was offered IV abx, AKA as well as debridement for deep pelvic area osteomyelitis. Unfortunately, patient was extremely agitated, used foul language and left AMA to go to a wound care center outside [place]. During this present admission, patient was found to be hypotensive with prominent leukocytosis. He underwent L BKA revision /AKA and multiple sacral /ischial wounds debridement. - Left BKA stump infection/gangrene - Large Sacral decubiti ulcer. - Left pelvic area osteomyelitis. - UTI with MDRO Acinetobacter - s/p Left AKA and debridement of the decubiti. - Infected with MDRO acinetobacter - s/p Colostomy. - Per ID recommendations, continue Unasyn for 8 weeks (started on 01/14/2017). - Adjustment disorder. mood improved. Started on Valium 10 mg po daily 01/18 - Microcytic anemia- iron studies suggestive of chronic disease. Low serum Iron. po Iron daily - Paraplegic with neurogenic bladder - Patient requests Blood catheter to be placed back in. This is probably reasonable. - Will obtain post-void bladder scan. If it shows above 100-150cc fluid, we will place a Blood catheter. DNR. Lovenox 30mg Q24hrs. Yazmin Shelton DO Feb 01, 2017 18:42
[2017-02-01] MEDS: HYDROmorphone HCL PF 1 MG/ML VIAL IV PUSH PRN ×2 (18:49→22:18)
[2017-02-01 21:10] VITALS: BP 104/69; PULSE 79; RESP 16; TEMP 97.5; O2SAT 99
[2017-02-01] MEDS: guaiFENesin E.R. 600 MG TAB PO SCH (22:16)
[2017-02-02 00:36] VITALS: BP 111/71; PULSE 87; RESP 16; TEMP 97.5; O2SAT 99
[2017-02-02 04:00] VITALS: BP 126/84; PULSE 91; RESP 18; TEMP 97.2; O2SAT 99
[2017-02-02] MEDS: AMPICILLIN-SULBACTAM INJ 3 GM in SODIUM CHLORIDE 0.9% INJ 100 ML IV SCH ×4 (04:02→20:34)
[2017-02-02] MEDS: HYDROmorphone HCL PF 1 MG/ML VIAL IV PUSH PRN ×5 (04:02→20:24)
[2017-02-02 08:00] VITALS: BP 144/92; PULSE 88; RESP 18; TEMP 97.3; O2SAT 99
[2017-02-02] MEDS: POTASSIUM CHLORIDE 10 MEQ CONTROLLED RELEASE TAB PO SCH (08:16)
[2017-02-02] MEDS: guaiFENesin E.R. 600 MG TAB PO SCH ×2 (08:16→20:22)
[2017-02-02] MEDS: QUEtiapine FUMARATE 25 MG TAB PO SCH ×2 (08:16→11:55)
[2017-02-02] MEDS: SODIUM CHLORIDE 0.9% FLUSH 10 ML FLUSH IV FLUSH SCH ×2 (08:18→20:23)
[2017-02-02] MEDS: SENNOSIDES 8.6 MG TAB PO SCH (09:00)
[2017-02-02] MEDS: POLYETHYLENE GLYCOL 17 GM PKG PO SCH (09:00)
[2017-02-02] MEDS: DIAZEPAM 10 MG TAB PO PRN (11:55)
[2017-02-02 12:00] VITALS: BP 133/93; PULSE 97; RESP 18; TEMP 95.6; O2SAT 99
[2017-02-02] MEDS: ENOXAPARIN SODIUM 30 MG/0.3 ML SYRINGE SQ SCH (14:14)
--- NOTE | 2017-02-02 14:48 | HHI.PR ---
Subjective Remarks Follow up for decubitus ulcer, left AKA, stump infection in patient with a history of paraplegia. Patient is doing well. No fever, chills. He requests Baclofen. Objective Vitals Vital Signs Date Time Temp Pulse Resp B/P Pulse Ox O2 Delivery O2 Flow Rate FiO2 02/02/17 12:41 18 02/02/17 12:00 95.6 97 18 133/93 99 02/02/17 08:00 97.3 88 18 144/92 99 02/02/17 04:00 97.2 91 18 126/84 99 02/02/17 00:36 97.5 87 16 111/71 99 02/01/17 21:10 97.5 79 16 104/69 99 02/01/17 17:00 97.9 80 17 111/65 98 I/O 02/01/17 02/01/17 02/01/17 02/02/17 02/02/17 02/02/17 07:00 15:00 23:00 07:00 15:00 23:00 Intake Total 480 ml 695 ml Output Total 700 ml 675 ml 250 ml 800 ml Balance -700 ml -195 ml -250 ml -105 ml Intake Oral 480 ml 460 ml IV Total 235 ml Output Urine Total 700 ml 675 ml 250 ml 400 ml Drainage Total 400 ml Bladder Scan Volume Amount 205 ml # Bowel Movements 1 0 Result Diagram: 01/29/17 1159 01/29/17 1159 Objective Remarks GENERAL: Alert, Oriented x 3, NAD. SKIN: Warm and dry. HEAD: Normocephalic. EYES: No scleral icterus. No injection or drainage. NECK: Supple, trachea midline. No JVD or lymphadenopathy. CARDIOVASCULAR: Regular rate and rhythm without murmurs, gallops, or rubs. RESPIRATORY: Breath sounds equal bilaterally. No accessory muscle use. GASTROINTESTINAL: Abdomen soft, non-tender, nondistended. Diverting colostomy bag noted. MUSCULOSKELETAL: No cyanosis, or edema. Left AKA. BACK: Nontender without obvious deformity. No CVA tenderness. Procedures left AKA VAC application Date of Insertion: Jan 13, 2017 A/P Assessment and Plan Mr. Sheehan is a 56 year old male with a history of T1 fracture with neurogenic bladder and bowel, PVD, chronic decubitus ulcer and lower ext BKA who presented to the ED on 01/12/2017 due to left leg wound. He recently was evaluated by multiple physicians including vascular surgery and he was offered IV abx, AKA as well as debridement for deep pelvic area osteomyelitis. Unfortunately, patient was extremely agitated, used foul language and left AMA to go to a wound care center outside [place]. During this present admission, patient was found to be hypotensive with prominent leukocytosis. He underwent L BKA revision /AKA and multiple sacral /ischial wounds debridement. - Left BKA stump infection/gangrene - Large Sacral decubiti ulcer. - Left pelvic area osteomyelitis. - UTI with MDRO Acinetobacter - s/p Left AKA and debridement of the decubiti. - Infected with MDRO acinetobacter - s/p Colostomy. - Per ID recommendations, continue Unasyn for 8 weeks (started on 01/14/2017). - Patient is already on Baclofen - increase to TID PRN. - For nausea, we will add Zofran. - Adjustment disorder. mood improved. Started on Valium 10 mg po daily 01/18 - Microcytic anemia- iron studies suggestive of chronic disease. Low serum Iron. po Iron daily - Paraplegic with neurogenic bladder - Continue Blood catheter. DNR. Lovenox 30mg Q24hrs. Yazmin Shelton DO Feb 02, 2017 2:48 pm
[2017-02-02] MEDS: BACLOFEN 10 MG TAB PO PRN (15:56)
[2017-02-02] MEDS: ONDANSETRON HCL 4 MG/2 ML VIAL IV PUSH PRN (15:56)
[2017-02-02 16:00] VITALS: BP 115/84; PULSE 97; RESP 19; TEMP 97.4; O2SAT 99
[2017-02-02 20:00] VITALS: BP 128/85; PULSE 96; RESP 18; TEMP 98; O2SAT 99
[2017-02-03] VITALS: BP 130/88; PULSE 98; RESP 20; TEMP 98.7; O2SAT 98
[2017-02-03] MEDS: DIAZEPAM 10 MG TAB PO PRN (00:04)
[2017-02-03] MEDS: ACETAMINOPHEN/HYDROcodone 325 MG/5 MG TAB PO PRN ×3 (00:05→21:26)
[2017-02-03] MEDS: BACLOFEN 10 MG TAB PO PRN (03:12)
[2017-02-03] MEDS: AMPICILLIN-SULBACTAM INJ 3 GM in SODIUM CHLORIDE 0.9% INJ 100 ML IV SCH ×4 (03:13→21:26)
[2017-02-03 04:00] VITALS: BP 149/96; PULSE 96; RESP 18; TEMP 98.7; O2SAT 98
[2017-02-03 08:07] VITALS: BP 159/91; PULSE 97; RESP 18; TEMP 98.2; O2SAT 98
[2017-02-03] MEDS: POTASSIUM CHLORIDE 10 MEQ CONTROLLED RELEASE TAB PO SCH (08:47)
[2017-02-03] MEDS: QUEtiapine FUMARATE 25 MG TAB PO SCH ×2 (08:48→12:28)
[2017-02-03] MEDS: SENNOSIDES 8.6 MG TAB PO SCH (08:49)
[2017-02-03] MEDS: POLYETHYLENE GLYCOL 17 GM PKG PO SCH (08:49)
[2017-02-03] MEDS: SODIUM CHLORIDE 0.9% FLUSH 10 ML FLUSH IV FLUSH SCH ×2 (08:49→21:27)
[2017-02-03] MEDS: guaiFENesin E.R. 600 MG TAB PO SCH ×2 (08:49→21:26)
[2017-02-03] MEDS: HYDROmorphone HCL PF 1 MG/ML VIAL IV PUSH PRN ×4 (09:58→22:07)
[2017-02-03] MEDS: ONDANSETRON HCL 4 MG/2 ML VIAL IV PUSH PRN (09:59)
[2017-02-03 12:08] VITALS: BP 104/63; PULSE 93; RESP 18; TEMP 98.2; O2SAT 98
[2017-02-03] MEDS: COLLAGENASE OINT 30 GM TUBE TOPICAL SCH (14:23)
[2017-02-03] MEDS: ENOXAPARIN SODIUM 30 MG/0.3 ML SYRINGE SQ SCH (14:23)
--- NOTE | 2017-02-03 15:35 | HHI.PR ---
Subjective Remarks Follow up for decubitus ulcer, left AKA, stump infection in patient with a history of paraplegia. Patient is doing well. No acute concerns. He reports feeling better today and actually was able to eat some today. He complains of abdominal muscle spasms. Objective Vitals Vital Signs Date Time Temp Pulse Resp B/P Pulse Ox O2 Delivery O2 Flow Rate FiO2 02/03/17 12:08 98.2 93 18 104/63 98 02/03/17 10:28 18 02/03/17 08:07 98.2 97 18 159/91 98 02/03/17 07:25 18 02/03/17 04:00 98.7 96 18 149/96 98 02/03/17 00:00 98.7 98 20 130/88 98 02/02/17 20:00 98.0 96 18 128/85 99 02/02/17 16:00 97.4 97 19 115/84 99 I/O 02/02/17 02/02/17 02/02/17 02/03/17 02/03/17 02/03/17 07:00 15:00 23:00 07:00 15:00 23:00 Intake Total 695 ml 100 ml 460 ml Output Total 800 ml 100 ml 100 ml 100 ml 1050 ml Balance -105 ml 0 ml -100 ml -100 ml -590 ml Intake Oral 460 ml 360 ml IV Total 235 ml 100 ml 100 ml Output Urine Total 400 ml 100 ml 100 ml 100 ml 500 ml Stool Total 550 ml Drainage Total 400 ml 0 ml # Bowel Movements 0 Objective Remarks GENERAL: Alert, Oriented x 3, NAD. SKIN: Warm and dry. HEAD: Normocephalic. EYES: No scleral icterus. No injection or drainage. NECK: Supple, trachea midline. No JVD or lymphadenopathy. CARDIOVASCULAR: Regular rate and rhythm without murmurs, gallops, or rubs. RESPIRATORY: Breath sounds equal bilaterally. No accessory muscle use. GASTROINTESTINAL: Abdomen soft, non-tender, nondistended. Diverting colostomy bag noted. MUSCULOSKELETAL: No cyanosis, or edema. Left AKA. BACK: Nontender without obvious deformity. No CVA tenderness. Procedures left AKA VAC application Date of Insertion: Jan 13, 2017 A/P Assessment and Plan Mr. Sheehan is a 56 year old male with a history of T1 fracture with neurogenic bladder and bowel, PVD, chronic decubitus ulcer and lower ext BKA who presented to the ED on 01/12/2017 due to left leg wound. He recently was evaluated by multiple physicians including vascular surgery and he was offered IV abx, AKA as well as debridement for deep pelvic area osteomyelitis. Unfortunately, patient was extremely agitated, used foul language and left AMA to go to a wound care center outside [place]. During this present admission, patient was found to be hypotensive with prominent leukocytosis. He underwent L BKA revision /AKA and multiple sacral /ischial wounds debridement. - Left BKA stump infection/gangrene - Large Sacral decubiti ulcer. - Left pelvic area osteomyelitis. - UTI with MDRO Acinetobacter - s/p Left AKA and debridement of the decubiti. - Infected with MDRO acinetobacter - s/p Colostomy. - Per ID recommendations, continue Unasyn for 8 weeks (started on 01/14/2017). - Patient is already on Baclofen - will schedule it to TID. - For nausea, we will add Zofran. - Adjustment disorder. mood improved. Started on Valium 10 mg po daily 01/18 - Microcytic anemia- iron studies suggestive of chronic disease. Low serum Iron. po Iron daily - Paraplegic with neurogenic bladder - Continue Blood catheter. DNR. Lovenox 30mg Q24hrs. Yazmin Shelton DO Feb 03, 2017 3:35 pm
[2017-02-03 15:58] VITALS: BP 104/68; PULSE 92; RESP 18; TEMP 98.5; O2SAT 98
[2017-02-03] MEDS: BACLOFEN 10 MG TAB PO SCH (17:56)
[2017-02-03 20:00] VITALS: BP 137/78; PULSE 92; RESP 18; TEMP 97.2; O2SAT 99
[2017-02-04] VITALS: BP 122/70; PULSE 74; RESP 18; TEMP 98.1; O2SAT 99
[2017-02-04] MEDS: HYDROmorphone HCL PF 1 MG/ML VIAL IV PUSH PRN ×4 (02:23→21:03)
[2017-02-04 04:00] VITALS: BP 113/69; PULSE 79; RESP 18; TEMP 98.1; O2SAT 99
[2017-02-04] MEDS: AMPICILLIN-SULBACTAM INJ 3 GM in SODIUM CHLORIDE 0.9% INJ 100 ML IV SCH ×4 (04:15→21:05)
[2017-02-04] MEDS: ACETAMINOPHEN/HYDROcodone 325 MG/5 MG TAB PO PRN (05:28)
[2017-02-04 07:38] VITALS: BP 120/73; PULSE 81; RESP 18; TEMP 98.5; O2SAT 98
[2017-02-04] MEDS: SENNOSIDES 8.6 MG TAB PO SCH (09:00)
[2017-02-04] MEDS: POLYETHYLENE GLYCOL 17 GM PKG PO SCH (09:00)
[2017-02-04] MEDS: guaiFENesin E.R. 600 MG TAB PO SCH ×2 (09:09→21:04)
[2017-02-04] MEDS: POTASSIUM CHLORIDE 10 MEQ CONTROLLED RELEASE TAB PO SCH (09:09)
[2017-02-04] MEDS: QUEtiapine FUMARATE 25 MG TAB PO SCH ×2 (09:09→14:31)
[2017-02-04] MEDS: BACLOFEN 10 MG TAB PO SCH ×3 (09:09→18:03)
[2017-02-04 11:37] VITALS: BP 115/75; PULSE 86; RESP 18; TEMP 98.2; O2SAT 98
[2017-02-04] MEDS: ENOXAPARIN SODIUM 30 MG/0.3 ML SYRINGE SQ SCH (14:31)
[2017-02-04] MEDS: SODIUM CHLORIDE 0.9% FLUSH 10 ML FLUSH IV FLUSH SCH ×2 (14:38→21:04)
[2017-02-04] MEDS: ACETAMINOPHEN/HYDROcodone 325 MG/10 MG TAB PO PRN ×2 (14:49→21:03)
[2017-02-04 15:55] VITALS: BP 122/77; PULSE 84; RESP 18; TEMP 98; O2SAT 99
--- NOTE | 2017-02-04 17:18 | PD.CAR.PN ---
CVT Progress Note Subjective/Hospital Course: 56-year-old male known to me from last visit about 10 days ago. 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 after surgery performed at another hospital Patient has essentially mummified left BKA stump going all the way over the patella to distal above the knee level Patient was here a week or so ago and of course we recommended above-knee amputation of the time but patient stated that the thing is healing nicely and was very angry about even mention of amputation Now patient has progressive more necrosis in addition he is losing weight and is in functional decline because of the same Patient will need above-knee amputation on urgent basis He ate and will go ahead with an amputation tomorrow In addition patient has extensive sacral and lumbar decubiti needing debridement as well Full consult to follow Robinson J 01/14/17 Patient status post the left above-knee amputation and debridement of the huge sacral decubiti and a left hip decubitus As noted in my operative report is a very deep great for decubiti and chance of healing this is miniscule Dressing intact on left AKA I have discussed the care with wound care nurse and patient will have a large wound VAC placed Tuesday and . This may help to reduce some granulation tissue and start healing processes but I'm afraid 15 DN patient may require left hip disarticulation which is of course a large and unfortunately procedure if necessary Every effort should be made to avoid this if possible 01/15/17 Status post left above-knee amputation and debridement of the sacral and the hip decubiti We'll keep dressing on until tomorrow The decubiti care has been discussed with the wound care nurse and patient currently has wound vacs on all these We should continue this for a while and see it granulates that there is a very high chance the patient will require left hip disarticulation in the future Continue current care 01/16/17 Patient doing well incisions clean and dry dressing is intact Will start changing the dressing today Back decubiti are covered with wound vacs and we can try to give it a chance to heal however this may be lethal and may cause sepsis resulting in dire outcome Patient refuses diverting colostomy and I don't see any way any of this will heal without diverting the stool 01/17/17 AKA stump is clean and dry The back decubiti appeared to be clean and looked much better than I thought they would. Area is granulating nicely, however patient refuses diverting colostomy and sooner later this is all going get infected and patient will of sepsis 01/21/17 The debrided decubiti are covered with wound VAC and actually looked nice and clean but encompassed massive amount of patient's back. Left AKA stump is healing nicely Patient has right hip decubitus this going very deep into the hip which also needs debridement At this point there is no other option but to do diverting colostomy in this gentleman for otherwise he will from sepsis Patient refuses diverting colostomy so I have no other options to offer to him 01/25/17 Patient paraplegic with multiple huge decubiti in sacral area and in both hips Patient refused diverting colostomy but no finally agreed to it Will proceed with diverting colostomy tomorrow and at the same time debride the right hip decubitus 01/26/17 Patient underwent diverting colostomy and debridement of right hip Patient can be restarted on his diet and then can be discharged from my point as soon as colostomy works well probably in a day or 2 Follow-up with me in 2 weeks for staple removal or the thuan can be removed in the [facility] 01/27/17 Status post diverting colostomy Incisions clean and dry Abdomen soft active bowel sounds patient's tolerating diet Thuan to come out in about 2 weeks 01/29/17 Incision is clean and dry Colostomy is working very well with gas and stool in the bag There was a large amount of fact up stool in the large bowel so we'll take a while for this to be evacuated through the colostomy Patient's tolerating diet well From my point patient can be transferred to [facility] any time 01/31/17 Abdominal incision is clean and dry and colostomy is working very well Abdomen is soft with active bowel sounds and patient's tolerating diet Patient is encouraged to take liquids to make stool more easily passable now that has a colostomy The debrided decubiti look great and clean and at this point wet-to-dry dressing can be applied rather than wound VAC 02/01/17 Incision is clean and dry Abdomen soft with active bowel sounds and colostomy working nicely Patient will permanently have to be on some sort of laxative regiment in order for the colostomy to work continuously without the intermittent functional obstructions with hard stool Stump is clean and dry so stitches can be DC'd from the stump We will leave abdominal stitches in place for another week or so Patient can transfer to [facility] or some sort of a rehabilitation any time from my point Objective: Vital Signs Date Time Temp Pulse Resp B/P Pulse Ox O2 Delivery O2 Flow Rate FiO2 02/04/17 15:55 98.0 84 18 122/77 99 02/04/17 11:37 98.2 86 18 115/75 98 02/04/17 11:30 20 02/04/17 07:38 98.5 81 18 120/73 98 02/04/17 06:24 16 02/04/17 04:00 98.1 79 18 113/69 99 02/04/17 00:00 98.1 74 18 122/70 99 02/03/17 20:00 97.2 92 18 137/78 99 Sen Robertson MD Feb 04, 2017 17:18
[2017-02-04 20:00] VITALS: BP 118/69; PULSE 97; RESP 18; TEMP 96.9; O2SAT 98
[2017-02-04] MEDS: DIAZEPAM 10 MG TAB PO PRN (21:04)
--- NOTE | 2017-02-04 22:30 | HHI.PR ---
Subjective Remarks Follow up for decubitus ulcer, left AKA, stump infection in patient with a history of paraplegia. Patient is doing well. However, he consistently complains of suboptimal pain control. No fever, chills. Objective Vitals Vital Signs Date Time Temp Pulse Resp B/P Pulse Ox O2 Delivery O2 Flow Rate FiO2 02/04/17 22:00 20 02/04/17 21:30 20 02/04/17 20:00 96.9 97 18 118/69 98 02/04/17 15:55 98.0 84 18 122/77 99 02/04/17 11:37 98.2 86 18 115/75 98 02/04/17 07:38 98.5 81 18 120/73 98 02/04/17 06:24 16 02/04/17 04:00 98.1 79 18 113/69 99 02/04/17 00:00 98.1 74 18 122/70 99 I/O 02/03/17 02/03/17 02/03/17 02/04/17 02/04/17 02/04/17 07:00 15:00 23:00 07:00 15:00 23:00 Intake Total 460 ml 460 ml 340 ml 240 ml Output Total 100 ml 1050 ml 700 ml 500 ml 350 ml Balance -100 ml -590 ml -240 ml -160 ml -110 ml Intake Oral 360 ml 360 ml 240 ml 240 ml IV Total 100 ml 100 ml 100 ml Output Urine Total 100 ml 500 ml 700 ml 300 ml 350 ml Stool Total 550 ml 200 ml Objective Remarks GENERAL: Alert, Oriented x 3, NAD. SKIN: Warm and dry. HEAD: Normocephalic. EYES: No scleral icterus. No injection or drainage. NECK: Supple, trachea midline. No JVD or lymphadenopathy. CARDIOVASCULAR: Regular rate and rhythm without murmurs, gallops, or rubs. RESPIRATORY: Breath sounds equal bilaterally. No accessory muscle use. GASTROINTESTINAL: Abdomen soft, non-tender, nondistended. Diverting colostomy bag noted. MUSCULOSKELETAL: No cyanosis, or edema. Left AKA. BACK: Nontender without obvious deformity. No CVA tenderness. Procedures left AKA VAC application Date of Insertion: Jan 13, 2017 A/P Assessment and Plan Mr. Sheehan is a 56 year old male with a history of T1 fracture with neurogenic bladder and bowel, PVD, chronic decubitus ulcer and lower ext BKA who presented to the ED on 01/12/2017 due to left leg wound. He recently was evaluated by multiple physicians including vascular surgery and he was offered IV abx, AKA as well as debridement for deep pelvic area osteomyelitis. Unfortunately, patient was extremely agitated, used foul language and left AMA to go to a wound care center outside [place]. During this present admission, patient was found to be hypotensive with prominent leukocytosis. He underwent L BKA revision /AKA and multiple sacral /ischial wounds debridement. - Left BKA stump infection/gangrene - Large Sacral decubiti ulcer. - Left pelvic area osteomyelitis. - UTI with MDRO Acinetobacter - s/p Left AKA and debridement of the decubiti. - Infected with MDRO acinetobacter - s/p Colostomy. - Per ID recommendations, continue Unasyn for 8 weeks (started on 01/14/2017). - Continue Baclofen. Increase Strong to home dose 10/325 Q6hrs PRN. - For nausea, we will add Zofran. - Adjustment disorder. mood improved. Started on Valium 10 mg po daily 01/18 - Microcytic anemia- iron studies suggestive of chronic disease. Low serum Iron. po Iron daily - Paraplegic with neurogenic bladder - Continue Blood catheter. DNR. Lovenox 30mg Q24hrs. Discussed with Dr. Love on 02/04/2017. Patient can be discharged to rehab or transferred to [facility]. Yazmin Shelton DO Feb 04, 2017 22:30
[2017-02-05] VITALS: BP 116/67; PULSE 86; RESP 18; TEMP 96.4; O2SAT 97
[2017-02-05] MEDS: HYDROmorphone HCL PF 1 MG/ML VIAL IV PUSH PRN ×6 (01:36→21:17)
[2017-02-05] MEDS: AMPICILLIN-SULBACTAM INJ 3 GM in SODIUM CHLORIDE 0.9% INJ 100 ML IV SCH ×4 (03:47→21:17)
[2017-02-05] MEDS: ACETAMINOPHEN/HYDROcodone 325 MG/10 MG TAB PO PRN ×4 (03:48→21:17)
[2017-02-05 04:00] VITALS: BP 121/76; PULSE 68; RESP 18; TEMP 97.5; O2SAT 99
[2017-02-05 08:00] VITALS: BP 133/77; PULSE 77; RESP 17; TEMP 98.2; O2SAT 98
[2017-02-05] MEDS: QUEtiapine FUMARATE 25 MG TAB PO SCH ×2 (08:49→12:57)
[2017-02-05] MEDS: SENNOSIDES 8.6 MG TAB PO SCH (08:49)
[2017-02-05] MEDS: POLYETHYLENE GLYCOL 17 GM PKG PO SCH (08:49)
[2017-02-05] MEDS: SODIUM CHLORIDE 0.9% FLUSH 10 ML FLUSH IV FLUSH SCH ×2 (08:49→21:17)
[2017-02-05] MEDS: BACLOFEN 10 MG TAB PO SCH ×3 (08:49→18:22)
[2017-02-05] MEDS: guaiFENesin E.R. 600 MG TAB PO SCH ×2 (08:49→20:37)
[2017-02-05] MEDS: POTASSIUM CHLORIDE 10 MEQ CONTROLLED RELEASE TAB PO SCH (08:49)
--- NOTE | 2017-02-05 11:49 | HHI.PR ---
Subjective Remarks In bed, appears sleepy at this time. Says no fever or chills. Says he has pain from his jaw to his groin. Wounds are healing. well. Stoma emptied, no stool pr gas in it. Objective Vitals Vital Signs Date Time Temp Pulse Resp B/P Pulse Ox O2 Delivery O2 Flow Rate FiO2 02/05/17 08:00 98.2 77 17 133/77 98 02/05/17 06:24 20 02/05/17 04:45 20 02/05/17 04:00 97.5 68 18 121/76 99 02/05/17 00:00 96.4 86 18 116/67 97 02/04/17 20:00 96.9 97 18 118/69 98 02/04/17 15:55 98.0 84 18 122/77 99 I/O 02/04/17 02/04/17 02/04/17 02/05/17 02/05/17 02/05/17 06:59 14:59 22:59 06:59 14:59 22:59 Intake Total 340 ml 240 ml 200 ml Output Total 500 ml 350 ml 600 ml Balance -160 ml -110 ml -400 ml Intake Oral 240 ml 240 ml IV Total 100 ml 200 ml Output Urine Total 300 ml 350 ml 600 ml Stool Total 200 ml Imaging Last Impressions Chest X-Ray 01/12/17 [id number] Signed Impressions: Service Date/Time: Tuesday, January 12, 2017 18:02 - CONCLUSION: Mild consolidation versus atelectasis at the left lung base. Marcell Loredo MD Objective Remarks GENERAL: no Distress. SKIN: Sacral ulcer , right lower leg wounds wrapped. Left AKA CARDIOVASCULAR: Regular rate and rhythm. RESPIRATORY: No accessory muscle use. Clear to auscultation. GASTROINTESTINAL: Abdomen soft, non-tender. MUSCULOSKELETAL: Extremities left AKA NEUROLOGICAL: Awake and alert. Paraplegic. PSYCHIATRIC: Appropriate mood and affect; insight and judgment normal. Procedures left AKA VAC application Date of Insertion: Jan 13, 2017 A/P Assessment and Plan Mr. Sheehan is a 56 year old male with a history of T1 fracture with neurogenic bladder and bowel, PVD, chronic decubitus ulcer and lower ext BKA who presented to the ED on 01/12/2017 due to left leg wound. He recently was evaluated by multiple physicians including vascular surgery and he was offered IV abx, AKA as well as debridement for deep pelvic area osteomyelitis. Unfortunately, patient was extremely agitated, used foul language and left AMA to go to a wound care center outside [place]. During this present admission, patient was found to be hypotensive with prominent leukocytosis. He underwent L BKA revision /AKA and multiple sacral /ischial wounds debridement. - Left BKA stump infection/gangrene - Large Sacral decubiti ulcer. - Left pelvic area osteomyelitis. - UTI with MDRO Acinetobacter - s/p Left AKA and debridement of the decubiti. - Infected with MDRO acinetobacter - s/p Colostomy. - Per ID recommendations, continue Unasyn for 8 weeks (started on 01/14/2017). - Continue Baclofen. Increase [place] to home dose 10/325 Q6hrs PRN. - For nausea, we will add Zofran. - Adjustment disorder. mood improved. Started on Valium 10 mg po daily 01/18 - Microcytic anemia- iron studies suggestive of chronic disease. Low serum Iron. po Iron daily - Paraplegic with neurogenic bladder - Continue Blood catheter. DNR. Lovenox 30mg Q24hrs. Per Dr. Love on 02/04/2017. Patient can be discharged to rehab or transferred to [facility]. Discussed with the patient, nurse Adina Cabral MD Feb 05, 2017 11:49
[2017-02-05 12:25] VITALS: BP 107/68; PULSE 86; RESP 17; TEMP 98.5; O2SAT 99
[2017-02-05] MEDS: ENOXAPARIN SODIUM 30 MG/0.3 ML SYRINGE SQ SCH (14:27)
[2017-02-05 16:00] VITALS: BP 111/75; PULSE 85; RESP 18; TEMP 98.4; O2SAT 99
[2017-02-05 20:00] VITALS: BP 102/59; PULSE 78; RESP 20; TEMP 97.7; O2SAT 99
[2017-02-06] VITALS: BP 103/66; PULSE 87; RESP 20; TEMP 98; O2SAT 99
[2017-02-06] MEDS: AMPICILLIN-SULBACTAM INJ 3 GM in SODIUM CHLORIDE 0.9% INJ 100 ML IV SCH ×4 (03:18→21:36)
[2017-02-06] MEDS: HYDROmorphone HCL PF 1 MG/ML VIAL IV PUSH PRN ×5 (03:19→21:35)
[2017-02-06] MEDS: ACETAMINOPHEN/HYDROcodone 325 MG/10 MG TAB PO PRN ×3 (03:20→15:19)
[2017-02-06 04:00] VITALS: BP 104/64; PULSE 94; RESP 20; TEMP 96.8; O2SAT 100
[2017-02-06 08:00] VITALS: BP 114/74; PULSE 85; RESP 20; TEMP 98.6; O2SAT 99
[2017-02-06] MEDS: BACLOFEN 10 MG TAB PO SCH ×3 (09:12→17:19)
[2017-02-06] MEDS: POTASSIUM CHLORIDE 10 MEQ CONTROLLED RELEASE TAB PO SCH (09:12)
[2017-02-06] MEDS: QUEtiapine FUMARATE 25 MG TAB PO SCH ×2 (09:12→11:43)
[2017-02-06] MEDS: guaiFENesin E.R. 600 MG TAB PO SCH ×2 (09:13→21:00)
[2017-02-06] MEDS: SODIUM CHLORIDE 0.9% FLUSH 10 ML FLUSH IV FLUSH SCH ×2 (09:13→21:36)
[2017-02-06] MEDS: SENNOSIDES 8.6 MG TAB PO SCH (09:13)
[2017-02-06] MEDS: POLYETHYLENE GLYCOL 17 GM PKG PO SCH (09:13)
[2017-02-06 11:54] VITALS: BP 87/49; PULSE 91; RESP 20; TEMP 97.1; O2SAT 97
--- NOTE | 2017-02-06 12:10 | HHI.PR ---
Subjective Remarks In bed, appears in nad. He says he has pain from his nose to his toes. No fever or chills. No n/v/d/c. Objective Vitals Vital Signs Date Time Temp Pulse Resp B/P Pulse Ox O2 Delivery O2 Flow Rate FiO2 02/06/17 11:54 97.1 91 20 87/49 97 02/06/17 10:12 17 02/06/17 08:00 98.6 85 20 114/74 99 Manual Cuff/Auscultation 02/06/17 07:59 18 02/06/17 04:00 96.8 94 20 104/64 100 02/06/17 00:00 98.0 87 20 103/66 99 02/05/17 20:00 97.7 78 20 102/59 99 02/05/17 16:00 98.4 85 18 111/75 99 02/05/17 12:25 98.5 86 17 107/68 99 I/O 02/05/17 02/05/17 02/05/17 02/06/17 02/06/17 02/06/17 07:00 15:00 23:00 07:00 15:00 23:00 Intake Total 200 ml 200 ml Output Total 600 ml 0 ml Balance -400 ml 0 ml 200 ml IV Total 200 ml 200 ml Output Urine Total 600 ml Stool Total 0 ml # Voids 2 2 Imaging Last Impressions Chest X-Ray 01/12/17 [id number] Signed Impressions: Service Date/Time: Thursday, January 12, 2017 18:02 - CONCLUSION: Mild consolidation versus atelectasis at the left lung base. Marcell Loredo MD Objective Remarks GENERAL: no Distress. SKIN: Sacral ulcer , right lower leg wounds wrapped. Left AKA CARDIOVASCULAR: Regular rate and rhythm. RESPIRATORY: No accessory muscle use. Clear to auscultation. GASTROINTESTINAL: Abdomen soft, non-tender. MUSCULOSKELETAL: Extremities left AKA NEUROLOGICAL: Awake and alert. Paraplegic. PSYCHIATRIC: Appropriate mood and affect; insight and judgment normal. Procedures left AKA VAC application Date of Insertion: Jan 13, 2017 A/P Assessment and Plan Mr. Sheehan is a 56 year old male with a history of T1 fracture with neurogenic bladder and bowel, PVD, chronic decubitus ulcer and lower ext BKA who presented to the ED on 01/12/2017 due to left leg wound. He recently was evaluated by multiple physicians including vascular surgery and he was offered IV abx, AKA as well as debridement for deep pelvic area osteomyelitis. Unfortunately, patient was extremely agitated, used foul language and left AMA to go to a wound care center outside [place]. During this present admission, patient was found to be hypotensive with prominent leukocytosis. He underwent L BKA revision /AKA and multiple sacral /ischial wounds debridement. - Left BKA stump infection/gangrene - Large Sacral decubiti ulcer. - Left pelvic area osteomyelitis. - UTI with MDRO Acinetobacter - s/p Left AKA and debridement of the decubiti. - Infected with MDRO acinetobacter - s/p Colostomy. - Per ID recommendations, continue Unasyn for 8 weeks (started on 01/14/2017). - Continue Baclofen. Increase [place] to home dose 10/325 Q6hrs PRN. - For nausea, we will add Zofran. - Adjustment disorder. mood improved. Started on Valium 10 mg po daily 01/18 - Microcytic anemia- iron studies suggestive of chronic disease. Low serum Iron. po Iron daily - Paraplegic with neurogenic bladder - Continue Blood catheter. DNR. Lovenox 30mg Q24hrs. Per Dr. Love on 02/04/2017. Patient can be discharged to rehab or transferred to [facility]. Discussed with the patient, nurse Adina Cabral MD Feb 06, 2017 12:10
[2017-02-06] MEDS: ENOXAPARIN SODIUM 30 MG/0.3 ML SYRINGE SQ SCH (13:07)
[2017-02-06 16:00] VITALS: BP 117/73; PULSE 82; RESP 20; TEMP 96.6; O2SAT 100
[2017-02-06 21:27] VITALS: BP 98/61; PULSE 88; RESP 20; TEMP 98.1; O2SAT 100
[2017-02-07 01:13] VITALS: BP 111/69; PULSE 84; RESP 20; TEMP 96.6; O2SAT 99
[2017-02-07] MEDS: HYDROmorphone HCL PF 1 MG/ML VIAL IV PUSH PRN ×3 (02:07→11:15)
[2017-02-07] MEDS: AMPICILLIN-SULBACTAM INJ 3 GM in SODIUM CHLORIDE 0.9% INJ 100 ML IV SCH ×4 (03:20→20:15)
[2017-02-07] MEDS: ACETAMINOPHEN/HYDROcodone 325 MG/10 MG TAB PO PRN ×3 (03:20→18:06)
[2017-02-07 05:22] VITALS: BP 119/69; PULSE 85; RESP 20; TEMP 98.8; O2SAT 99
[2017-02-07 08:00] VITALS: BP 127/82; PULSE 77; RESP 20; TEMP 98.4; O2SAT 99
[2017-02-07] MEDS: SODIUM CHLORIDE 0.9% FLUSH 10 ML FLUSH IV FLUSH SCH ×2 (09:00→20:15)
[2017-02-07] MEDS: POTASSIUM CHLORIDE 10 MEQ CONTROLLED RELEASE TAB PO SCH (09:56)
[2017-02-07] MEDS: QUEtiapine FUMARATE 25 MG TAB PO SCH ×2 (09:56→12:00)
[2017-02-07] MEDS: guaiFENesin E.R. 600 MG TAB PO SCH ×2 (09:56→20:17)
[2017-02-07] MEDS: SENNOSIDES 8.6 MG TAB PO SCH (09:56)
[2017-02-07] MEDS: POLYETHYLENE GLYCOL 17 GM PKG PO SCH (09:56)
[2017-02-07] MEDS: BACLOFEN 10 MG TAB PO SCH (09:56)
[2017-02-07 12:00] VITALS: BP 90/56; PULSE 93; RESP 20; TEMP 99.8; O2SAT 99
[2017-02-07] MEDS: ENOXAPARIN SODIUM 30 MG/0.3 ML SYRINGE SQ SCH (12:23)
[2017-02-07] MEDS: BACLOFEN 20 MG TAB PO SCH ×2 (13:00→17:42)
[2017-02-07 16:00] VITALS: BP 116/73; PULSE 70; RESP 20; TEMP 97.6; O2SAT 99
[2017-02-07] MEDS: COLLAGENASE OINT 30 GM TUBE TOPICAL SCH (18:00)
--- NOTE | 2017-02-07 18:54 | HHI.PR ---
Subjective Remarks Follow up for decubitus ulcer, left AKA, stump infection in patient with a history of paraplegia. Patient complains of suboptimal pain control and says his pain "takes my breath away' and "(pain) makes it hard to breath." Pain was rated as 10/10. He denied fever, cough, shortness of breath, NVD, bloody urine or stool. Per RN (Art) pt has some insight issues as he has a decubitus ulcer and "wants to sit in a wheel chair" which would impede healing. Per RN, no acute issues reported from overnight or since start of shift. Objective Vitals Vital Signs Date Time Temp Pulse Resp B/P Pulse Ox O2 Delivery O2 Flow Rate FiO2 02/07/17 16:00 97.6 70 20 116/73 99 02/07/17 12:00 99.8 93 20 90/56 99 02/07/17 08:00 98.4 77 20 127/82 99 02/07/17 06:59 19 02/07/17 05:22 98.8 85 20 119/69 99 02/07/17 04:23 15 02/07/17 01:13 96.6 84 20 111/69 99 02/06/17 21:27 98.1 88 20 98/61 100 I/O 02/06/17 02/06/17 02/06/17 02/07/17 02/07/17 02/07/17 07:00 15:00 23:00 07:00 15:00 23:00 Intake Total 200 ml 100 ml 440 ml 480 ml Output Total 650 ml 800 ml 1650 ml Balance 200 ml -550 ml -360 ml -1170 ml Intake Oral 240 ml 480 ml IV Total 200 ml 100 ml 200 ml Output Urine Total 650 ml 800 ml 1650 ml # Voids 2 1 # Bowel Movements 1 Imaging Last Impressions Chest X-Ray 01/12/17 [id number] Signed Impressions: Service Date/Time: Thursday, January 12, 2017 18:02 - CONCLUSION: Mild consolidation versus atelectasis at the left lung base. Marcell Loredo MD Objective Remarks GENERAL: Pt encountered sitting up in bed, NAD SKIN: Warm and dry. Right foot dark. Left AKA noted. HEAD: Normocephalic. EYES: No scleral icterus. No injection or drainage. NECK: Supple, trachea midline. No JVD or lymphadenopathy. CARDIOVASCULAR: Regular rate and rhythm without murmurs, gallops, or rubs. RESPIRATORY: Breath sounds equal bilaterally. No accessory muscle use. GASTROINTESTINAL: Abdomen soft, non-tender, nondistended. Abdominal sounds decreased all quadrants. MUSCULOSKELETAL: No cyanosis, or edema. PSYCHIATRIC: A&OX3, pleasant and cooperative. No overt signs of anxiety or depression. Speech was clear and fluent. Procedures left AKA VAC application Date of Insertion: Jan 13, 2017 A/P Assessment and Plan Mr. Sheehan is a 56 year old male with a history of T1 fracture with neurogenic bladder and bowel, PVD, chronic decubitus ulcer and lower ext BKA who presented to the ED on 01/12/2017 due to left leg wound. He recently was evaluated by multiple physicians including vascular surgery and he was offered IV abx, AKA as well as debridement for deep pelvic area osteomyelitis. Unfortunately, patient was extremely agitated, used foul language and left AMA to go to a wound care center outside [place]. During this present admission, patient was found to be hypotensive with prominent leukocytosis. He underwent L BKA revision /AKA and multiple sacral /ischial wounds debridement. - Left BKA stump infection/gangrene - Large Sacral decubitus ulcer. - Left pelvic area osteomyelitis. - UTI with MDRO Acinetobacter - s/p Left AKA and debridement of the decubiti. - Infected with MDRO acinetobacter - s/p Colostomy. - Per ID recommendations, continue Unasyn for 8 weeks (started on 01/14/2017). - Continue Baclofen. Increase [place] to home dose 10/325 Q6hrs PRN. - For nausea, we will add Zofran. -Baclofen increased: 20 mg three times daily; pt's home regimen os 20 mg four times daily. - Adjustment disorder. mood improved. Started on Valium 10 mg po daily 01/18 - Microcytic anemia- iron studies suggestive of chronic disease. Low serum Iron. po Iron daily - Paraplegic with neurogenic bladder - Continue Blood catheter. DNR. Lovenox 30mg Q24hrs. Per Dr. Love on 02/04/2017. Patient can be discharged to rehab or transferred to [facility]. Discussed with the patient, nurse (art0 and Dr. Diop. Discharge Planning Per Cm Note of 02/03/17 02/03/17 CM MET WITH THIS PT TO FOLLOW UP ON D/C PLANS. THE PT REPORTS THAT HE RESIDES IN HIS OWN HOME AND HAS A ROOM-MATE AND HIS MOTHER RESIDES IN HIS HOME. THE PT REPORTS THAT HE HAS A POWER WHEEL CHAIR AND STATED THAT HE WAS INDEPENDENT PRIOR TO THIS HOSPITALIZATION. THE PT REPORTS THAT HE HAS PLANS TO RETURN TO HIS OWN HOME WITH HOME HEALTH CARE SERVICES. PER THE PT HE HAS RECIEVED HOME HEALTH CARE SERVICES FROM [facility] IN PAST. THE PT STATED THAT HE CURRENTLY RECEIVE CONDOM CATH SURPPLIES, GUAZE, TAPE AND GLOVES FROM [facility]. CM PLACED A CALL TO [facility] WITH [facility] AND PROVIDED REFERRAL FOR IV ANTIBIOTICS FOR D/C TO HOME. CM OPENED PORTAL FOR REVIEW AND PER LYLY SHE WILL REVIEW AND FOLLOW UP WITH CM. CM PLACED A CALL TO [facility] AND OBTAINED IN NETWORK PROVIDERS FOR HOME HEALTH CARE SERVICES. CM PLACED A CALL TO [facility] AND SPOKE WITH DEIRDRE HUNTRE. PER DEIRDRE HE STATED THAT HE DOES ACCEPT PT'S INSURANCE BUT DOES NOT SERVICE THE [facility]. CM PLACED A CALL TO [facility] AND NO WAS A NON WORKING NUMBER. CM PLACED AC ALL TO [facility] AND LEFT A MESSAGE FOR A RETURN CALL TO INQUIRE IF THEY ARE ABLE ACCEPT THIS PT FOR HOME HEALTH CARE SERVICES AT TIME OF HOSPITAL DISCHARGE. CM PLACED A CALL TO [facility] AND PER THE REP THEY WILL BE ABLE TO STAFF THIS CASE BUT CM WILL NEED TO SUBMIT REQUEST TO THE PT'S INSURANCE FOR AN SINGLE CASE AGREEMENT TO BE STARTED THEY CARE NOT IN NETWORK WITH THIS PT'S INSURANCE. CM WILL CONTINUE TO LOCATE HOME HEALTH CARE AGENCY FOR IV ANTIBIOTIC INFUSIONS AT HOME WOUND CARE AND OSTOMY CARE. THE PT WILL NEED TO HAVE SAMPLE OSTOMY KIT ORDERED FOR HOME PRIOR TO DISCHARGE. CM WILL CONTINUE TO FOLLOW AND ASSESS FOR NEEDS AND MD ORDERS PRIOR TO HOSPITAL DISCHARGE. Agustin Powell Jr. JESSI Feb 07, 2017 18:54
[2017-02-07 20:55] VITALS: BP 107/67; PULSE 90; RESP 20; TEMP 97.6; O2SAT 99
[2017-02-08] MEDS: ACETAMINOPHEN/HYDROcodone 325 MG/10 MG TAB PO PRN ×3 (00:04→18:08)
[2017-02-08 01:27] VITALS: BP 98/64; PULSE 92; RESP 20; TEMP 96.1; O2SAT 98
[2017-02-08] MEDS: HYDROmorphone HCL PF 1 MG/ML VIAL IV PUSH PRN ×3 (03:13→21:12)
[2017-02-08] MEDS: AMPICILLIN-SULBACTAM INJ 3 GM in SODIUM CHLORIDE 0.9% INJ 100 ML IV SCH ×4 (03:13→21:10)
[2017-02-08 05:31] VITALS: BP 99/59; PULSE 84; RESP 20; TEMP 98.3; O2SAT 99
[2017-02-08 08:00] VITALS: BP 109/67; PULSE 76; RESP 18; TEMP 97.6; O2SAT 100
[2017-02-08] MEDS: SODIUM CHLORIDE 0.9% FLUSH 10 ML FLUSH IV FLUSH SCH ×2 (08:54→21:12)
[2017-02-08] MEDS: BACLOFEN 20 MG TAB PO SCH ×3 (08:54→18:08)
[2017-02-08] MEDS: guaiFENesin E.R. 600 MG TAB PO SCH ×3 (08:54→21:10)
[2017-02-08] MEDS: POTASSIUM CHLORIDE 10 MEQ CONTROLLED RELEASE TAB PO SCH (08:55)
[2017-02-08] MEDS: SENNOSIDES 8.6 MG TAB PO SCH (08:55)
[2017-02-08] MEDS: QUEtiapine FUMARATE 25 MG TAB PO SCH ×2 (08:56→12:40)
[2017-02-08] MEDS: POLYETHYLENE GLYCOL 17 GM PKG PO SCH (09:00)
[2017-02-08 11:59] VITALS: BP 98/64; PULSE 82; RESP 18; TEMP 97.9; O2SAT 99
--- NOTE | 2017-02-08 14:18 | HHI.PR ---
Subjective Remarks Follow up for decubitus ulcer, left AKA, stump infection in patient with a history of paraplegia. Patient complains of suboptimal pain control; informed of increased Baclofen dosage and pt voiced hope it works." He denied fever, cough, shortness of breath, NVD, bloody urine or stool. Pt reported his colostomy is working. Pt noted right ankle wound has leakage. Per RN (Art) no new issues noted or reported from last evening or since start of current shift. Objective Vitals Vital Signs Date Time Temp Pulse Resp B/P Pulse Ox O2 Delivery O2 Flow Rate FiO2 02/08/17 11:59 97.9 82 18 98/64 99 02/08/17 08:00 97.6 76 18 109/67 100 02/08/17 05:31 98.3 84 20 99/59 99 02/08/17 01:27 96.1 92 20 98/64 98 02/07/17 20:55 97.6 90 20 107/67 99 02/07/17 16:00 97.6 70 20 116/73 99 I/O 02/07/17 02/07/17 02/07/17 02/08/17 02/08/17 02/08/17 07:00 15:00 23:00 07:00 15:00 23:00 Intake Total 440 ml 480 ml Output Total 800 ml 1650 ml 800 ml Balance -360 ml -1170 ml -800 ml Intake Oral 240 ml 480 ml IV Total 200 ml Output Urine Total 800 ml 1650 ml 800 ml # Voids 1 Objective Remarks GENERAL: Pt encountered sitting up in bed, NAD SKIN: Warm and dry. Right foot dark yet warm to touch. Gauze wrapped around ankle with signs of wound leakage noted on gauze. Left AKA noted. HEAD: Normocephalic. EYES: No scleral icterus. No injection or drainage. NECK: Supple, trachea midline. No JVD or lymphadenopathy. CARDIOVASCULAR: Regular rate and rhythm without murmurs, gallops, or rubs. RESPIRATORY: Breath sounds equal bilaterally. No accessory muscle use. GASTROINTESTINAL: Abdomen soft, non-tender, nondistended. Abdominal sounds decreased all quadrants. Colostomy noted left lower quadrant. MUSCULOSKELETAL: No cyanosis, or edema. PSYCHIATRIC: A&OX3, pleasant and cooperative. No overt signs of anxiety or depression. Speech was clear and fluent. Procedures left AKA VAC application Colostomy (01/26/17). Right hip decubuti debridement (01/26/17) Medications and IVs Current Medications Medications (Trade) Dose Ordered Sig/Vivien Route Start Time Stop Time Status Last Admin (NS Flush) 2 ml UNSCH PRN IV FLUSH 01/12/17 21:45 (NS Flush) 2 ml BID IV FLUSH 01/13/17 09:00 02/08/17 08:54 Naloxone HCl 0.4 mg 0.4 mg UNSCH PRN IV 01/12/17 21:45 (Unasyn Inj/NS Inj) 100 ml @ 200 mls/hr Q6H IV 01/14/17 16:00 02/08/17 09:02 (Santyl Oint) 1 applic MoTh TOPICAL 01/14/17 15:00 02/07/17 18:00 (KCl) 30 meq DAILY PO 01/15/17 13:45 02/08/17 08:55 (Lovenox Inj) 30 mg Q24H SQ 01/15/17 14:00 02/07/17 12:23 (Dilaudid Pf Inj) 0.5 mg Q4H PRN IV PUSH 01/15/17 13:45 02/08/17 10:13 (Miralax) 17 gm DAILY PO 01/15/17 14:00 02/07/17 09:56 (Dulcolax Supp) 10 mg DAILY PRN RECTAL 01/17/17 00:30 01/17/17 00:48 (Senokot) 8.6 mg DAILY PO 01/17/17 00:30 02/08/17 08:55 (SEROquel) 12.5 mg BID@09,12 PO 01/17/17 14:00 02/08/17 12:40 (Pill Splitter) 1 ea UNSCH PRN OTHER 01/17/17 14:00 01/23/17 09:39 (Valium) 10 mg DAILY PRN PO 01/18/17 12:00 02/04/17 21:04 (Phazyme Chew) 125 mg DAILY PRN PO 01/29/17 11:30 (Mucinex Er) 600 mg BID PO 02/01/17 21:00 02/08/17 08:54 (Zofran Inj) 4 mg Q6HR PRN IV PUSH 02/02/17 14:30 02/03/17 09:59 ([place] 10-325 Mg) 1 tab Q6H PRN PO 02/04/17 14:00 02/08/17 08:55 (Lioresal) 20 mg TID PO 02/07/17 13:00 02/08/17 12:39 Urinary Catheter: Yes Assessment to: Continue Blood insert reason: Prolonged Immobilization Date of Insertion: Jan 13, 2017 A/P Assessment and Plan Mr. Sheehan is a 56 year old male with a history of T1 fracture with neurogenic bladder and bowel, PVD, chronic decubitus ulcer and lower ext BKA who presented to the ED on 01/12/2017 due to left leg wound. He recently was evaluated by multiple physicians including vascular surgery and he was offered IV abx, AKA as well as debridement for deep pelvic area osteomyelitis. Unfortunately, patient was extremely agitated, used foul language and left AMA to go to a wound care center outside [place]. During this present admission, patient was found to be hypotensive with prominent leukocytosis. He underwent L BKA revision /AKA and multiple sacral /ischial wounds debridement. - Left BKA stump infection/gangrene - Large Sacral decubitus ulcer. - Left pelvic area osteomyelitis. - UTI with MDRO Acinetobacter - s/p Left AKA and debridement of the decubiti. - Infected with MDRO acinetobacter - s/p Colostomy. - Per ID recommendations, continue Unasyn for 8 weeks (started on 01/14/2017). - Continue Baclofen. Increase [place] to home dose 10/325 Q6hrs PRN. - For nausea, we will add Zofran. -Baclofen increased: 20 mg three times daily; pt's home regimen os 20 mg four times daily. - Adjustment disorder. mood improved. Started on Valium 10 mg po daily 01/18 - Microcytic anemia- iron studies suggestive of chronic disease. Low serum Iron. po Iron daily - Paraplegic with neurogenic bladder - Continue Blood catheter. DNR. DVT Prophylaxis: Lovenox 30mg Q24hrs. GI prophylaxis: Pepcid [address] Love on 02/04/2017. Patient can be discharged to rehab or transferred to [facility]. Discussed with the patient, nurse (Art) and Dr. Abando. Discharge Planning Reviewed most recent CM note (02/03/17). CM following and assessing needs for discharge to either SNF or home. Agustin Powell Jr. JESSI Feb 08, 2017 14:18
[2017-02-08] MEDS: ENOXAPARIN SODIUM 30 MG/0.3 ML SYRINGE SQ SCH (14:22)
[2017-02-08 16:00] VITALS: BP 95/58; PULSE 102; RESP 18; TEMP 97.9; O2SAT 100
[2017-02-08 19:30] VITALS: BP 92/56; PULSE 88; RESP 18; TEMP 97.6; O2SAT 99
[2017-02-08] MEDS: FAMOTIDINE 20 MG TAB PO SCH (21:10)
[2017-02-09] VITALS (7 sets, daily range): BP systolic 97–121; BP diastolic 56–74; PULSE 70–90; RESP 18–19; TEMP 96.6–98.5; O2SAT 97–100
[2017-02-09] MEDS: ACETAMINOPHEN/HYDROcodone 325 MG/10 MG TAB PO PRN ×4 (01:15→23:43)
[2017-02-09] MEDS: SODIUM CHLORIDE 0.9% FLUSH 10 ML FLUSH IV FLUSH PRN ×3 (02:25→10:08)
[2017-02-09] MEDS: HYDROmorphone HCL PF 1 MG/ML VIAL IV PUSH PRN ×2 (02:25→10:08)
[2017-02-09] MEDS: AMPICILLIN-SULBACTAM INJ 3 GM in SODIUM CHLORIDE 0.9% INJ 100 ML IV SCH ×5 (03:37→22:36)
[2017-02-09] MEDS: guaiFENesin E.R. 600 MG TAB PO SCH ×2 (09:00→21:00)
[2017-02-09] MEDS: POLYETHYLENE GLYCOL 17 GM PKG PO SCH (09:00)
[2017-02-09] MEDS: SODIUM CHLORIDE 0.9% FLUSH 10 ML FLUSH IV FLUSH SCH ×2 (09:00→22:36)
[2017-02-09] MEDS: POTASSIUM CHLORIDE 10 MEQ CONTROLLED RELEASE TAB PO SCH (09:22)
[2017-02-09] MEDS: FAMOTIDINE 20 MG TAB PO SCH ×3 (09:23→22:58)
[2017-02-09] MEDS: QUEtiapine FUMARATE 25 MG TAB PO SCH ×2 (09:23→13:54)
[2017-02-09] MEDS: SENNOSIDES 8.6 MG TAB PO SCH (09:23)
[2017-02-09] MEDS: BACLOFEN 20 MG TAB PO SCH ×3 (09:23→17:59)
[2017-02-09] MEDS: ENOXAPARIN SODIUM 30 MG/0.3 ML SYRINGE SQ SCH (13:55)
--- NOTE | 2017-02-09 14:39 | HHI.PR ---
Subjective Remarks Follow up for decubitus ulcer, left AKA, stump infection in patient with a history of paraplegia. Patient complains of suboptimal pain control. Pt reported poor sleep last evening and feeling "tired today". He stated he was "trying to take a nap when you came in." He denied fever, cough, shortness of breath, NVD, bloody urine or stool. Pt reported his colostomy is working. Pt noted right ankle wound and said leakage may be "the Betadine they are covering it with." Per RN (Nadia) no new issues noted or reported from last evening or since start of current shift. Objective Vitals Vital Signs Date Time Temp Pulse Resp B/P Pulse Ox O2 Delivery O2 Flow Rate FiO2 02/09/17 12:00 97.9 76 18 121/71 99 02/09/17 10:45 15 02/09/17 08:45 14 02/09/17 08:00 97.5 71 18 116/74 100 02/09/17 04:00 98.0 70 18 120/69 98 02/09/17 02:00 98.5 71 19 100/60 99 02/09/17 01:00 98.0 78 18 101/67 97 02/08/17 19:30 97.6 88 18 92/56 99 02/08/17 16:00 97.9 102 18 95/58 100 I/O 02/08/17 02/08/17 02/08/17 02/09/17 02/09/17 02/09/17 07:00 15:00 23:00 07:00 15:00 23:00 Intake Total 480 ml Output Total 800 ml 850 ml 1000 ml Balance -800 ml 480 ml -850 ml -1000 ml Intake Oral 480 ml Output Urine Total 800 ml 850 ml 1000 ml Imaging No new images ordered, pending, or resulted within the past 24 hours. Objective Remarks GENERAL: Pt encountered sitting up in bed, NAD. SKIN: Warm and dry. Right foot dark yet warm to touch. Gauze wrapped around ankle with Betadine present on the gauze. Left AKA noted. HEAD: Normocephalic. EYES: No scleral icterus. No injection or drainage. NECK: Supple, trachea midline. No lymphadenopathy. CARDIOVASCULAR: Regular rate and rhythm without murmurs, gallops, or rubs. RESPIRATORY: Breath sounds equal bilaterally. No accessory muscle use. GASTROINTESTINAL: Abdomen soft, non-tender, nondistended. Abdominal sounds decreased all quadrants. Colostomy noted left lower quadrant. MUSCULOSKELETAL: No cyanosis, or edema. PSYCHIATRIC: A&OX3, pleasant and cooperative. No overt signs of anxiety or depression. Speech was clear and fluent. Procedures left AKA VAC application Colostomy (01/26/17). Right hip decubuti debridement (01/26/17) Medications and IVs Current Medications Medications (Trade) Dose Ordered Sig/Vivien Route Start Time Stop Time Status Last Admin (NS Flush) 2 ml UNSCH PRN IV FLUSH 01/12/17 21:45 02/09/17 10:08 (NS Flush) 2 ml BID IV FLUSH 01/13/17 09:00 02/09/17 09:00 Naloxone HCl 0.4 mg 0.4 mg UNSCH PRN IV 01/12/17 21:45 (Unasyn Inj/NS Inj) 100 ml @ 200 mls/hr Q6H IV 01/14/17 16:00 02/09/17 09:18 (Santyl Oint) 1 applic MoTh TOPICAL 01/14/17 15:00 02/07/17 18:00 (KCl) 30 meq DAILY PO 01/15/17 13:45 02/09/17 09:22 (Lovenox Inj) 30 mg Q24H SQ 01/15/17 14:00 02/09/17 13:55 (Dilaudid Pf Inj) 0.5 mg Q4H PRN IV PUSH 01/15/17 13:45 02/09/17 10:08 (Miralax) 17 gm DAILY PO 01/15/17 14:00 02/07/17 09:56 (Dulcolax Supp) 10 mg DAILY PRN RECTAL 01/17/17 00:30 01/17/17 00:48 (Senokot) 8.6 mg DAILY PO 01/17/17 00:30 02/09/17 09:23 (SEROquel) 12.5 mg BID@09,12 PO 01/17/17 14:00 02/09/17 13:54 (Pill Splitter) 1 ea UNSCH PRN OTHER 01/17/17 14:00 01/23/17 09:39 (Valium) 10 mg DAILY PRN PO 01/18/17 12:00 02/04/17 21:04 (Phazyme Chew) 125 mg DAILY PRN PO 01/29/17 11:30 (Mucinex Er) 600 mg BID PO 02/01/17 21:00 02/08/17 08:54 (Zofran Inj) 4 mg Q6HR PRN IV PUSH 02/02/17 14:30 02/03/17 09:59 ([place] 10-325 Mg) 1 tab Q6H PRN PO 02/04/17 14:00 02/09/17 07:45 (Lioresal) 20 mg TID PO 02/07/17 13:00 02/09/17 13:54 (Pepcid) 20 mg BID PO 02/08/17 21:00 02/09/17 09:23 Urinary Catheter: Yes Assessment to: Continue Blood insert reason: Prolonged Immobilization Date of Insertion: Jan 13, 2017 A/P Assessment and Plan Mr. Sheehan is a 56 year old male with a history of T1 fracture with neurogenic bladder and bowel, PVD, chronic decubitus ulcer and lower ext BKA who presented to the ED on 01/12/2017 due to left leg wound. He recently was evaluated by multiple physicians including vascular surgery and he was offered IV abx, AKA as well as debridement for deep pelvic area osteomyelitis. Unfortunately, patient was extremely agitated, used foul language and left AMA to go to a wound care center outside [place]. During this present admission, patient was found to be hypotensive with prominent leukocytosis. He underwent L BKA revision /AKA and multiple sacral /ischial wounds debridement. - Left BKA stump infection/gangrene - Large Sacral decubitus ulcer. - Left pelvic area osteomyelitis. - UTI with MDRO Acinetobacter - s/p Left AKA and debridement of the decubiti. - Infected with MDRO acinetobacter - s/p Colostomy. - Per ID recommendations, continue Unasyn for 8 weeks (started on 01/14/2017). - Continue Baclofen. Increase [place] to home dose 10/325 Q6hrs PRN. - For nausea, we will add Zofran. -Baclofen increased: 20 mg three times daily; pt's home regimen os 20 mg four times daily. - Adjustment disorder. mood improved. Started on Valium 10 mg po daily 6/6 - Microcytic anemia- iron studies suggestive of chronic disease. Low serum Iron. po Iron daily - Paraplegic with neurogenic bladder - Continue Blood catheter. -Insomnia -Initiate Trazodone 50 mg q hs DNR. DVT Prophylaxis: Lovenox 30mg Q24hrs. GI prophylaxis: Pepcid 20 mg BID Discussed with the patient, nurse (Nadia) and Dr. Diop. Discharge Planning Reviewed most recent CM note (02/03/17). CM following and assessing needs for discharge to either SNF or home. Agustin Powell Jr. JESSI Feb 09, 2017 14:39
--- NOTE | 2017-02-09 15:24 | HHI.IDPN ---
Subjective Subjective Remarks doing OK afebrile Antibiotics ampicillin/S Allergies: Coded Allergies: Levaquin (Verified Allergy, Severe, 12/25/16) *MDRO Multi-Drug Resistant Organism (Verified Allergy, Unknown, 01/17/17) MDR-Acinetobacter baumannii (Urine) - 04/20/16, 12/25/16, 01/12/17 MDR-Acinetobacter baumannii (wounds)-12/25/16, 01/12/17 Septra (Verified Allergy, Unknown, 12/25/16) Objective . Vital Signs Date Time Temp Pulse Resp B/P Pulse Ox O2 Delivery O2 Flow Rate FiO2 02/09/17 12:00 97.9 76 18 121/71 99 02/09/17 10:45 15 02/09/17 08:45 14 02/09/17 08:00 97.5 71 18 116/74 100 02/09/17 04:00 98.0 70 18 120/69 98 02/09/17 02:00 98.5 71 19 100/60 99 02/09/17 01:00 98.0 78 18 101/67 97 02/08/17 19:30 97.6 88 18 92/56 99 02/08/17 16:00 97.9 102 18 95/58 100 02/08/17 02/08/17 02/09/17 15:00 23:00 07:00 Intake Total 480 ml Output Total 850 ml 1000 ml Balance 480 ml -850 ml -1000 ml Intake Oral 480 ml Output Urine Total 850 ml 1000 ml Imaging Last Impressions Chest X-Ray 01/12/17 [id number] Signed Impressions: Service Date/Time: Thursday, January 12, 2017 18:02 - CONCLUSION: Mild consolidation versus atelectasis at the left lung base. Marcell Loredo MD Physical Exam CONSTITUTIONAL/GENERAL: This is an adequately nourished patient, in no apparent distress. TUBES/LINES/DRAINS: SKIN: No jaundice, rashes, RESPIRATORY/CHEST: Symmetric, unlabored respirations. GASTROINTESTINAL: Abdomen soft, non-tender, stoma in place GENITOURINARY: Without palpable bladder distension. Blood catheter in place with failry clear pale yellow urine MUSCULOSKELETAL: Extremities without clubbing, cyanosis, or edema. well healed L BKA PELVIS: sacral wounds with no necrotic tissues, look good NEUROLOGICAL: awkae, alert . 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
--- NOTE | 2017-02-09 15:25 | HHI.FF ---
Infusion Therapy Location of Infusion Therapy: Home [facility] IV Infusion Order Patient Information Patient Weight 71.3 kg Diagnosis: Diagnosis pelvic osteo, Acinetobater Coded Allergies: Levaquin (Verified Allergy, Severe, 12/25/16) *MDRO Multi-Drug Resistant Organism (Verified Allergy, Unknown, 01/17/17) MDR-Acinetobacter baumannii (Urine) - 04/20/16, 12/25/16, 01/12/17 MDR-Acinetobacter baumannii (wounds)-12/25/16, 01/12/17 Septra (Verified Allergy, Unknown, 12/25/16) Administer Medication Unasyn 3 gm q 6 hrs Start Treatment: Feb 10, 2017 Stop Treatment: Mar 08, 2017 Additional Information Venous access: PICC Line Additional Instructions [x] Peripheral flush and dressing changes per protocol [x] Implanted port and central power line lineman: * Implanted port: 10 ml Normal Saline followed by 5 ml Heparin 100 units/ml Heparin flush after each use and monthly to maintain. [] May leave port accessed during therapy. [] May leave peripheral site accessed for duration of therapy. [x] If patient has SOB or respiratory distress, check oxygen saturation. If less than 90% or clinical signs of respiratory distress, administer oxygen at 2 L/min. via nasal cannula and notify physician. [x] Anaphylaxis/Reaction orders: * Stop infusion. * Keep IV line open with saline flush. * Notify physician. * Monitor vital signs every 15 minutes until symptoms resolve. * Check Oxygen saturation; Oxygen at 2 L/min. via nasal cannula if less than 90% or clinical signs of respiratory distress. * Administer diphenhydramine (Benadryl) 25 mg IV STAT, (unless patient has received as pre-med). May repeat once, if necessary. * Solu-Cortef 250 mg IVP over 30-60 seconds, use 100 mg vials for each dissolution. * Epinephrine (1mg/1 ml) 0.3 mg subcutaneously or IVP now with any signs of respiratory distress. * Check with physician for new additional pre-med orders if patient is re- challenged or re-treated. [x] May remove PICC line when treatment complete, after confirming with Physician. [x] If the patient is admitted to the hospital, the ED, or transferred via [facility] , complete transfer form including medication reconciliation order sheet. Laboratory Tests Weekly Labs: CBC w/diff, Creatinine, LFT's (Hepatic function test) Tahmina López MD Feb 09, 2017 15:25
[2017-02-09] MEDS: traZODone HCL 50 MG TAB PO SCH ×2 (22:36→22:58)
[2017-02-10] VITALS (7 sets, daily range): BP systolic 89–116; BP diastolic 55–86; PULSE 54–90; RESP 16–20; TEMP 95.7–98.5; O2SAT 22–100
[2017-02-10] MEDS: AMPICILLIN-SULBACTAM INJ 3 GM in SODIUM CHLORIDE 0.9% INJ 100 ML IV SCH ×4 (04:00→20:34)
[2017-02-10] MEDS: ACETAMINOPHEN/HYDROcodone 325 MG/10 MG TAB PO PRN ×4 (05:48→22:10)
[2017-02-10] MEDS: HYDROmorphone HCL PF 1 MG/ML VIAL IV PUSH PRN ×3 (08:41→20:33)
[2017-02-10] MEDS: SODIUM CHLORIDE 0.9% FLUSH 10 ML FLUSH IV FLUSH SCH ×2 (08:41→20:33)
[2017-02-10] MEDS: SENNOSIDES 8.6 MG TAB PO SCH (08:42)
[2017-02-10] MEDS: POLYETHYLENE GLYCOL 17 GM PKG PO SCH (08:42)
[2017-02-10] MEDS: POTASSIUM CHLORIDE 10 MEQ CONTROLLED RELEASE TAB PO SCH (08:43)
[2017-02-10] MEDS: guaiFENesin E.R. 600 MG TAB PO SCH ×2 (08:43→20:32)
[2017-02-10] MEDS: BACLOFEN 20 MG TAB PO SCH ×3 (08:43→16:21)
[2017-02-10] MEDS: QUEtiapine FUMARATE 25 MG TAB PO SCH ×2 (08:46→11:33)
[2017-02-10] MEDS: FAMOTIDINE 20 MG TAB PO SCH ×2 (08:46→20:32)
[2017-02-10] MEDS: ENOXAPARIN SODIUM 30 MG/0.3 ML SYRINGE SQ SCH (11:33)
[2017-02-10] MEDS: COLLAGENASE OINT 30 GM TUBE TOPICAL SCH (11:35)
--- NOTE | 2017-02-10 18:46 | HHI.PR ---
Subjective Remarks Follow up for decubitus ulcer, left AKA, stump infection in patient with a history of paraplegia. Patient complains of improved pain control. Pt reported poor sleep last evening and was didn;t know "if I even got the Trazodone last night." He denied fever, cough, shortness of breath, NVD, bloody urine or stool. Pt reported his colostomy is working. Per RN () no new issues noted or reported from last evening or since start of current shift. Objective Vitals Vital Signs Date Time Temp Pulse Resp B/P Pulse Ox O2 Delivery O2 Flow Rate FiO2 02/10/17 15:39 97.3 76 20 93/55 99 02/10/17 12:38 114/71 02/10/17 12:18 97.5 90 20 89/58 100 02/10/17 09:30 18 02/10/17 08:40 18 02/10/17 08:30 98.5 83 20 109/67 100 02/10/17 04:00 96.4 65 16 116/60 100 02/10/17 00:00 95.7 54 16 102/86 22 02/09/17 20:00 97.7 90 18 97/56 99 I/O 02/09/17 02/09/17 02/09/17 02/10/17 02/10/17 02/10/17 07:00 15:00 23:00 07:00 15:00 23:00 Intake Total 360 ml 960 ml Output Total 1000 ml 825 ml 1800 ml Balance -1000 ml -465 ml -1800 ml 960 ml Intake Oral 360 ml 960 ml Output Urine Total 1000 ml 825 ml 1800 ml Imaging Objective Remarks GENERAL: Pt encountered sitting up in bed, NAD. Pt noted to be laughing. SKIN: Warm and dry. Right foot dark yet warm to touch. Gauze wrapped around ankle with Betadine present on the gauze. Left AKA noted. HEAD: Normocephalic. EYES: No scleral icterus. No injection or drainage. NECK: Supple, trachea midline. No lymphadenopathy. CARDIOVASCULAR: Regular rate and rhythm without murmurs, gallops, or rubs. RESPIRATORY: Breath sounds equal bilaterally. No accessory muscle use. GASTROINTESTINAL: Abdomen soft, non-tender, nondistended. Abdominal sounds decreased all quadrants. Colostomy noted left lower quadrant. MUSCULOSKELETAL: No cyanosis, or edema. PSYCHIATRIC: A&OX3, pleasant and cooperative. No overt signs of anxiety or depression. Speech was clear and fluent. Procedures left AKA VAC application Colostomy (01/26/17). Right hip decubuti debridement (01/26/17) Medications and IVs Current Medications Medications (Trade) Dose Ordered Sig/Vivien Route Start Time Stop Time Status Last Admin (NS Flush) 2 ml UNSCH PRN IV FLUSH 01/12/17 21:45 02/09/17 10:08 (NS Flush) 2 ml BID IV FLUSH 01/13/17 09:00 02/10/17 08:41 Naloxone HCl 0.4 mg 0.4 mg UNSCH PRN IV 01/12/17 21:45 (Unasyn Inj/NS Inj) 100 ml @ 200 mls/hr Q6H IV 01/14/17 16:00 02/10/17 16:22 (Santyl Oint) 1 applic MoTh TOPICAL 01/14/17 15:00 02/10/17 11:35 (KCl) 30 meq DAILY PO 01/15/17 13:45 02/10/17 08:43 (Lovenox Inj) 30 mg Q24H SQ 01/15/17 14:00 02/10/17 11:33 (Dilaudid Pf Inj) 0.5 mg Q4H PRN IV PUSH 01/15/17 13:45 02/10/17 13:53 (Miralax) 17 gm DAILY PO 01/15/17 14:00 02/07/17 09:56 (Dulcolax Supp) 10 mg DAILY PRN RECTAL 01/17/17 00:30 01/17/17 00:48 (Senokot) 8.6 mg DAILY PO 01/17/17 00:30 02/09/17 09:23 (SEROquel) 12.5 mg BID@09,12 PO 01/17/17 14:00 02/10/17 11:33 (Pill Splitter) 1 ea UNSCH PRN OTHER 01/17/17 14:00 01/23/17 09:39 (Valium) 10 mg DAILY PRN PO 01/18/17 12:00 02/04/17 21:04 (Phazyme Chew) 125 mg DAILY PRN PO 01/29/17 11:30 (Mucinex Er) 600 mg BID PO 02/01/17 21:00 02/08/17 08:54 (Zofran Inj) 4 mg Q6HR PRN IV PUSH 02/02/17 14:30 02/03/17 09:59 ([place] 10-325 Mg) 1 tab Q6H PRN PO 02/04/17 14:00 02/10/17 18:25 (Lioresal) 20 mg TID PO 02/07/17 13:00 02/10/17 16:21 (Pepcid) 20 mg BID PO 02/08/17 21:00 02/10/17 08:46 (Desyrel) 50 mg HS PO 02/09/17 21:00 02/09/17 22:58 Urinary Catheter: Yes Assessment to: Continue Blood insert reason: Prolonged Immobilization Date of Insertion: Jan 13, 2017 A/P Assessment and Plan Mr. Sheehan is a 56 year old male with a history of T1 fracture with neurogenic bladder and bowel, PVD, chronic decubitus ulcer and lower ext BKA who presented to the ED on 01/12/2017 due to left leg wound. He recently was evaluated by multiple physicians including vascular surgery and he was offered IV abx, AKA as well as debridement for deep pelvic area osteomyelitis. Unfortunately, patient was extremely agitated, used foul language and left AMA to go to a wound care center outside [place]. During this present admission, patient was found to be hypotensive with prominent leukocytosis. He underwent L BKA revision /AKA and multiple sacral /ischial wounds debridement. - Left BKA stump infection/gangrene - Large Sacral decubitus ulcer. - Left pelvic area osteomyelitis. - UTI with MDRO Acinetobacter - s/p Left AKA and debridement of the decubiti. - Infected with MDRO acinetobacter, ID stated pt will need to be on Zosyn x 4 weeks, and there is not an oral agent available to address his antibiotic coverage. - s/p Colostomy. - Per ID recommendations, continue Unasyn for 8 weeks (started on 01/14/2017). - Continue Baclofen. Increase [place] to home dose 10/325 Q6hrs PRN. - For nausea, we will add Zofran. -Baclofen increased: 20 mg three times daily; pt's home regimen is 20 mg four times daily. - Adjustment disorder. mood improved. Started on Valium 10 mg po daily 01/18 - Microcytic anemia- iron studies suggestive of chronic disease. Low serum Iron. po Iron daily - Paraplegic with neurogenic bladder - Continue Blood catheter. -Insomnia -Initiate Trazodone 50 mg q hs DNR. DVT Prophylaxis: Lovenox 30mg Q24hrs. GI prophylaxis: Pepcid 20 mg BID Discussed with the patient, nurse (Dallin) and Dr. Diop. Discharge Planning Reviewed most recent CM note (02/03/17). CM following and assessing needs for discharge to either SNF or home. Agustin Powell Jr. JESSI Feb 10, 2017 18:46
[2017-02-10] MEDS: traZODone HCL 50 MG TAB PO SCH (20:32)
[2017-02-11] VITALS: BP 109/72; PULSE 83; RESP 20; TEMP 97.7; O2SAT 100
[2017-02-11] MEDS: HYDROmorphone HCL PF 1 MG/ML VIAL IV PUSH PRN ×5 (02:08→21:55)
[2017-02-11] MEDS: ACETAMINOPHEN/HYDROcodone 325 MG/10 MG TAB PO PRN ×3 (03:39→21:54)
[2017-02-11] MEDS: AMPICILLIN-SULBACTAM INJ 3 GM in SODIUM CHLORIDE 0.9% INJ 100 ML IV SCH ×4 (03:39→21:54)
[2017-02-11 04:00] VITALS: BP 103/68; PULSE 75; RESP 20; TEMP 97.9; O2SAT 100
[2017-02-11 07:00] VITALS: BP 125/70; PULSE 68; RESP 20; TEMP 97.5; O2SAT 100
[2017-02-11] MEDS: BACLOFEN 20 MG TAB PO SCH ×3 (08:08→17:19)
[2017-02-11] MEDS: POTASSIUM CHLORIDE 10 MEQ CONTROLLED RELEASE TAB PO SCH (08:08)
[2017-02-11] MEDS: QUEtiapine FUMARATE 25 MG TAB PO SCH ×2 (08:08→11:28)
[2017-02-11] MEDS: FAMOTIDINE 20 MG TAB PO SCH ×2 (08:08→21:54)
[2017-02-11] MEDS: SODIUM CHLORIDE 0.9% FLUSH 10 ML FLUSH IV FLUSH SCH ×2 (08:08→21:00)
[2017-02-11] MEDS: guaiFENesin E.R. 600 MG TAB PO SCH ×2 (08:09→21:54)
[2017-02-11] MEDS: POLYETHYLENE GLYCOL 17 GM PKG PO SCH (08:09)
[2017-02-11] MEDS: SENNOSIDES 8.6 MG TAB PO SCH (08:09)
[2017-02-11 12:16] VITALS: BP 111/58; PULSE 79; RESP 20; TEMP 97.2; O2SAT 100
[2017-02-11] MEDS: ENOXAPARIN SODIUM 30 MG/0.3 ML SYRINGE SQ SCH (12:51)
--- NOTE | 2017-02-11 15:43 | HHI.PR ---
Subjective Remarks Remarks Follow up for decubitus ulcer, left AKA, stump infection in patient with a history of paraplegia. Patient complains of increased pain this morning. Pt spoke of receiving his Trazodone last evening and had some difficulty " waking up this morning." He denied fever, cough, shortness of breath, NVD, bloody urine or stool. Pt reported his colostomy is working. Per RN () no new issues noted or reported from last evening or since start of current shift. Objective Vitals Vital Signs Date Time Temp Pulse Resp B/P Pulse Ox O2 Delivery O2 Flow Rate FiO2 02/11/17 12:16 97.2 79 20 111/58 100 02/11/17 08:40 18 02/11/17 07:00 97.5 68 20 125/70 100 02/11/17 04:39 20 02/11/17 04:00 97.9 75 20 103/68 100 02/11/17 00:00 97.7 83 20 109/72 100 02/10/17 20:00 98.2 78 20 103/62 99 02/10/17 15:39 97.3 76 20 93/55 99 I/O 02/10/17 02/10/17 02/10/17 02/11/17 02/11/17 02/11/17 07:00 15:00 23:00 07:00 15:00 23:00 Intake Total 1560 ml 680 ml Output Total 1800 ml 1000 ml 550 ml 1375 ml Balance -1800 ml 560 ml 130 ml -1375 ml Intake Oral 1560 ml 480 ml IV Total 200 ml Output Urine Total 1800 ml 1000 ml 550 ml 1375 ml # Bowel Movements 0 0 Objective Remarks GENERAL: Pt encountered laying on his left side in bed, NAD. SKIN: Warm and dry. Right foot dark yet warm to touch with cool toes. Gauze wrapped around ankle with Betadine present on the gauze. Left AKA noted. Present while RN cleaned and changed pt's decubital wounds. HEAD: Normocephalic. EYES: No scleral icterus. No injection or drainage. NECK: Supple, trachea midline. No lymphadenopathy. CARDIOVASCULAR: Regular rate and rhythm without murmurs, gallops, or rubs. RESPIRATORY: Breath sounds equal bilaterally. No accessory muscle use. GASTROINTESTINAL: Abdomen soft, non-tender, nondistended. Abdominal sounds decreased all quadrants. Colostomy noted left lower quadrant. MUSCULOSKELETAL: No cyanosis, or edema. PSYCHIATRIC: A&OX3, pleasant and cooperative. No overt signs of anxiety or depression. Speech was clear and fluent. Procedures left AKA VAC application Colostomy (01/26/17). Right hip decubuti debridement (01/26/17) Medications and IVs Current Medications Medications (Trade) Dose Ordered Sig/Vivien Route Start Time Stop Time Status Last Admin (NS Flush) 2 ml UNSCH PRN IV FLUSH 01/12/17 21:45 02/09/17 10:08 (NS Flush) 2 ml BID IV FLUSH 01/13/17 09:00 02/11/17 08:08 Naloxone HCl 0.4 mg 0.4 mg UNSCH PRN IV 01/12/17 21:45 (Unasyn Inj/NS Inj) 100 ml @ 200 mls/hr Q6H IV 01/14/17 16:00 02/11/17 08:55 (Santyl Oint) 1 applic MoTh TOPICAL 01/14/17 15:00 02/10/17 11:35 (KCl) 30 meq DAILY PO 01/15/17 13:45 02/11/17 08:08 (Lovenox Inj) 30 mg Q24H SQ 01/15/17 14:00 02/11/17 12:51 (Dilaudid Pf Inj) 0.5 mg Q4H PRN IV PUSH 01/15/17 13:45 02/11/17 11:58 (Miralax) 17 gm DAILY PO 01/15/17 14:00 02/07/17 09:56 (Dulcolax Supp) 10 mg DAILY PRN RECTAL 01/17/17 00:30 01/17/17 00:48 (Senokot) 8.6 mg DAILY PO 01/17/17 00:30 02/09/17 09:23 (SEROquel) 12.5 mg BID@09,12 PO 01/17/17 14:00 02/11/17 11:28 (Pill Splitter) 1 ea UNSCH PRN OTHER 01/17/17 14:00 01/23/17 09:39 (Valium) 10 mg DAILY PRN PO 01/18/17 12:00 02/04/17 21:04 (Phazyme Chew) 125 mg DAILY PRN PO 01/29/17 11:30 (Mucinex Er) 600 mg BID PO 02/01/17 21:00 02/10/17 20:32 (Zofran Inj) 4 mg Q6HR PRN IV PUSH 02/02/17 14:30 02/03/17 09:59 ([place] 10-325 Mg) 1 tab Q6H PRN PO 02/04/17 14:00 02/11/17 11:29 (Lioresal) 20 mg TID PO 02/07/17 13:00 02/11/17 11:28 (Pepcid) 20 mg BID PO 02/08/17 21:00 02/11/17 08:08 (Desyrel) 50 mg HS PO 02/09/17 21:00 02/10/17 20:32 Urinary Catheter: Yes Assessment to: Continue Blood insert reason: Prolonged Immobilization Date of Insertion: Jan 13, 2017 A/P Assessment and Plan Mr. Sheehan is a 56 year old male with a history of T1 fracture with neurogenic bladder and bowel, PVD, chronic decubitus ulcer and lower ext BKA who presented to the ED on 01/12/2017 due to left leg wound. He recently was evaluated by multiple physicians including vascular surgery and he was offered IV abx, AKA as well as debridement for deep pelvic area osteomyelitis. Unfortunately, patient was extremely agitated, used foul language and left AMA to go to a wound care center outside [place]. During this present admission, patient was found to be hypotensive with prominent leukocytosis. He underwent L BKA revision /AKA and multiple sacral /ischial wounds debridement. - Left BKA stump infection/gangrene - Large Sacral decubitus ulcer. - Left pelvic area osteomyelitis. - UTI with MDRO Acinetobacter - s/p Left AKA and debridement of the decubiti. - Infected with MDRO acinetobacter, ID stated pt will need to be on Zosyn x 4 weeks, and there is not an oral agent available to address his antibiotic coverage. - s/p Colostomy. - Per ID recommendations, continue Unasyn for 8 weeks (started on 01/14/2017). - Continue Baclofen. Increase [place] to home dose 10/325 Q6hrs PRN. - For nausea, we will add Zofran. -Baclofen increased: 20 mg three times daily; pt's home regimen is 20 mg four times daily. - Adjustment disorder. mood improved. Started on Valium 10 mg po daily 01/18 - Microcytic anemia- iron studies suggestive of chronic disease. Low serum Iron. po Iron daily - Paraplegic with neurogenic bladder - Continue Blood catheter. -Insomnia -Initiate Trazodone 50 mg q hs DNR. DVT Prophylaxis: Lovenox 30mg Q24hrs. GI prophylaxis: Pepcid 20 mg BID Discussed with the patient, nurse (Dallin) and Dr. Diop. Discharge Planning Reviewed most recent CM note (02/03/17). CM following and assessing needs for discharge to either SNF or home. Agustin Powell Jr. JESSI Feb 11, 2017 15:43
[2017-02-11 16:17] VITALS: BP 105/66; PULSE 92; RESP 20; TEMP 98.3; O2SAT 99
--- NOTE | 2017-02-11 18:15 | PD.WCN.NOT ---
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 Also unstageable pressure injuries to R lateral heel, and R lateral malleolus. Patient first positioned to R side to reveal intact dressing to L ischium, L trochanter and sacrum. Removed dressings to reveal wounds. Wound to L trochanter presents with ~30% red granulation tissue, ~10% bone, ~30% facia and 30% yellow tissue. Wound measures 5.3cm x 3.8 cm x 3 cm. Wound is noted with moderate sero-sanguinous drainage without odor. Periwound is noted with blanchable erythema. Wound margins noted with new epithelial tissue forming.Cleansed wound with wound cleanser and applied saline wet to dry dressing secured bordered gauze. Sacral wound presents with ~60% red granulation tissue and ~20% yellow slough and ~20% white tissue. Wound has minimal sero-sanguinous drainage that is without odor. Periwound is noted with blanchable erythema. Wound margins noted with new epithelial tissue forming. Wound does have some epibole wound edges between 11 and 12 o'clock. Wound measurements are as follows 12cm x 10 cm x 1.3 cm Undermining noted from 7 to 12 o'clock, deepest at 8 o'clock measuring 3.9 cm.Cleansed wound with wound cleanser and applied saline wet to dry dressing secured with ABD pad and Medifix tape. Stage 4 pressure injury noted to L ischium presents with ~40% red granulation tissue, ~20% facia, ~20% muscle tissue, ~10% bone and ~10% yellow slough. Wound bed noted with minimal sero-sanguinous drainage that is without odor. Periwound is noted with blanchable erythema. Wound margins are noted with some new epithelial tissue forming.Wound measures 11.4 cm x 7 cm x 2.8 cm. Undermining is assessed between 1 and 2 o'clock at ~1cm at the deepest. Cleansed wound with wound cleanser and applied saline wet to dry dressing secured with ABD pad and Medifix tape. Positioned patient to L side and removed dressing in place to R hip to reveal stage 4 pressure injury to R trochanter. Wound bed presents with ~10% bone, ~30 % facia, 40% muscle tissue and 10% red non granulation tissue. Wound bed is dry with scant serous drainage noted to old dressing without odor. Periwound is noted with blanchable erythema. Wound margins are regular and smooth. Cleansed wound with wound cleanser Cleansed wound with wound cleanser and applied saline wet to dry dressing secured with bordered gauze. Removed dressing in place to R heel to reveal Unstageable pressure injury to R lateral heel and R lateral malleolus. R lateral heel is noted with ~70% coverage of black eschar and ~30% clean red non granulation tissue. Wound has minimal sanguinous drainage without odor, when cleansed with normal saline and gauze pad. Wound measures 3.4 cm x 8 cm x eschar. Wound to R lateral malleolus presents with 100% coverage of black stable eschar. Wound is dry without drainage or odor.Wound measures 1.8 cm x 1.2 cm x eschar. Betadine moistened gauze applied to both lateral R heel and R lateral Malleolus wounds and covered with dry 4 x4 gauze. Secured dressing with rolled gauze and tape. Communicated with: LAWSON agudelo Recommendation: Please continue dressing changes as ordered by Doctor Love and Doctor Orosco for R heel. Wound care will continue to follow patient Missy Huerta [facility] Feb 11, 2017 18:15 Wound Location: "L hip and back" per Dr Robertson Wound Description Length: 11cm Width: 5cm Depth: 3.2cm Underminin.5cm undermining from 11 to 1 o'clock Wound bed appearance: Wound bed was cleansed with NS and gauze. Wound presents with ~25% yellow loosely adherent slough, ~60% red granulation tissue, and ~15% bone visualized. There is scant serosang drainage noted without odor. Settings Suction: 125 mmHg, Continuous Intensity: Low Other Information: Bridged, Windowpaned Foam type: Black Number of pieces: 2 Wound Location Wound Location: L trochanter Wound Description Length: 6.5cm Width: 4.5cm Depth: 3.5cm Wound bed appearance: Wound bed was cleansed with NS and gauze. Wound presents with 90% white fascia with 5% bone and 5% muscle minimally visible in center of wound where it is deepest. Wound is noted with minimal serous drainage when cleansed with gauze. No odor is present at this time. Settings Suction: 125 mmHg, Continuous Intensity: Low Other Information: Bridged, Windowpaned Foam type: Black Number of pieces: 1 Wound Location Wound Location: Sacrococcygeal Wound Description Length: 13.4cm Width: 12.7cm Depth: 1.7cm Underminin.4cm undermining from 7 to 11 o'clock Wound bed appearance: Wound bed to sacrococcygeal area presents with ~50% muscle, ~20% red granulation tissue, ~20% loosely adherent yellow slough, ~10% visible bone after cleansing with NS and gauze. Wound has minimal serosang drainage noted without odor. Settings Suction: 125 mmHg, Continuous Intensity: Low Other Information: Bridged, Windowpaned Foam type: Black Number of pieces: 3 Missy Huerta [facility] Feb 11, 2017 18:15
[2017-02-11 20:00] VITALS: BP 111/75; PULSE 99; RESP 18; TEMP 98.1; O2SAT 100
[2017-02-11] MEDS: traZODone HCL 50 MG TAB PO SCH (21:54)
[2017-02-12 03:07] VITALS: BP 133/71; PULSE 77; RESP 18; TEMP 98.1; O2SAT 100
[2017-02-12] MEDS: ACETAMINOPHEN/HYDROcodone 325 MG/10 MG TAB PO PRN ×3 (04:38→17:19)
[2017-02-12] MEDS: AMPICILLIN-SULBACTAM INJ 3 GM in SODIUM CHLORIDE 0.9% INJ 100 ML IV SCH ×4 (04:39→20:41)
[2017-02-12 05:30] VITALS: BP 112/67; PULSE 66; RESP 18; TEMP 96.4; O2SAT 99
[2017-02-12] MEDS: HYDROmorphone HCL PF 1 MG/ML VIAL IV PUSH PRN ×3 (06:02→14:17)
[2017-02-12 08:00] VITALS: BP 127/74; PULSE 69; RESP 19; TEMP 98.7; O2SAT 100
[2017-02-12] MEDS: BACLOFEN 20 MG TAB PO SCH ×3 (08:20→17:18)
[2017-02-12] MEDS: POTASSIUM CHLORIDE 10 MEQ CONTROLLED RELEASE TAB PO SCH (08:20)
[2017-02-12] MEDS: FAMOTIDINE 20 MG TAB PO SCH ×2 (08:20→20:41)
[2017-02-12] MEDS: SENNOSIDES 8.6 MG TAB PO SCH (08:20)
[2017-02-12] MEDS: SODIUM CHLORIDE 0.9% FLUSH 10 ML FLUSH IV FLUSH SCH ×2 (08:21→20:41)
[2017-02-12] MEDS: guaiFENesin E.R. 600 MG TAB PO SCH ×2 (08:21→20:41)
[2017-02-12] MEDS: POLYETHYLENE GLYCOL 17 GM PKG PO SCH (08:21)
[2017-02-12] MEDS: QUEtiapine FUMARATE 25 MG TAB PO SCH ×2 (08:21→11:08)
[2017-02-12 12:00] VITALS: BP 136/68; PULSE 71; RESP 19; TEMP 98.5; O2SAT 96
[2017-02-12] MEDS: ENOXAPARIN SODIUM 30 MG/0.3 ML SYRINGE SQ SCH (12:46)
[2017-02-12 16:00] VITALS: BP 112/64; PULSE 76; RESP 18; TEMP 97.9; O2SAT 98
[2017-02-12] MEDS: ACETAMINOPHEN/HYDROcodone 325 MG/5 MG TAB PO PRN (17:19)
--- NOTE | 2017-02-12 18:17 | HHI.PR ---
Subjective Remarks Follow up for decubitus ulcer, left AKA, stump infection in patient with a history of paraplegia. Patient complains of poorly controlled pain. Pt agreeable to having pain medication plan altered, not interest in going to [facility]. He denied fever, cough, shortness of breath, NVD, bloody urine or stool. Pt reported his colostomy is working. Per RN (Charity) no new issues noted or reported from last evening or since start of current shift. Objective Vitals Vital Signs Date Time Temp Pulse Resp B/P Pulse Ox O2 Delivery O2 Flow Rate FiO2 02/12/17 16:00 97.9 76 18 112/64 98 02/12/17 12:00 98.5 71 19 136/68 96 02/12/17 08:00 98.7 69 19 127/74 100 02/12/17 05:30 96.4 66 18 112/67 99 02/12/17 03:07 98.1 77 18 133/71 100 02/11/17 20:00 98.1 99 18 111/75 100 I/O 02/11/17 02/11/17 02/11/17 02/12/17 02/12/17 02/12/17 07:00 15:00 23:00 07:00 15:00 23:00 Intake Total 680 ml 1060 ml 720 ml Output Total 550 ml 1375 ml 2000 ml 500 ml Balance 130 ml -1375 ml 1060 ml -2000 ml 220 ml Intake Oral 480 ml 1060 ml 720 ml IV Total 200 ml Output Urine Total 550 ml 1375 ml 2000 ml 500 ml # Bowel Movements 0 Objective Remarks GENERAL: Pt encountered laying on his left side in bed, NAD. SKIN: Warm and dry. Right foot dark yet warm to touch with cool toes. Gauze wrapped around ankle. HEAD: Normocephalic. EYES: No scleral icterus. No injection or drainage. NECK: Supple, trachea midline. No lymphadenopathy. CARDIOVASCULAR: Regular rate and rhythm without murmurs, gallops, or rubs. RESPIRATORY: Breath sounds equal bilaterally. No accessory muscle use. GASTROINTESTINAL: Abdomen soft, non-tender, nondistended. Abdominal sounds noted all quadrants. Colostomy noted left lower quadrant. MUSCULOSKELETAL: No cyanosis, or edema. PSYCHIATRIC: A&OX3, pleasant and cooperative. No overt signs of anxiety or depression. Speech was clear and fluent. Procedures left AKA VAC application Colostomy (01/26/17). Right hip decubuti debridement (01/26/17) Date of Insertion: Jan 13, 2017 A/P Assessment and Plan Mr. Sheehan is a 56 year old male with a history of T1 fracture with neurogenic bladder and bowel, PVD, chronic decubitus ulcer and lower ext BKA who presented to the ED on 01/12/2017 due to left leg wound. He recently was evaluated by multiple physicians including vascular surgery and he was offered IV abx, AKA as well as debridement for deep pelvic area osteomyelitis. Unfortunately, patient was extremely agitated, used foul language and left AMA to go to a wound care center outside [place]. During this present admission, patient was found to be hypotensive with prominent leukocytosis. He underwent L BKA revision /AKA and multiple sacral /ischial wounds debridement. - Left BKA stump infection/gangrene - Large Sacral decubitus ulcer. - Left pelvic area osteomyelitis. - UTI with MDRO Acinetobacter - s/p Left AKA and debridement of the decubiti. - Infected with MDRO acinetobacter, ID stated pt will need to be on Zosyn x 4 weeks, and there is not an oral agent available to address his antibiotic coverage. - s/p Colostomy. - Per ID recommendations, continue Unasyn for 8 weeks (started on 01/14/2017). - Continue Baclofen. Increase [place] to home dose 10/325 Q6hrs PRN. - For nausea, we will add Zofran. -Baclofen increased: 20 mg three times daily; pt's home regimen is 20 mg four times daily. -[place] increased in dosage (15/650) on same schedule. IV Dilaudid discontinued and 1 mg PO to be utilized per current regimen. - Adjustment disorder. mood improved. Started on Valium 10 mg po daily 01/18 - Microcytic anemia- iron studies suggestive of chronic disease. Low serum Iron. po Iron daily - Paraplegic with neurogenic bladder - Continue Blood catheter. -Insomnia -Initiate Trazodone 50 mg q hs DNR. DVT Prophylaxis: Lovenox 30mg Q24hrs. GI prophylaxis: Pepcid 20 mg BID Discussed with the patient, nurse (Charity) and Dr. Diop. Discharge Planning Reviewed most recent CM note (02/03/17). CM following and assessing needs for discharge to either SNF or home. Agustin Powell Jr. JESSI Feb 12, 2017 18:17
[2017-02-12] MEDS: HYDROmorphone HCL 2 MG TAB PO PRN (18:22)
[2017-02-12] MEDS: traZODone HCL 50 MG TAB PO SCH (20:41)
[2017-02-12 21:40] VITALS: BP 97/56; PULSE 82; RESP 18; TEMP 97.4; O2SAT 100
[2017-02-13 00:20] VITALS: BP 99/61; PULSE 80; RESP 19; TEMP 97.1; O2SAT 100
[2017-02-13] MEDS: ACETAMINOPHEN/HYDROcodone 325 MG/10 MG TAB PO PRN ×4 (03:39→20:55)
[2017-02-13] MEDS: AMPICILLIN-SULBACTAM INJ 3 GM in SODIUM CHLORIDE 0.9% INJ 100 ML IV SCH ×4 (03:39→20:56)
[2017-02-13] MEDS: ACETAMINOPHEN/HYDROcodone 325 MG/5 MG TAB PO PRN ×4 (03:43→20:55)
[2017-02-13 05:30] VITALS: BP 119/65; PULSE 73; RESP 18; TEMP 98.2; O2SAT 100
[2017-02-13 08:00] VITALS: BP 109/60; PULSE 69; RESP 19; TEMP 98.4; O2SAT 100
[2017-02-13] MEDS: FAMOTIDINE 20 MG TAB PO SCH ×2 (08:03→20:55)
[2017-02-13] MEDS: HYDROmorphone HCL 2 MG TAB PO PRN ×2 (08:03→13:59)
[2017-02-13] MEDS: POTASSIUM CHLORIDE 10 MEQ CONTROLLED RELEASE TAB PO SCH (08:03)
[2017-02-13] MEDS: BACLOFEN 20 MG TAB PO SCH ×3 (08:03→17:09)
[2017-02-13] MEDS: QUEtiapine FUMARATE 25 MG TAB PO SCH ×2 (08:03→11:57)
[2017-02-13] MEDS: SODIUM CHLORIDE 0.9% FLUSH 10 ML FLUSH IV FLUSH SCH ×2 (08:03→20:57)
[2017-02-13] MEDS: SENNOSIDES 8.6 MG TAB PO SCH (08:04)
[2017-02-13] MEDS: guaiFENesin E.R. 600 MG TAB PO SCH ×2 (08:04→20:56)
[2017-02-13] MEDS: POLYETHYLENE GLYCOL 17 GM PKG PO SCH (08:04)
[2017-02-13 12:00] VITALS: BP_SYST 109; BP_SYST 111; BP_DIAS 60; PULSE 69; PULSE 81; RESP 18; TEMP 97.8; TEMP 98.4; O2SAT 100
[2017-02-13] MEDS: ENOXAPARIN SODIUM 30 MG/0.3 ML SYRINGE SQ SCH (13:59)
[2017-02-13 16:00] VITALS: BP 100/73; PULSE 79; RESP 18; TEMP 98.6; O2SAT 100
--- NOTE | 2017-02-13 16:46 | HHI.PR ---
Subjective Remarks Follow up for decubitus ulcer, left AKA, stump infection in patient with a history of paraplegia. Patient reports improved pain control as a result of recent changes made to his regimen. Trazodone is reproted to be helping him sleep; stated current doage is "fine, don't go up on it." He denied fever, cough, shortness of breath, NVD, bloody urine or stool. Pt reported his colostomy is working. Per RN (Charity) no new issues noted or reported from last evening or since start of current shift. Objective Vitals Vital Signs Date Time Temp Pulse Resp B/P Pulse Ox O2 Delivery O2 Flow Rate FiO2 02/13/17 16:00 98.6 79 18 100/73 100 02/13/17 12:00 97.8 81 18 111/60 100 02/13/17 08:00 98.4 69 19 109/60 100 02/13/17 05:30 98.2 73 18 119/65 100 02/13/17 04:43 20 02/13/17 04:43 20 02/13/17 00:20 97.1 80 19 99/61 100 02/12/17 21:40 97.4 82 18 97/56 100 I/O 02/12/17 02/12/17 02/12/17 02/13/17 02/13/17 02/13/17 07:00 15:00 23:00 07:00 15:00 23:00 Intake Total 720 ml 1400 ml 200 ml 480 ml Output Total 2000 ml 500 ml 1300 ml 1200 ml Balance -2000 ml 220 ml 100 ml 200 ml -720 ml Intake Oral 720 ml 1400 ml 480 ml IV Total 200 ml Output Urine Total 2000 ml 500 ml 1300 ml 1200 ml Stool Total 0 ml Objective Remarks GENERAL: Pt encountered laying on his left side in bed as RN was completing dressing changes, NAD. SKIN: Warm and dry. Right foot dark yet warm to touch. Pt undergoing wound care at time of vist, right ankle being treated: wounds noted on heal and lateral ankle. HEAD: Normocephalic. EYES: No scleral icterus. No injection or drainage. NECK: Supple, trachea midline. No lymphadenopathy. CARDIOVASCULAR: Regular rate and rhythm without murmurs, gallops, or rubs. RESPIRATORY: Breath sounds equal bilaterally. No accessory muscle use. GASTROINTESTINAL: Abdomen soft, non-tender, nondistended. Abdominal sounds noted all quadrants. Colostomy noted left lower quadrant. MUSCULOSKELETAL: No cyanosis, or edema. PSYCHIATRIC: A&OX3, pleasant and cooperative. No overt signs of anxiety or depression. Speech was clear and fluent. Procedures left AKA VAC application Colostomy (01/26/17). Right hip decubuti debridement (01/26/17) Medications and IVs Current Medications Medications (Trade) Dose Ordered Sig/Vivien Route Start Time Stop Time Status Last Admin (NS Flush) 2 ml UNSCH PRN IV FLUSH 01/12/17 21:45 02/09/17 10:08 (NS Flush) 2 ml BID IV FLUSH 01/13/17 09:00 02/13/17 08:03 Naloxone HCl 0.4 mg 0.4 mg UNSCH PRN IV 01/12/17 21:45 (Unasyn Inj/NS Inj) 100 ml @ 200 mls/hr Q6H IV 01/14/17 16:00 02/13/17 15:33 (Santyl Oint) 1 applic MoTh TOPICAL 01/14/17 15:00 02/10/17 11:35 (KCl) 30 meq DAILY PO 01/15/17 13:45 02/13/17 08:03 (Lovenox Inj) 30 mg Q24H SQ 01/15/17 14:00 02/13/17 13:59 (Miralax) 17 gm DAILY PO 01/15/17 14:00 02/07/17 09:56 (Dulcolax Supp) 10 mg DAILY PRN RECTAL 01/17/17 00:30 01/17/17 00:48 (Senokot) 8.6 mg DAILY PO 01/17/17 00:30 02/13/17 08:04 (SEROquel) 12.5 mg BID@09,12 PO 01/17/17 14:00 02/13/17 11:57 (Pill Splitter) 1 ea UNSCH PRN OTHER 01/17/17 14:00 01/23/17 09:39 (Valium) 10 mg DAILY PRN PO 01/18/17 12:00 02/04/17 21:04 (Phazyme Chew) 125 mg DAILY PRN PO 01/29/17 11:30 (Mucinex Er) 600 mg BID PO 02/01/17 21:00 02/11/17 21:54 (Zofran Inj) 4 mg Q6HR PRN IV PUSH 02/02/17 14:30 02/03/17 09:59 ([place] 10-325 Mg) 1 tab Q6H PRN PO 02/04/17 14:00 02/13/17 15:33 (Lioresal) 20 mg TID PO 02/07/17 13:00 02/13/17 11:57 (Pepcid) 20 mg BID PO 02/08/17 21:00 02/13/17 08:03 (Desyrel) 50 mg HS PO 02/09/17 21:00 02/12/17 20:41 ([place] 5-325 Mg) 1 tab Q6H PRN PO 02/12/17 14:00 02/13/17 15:34 (Dilaudid) 1 mg Q6H PRN PO 02/12/17 20:00 02/13/17 13:59 Urinary Catheter: Yes Assessment to: Continue Blood insert reason: Prolonged Immobilization Date of Insertion: Feb 06, 2017 A/P Assessment and Plan Mr. Sheehan is a 56 year old male with a history of T1 fracture with neurogenic bladder and bowel, PVD, chronic decubitus ulcer and lower ext BKA who presented to the ED on 01/12/2017 due to left leg wound. He recently was evaluated by multiple physicians including vascular surgery and he was offered IV abx, AKA as well as debridement for deep pelvic area osteomyelitis. Unfortunately, patient was extremely agitated, used foul language and left AMA to go to a wound care center outside [place]. During this present admission, patient was found to be hypotensive with prominent leukocytosis. He underwent L BKA revision /AKA and multiple sacral /ischial wounds debridement. - Left BKA stump infection/gangrene - Large Sacral decubitus ulcer. - Left pelvic area osteomyelitis. - UTI with MDRO Acinetobacter - s/p Left AKA and debridement of the decubiti. - Infected with MDRO acinetobacter, ID stated pt will need to be on Zosyn x 4 weeks, and there is not an oral agent available to address his antibiotic coverage. - s/p Colostomy. - Per ID recommendations, continue Unasyn for 8 weeks (started on 01/14/2017). - Continue Baclofen. Increase [place] to home dose 10/325 Q6hrs PRN. - For nausea, we will add Zofran. -Baclofen increased: 20 mg three times daily; pt's home regimen is 20 mg four times daily. -[place] increased in dosage (15/650) on same schedule. IV Dilaudid discontinued and 1 mg PO to be utilized per current regimen. - Adjustment disorder. mood improved. Started on Valium 10 mg po daily 01/18 - Microcytic anemia- iron studies suggestive of chronic disease. Low serum Iron. po Iron daily - Paraplegic with neurogenic bladder - Continue Blood catheter. -Insomnia -Initiate Trazodone 50 mg q hs DNR. DVT Prophylaxis: Lovenox 30mg Q24hrs. GI prophylaxis: Pepcid 20 mg BID Discussed with the patient, nurse (Charity) and Dr. Diop. Discharge Planning CM following and assessing needs for discharge to either SNF or home. CM continues to discuss placement with facilities. Agustin Powell Jr. Feb 13, 2017 16:46
[2017-02-13] MEDS: traZODone HCL 50 MG TAB PO SCH (20:55)
[2017-02-13 22:38] VITALS: BP 113/62; PULSE 85; RESP 18; TEMP 97.3; O2SAT 99
[2017-02-14] MEDS: AMPICILLIN-SULBACTAM INJ 3 GM in SODIUM CHLORIDE 0.9% INJ 100 ML IV SCH ×4 (04:46→22:50)
[2017-02-14] MEDS: HYDROmorphone HCL 2 MG TAB PO PRN ×4 (04:47→22:51)
[2017-02-14 05:20] VITALS: BP 109/69; PULSE 100; RESP 20; TEMP 97.3; O2SAT 99
[2017-02-14] MEDS: ACETAMINOPHEN/HYDROcodone 325 MG/5 MG TAB PO PRN (06:10)
[2017-02-14] MEDS: ACETAMINOPHEN/HYDROcodone 325 MG/10 MG TAB PO PRN ×3 (06:15→18:03)
[2017-02-14] MEDS: SODIUM CHLORIDE 0.9% FLUSH 10 ML FLUSH IV FLUSH SCH ×2 (08:24→20:49)
[2017-02-14 08:25] VITALS: BP 98/66; PULSE 82; RESP 16; TEMP 96.5; O2SAT 100
[2017-02-14] MEDS: FAMOTIDINE 20 MG TAB PO SCH ×2 (08:26→20:48)
[2017-02-14] MEDS: SENNOSIDES 8.6 MG TAB PO SCH (08:26)
[2017-02-14] MEDS: POTASSIUM CHLORIDE 10 MEQ CONTROLLED RELEASE TAB PO SCH (08:26)
[2017-02-14] MEDS: QUEtiapine FUMARATE 25 MG TAB PO SCH ×2 (08:27→12:03)
[2017-02-14] MEDS: POLYETHYLENE GLYCOL 17 GM PKG PO SCH (08:27)
[2017-02-14] MEDS: BACLOFEN 20 MG TAB PO SCH ×3 (08:28→18:01)
[2017-02-14] MEDS: guaiFENesin E.R. 600 MG TAB PO SCH (08:28)
--- NOTE | 2017-02-14 09:35 | HHI.PR ---
Subjective Remarks Follow up for decubitus ulcer, left AKA, stump infection in patient with a history of paraplegia. Patient seen and examined today, lying in bed comfortably. Denies any new acute complaints. Chronic pain well controlled with current pain regimen. Tolerating PO intake. Denies any abdominal pain, n/v, diarrhea. Objective Vitals Vital Signs Date Time Temp Pulse Resp B/P Pulse Ox O2 Delivery O2 Flow Rate FiO2 02/14/17 08:25 96.5 82 16 98/66 100 02/14/17 05:20 97.3 100 20 109/69 99 02/13/17 22:38 97.3 85 18 113/62 99 02/13/17 16:00 98.6 79 18 100/73 100 02/13/17 12:00 97.8 81 18 111/60 100 I/O 02/13/17 02/13/17 02/13/17 02/14/17 02/14/17 02/14/17 07:00 15:00 23:00 07:00 15:00 23:00 Intake Total 200 ml 480 ml 2650 ml Output Total 1200 ml 2100 ml Balance 200 ml -720 ml 550 ml Intake Oral 480 ml 2650 ml IV Total 200 ml Output Urine Total 1200 ml 2000 ml Stool Total 100 ml Imaging Last Impressions Chest X-Ray 01/12/17 7932 Signed Impressions: Service Date/Time: Thursday, January 12, 2017 18:02 - CONCLUSION: Mild consolidation versus atelectasis at the left lung base. Marcell Loredo MD Objective Remarks GENERAL: Well-nourished, well-developed patient in NAD, lying in bed comfortably. SKIN: Warm and dry. No rash. HEENT: Normocephalic. Atraumatic. Pupils equal and round. No scleral icterus. No injection or drainage. No nasal bleeding or discharge. Mucous membranes pink and moist. NECK: Supple. Trachea midline. CARDIOVASCULAR: Regular rate and rhythm. S1, S2 noted. No murmur appreciated. RESPIRATORY: No accessory muscle use. Clear to auscultation. Breath sounds equal bilaterally. GASTROINTESTINAL: Abdomen soft, non-tender, nondistended. Normoactive bowel sounds x4. Left lower colostomy noted, pink stoma, c/d/i. MUSCULOSKELETAL: Left BKA, incision healing, some scabbing noted, open to air. Right lower foot ecchymosis with dressing to right ankle, c/d/i. NEUROLOGICAL: Awake and alert. No obvious cranial nerve deficits. Motor grossly within normal limits. 5/5 muscle strength in bilateral upper and lower extremities. Normal speech. PSYCHIATRIC: Appropriate mood and affect; insight and judgment normal. Procedures left AKA VAC application Colostomy (01/26/17). Right hip decubuti debridement (01/26/17) Urinary Catheter: Yes Assessment to: Continue Blood insert reason: Obstruction/Retention Date of Insertion: Feb 06, 2017 Vascular Central Line Catheter: No A/P Assessment and Plan Mr. Sheehan is a 56 year old male with a history of T1 fracture with neurogenic bladder and bowel, PVD, chronic decubitus ulcer and lower ext BKA who presented to the ED on 01/12/2017 due to left leg wound. He recently was evaluated by multiple physicians including vascular surgery and he was offered IV abx, AKA as well as debridement for deep pelvic area osteomyelitis. Unfortunately, patient was extremely agitated, used foul language and left AMA to go to a wound care center outside [place]. During this present admission, patient was found to be hypotensive with prominent leukocytosis. He underwent L BKA revision /AKA and multiple sacral /ischial wounds debridement. Left BKA stump infection/gangrene: s/p Left AKA, debridement of the decubitus and colostomy. Large Sacral decubitus ulcer Left pelvic area osteomyelitis. - Wound culture growing Acinetobacter Baumannii/Haemol and Enterococcus faecalis on 01/13/17. - Urine culture positive for Acinetobacter Baumannii/Haemol on 01/12/17 - ID following, recommendations are to continue Unasyn for 8 weeks (started on 01/14/2017). - Control pain. - Continue Baclofen 20 mg PO TID. - Continue [place] 15/650mg PO q6h PRN per pain scale. Continue Dilaudid PO breakthrough pain. Adjustment disorder. mood improved. Continue Valium 10 mg po daily. Microcytic anemia, chronic: Continue iron supplementation. Paraplegic with neurogenic bladder: Continue Blood catheter. Insomnia: Continue Trazodone 50 mg q hs DVT Prophylaxis: Lovenox 30mg Q24hrs. GI prophylaxis: Pepcid 20 mg BID DNR Discharge Planning Last CM note: 02/09/17 12:00pm CM s/w [facility] late on 02/08 and was informed that they are not able to staff the pt. CM s/w Edgar from [facility] and was informed that they take [employer] and not [facility]. CM will continue to search for C to accept pt. Tammy Sawyer Feb 14, 2017 09:35
[2017-02-14 12:00] VITALS: BP 97/56; PULSE 90; RESP 16; TEMP 97; O2SAT 100
[2017-02-14] MEDS: COLLAGENASE OINT 30 GM TUBE TOPICAL SCH (14:15)
[2017-02-14] MEDS: ENOXAPARIN SODIUM 30 MG/0.3 ML SYRINGE SQ SCH (14:48)
[2017-02-14 16:31] VITALS: BP 98/58; PULSE 103; RESP 18; TEMP 98.6; O2SAT 99
[2017-02-14 20:22] VITALS: BP 104/58; PULSE 95; RESP 16; TEMP 98; O2SAT 98
[2017-02-14] MEDS: traZODone HCL 50 MG TAB PO SCH (20:48)
[2017-02-15] MEDS: ACETAMINOPHEN/HYDROcodone 325 MG/10 MG TAB PO PRN ×4 (00:15→21:46)
[2017-02-15 00:42] VITALS: BP 92/51; PULSE 94; RESP 16; TEMP 97.7; O2SAT 99
[2017-02-15 04:48] VITALS: BP 125/78; PULSE 74; RESP 16; TEMP 96.1; O2SAT 100
[2017-02-15] MEDS: AMPICILLIN-SULBACTAM INJ 3 GM in SODIUM CHLORIDE 0.9% INJ 100 ML IV SCH ×4 (04:49→21:45)
[2017-02-15] MEDS: HYDROmorphone HCL 2 MG TAB PO PRN ×4 (04:50→23:55)
[2017-02-15 07:31] LABS: AUTOMATED NEUTROPHIL # 4.9 TH/MM3 (1.8-7.7); BASOPHIL # 0.1 TH/MM3 (0-0.2); BASOPHIL % 0.8 % (0.0-2.0); EOSINOPHIL # 0.4 TH/MM3 (0-0.4); EOSINOPHIL % 4.5 % (0.0-4.0); HEMATOCRIT 27.8 % (39.0-51.0); HEMO FLAGS DIFF FINAL; LYMPHOCYTE # 1.9 TH/MM3 (1.0-4.8); MEAN CELL VOLUME 74.8 FL (80.0-100.0); MEAN CORPUSCULAR HEMOGLOBIN 24.3 PG (27.0-34.0); MEAN CORPUSCULAR HGB CONC 32.4 % (32.0-36.0); MONO % 9.2 % (0.0-8.0); NEUT % 61.5 % (16.0-70.0); PLATELET COUNT 398 TH/MM3 (150-450); RED BLOOD COUNT 3.72 MIL/MM3 (4.50-5.90); RED CELL DISTRIBUTION WIDTH 21.7 % (11.6-17.2); WHITE BLOOD COUNT 7.9 TH/MM3 (4.0-11.0)
[2017-02-15 07:56] VITALS: BP 121/67; PULSE 72; RESP 20; TEMP 97; O2SAT 100
[2017-02-15 08:01] LABS: BICARBONATE 28.5 MEQ/L (21.0-32.0); POTASSIUM 3.8 MEQ/L (3.5-5.1)
[2017-02-15] MEDS: FAMOTIDINE 20 MG TAB PO SCH ×2 (09:00→21:44)
[2017-02-15] MEDS: POLYETHYLENE GLYCOL 17 GM PKG PO SCH ×2 (09:00→10:03)
[2017-02-15] MEDS: SODIUM CHLORIDE 0.9% FLUSH 10 ML FLUSH IV FLUSH SCH ×2 (09:00→21:45)
[2017-02-15] MEDS: QUEtiapine FUMARATE 25 MG TAB PO SCH ×2 (10:01→12:29)
[2017-02-15] MEDS: SENNOSIDES 8.6 MG TAB PO SCH (10:02)
[2017-02-15] MEDS: POTASSIUM CHLORIDE 10 MEQ CONTROLLED RELEASE TAB PO SCH (10:02)
[2017-02-15] MEDS: BACLOFEN 20 MG TAB PO SCH (10:02)
--- NOTE | 2017-02-15 10:41 | HHI.PR ---
Subjective Remarks Follow up for decubitus ulcer, left AKA, stump infection in patient with a history of paraplegia. Patient seen and examined today. RN at bedside. Patient awake, alert and somewhat agitated regarding uncontrolled generalized pain. Patient states that the pain is from his head to his feet, intermittent and shooting in nature, and 10/10 on pain scale at its worse. Per patient, pain medication ineffective. Has been tolerating PO intake. Denies any recent fever, chills, cough, shortness of breath, headache, abdominal pain, n/v, diarrhea or dysuria. Objective Vitals Vital Signs Date Time Temp Pulse Resp B/P Pulse Ox O2 Delivery O2 Flow Rate FiO2 02/15/17 07:56 97.0 72 20 121/67 100 02/15/17 04:48 96.1 74 16 125/78 100 02/15/17 00:42 97.7 94 16 92/51 99 02/14/17 20:22 98.0 95 16 104/58 98 02/14/17 16:31 98.6 103 18 98/58 99 02/14/17 12:00 97.0 90 16 97/56 100 I/O 02/14/17 02/14/17 02/14/17 02/15/17 02/15/17 02/15/17 07:00 15:00 23:00 07:00 15:00 23:00 Intake Total 2650 ml 205 ml Output Total 2100 ml 1250 ml 250 ml Balance 550 ml -1250 ml -45 ml Intake Oral 2650 ml IV Total 205 ml Output Urine Total 2000 ml 1250 ml Stool Total 100 ml 250 ml Result Diagram: 02/15/17 0647 02/15/17 0647 Imaging Last Impressions Chest X-Ray 01/12/17 1013 Signed Impressions: Service Date/Time: Thursday, January 12, 2017 18:02 - CONCLUSION: Mild consolidation versus atelectasis at the left lung base. Marcell Loredo MD Objective Remarks GENERAL: Well-nourished, well-developed patient, awake, alert and complaint of generalized pain. SKIN: Warm and dry. No rash. HEENT: Normocephalic. Atraumatic. Pupils equal and round. No scleral icterus. No injection or drainage. No nasal bleeding or discharge. Mucous membranes pink and moist. NECK: Supple. Trachea midline. CARDIOVASCULAR: Regular rate and rhythm. S1, S2 noted. No murmur appreciated. RESPIRATORY: No accessory muscle use. Clear to auscultation. Breath sounds equal bilaterally. GASTROINTESTINAL: Abdomen soft, non-tender, nondistended. Normoactive bowel sounds x4. Left lower colostomy noted, pink stoma, c/d/i. MUSCULOSKELETAL: Left BKA, incision healing, some scabbing noted, open to air. Right lower foot ecchymosis with dressing to right ankle, c/d/i. NEUROLOGICAL: Awake and alert. No obvious cranial nerve deficits. Motor grossly within normal limits. 5/5 muscle strength in bilateral upper and lower extremities. Normal speech. PSYCHIATRIC: Appropriate mood and affect; insight and judgment normal. Procedures left AKA VAC application Colostomy (01/26/17). Right hip decubuti debridement (01/26/17) Urinary Catheter: Yes Date of Insertion: Feb 06, 2017 A/P Assessment and Plan Mr. Sheehan is a 56 year old male with a history of T1 fracture with neurogenic bladder and bowel, PVD, chronic decubitus ulcer and lower ext BKA who presented to the ED on 01/12/2017 due to left leg wound. He recently was evaluated by multiple physicians including vascular surgery and he was offered IV abx, AKA as well as debridement for deep pelvic area osteomyelitis. Unfortunately, patient was extremely agitated, used foul language and left AMA to go to a wound care center outside [place]. During this present admission, patient was found to be hypotensive with prominent leukocytosis. He underwent L BKA revision /AKA and multiple sacral /ischial wounds debridement. Left BKA stump infection/gangrene: s/p Left AKA, debridement of the decubitus and colostomy. Large Sacral decubitus ulcer Left pelvic area osteomyelitis. - Wound culture growing Acinetobacter Baumannii/Haemol and Enterococcus faecalis on 01/13/17. - Urine culture positive for Acinetobacter Baumannii/Haemol on 01/12/17 - ID following, recommendations are to continue Unasyn for 8 weeks (started on 01/14/2017). - Control pain. - Will increase Baclofen from 20 mg PO TID to 25 mg PO TID. - Continue [place] 15/650mg PO q6h PRN per pain scale. Continue Dilaudid PO breakthrough pain. Encouraged RN to possibly stagger these medications on administration to provide more of a constant state of relief. Will follow. - BMP reviewed today and stable. Adjustment disorder. mood improved. Continue Valium 10 mg po daily. Microcytic anemia, chronic: CBC reviewed today, stable. Continue iron supplementation. Paraplegic with neurogenic bladder: Continue Blood catheter. Insomnia: Continue Trazodone 50 mg q hs DVT Prophylaxis: Lovenox 30mg Q24hrs. GI prophylaxis: Pepcid 20 mg BID DNR Discharge Planning Last CM note: 02/09/17 12:00pm CM s/w [facility] late on 02/08 and was informed that they are not able to staff the pt. CM s/w Edgar from [facility] and [facility]. CM will continue to search for C to accept pt. Tammy Sawyer Feb 15, 2017 10:41
[2017-02-15 11:46] VITALS: BP 115/81; PULSE 81; RESP 20; TEMP 98.3; O2SAT 99
[2017-02-15] MEDS: BACLOFEN 10 MG TAB PO SCH ×2 (12:29→17:41)
[2017-02-15] MEDS: ENOXAPARIN SODIUM 30 MG/0.3 ML SYRINGE SQ SCH (14:16)
[2017-02-15 16:11] VITALS: BP 93/51; PULSE 99; RESP 20; TEMP 96.7; O2SAT 97
[2017-02-15 20:00] VITALS: BP 106/66; PULSE 95; RESP 20; TEMP 98.3; O2SAT 99
[2017-02-15] MEDS: traZODone HCL 50 MG TAB PO SCH (21:44)
[2017-02-16] VITALS: BP 107/51; PULSE 100; RESP 20; TEMP 97.1; O2SAT 100
[2017-02-16] MEDS: ACETAMINOPHEN/HYDROcodone 325 MG/10 MG TAB PO PRN ×3 (03:58→17:23)
[2017-02-16] MEDS: AMPICILLIN-SULBACTAM INJ 3 GM in SODIUM CHLORIDE 0.9% INJ 100 ML IV SCH ×4 (03:58→20:38)
[2017-02-16 04:00] VITALS: BP 151/76; PULSE 84; RESP 20; TEMP 97.8; O2SAT 97
[2017-02-16] MEDS: HYDROmorphone HCL 2 MG TAB PO PRN ×3 (06:04→19:33)
[2017-02-16 08:00] VITALS: BP 126/71; PULSE 73; RESP 19; TEMP 96; O2SAT 100
[2017-02-16] MEDS: FAMOTIDINE 20 MG TAB PO SCH ×2 (08:32→20:33)
[2017-02-16] MEDS: BACLOFEN 10 MG TAB PO SCH (08:32)
[2017-02-16] MEDS: QUEtiapine FUMARATE 25 MG TAB PO SCH ×2 (08:32→12:26)
[2017-02-16] MEDS: SENNOSIDES 8.6 MG TAB PO SCH (08:33)
[2017-02-16] MEDS: POTASSIUM CHLORIDE 10 MEQ CONTROLLED RELEASE TAB PO SCH (08:34)
[2017-02-16] MEDS: POLYETHYLENE GLYCOL 17 GM PKG PO SCH (08:42)
[2017-02-16] MEDS: SODIUM CHLORIDE 0.9% FLUSH 10 ML FLUSH IV FLUSH SCH ×2 (08:42→20:34)
--- NOTE | 2017-02-16 09:33 | HHI.PR ---
Subjective Remarks Follow up for decubitus ulcer, left AKA, stump infection in patient with a history of paraplegia. Patient seen and examined today. RN at bedside. Patient states pain is slightly more controlled since staggering pain medications. Denies any new acute complaints overnight. Positive BM. Patient states wounds on bilateral hips and buttock do not seem to be improving and requesting wound care nurse return for further recommendations. Denies any recent fever, chills, cough, shortness of breath, chest pain, abdominal pain, n/v, diarrhea or dysuria. Objective Vitals Vital Signs Date Time Temp Pulse Resp B/P Pulse Ox O2 Delivery O2 Flow Rate FiO2 02/16/17 08:00 96.0 73 19 126/71 100 02/16/17 04:00 97.8 84 20 151/76 97 02/16/17 00:00 97.1 100 20 107/51 100 02/15/17 20:00 98.3 95 20 106/66 99 02/15/17 16:11 96.7 99 20 93/51 97 02/15/17 11:46 98.3 81 20 115/81 99 I/O 02/15/17 02/15/17 02/15/17 02/16/17 02/16/17 02/16/17 07:00 15:00 23:00 07:00 15:00 23:00 Intake Total 205 ml 240 ml Output Total 250 ml 700 ml 2300 ml Balance -45 ml -460 ml -2300 ml Intake Oral 240 ml IV Total 205 ml Output Urine Total 700 ml 2300 ml Stool Total 250 ml Result Diagram: 02/15/17 0647 02/15/17 0647 Imaging Last Impressions Chest X-Ray 01/12/17 5453 Signed Impressions: Service Date/Time: Thursday, January 12, 2017 18:02 - CONCLUSION: Mild consolidation versus atelectasis at the left lung base. Marcell Loredo MD Objective Remarks GENERAL: Well-nourished, well-developed patient, awake, alert and lying in bed comfortably. SKIN: Warm and dry. No rash. HEENT: Normocephalic. Atraumatic. Pupils equal and round. No scleral icterus. No injection or drainage. No nasal bleeding or discharge. Mucous membranes pink and moist. NECK: Supple. Trachea midline. CARDIOVASCULAR: Regular rate and rhythm. S1, S2 noted. No murmur appreciated. RESPIRATORY: No accessory muscle use. Clear to auscultation. Breath sounds equal bilaterally. GASTROINTESTINAL: Abdomen soft, non-tender, nondistended. Normoactive bowel sounds x4. Left lower colostomy noted, pink stoma, c/d/i. MUSCULOSKELETAL: Left BKA, incision healing, some scabbing noted, open to air. Right lower foot ecchymosis with dressing to right ankle, c/d/i. NEUROLOGICAL: Awake and alert. No obvious cranial nerve deficits. Motor grossly within normal limits. 5/5 muscle strength in bilateral upper and lower extremities. Normal speech. PSYCHIATRIC: Appropriate mood and affect; insight and judgment normal. Procedures left AKA VAC application Colostomy (01/26/17). Right hip decubuti debridement (01/26/17) Urinary Catheter: Yes Assessment to: Continue Date of Insertion: Feb 06, 2017 A/P Assessment and Plan Mr. Sheehan is a 56 year old male with a history of T1 fracture with neurogenic bladder and bowel, PVD, chronic decubitus ulcer and lower ext BKA who presented to the ED on 01/12/2017 due to left leg wound. He recently was evaluated by multiple physicians including vascular surgery and he was offered IV abx, AKA as well as debridement for deep pelvic area osteomyelitis. Unfortunately, patient was extremely agitated, used foul language and left AMA to go to a wound care center outside [place]. During this present admission, patient was found to be hypotensive with prominent leukocytosis. He underwent L BKA revision /AKA and multiple sacral /ischial wounds debridement. Left BKA stump infection/gangrene: s/p Left AKA, debridement of the decubitus and colostomy. Large Sacral decubitus ulcer Left pelvic area osteomyelitis Right ankle wound - Wound culture growing Acinetobacter Baumannii/Haemol and Enterococcus faecalis on 01/13/17. - Requesting wound care nurse to return with any further recommendations for wound care. - Urine culture positive for Acinetobacter Baumannii/Haemol on 01/12/17 - ID following, recommendations are to continue Unasyn for 8 weeks (started on 01/14/2017). - Control pain. - Baclofen from 20 mg PO QID - Continue [place] 15/650mg PO q6h PRN per pain scale. Continue Dilaudid PO breakthrough pain. Encouraged RN to possibly stagger these medications on administration to provide more of a constant state of relief. Will follow. - Multipodus boot for nakle wound.right ankle. Adjustment disorder. mood improved. Continue Valium 10 mg po daily. Microcytic anemia, chronic: CBC reviewed today, stable. Continue iron supplementation. Paraplegic with neurogenic bladder: Continue Blood catheter. Insomnia: Continue Trazodone 50 mg q hs DVT Prophylaxis: Lovenox 30mg Q24hrs. GI prophylaxis: Pepcid 20 mg BID DNR Discharge Planning Last CM note: 02/09/17 12:00pm CM s/w [facility] Care late on 02/08 and was informed that they are not able to staff the pt. CM s/w Edgar from [facility] and was informed that they take [employer] and not [facility]. CM will continue to search for C to accept pt. Tammy Sawyer Feb 16, 2017 09:33
--- NOTE | 2017-02-16 11:12 | PD.CAR.PN ---
CVT Progress Note Subjective/Hospital Course: 56-year-old male known to me from last visit about 10 days ago. 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 after surgery performed at another hospital Patient has essentially mummified left BKA stump going all the way over the patella to distal above the knee level Patient was here a week or so ago and of course we recommended above-knee amputation of the time but patient stated that the thing is healing nicely and was very angry about even mention of amputation Now patient has progressive more necrosis in addition he is losing weight and is in functional decline because of the same Patient will need above-knee amputation on urgent basis He ate and will go ahead with an amputation tomorrow In addition patient has extensive sacral and lumbar decubiti needing debridement as well Full consult to follow Robinson J 01/14/17 Patient status post the left above-knee amputation and debridement of the huge sacral decubiti and a left hip decubitus As noted in my operative report is a very deep great for decubiti and chance of healing this is miniscule Dressing intact on left AKA I have discussed the care with wound care nurse and patient will have a large wound VAC placed Tuesday and . This may help to reduce some granulation tissue and start healing processes but I'm afraid 15 DN patient may require left hip disarticulation which is of course a large and unfortunately procedure if necessary Every effort should be made to avoid this if possible 01/15/17 Status post left above-knee amputation and debridement of the sacral and the hip decubiti We'll keep dressing on until tomorrow The decubiti care has been discussed with the wound care nurse and patient currently has wound vacs on all these We should continue this for a while and see it granulates that there is a very high chance the patient will require left hip disarticulation in the future Continue current care 01/16/17 Patient doing well incisions clean and dry dressing is intact Will start changing the dressing today Back decubiti are covered with wound vacs and we can try to give it a chance to heal however this may be lethal and may cause sepsis resulting in dire outcome Patient refuses diverting colostomy and I don't see any way any of this will heal without diverting the stool 01/17/17 AKA stump is clean and dry The back decubiti appeared to be clean and looked much better than I thought they would. Area is granulating nicely, however patient refuses diverting colostomy and sooner later this is all going get infected and patient will of sepsis 01/21/17 The debrided decubiti are covered with wound VAC and actually looked nice and clean but encompassed massive amount of patient's back. Left AKA stump is healing nicely Patient has right hip decubitus this going very deep into the hip which also needs debridement At this point there is no other option but to do diverting colostomy in this gentleman for otherwise he will from sepsis Patient refuses diverting colostomy so I have no other options to offer to him 01/25/17 Patient paraplegic with multiple huge decubiti in sacral area and in both hips Patient refused diverting colostomy but no finally agreed to it Will proceed with diverting colostomy tomorrow and at the same time debride the right hip decubitus 01/26/17 Patient underwent diverting colostomy and debridement of right hip Patient can be restarted on his diet and then can be discharged from my point as soon as colostomy works well probably in a day or 2 Follow-up with me in 2 weeks for staple removal or the thuan can be removed in the [facility] 01/27/17 Status post diverting colostomy Incisions clean and dry Abdomen soft active bowel sounds patient's tolerating diet Thuan to come out in about 2 weeks 01/29/17 Incision is clean and dry Colostomy is working very well with gas and stool in the bag There was a large amount of fact up stool in the large bowel so we'll take a while for this to be evacuated through the colostomy Patient's tolerating diet well From my point patient can be transferred to fdc any time 01/31/17 Abdominal incision is clean and dry and colostomy is working very well Abdomen is soft with active bowel sounds and patient's tolerating diet Patient is encouraged to take liquids to make stool more easily passable now that has a colostomy The debrided decubiti look great and clean and at this point wet-to-dry dressing can be applied rather than wound VAC 02/01/17 Incision is clean and dry Abdomen soft with active bowel sounds and colostomy working nicely Patient will permanently have to be on some sort of laxative regiment in order for the colostomy to work continuously without the intermittent functional obstructions with hard stool Stump is clean and dry so stitches can be DC'd from the stump We will leave abdominal stitches in place for another week or so Patient can transfer to [place] or some sort of a rehabilitation any time from my point 02/16/17 AKA stump is healed nicely Abdomen is soft with active bowel sounds and colostomy is working very well Incision is clean and dry. Campbell have been removed The decubiti dressings are being changed as per wound care and there is nothing to add from my point any more Will sign off from the patient at this time Objective: Vital Signs Date Time Temp Pulse Resp B/P Pulse Ox O2 Delivery O2 Flow Rate FiO2 02/16/17 08:00 96.0 73 19 126/71 100 02/16/17 04:00 97.8 84 20 151/76 97 02/16/17 00:00 97.1 100 20 107/51 100 02/15/17 20:00 98.3 95 20 106/66 99 02/15/17 16:11 96.7 99 20 93/51 97 02/15/17 11:46 98.3 81 20 115/81 99 Result Diagram: 02/15/17 0647 02/15/17 0647 Sen Robertson MD Feb 16, 2017 11:12
[2017-02-16 12:00] VITALS: BP 118/75; PULSE 88; RESP 19; TEMP 95.8; O2SAT 100
[2017-02-16] MEDS: BACLOFEN 20 MG TAB PO SCH ×3 (12:26→20:37)
[2017-02-16] MEDS: ENOXAPARIN SODIUM 30 MG/0.3 ML SYRINGE SQ SCH (14:50)
[2017-02-16 16:00] VITALS: BP 109/69; PULSE 77; RESP 20; TEMP 97.8; O2SAT 100
[2017-02-16 20:00] VITALS: BP 101/62; PULSE 78; RESP 20; TEMP 98.1; O2SAT 98
[2017-02-16] MEDS: traZODone HCL 50 MG TAB PO SCH (20:33)
[2017-02-16] MEDS: DIAZEPAM 10 MG TAB PO PRN (20:33)
[2017-02-17 04:00] VITALS: BP 129/79; PULSE 74; RESP 20; TEMP 98.1; O2SAT 99
[2017-02-17] MEDS: ACETAMINOPHEN/HYDROcodone 325 MG/10 MG TAB PO PRN ×4 (04:34→23:00)
[2017-02-17] MEDS: AMPICILLIN-SULBACTAM INJ 3 GM in SODIUM CHLORIDE 0.9% INJ 100 ML IV SCH ×4 (04:34→20:06)
[2017-02-17 08:00] VITALS: BP 115/58; PULSE 74; RESP 18; TEMP 96.7; O2SAT 98
[2017-02-17] MEDS: HYDROmorphone HCL 2 MG TAB PO PRN ×2 (08:11→14:08)
[2017-02-17] MEDS: POLYETHYLENE GLYCOL 17 GM PKG PO SCH (09:00)
[2017-02-17] MEDS: QUEtiapine FUMARATE 25 MG TAB PO SCH ×2 (09:30→12:29)
[2017-02-17] MEDS: SENNOSIDES 8.6 MG TAB PO SCH (09:30)
[2017-02-17] MEDS: FAMOTIDINE 20 MG TAB PO SCH ×2 (09:31→20:06)
[2017-02-17] MEDS: POTASSIUM CHLORIDE 10 MEQ CONTROLLED RELEASE TAB PO SCH (09:31)
[2017-02-17] MEDS: BACLOFEN 20 MG TAB PO SCH ×4 (09:31→20:06)
[2017-02-17] MEDS: SODIUM CHLORIDE 0.9% FLUSH 10 ML FLUSH IV FLUSH SCH ×2 (09:32→20:07)
--- NOTE | 2017-02-17 11:09 | HHI.PR ---
Subjective Remarks Follow up for decubitus ulcer, left AKA, stump infection in patient with a history of paraplegia. Patient seen and examined today. Patient expressing concern that wounds are not healing properly, that drainage is increasing and requesting further recommendations. Wound care following patient regularly with recent recommendations. Plastic surgery now consulted, appreciate any further recommendations. Overall patient does state that pain has been tolerable and relatively controlled. Tolerating PO intake, denies any nausea or vomiting. Positive BMs through colostomy. Denies any recent fever, chills, cough, shortness of breath, diarrhea or dysuria. Spoke to patient at length regarding concerns and all questions answered to the best ability. Notified patient of availability to be reached and will address concerns further if needed. Objective Vitals Vital Signs Date Time Temp Pulse Resp B/P Pulse Ox O2 Delivery O2 Flow Rate FiO2 02/17/17 08:00 96.7 74 18 115/58 98 02/17/17 04:00 98.1 74 20 129/79 99 02/16/17 20:00 98.1 78 20 101/62 98 02/16/17 16:00 97.8 77 20 109/69 100 02/16/17 12:00 95.8 88 19 118/75 100 I/O 02/16/17 02/16/17 02/16/17 02/17/17 02/17/17 02/17/17 07:00 15:00 23:00 07:00 15:00 23:00 Intake Total 720 ml 240 ml Output Total 2300 ml 1275 ml 625 ml 725 ml Balance -2300 ml -555 ml -385 ml -725 ml Intake Oral 720 ml 240 ml Output Urine Total 2300 ml 1275 ml 625 ml 725 ml Result Diagram: 02/15/17 0647 02/15/17 0647 Imaging Last Impressions Chest X-Ray 01/12/17 7699 Signed Impressions: Service Date/Time: Thursday, January 12, 2017 18:02 - CONCLUSION: Mild consolidation versus atelectasis at the left lung base. Marcell Loredo MD Objective Remarks GENERAL: Well-nourished, well-developed patient, awake, alert and lying in bed comfortably. SKIN: Warm and dry. No rash. Multiple hip and sacral wounds noted with dressings noted, clean, intact. HEENT: Normocephalic. Atraumatic. Pupils equal and round. No scleral icterus. No injection or drainage. No nasal bleeding or discharge. Mucous membranes pink and moist. NECK: Supple. Trachea midline. CARDIOVASCULAR: Regular rate and rhythm. S1, S2 noted. No murmur appreciated. RESPIRATORY: No accessory muscle use. Clear to auscultation. Breath sounds equal bilaterally. GASTROINTESTINAL: Abdomen soft, non-tender, nondistended. Normoactive bowel sounds x4. Left lower colostomy noted, pink stoma, c/d/i. MUSCULOSKELETAL: Left BKA, incision healing, some scabbing noted, open to air. Right lower foot ecchymosis with dressing to right ankle, c/d/i. NEUROLOGICAL: Awake and alert. No obvious cranial nerve deficits. Motor grossly within normal limits. 5/5 muscle strength in bilateral upper and lower extremities. Normal speech. PSYCHIATRIC: Appropriate mood and affect; insight and judgment normal. Procedures left AKA VAC application Colostomy (01/26/17). Right hip decubuti debridement (01/26/17) Urinary Catheter: Yes Assessment to: Continue Blood insert reason: Stage III/IV Press Ulcer Date of Insertion: Feb 06, 2017 A/P Assessment and Plan Mr. Sheehan is a 56 year old male with a history of T1 fracture with neurogenic bladder and bowel, PVD, chronic decubitus ulcer and lower ext BKA who presented to the ED on 01/12/2017 due to left leg wound. He recently was evaluated by multiple physicians including vascular surgery and he was offered IV abx, AKA as well as debridement for deep pelvic area osteomyelitis. Unfortunately, patient was extremely agitated, used foul language and left AMA to go to a wound care center outside [place]. During this present admission, patient was found to be hypotensive with prominent leukocytosis. He underwent L BKA revision /AKA and multiple sacral /ischial wounds debridement. Left BKA stump infection/gangrene: s/p Left AKA, debridement of the decubitus and colostomy. Large Sacral decubitus ulcer Left pelvic area osteomyelitis Right ankle wound - Wound culture growing Acinetobacter Baumannii/Haemol and Enterococcus faecalis on 01/13/17. - Call placed to wound care nurse regarding patient concern for wound healing and drainage. She is aware, following patient and desires current recommendations with addition to maxorb 2 placement tp all wounds with ABD supported with paper tape. - Consult placed to plastic surgery for request of any further recommendations or treatment. Appreciate any recommendations, will follow. - Urine culture positive for Acinetobacter Baumannii/Haemol on 01/12/17 - ID following, recommendations are to continue Unasyn for 8 weeks (started on 01/14/2017). - Control pain. Baclofen 20 mg PO QID. Continue [place] 15/650mg PO q6h PRN per pain scale. Continue Dilaudid PO breakthrough pain. Encouraged RN to possibly stagger these medications on administration to provide more of a constant state of relief. Will follow. - Multipodus boot for ankle wound, right. Adjustment disorder. mood improved. Continue Valium 10 mg po daily. Microcytic anemia, chronic: CBC reviewed today, stable. Continue iron supplementation. Paraplegic with neurogenic bladder: Continue Blood catheter. Insomnia: Continue Trazodone 50 mg q hs DVT Prophylaxis: Lovenox 30mg Q24hrs. GI prophylaxis: Pepcid 20 mg BID DNR Discharge Planning Last CM note: 02/09/17 12:00pm CM s/w [facility] late on 02/08 and was informed that they are not able to staff the pt. CM s/w Edgar from [facility] and was informed that they take [employer] Medicare and not [facility]. CM will continue to search for [facility] to accept pt. Attending Statement Patient seen in her bedroom in the presence of JESSI Brand Tammy Digna, the patient was upset for his Wound care, he was already evaluated by General deployment specialist and recommended to continue Wound care, he will need prolonged management, was explained to the patient that he will need prolonged management, he has not been accepted by any [facility] and not able to be discharged, the case was discussed with inventory management specialist states he will need to continue present care, evaluated and read chart, has stable vital signs. Tammy Sawyer Feb 17, 2017 11:09 Demarcus Jasmine MD Feb 18, 2017 15:51
[2017-02-17 12:00] VITALS: BP 104/59; PULSE 98; RESP 19; TEMP 96.5; O2SAT 99
[2017-02-17 14:00] VITALS: BP 95/61; PULSE 96; RESP 19; TEMP 97.8; O2SAT 99
[2017-02-17] MEDS: ENOXAPARIN SODIUM 30 MG/0.3 ML SYRINGE SQ SCH (14:09)
[2017-02-17] MEDS: COLLAGENASE OINT 30 GM TUBE TOPICAL SCH (15:00)
[2017-02-17 16:00] VITALS: BP 95/61; PULSE 96; RESP 19; TEMP 97.8; O2SAT 99
--- NOTE | 2017-02-17 18:02 | PD.CONS ---
History of Present Illness Service Plastics Consult Requested By Primary Care Physician Non-Staff Diagnoses: History of Present Illness This is a 56 year old paraplegic male who was admitted [facility] 01/12/17 for evaluation of necrotic wounds. On review of the record, was initially seen at [facility] earlier in December for evaluation of pressure ulcers of the hips and buttocks as well as the wound of the left BKA stump. The BKA was done at another hospital approximately 1 month prior. He left the hospital AMA at that time after refusing surgical treatment and returned on 01/12/17. He has since undergone a left AKA and debridement of the wound of the hips, sacrum and left ischium. There have been daily dressing changes with santyl application. Plastics has been asked to consult for evaluation of the wounds. Review of Systems Except as stated in HPI: all other systems reviewed are Neg Past Family Social History Allergies: Coded Allergies: Levaquin (Verified Allergy, Severe, 12/25/16) *MDRO Multi-Drug Resistant Organism (Verified Allergy, Unknown, 01/17/17) MDR-Acinetobacter baumannii (Urine) - 04/20/16, 12/25/16, 01/12/17 MDR-Acinetobacter baumannii (wounds)-12/25/16, 01/12/17 Septra (Verified Allergy, Unknown, 12/25/16) Past Medical History Paraplegia, T1 injury Pressure ulcers, patients states have been present for 8 years Neurogenic bladder/bowel PVD Depression Possible COPD Past Surgical History Left tib/fib fracture cervical fusion Left BKA Left AKA Pressure ulcer debridement Colostomy Active Ordered Medications Current Medications Medications (Trade) Dose Ordered Sig/Vivien Route Start Time Stop Time Status Last Admin (NS Flush) 2 ml UNSCH PRN IV FLUSH 01/12/17 21:45 02/09/17 10:08 (NS Flush) 2 ml BID IV FLUSH 01/13/17 09:00 02/17/17 09:32 Naloxone HCl 0.4 mg 0.4 mg UNSCH PRN IV 01/12/17 21:45 (Unasyn Inj/NS Inj) 100 ml @ 200 mls/hr Q6H IV 01/14/17 16:00 02/17/17 17:08 (Santyl Oint) 1 applic MoTh TOPICAL 01/14/17 15:00 02/14/17 14:15 (KCl) 30 meq DAILY PO 01/15/17 13:45 02/17/17 09:31 (Lovenox Inj) 30 mg Q24H SQ 01/15/17 14:00 02/17/17 14:09 (Miralax) 17 gm DAILY PO 01/15/17 14:00 02/07/17 09:56 (Dulcolax Supp) 10 mg DAILY PRN RECTAL 01/17/17 00:30 01/17/17 00:48 (Senokot) 8.6 mg DAILY PO 01/17/17 00:30 02/17/17 09:30 (SEROquel) 12.5 mg BID@09,12 PO 01/17/17 14:00 02/17/17 12:29 (Pill Splitter) 1 ea UNSCH PRN OTHER 01/17/17 14:00 01/23/17 09:39 (Valium) 10 mg DAILY PRN PO 01/18/17 12:00 02/16/17 20:33 (Phazyme Chew) 125 mg DAILY PRN PO 01/29/17 11:30 (Zofran Inj) 4 mg Q6HR PRN IV PUSH 02/02/17 14:30 02/03/17 09:59 (Pepcid) 20 mg BID PO 02/08/17 21:00 02/17/17 09:31 (Desyrel) 50 mg HS PO 02/09/17 21:00 02/16/17 20:33 (Dilaudid) 1 mg Q6H PRN PO 02/12/17 20:00 02/17/17 14:08 ([place] 10-325 Mg) 1.5 tab Q6H PRN PO 02/14/17 14:00 02/17/17 17:09 (Lioresal) 20 mg QID PO 02/16/17 13:00 02/17/17 17:08 Family History Patient refused to answer Social History Patient refused to answer. Physical Exam Vital Signs Vital Signs Date Time Temp Pulse Resp B/P Pulse Ox O2 Delivery O2 Flow Rate FiO2 02/17/17 16:00 97.8 96 19 95/61 99 02/17/17 15:08 18 02/17/17 14:00 97.8 96 19 95/61 99 02/17/17 12:08 18 02/17/17 12:00 96.5 98 19 104/59 99 02/17/17 08:00 96.7 74 18 115/58 98 02/17/17 04:00 98.1 74 20 129/79 99 02/16/17 20:00 98.1 78 20 101/62 98 Physical Exam GENERAL: Patient is lying comfortably in bed. He is able to turn himself for evaluation. He is SKIN: Extensive pressure ulcers to the hips, sacrum, and left ischium. All wounds beds are mostly pink granulation tissue with traces of slough. WOCN note has measurements. There is no odor, drainage is serosanguineous and nonpurulent. Periwound skin in pink and irritated, consistent with fungal overgrowth. There is no evidence of infection. HEAD: Atraumatic. Normocephalic. EYES: Pupils equal round and reactive. No scleral icterus. No injection or drainage. ENT: Nose without bleeding, purulent drainage. Airway patent. NECK: Trachea midline. CARDIOVASCULAR: Regular rate and rhythm without murmurs, gallops, or rubs. RESPIRATORY: Clear to auscultation. Breath sounds equal bilaterally. No wheezes , rales, or rhonchi. MUSCULOSKELETAL: Left AKA. Wound healed. NEUROLOGICAL: Awake and alert. Normal speech. Result Diagram: 02/15/1764602/15/17646 Assessment and Plan Problem List: (1) Pressure ulcer of sacral region, stage 4 Status: Acute (2) Pressure ulcer of left hip, stage 4 Status: Acute (3) Pressure ulcer of left buttock, stage 4 Status: Acute Plan: The wounds are not in need of surgical debridement at this time. The recommendation is for daily dressing changes including betadine wet to dry dressing to wounds, then protect wound edges with barrier cream and apply nystatin powder to surrounding skin. We may consider wound vac once periwound skin is healthier. This is discussed with RN. Physician Attestation The exam, history, and the medical decision-making described in the above note were completed with the assistance of the mid-level provider. I reviewed and agree with the findings presented. I attest that I had a [id number] encounter with the patient on the same day, and personally performed and documented my assessment and findings in the medical record. Vesta Kiser M.D. Bibi Motta Feb 17, 2017 18:02
[2017-02-17 20:00] VITALS: BP 134/77; PULSE 78; RESP 20; TEMP 96.1; O2SAT 99
[2017-02-17] MEDS: traZODone HCL 50 MG TAB PO SCH (20:06)
[2017-02-17] MEDS: NYSTATIN 100,000 U/GM PWD 15 GM BTL TOPICAL SCH (22:00)
[2017-02-18] MEDS: HYDROmorphone HCL 2 MG TAB PO PRN ×3 (02:16→15:40)
[2017-02-18] MEDS: AMPICILLIN-SULBACTAM INJ 3 GM in SODIUM CHLORIDE 0.9% INJ 100 ML IV SCH ×4 (03:32→21:32)
[2017-02-18 04:00] VITALS: BP 116/70; PULSE 84; RESP 20; TEMP 97.9; O2SAT 100
[2017-02-18] MEDS: ACETAMINOPHEN/HYDROcodone 325 MG/10 MG TAB PO PRN ×3 (06:32→21:31)
[2017-02-18] MEDS: BACLOFEN 20 MG TAB PO SCH ×4 (06:37→21:32)
[2017-02-18 08:00] VITALS: BP 134/65; PULSE 82; RESP 19; TEMP 98.2; O2SAT 100
[2017-02-18] MEDS: POTASSIUM CHLORIDE 10 MEQ CONTROLLED RELEASE TAB PO SCH (08:57)
[2017-02-18] MEDS: SENNOSIDES 8.6 MG TAB PO SCH (08:59)
[2017-02-18] MEDS: FAMOTIDINE 20 MG TAB PO SCH ×2 (08:59→21:32)
[2017-02-18] MEDS: POLYETHYLENE GLYCOL 17 GM PKG PO SCH (09:00)
[2017-02-18] MEDS: QUEtiapine FUMARATE 25 MG TAB PO SCH ×2 (09:04→11:17)
[2017-02-18] MEDS: NYSTATIN 100,000 U/GM PWD 15 GM BTL TOPICAL SCH (09:06)
[2017-02-18] MEDS: SODIUM CHLORIDE 0.9% FLUSH 10 ML FLUSH IV FLUSH SCH ×2 (09:06→21:33)
--- NOTE | 2017-02-18 10:39 | HHI.PR ---
Subjective Remarks Follow up for decubitus ulcer, left AKA, stump infection in patient with a history of paraplegia. Patient seen and examined today, eating breakfast. No acute events overnight. Plastics saw patient yesterday, continue wound care recommendations. Pain controlled today. Denies any other complaints. Objective Vitals Vital Signs Date Time Temp Pulse Resp B/P Pulse Ox O2 Delivery O2 Flow Rate FiO2 02/18/17 08:00 98.2 82 19 134/65 100 02/18/17 04:00 97.9 84 20 116/70 100 02/17/17 20:00 96.1 78 20 134/77 99 02/17/17 16:00 97.8 96 19 95/61 99 02/17/17 15:08 18 02/17/17 14:00 97.8 96 19 95/61 99 02/17/17 12:08 18 02/17/17 12:00 96.5 98 19 104/59 99 I/O 02/17/17 02/17/17 02/17/17 02/18/17 02/18/17 02/18/17 07:00 15:00 23:00 07:00 15:00 23:00 Intake Total 600 ml 210 ml 120 ml Output Total 725 ml 1025 ml 1225 ml Balance -725 ml -425 ml 210 ml -1105 ml Intake Oral 600 ml 120 ml IV Total 210 ml Output Urine Total 725 ml 1025 ml 1225 ml Result Diagram: 02/15/17 0647 02/15/17 0647 Imaging Last Impressions Chest X-Ray 01/12/17 3200 Signed Impressions: Service Date/Time: Thursday, January 12, 2017 18:02 - CONCLUSION: Mild consolidation versus atelectasis at the left lung base. Marcell Loredo MD Objective Remarks GENERAL: Well-nourished, well-developed patient, awake, alert and lying in bed comfortably. SKIN: Warm and dry. No rash. Multiple hip and sacral wounds noted with dressings noted, clean, intact. HEENT: Normocephalic. Atraumatic. Pupils equal and round. No scleral icterus. No injection or drainage. No nasal bleeding or discharge. Mucous membranes pink and moist. NECK: Supple. Trachea midline. CARDIOVASCULAR: Regular rate and rhythm. S1, S2 noted. No murmur appreciated. RESPIRATORY: No accessory muscle use. Clear to auscultation. Breath sounds equal bilaterally. GASTROINTESTINAL: Abdomen soft, non-tender, nondistended. Normoactive bowel sounds x4. Left lower colostomy noted, pink stoma, c/d/i. MUSCULOSKELETAL: Left BKA, incision healing, some scabbing noted, open to air. Right lower foot ecchymosis with dressing to right ankle, c/d/i. NEUROLOGICAL: Awake and alert. No obvious cranial nerve deficits. Motor grossly within normal limits. 5/5 muscle strength in bilateral upper and lower extremities. Normal speech. PSYCHIATRIC: Appropriate mood and affect; insight and judgment normal. Procedures left AKA VAC application Colostomy (01/26/17). Right hip decubuti debridement (01/26/17) Date of Insertion: Feb 06, 2017 A/P Assessment and Plan Mr. Sheehan is a 56 year old male with a history of T1 fracture with neurogenic bladder and bowel, PVD, chronic decubitus ulcer and lower ext BKA who presented to the ED on 01/12/2017 due to left leg wound. He recently was evaluated by multiple physicians including vascular surgery and he was offered IV abx, AKA as well as debridement for deep pelvic area osteomyelitis. Unfortunately, patient was extremely agitated, used foul language and left AMA to go to a wound care center outside [place]. During this present admission, patient was found to be hypotensive with prominent leukocytosis. He underwent L BKA revision /AKA and multiple sacral /ischial wounds debridement. Left BKA stump infection/gangrene: s/p Left AKA, debridement of the decubitus and colostomy. Large Sacral decubitus ulcer Left pelvic area osteomyelitis Right ankle wound - Wound culture growing Acinetobacter Baumannii/Haemol and Enterococcus faecalis on 01/13/17. - Current wound care recommendations with addition to maxorb 2 placement tp all wounds with ABD supported with paper tape. - Plastic surgery recommends continuing wound care. No surgery at this time. - Urine culture positive for Acinetobacter Baumannii/Haemol on 01/12/17 - ID following, recommendations are to continue Unasyn for 8 weeks (started on 01/14/2017). - Control pain. Baclofen 20 mg PO QID. Continue [place] 15/650mg PO q6h PRN per pain scale. Continue Dilaudid PO breakthrough pain. Encouraged RN to possibly stagger these medications on administration to provide more of a constant state of relief. Will follow. - Multipodus boot for ankle wound, right. Adjustment disorder. mood improved. Continue Valium 10 mg po daily. Microcytic anemia, chronic: CBC reviewed today, stable. Continue iron supplementation. Paraplegic with neurogenic bladder: Continue Blood catheter. Insomnia: Continue Trazodone 50 mg q hs DVT Prophylaxis: Lovenox 30mg Q24hrs. GI prophylaxis: Pepcid 20 mg BID DNR Discharge Planning Last CM note: 2:00pm: CM unable to find [facility] for pt for wound care or IV ABX. CM will continue to search. [facility] will not accept pt back stating that they are unable to staff pt. Attending Statement Patient seen in his Bedroom and discussed with PA . Tammy Digna chart reviewed and discussed with [facility] he has no possibility at this time for Discharge to his Skilled Nursing or Home with C to continue his Wound care. Stable vital signs and laboratory. Tammy Sawyer Feb 18, 2017 10:39 Demarcus Jasmine MD Feb 18, 2017 15:53
[2017-02-18] MEDS: ENOXAPARIN SODIUM 30 MG/0.3 ML SYRINGE SQ SCH (13:38)
[2017-02-18 20:21] VITALS: BP 127/71; PULSE 82; RESP 17; TEMP 98.8; O2SAT 100
[2017-02-18] MEDS: traZODone HCL 50 MG TAB PO SCH (21:31)
[2017-02-19 00:15] VITALS: BP 119/69; PULSE 75; RESP 17; TEMP 97.8; O2SAT 97
[2017-02-19] MEDS: NYSTATIN 100,000 U/GM PWD 15 GM BTL TOPICAL SCH ×3 (00:19→22:36)
[2017-02-19] MEDS: HYDROmorphone HCL 2 MG TAB PO PRN ×3 (00:19→12:52)
[2017-02-19] MEDS: ACETAMINOPHEN/HYDROcodone 325 MG/10 MG TAB PO PRN ×4 (03:45→20:52)
[2017-02-19] MEDS: AMPICILLIN-SULBACTAM INJ 3 GM in SODIUM CHLORIDE 0.9% INJ 100 ML IV SCH ×4 (03:45→20:54)
[2017-02-19 04:36] VITALS: BP 130/66; PULSE 69; RESP 17; TEMP 97.2; O2SAT 100
[2017-02-19 08:20] VITALS: BP 133/77; PULSE 89; RESP 17; TEMP 96.6; O2SAT 100
[2017-02-19] MEDS: SODIUM CHLORIDE 0.9% FLUSH 10 ML FLUSH IV FLUSH SCH ×2 (09:00→20:53)
[2017-02-19] MEDS: BACLOFEN 20 MG TAB PO SCH ×4 (09:20→20:53)
[2017-02-19] MEDS: SENNOSIDES 8.6 MG TAB PO SCH (09:20)
[2017-02-19] MEDS: QUEtiapine FUMARATE 25 MG TAB PO SCH ×2 (09:20→11:52)
[2017-02-19] MEDS: POTASSIUM CHLORIDE 10 MEQ CONTROLLED RELEASE TAB PO SCH (09:20)
[2017-02-19] MEDS: FAMOTIDINE 20 MG TAB PO SCH ×2 (09:20→20:53)
[2017-02-19] MEDS: POLYETHYLENE GLYCOL 17 GM PKG PO SCH (10:11)
--- NOTE | 2017-02-19 11:08 | HHI.PR ---
Subjective Remarks Follow up for decubitus ulcer, left AKA, stump infection in patient with a history of paraplegia. Patient seen and examined today. Awake, alert, sitting up in bed eating breakfast. Patient does state that pain is more controlled. Denies any new acute complaints. Requesting to possibly get out of bed in wheelchair to freshen up in bathroom today. Objective Vitals Vital Signs Date Time Temp Pulse Resp B/P Pulse Ox O2 Delivery O2 Flow Rate FiO2 02/19/17 08:20 96.6 89 17 133/77 100 02/19/17 04:36 97.2 69 17 130/66 100 02/19/17 00:15 97.8 75 17 119/69 97 02/18/17 20:21 98.8 82 17 127/71 100 I/O 02/18/17 02/18/17 02/18/17 02/19/17 02/19/17 02/19/17 07:00 15:00 23:00 07:00 15:00 23:00 Intake Total 120 ml 1000 ml 680 ml Output Total 1225 ml 1450 ml 3775 ml Balance -1105 ml -450 ml -3095 ml Intake Oral 120 ml 1000 ml 480 ml IV Total 200 ml Output Urine Total 1225 ml 1450 ml 3275 ml Stool Total 500 ml Result Diagram: 02/15/17 0647 02/15/17 0647 Imaging Last Impressions Chest X-Ray 01/12/17 7645 Signed Impressions: Service Date/Time: Thursday, January 12, 2017 18:02 - CONCLUSION: Mild consolidation versus atelectasis at the left lung base. Marcell Loredo MD Objective Remarks GENERAL: Well-nourished, well-developed patient, awake, alert and lying in bed comfortably. SKIN: Warm and dry. No rash. Multiple hip and sacral wounds noted with dressings noted, clean, intact. HEENT: Normocephalic. Atraumatic. Pupils equal and round. No scleral icterus. No injection or drainage. No nasal bleeding or discharge. Mucous membranes pink and moist. NECK: Supple. Trachea midline. CARDIOVASCULAR: Regular rate and rhythm. S1, S2 noted. No murmur appreciated. RESPIRATORY: No accessory muscle use. Clear to auscultation. Breath sounds equal bilaterally. GASTROINTESTINAL: Abdomen soft, non-tender, nondistended. Normoactive bowel sounds x4. Left lower colostomy noted, pink stoma, c/d/i, brown colored stool noted. MUSCULOSKELETAL: Left BKA, incision healing, open to air. Right lower foot ecchymosis with dressing to right ankle, c/d/i. NEUROLOGICAL: Awake and alert. No obvious cranial nerve deficits. Motor grossly within normal limits. 5/5 muscle strength in bilateral upper and lower extremities. Normal speech. PSYCHIATRIC: Appropriate mood and affect; insight and judgment normal. Procedures left AKA VAC application Colostomy (01/26/17). Right hip decubuti debridement (01/26/17) Urinary Catheter: Yes Assessment to: Continue Blood insert reason: Stage III/IV Press Ulcer Date of Insertion: Feb 06, 2017 A/P Assessment and Plan Mr. Sheehan is a 56 year old male with a history of T1 fracture with neurogenic bladder and bowel, PVD, chronic decubitus ulcer and lower ext BKA who presented to the ED on 01/12/2017 due to left leg wound. He recently was evaluated by multiple physicians including vascular surgery and he was offered IV abx, AKA as well as debridement for deep pelvic area osteomyelitis. Unfortunately, patient was extremely agitated, used foul language and left AMA to go to a wound care center outside [place]. During this present admission, patient was found to be hypotensive with prominent leukocytosis. He underwent L BKA revision /AKA and multiple sacral /ischial wounds debridement. Left BKA stump infection/gangrene: s/p Left AKA, debridement of the decubitus and colostomy. Large Sacral decubitus ulcer Left pelvic area osteomyelitis Right ankle wound - Wound culture growing Acinetobacter Baumannii/Haemol and Enterococcus faecalis on 01/13/17. - Current wound care recommendations with addition to maxorb 2 placement tp all wounds with ABD supported with paper tape. - Plastic surgery recommends continuing wound care. No surgery at this time. - Urine culture positive for Acinetobacter Baumannii/Haemol on 01/12/17 - ID following, recommendations are to continue Unasyn for 8 weeks (started on 01/14/2017). - Control pain. Baclofen 20 mg PO QID. Continue [place] 15/650mg PO q6h PRN per pain scale. Continue Dilaudid PO breakthrough pain. Encouraged RN to possibly stagger these medications on administration to provide more of a constant state of relief. Will follow. - Multipodus boot for ankle wound, right. Adjustment disorder. mood improved. Continue Valium 10 mg po daily. Microcytic anemia, chronic: CBC reviewed today, stable. Continue iron supplementation. Paraplegic with neurogenic bladder: Continue Blood catheter. Insomnia: Continue Trazodone 50 mg q hs DVT Prophylaxis: Lovenox 30mg Q24hrs. GI prophylaxis: Pepcid 20 mg BID DNR Discharge Planning Last CM note: 2:00pm: CM unable to find [facility] for pt for wound care or IV ABX. CM will continue to search. [facility] will not accept pt back stating that they are unable to staff pt. Tammy Sawyer Feb 19, 2017 11:08
[2017-02-19] MEDS: DIAZEPAM 10 MG TAB PO PRN (11:52)
[2017-02-19 12:40] VITALS: BP 109/68; PULSE 82; RESP 18; TEMP 98; O2SAT 98
[2017-02-19] MEDS: ENOXAPARIN SODIUM 30 MG/0.3 ML SYRINGE SQ SCH (12:52)
[2017-02-19 16:44] VITALS: BP 94/58; PULSE 80; RESP 16; TEMP 96.8; O2SAT 98
[2017-02-19] MEDS: traZODone HCL 50 MG TAB PO SCH (20:53)
[2017-02-20 00:42] VITALS: BP 119/65; PULSE 59; RESP 16; TEMP 97; O2SAT 99
[2017-02-20] MEDS: AMPICILLIN-SULBACTAM INJ 3 GM in SODIUM CHLORIDE 0.9% INJ 100 ML IV SCH ×4 (03:34→21:51)
[2017-02-20] MEDS: SODIUM CHLORIDE 0.9% FLUSH 10 ML FLUSH IV FLUSH PRN (03:35)
[2017-02-20] MEDS: HYDROmorphone HCL 2 MG TAB PO PRN ×4 (04:08→21:52)
[2017-02-20 04:28] VITALS: BP 148/70; PULSE 87; RESP 17; TEMP 98.3; O2SAT 96
[2017-02-20] MEDS: ACETAMINOPHEN/HYDROcodone 325 MG/10 MG TAB PO PRN ×3 (05:34→18:28)
[2017-02-20 08:00] VITALS: BP 96/55; PULSE 88; RESP 18; O2SAT 96
[2017-02-20] MEDS: SENNOSIDES 8.6 MG TAB PO SCH (09:26)
[2017-02-20] MEDS: POTASSIUM CHLORIDE 10 MEQ CONTROLLED RELEASE TAB PO SCH (09:26)
[2017-02-20] MEDS: POLYETHYLENE GLYCOL 17 GM PKG PO SCH (09:27)
[2017-02-20] MEDS: SODIUM CHLORIDE 0.9% FLUSH 10 ML FLUSH IV FLUSH SCH ×2 (09:27→21:52)
[2017-02-20] MEDS: BACLOFEN 20 MG TAB PO SCH ×4 (09:27→21:51)
[2017-02-20] MEDS: QUEtiapine FUMARATE 25 MG TAB PO SCH ×2 (09:27→12:03)
[2017-02-20] MEDS: FAMOTIDINE 20 MG TAB PO SCH ×2 (09:27→21:52)
[2017-02-20 12:00] VITALS: BP 87/48; PULSE 99; RESP 20; O2SAT 100
--- NOTE | 2017-02-20 12:17 | HHI.PR ---
Subjective Remarks Follow up for decubitus ulcer, left AKA, stump infection in patient with a history of paraplegia. Patient seen and examined today, lying awake in bed. Denies any new acute complaints overnight. Does have a more positive attitude today, pain is more controlled. Has noticed in right leg more spasms. Tolerating dressing changes, states he is pleased dressing changes are now BID and thankful for plastics consult. Tolerating PO intake. Afebrile. Objective Vitals Vital Signs Date Time Temp Pulse Resp B/P Pulse Ox O2 Delivery O2 Flow Rate FiO2 02/20/17 12:00 99 20 87/48 100 02/20/17 08:00 88 18 96/55 96 02/20/17 04:28 98.3 87 17 148/70 96 02/20/17 00:42 97.0 59 16 119/65 99 02/19/17 16:44 96.8 80 16 94/58 98 02/19/17 12:40 98.0 82 18 109/68 98 I/O 02/19/17 02/19/17 02/19/17 02/20/17 02/20/17 02/20/17 07:00 15:00 23:00 07:00 15:00 23:00 Intake Total 680 ml 1920 ml 400 ml 240 ml Output Total 3775 ml 1600 ml 400 ml 1750 ml Balance -3095 ml 320 ml 0 ml -1510 ml Intake Oral 480 ml 1920 ml 400 ml 240 ml IV Total 200 ml Output Urine Total 3275 ml 1600 ml 400 ml 1750 ml Stool Total 500 ml # Bowel Movements 0 Imaging Last Impressions Chest X-Ray 01/12/17 8089 Signed Impressions: Service Date/Time: Thursday, January 12, 2017 18:02 - CONCLUSION: Mild consolidation versus atelectasis at the left lung base. Marcell Loredo MD Objective Remarks GENERAL: Well-nourished, well-developed patient, awake, alert and lying in bed comfortably. SKIN: Warm and dry. No rash. Multiple hip and sacral wounds noted with dressings noted, clean, intact. HEENT: Normocephalic. Atraumatic. Pupils equal and round. No scleral icterus. No injection or drainage. No nasal bleeding or discharge. Mucous membranes pink and moist. NECK: Supple. Trachea midline. CARDIOVASCULAR: Regular rate and rhythm. S1, S2 noted. No murmur appreciated. RESPIRATORY: No accessory muscle use. Clear to auscultation. Breath sounds equal bilaterally. GASTROINTESTINAL: Abdomen soft, non-tender, nondistended. Normoactive bowel sounds x4. Left lower colostomy noted, pink stoma, c/d/i, brown colored stool noted. MUSCULOSKELETAL: Left BKA, incision healing, open to air. Right lower foot ecchymosis with dressing to right ankle, c/d/i. NEUROLOGICAL: Awake and alert. No obvious cranial nerve deficits. Motor grossly within normal limits. 5/5 muscle strength in bilateral upper and lower extremities. Normal speech. PSYCHIATRIC: Appropriate mood and affect; insight and judgment normal. Procedures left AKA VAC application Colostomy (01/26/17). Right hip decubuti debridement (01/26/17) Urinary Catheter: Yes Assessment to: Continue Blood insert reason: Stage III/IV Press Ulcer Date of Insertion: Feb 06, 2017 A/P Assessment and Plan Mr. Sheehan is a 56 year old male with a history of T1 fracture with neurogenic bladder and bowel, PVD, chronic decubitus ulcer and lower ext BKA who presented to the ED on 01/12/2017 due to left leg wound. He recently was evaluated by multiple physicians including vascular surgery and he was offered IV abx, AKA as well as debridement for deep pelvic area osteomyelitis. Unfortunately, patient was extremely agitated, used foul language and left AMA to go to a wound care center outside [place]. During this present admission, patient was found to be hypotensive with prominent leukocytosis. He underwent L BKA revision /AKA and multiple sacral /ischial wounds debridement. Left BKA stump infection/gangrene: s/p Left AKA, debridement of the decubitus and colostomy. Large Sacral decubitus ulcer Left pelvic area osteomyelitis Right ankle wound - Wound culture growing Acinetobacter Baumannii/Haemol and Enterococcus faecalis on 01/13/17. - Current wound care recommendations with addition to maxorb 2 placement tp all wounds with ABD supported with paper tape. - Plastic surgery recommends continuing wound care. No surgery at this time. - Urine culture positive for Acinetobacter Baumannii/Haemol on 01/12/17 - ID following, recommendations are to continue Unasyn for 8 weeks (started on 01/14/2017). - Control pain. Baclofen 20 mg PO QID. Continue [place] 15/650mg PO q6h PRN per pain scale. Continue Dilaudid PO breakthrough pain. Encouraged RN to possibly stagger these medications on administration to provide more of a constant state of relief. Will follow. - Multipodus boot for ankle wound, right. Adjustment disorder. mood improved. Continue Valium 10 mg po daily. Microcytic anemia, chronic: CBC reviewed today, stable. Continue iron supplementation. Paraplegic with neurogenic bladder: Continue Blood catheter. Insomnia: Continue Trazodone 50 mg q hs DVT Prophylaxis: Lovenox 30mg Q24hrs. GI prophylaxis: Pepcid 20 mg BID DNR Discharge Planning Last CM note: 2:00pm: CM unable to find [facility] for pt for wound care or IV ABX. CM will continue to search. [facility] will not accept pt back stating that they are unable to staff pt. Tammy Sawyer Feb 20, 2017 12:17
[2017-02-20 16:00] VITALS: BP 92/58; PULSE 99; RESP 20; O2SAT 100
[2017-02-20] MEDS: NYSTATIN 100,000 U/GM PWD 15 GM BTL TOPICAL SCH ×2 (16:16→21:50)
[2017-02-20] MEDS: ENOXAPARIN SODIUM 30 MG/0.3 ML SYRINGE SQ SCH (16:18)
[2017-02-20 20:00] VITALS: BP 116/66; PULSE 91; RESP 18; TEMP 97.8; O2SAT 99
[2017-02-20] MEDS: traZODone HCL 50 MG TAB PO SCH (21:51)
[2017-02-20] MEDS: DIAZEPAM 10 MG TAB PO PRN (23:49)
[2017-02-21] VITALS: BP 135/67; PULSE 74; RESP 18; TEMP 97.8; O2SAT 99
[2017-02-21] MEDS: ACETAMINOPHEN/HYDROcodone 325 MG/10 MG TAB PO PRN ×4 (02:09→21:52)
[2017-02-21 04:00] VITALS: BP 119/68; PULSE 75; RESP 20; TEMP 95.6; O2SAT 100
[2017-02-21] MEDS: AMPICILLIN-SULBACTAM INJ 3 GM in SODIUM CHLORIDE 0.9% INJ 100 ML IV SCH ×4 (04:40→22:08)
[2017-02-21] MEDS: HYDROmorphone HCL 2 MG TAB PO PRN ×3 (06:43→17:48)
[2017-02-21] MEDS: QUEtiapine FUMARATE 25 MG TAB PO SCH ×2 (08:18→12:29)
[2017-02-21] MEDS: FAMOTIDINE 20 MG TAB PO SCH ×2 (08:18→21:51)
[2017-02-21] MEDS: BACLOFEN 20 MG TAB PO SCH ×4 (08:18→21:51)
[2017-02-21] MEDS: POTASSIUM CHLORIDE 10 MEQ CONTROLLED RELEASE TAB PO SCH (08:18)
[2017-02-21] MEDS: SENNOSIDES 8.6 MG TAB PO SCH (08:18)
[2017-02-21] MEDS: SODIUM CHLORIDE 0.9% FLUSH 10 ML FLUSH IV FLUSH SCH ×2 (08:19→21:51)
[2017-02-21] MEDS: POLYETHYLENE GLYCOL 17 GM PKG PO SCH (08:19)
[2017-02-21 08:31] VITALS: BP 120/52; PULSE 82; RESP 20; TEMP 97.9; O2SAT 100
[2017-02-21 12:00] VITALS: BP 104/59; PULSE 89; RESP 20; TEMP 97.6; O2SAT 100
[2017-02-21] MEDS: ENOXAPARIN SODIUM 30 MG/0.3 ML SYRINGE SQ SCH (15:22)
[2017-02-21 15:32] VITALS: BP 128/80; PULSE 73; RESP 20; TEMP 96.5; O2SAT 100
[2017-02-21] MEDS: NYSTATIN 100,000 U/GM PWD 15 GM BTL TOPICAL SCH ×2 (16:02→21:53)
[2017-02-21] MEDS: COLLAGENASE OINT 30 GM TUBE TOPICAL SCH (16:02)
--- NOTE | 2017-02-21 18:34 | HHI.PR ---
Subjective Remarks Follow up for decubitus ulcer, left AKA, stump infection in patient with a history of paraplegia. Patient seen and examined today, lying in bed. Pt reported being "Sleepy" and requested clinician to come back later "when I"m more awake." Denies any new acute complaints overnight. Per RN (Mukund) pt has been compliant with wound changes, mood is "good". No acute changes reported overnight or since start of shift. Objective Vitals Vital Signs Date Time Temp Pulse Resp B/P Pulse Ox O2 Delivery O2 Flow Rate FiO2 02/21/17 15:32 96.5 73 20 128/80 100 02/21/17 12:00 97.6 89 20 104/59 100 02/21/17 08:31 97.9 82 20 120/52 100 02/21/17 04:28 18 02/21/17 04:00 95.6 75 20 119/68 100 02/21/17 00:00 97.8 74 18 135/67 99 02/20/17 22:40 18 02/20/17 20:00 97.8 91 18 116/66 99 I/O 02/20/17 02/20/17 02/20/17 02/21/17 02/21/17 02/21/17 07:00 15:00 23:00 07:00 15:00 23:00 Intake Total 240 ml 600 ml 1080 ml Output Total 1750 ml 1200 ml 300 ml 3000 ml 1200 ml Balance -1510 ml -1200 ml 300 ml -1920 ml -1200 ml Intake Oral 240 ml 600 ml 1080 ml Output Urine Total 1750 ml 1200 ml 300 ml 3000 ml 1200 ml Objective Remarks GENERAL: Pt encountered laying in bed, sleeping. Pt had difficulty staying awake during visit. SKIN: Warm and dry. Right foot dark yet warm to touch. Toes of the right foot evidenced better color, more pink than black. HEAD: Normocephalic. EYES: No scleral icterus. No injection or drainage. NECK: Supple, trachea midline. No lymphadenopathy. CARDIOVASCULAR: Regular rate and rhythm without murmurs, gallops, or rubs. RESPIRATORY: Breath sounds equal bilaterally. No accessory muscle use. GASTROINTESTINAL: Abdomen soft, non-tender, nondistended. Abdominal sounds noted to be diminished all quadrants. Colostomy noted left lower quadrant. MUSCULOSKELETAL: No cyanosis, or edema. PSYCHIATRIC: A&OX3,somnolent yet and cooperative. No overt signs of anxiety or depression. Speech was clear and fluent. Procedures left AKA VAC application Colostomy (01/26/17). Right hip decubuti debridement (01/26/17) Medications and IVs Current Medications Medications (Trade) Dose Ordered Sig/Vivien Route Start Time Stop Time Status Last Admin (NS Flush) 2 ml UNSCH PRN IV FLUSH 01/12/17 21:45 02/20/17 03:35 (NS Flush) 2 ml BID IV FLUSH 01/13/17 09:00 02/21/17 08:19 Naloxone HCl 0.4 mg 0.4 mg UNSCH PRN IV 01/12/17 21:45 (Unasyn Inj/NS Inj) 100 ml @ 200 mls/hr Q6H IV 01/14/17 16:00 02/21/17 16:03 (Santyl Oint) 1 applic MoTh TOPICAL 01/14/17 15:00 02/21/17 16:02 (KCl) 30 meq DAILY PO 01/15/17 13:45 02/21/17 08:18 (Lovenox Inj) 30 mg Q24H SQ 01/15/17 14:00 02/21/17 15:22 (Miralax) 17 gm DAILY PO 01/15/17 14:00 02/07/17 09:56 (Dulcolax Supp) 10 mg DAILY PRN RECTAL 01/17/17 00:30 01/17/17 00:48 (Senokot) 8.6 mg DAILY PO 01/17/17 00:30 02/21/17 08:18 (SEROquel) 12.5 mg BID@09,12 PO 01/17/17 14:00 02/21/17 12:29 (Pill Splitter) 1 ea UNSCH PRN OTHER 01/17/17 14:00 01/23/17 09:39 (Valium) 10 mg DAILY PRN PO 01/18/17 12:00 02/20/17 23:49 (Phazyme Chew) 125 mg DAILY PRN PO 01/29/17 11:30 (Zofran Inj) 4 mg Q6HR PRN IV PUSH 02/02/17 14:30 02/03/17 09:59 (Pepcid) 20 mg BID PO 02/08/17 21:00 02/21/17 08:18 (Desyrel) 50 mg HS PO 02/09/17 21:00 02/20/17 21:51 (Dilaudid) 1 mg Q6H PRN PO 02/12/17 20:00 02/21/17 17:48 ([place] 10-325 Mg) 1.5 tab Q6H PRN PO 02/14/17 14:00 02/21/17 15:19 (Lioresal) 20 mg QID PO 02/16/17 13:00 02/21/17 17:48 (Mycostatin Powder) 1 applic Q12HR TOPICAL 02/17/17 21:00 02/21/17 16:02 Urinary Catheter: Yes Assessment to: Continue Blood insert reason: Prolonged Immobilization Date of Insertion: Feb 06, 2017 A/P Assessment and Plan Mr. Sheehan is a 56 year old male with a history of T1 fracture with neurogenic bladder and bowel, PVD, chronic decubitus ulcer and lower ext BKA who presented to the ED on 01/12/2017 due to left leg wound. He recently was evaluated by multiple physicians including vascular surgery and he was offered IV abx, AKA as well as debridement for deep pelvic area osteomyelitis. Unfortunately, patient was extremely agitated, used foul language and left AMA to go to a wound care center outside [place]. During this present admission, patient was found to be hypotensive with prominent leukocytosis. He underwent L BKA revision /AKA and multiple sacral /ischial wounds debridement. - Left BKA stump infection/gangrene - Large Sacral decubitus ulcer. - Left pelvic area osteomyelitis. - UTI with MDRO Acinetobacter - s/p Left AKA and debridement of the decubiti. - Infected with MDRO acinetobacter, ID stated pt will need to be on Zosyn x 4 weeks, and there is not an oral agent available to address his antibiotic coverage. - s/p Colostomy. - Per ID recommendations, continue Unasyn for 8 weeks (started on 01/14/2017). - Continue Baclofen. Increase [place] to home dose 10/325 Q6hrs PRN. - For nausea, we will add Zofran. - Baclofen 20 mg PO QID. Continue [place] 15/650mg PO q6h PRN per pain scale. Continue Dilaudid PO breakthrough pain. -- Multipodus boot for ankle wound, right. - Adjustment disorder. mood improved. Started on Valium 10 mg po daily / - Microcytic anemia- iron studies suggestive of chronic disease. Low serum Iron. po Iron daily - Paraplegic with neurogenic bladder - Continue Blood catheter. -Insomnia -Initiate Trazodone 50 mg q hs DNR. DVT Prophylaxis: Lovenox 30mg Q24hrs. GI prophylaxis: Pepcid 20 mg BID Discussed with the patient, nurse (Mukund) and Dr. Mcgowan. Discharge Planning CM following and assessing needs for discharge to either SNF or home. CM continues to discuss placement with facilities. Agustin Powell Jr. JESSI Feb 21, 2017 18:34
[2017-02-21 20:00] VITALS: BP 93/62; PULSE 97; RESP 18; TEMP 98.1; O2SAT 98
[2017-02-21] MEDS: traZODone HCL 50 MG TAB PO SCH (21:51)
[2017-02-22] VITALS: BP 108/62; PULSE 92; RESP 20; TEMP 98; O2SAT 97
[2017-02-22] MEDS: HYDROmorphone HCL 2 MG TAB PO PRN ×4 (00:17→21:47)
[2017-02-22] MEDS: AMPICILLIN-SULBACTAM INJ 3 GM in SODIUM CHLORIDE 0.9% INJ 100 ML IV SCH ×4 (04:31→21:37)
[2017-02-22] MEDS: ACETAMINOPHEN/HYDROcodone 325 MG/10 MG TAB PO PRN ×4 (04:38→22:18)
[2017-02-22 06:52] VITALS: BP 110/65; PULSE 76; RESP 18; TEMP 96.7; O2SAT 100
[2017-02-22 09:03] VITALS: BP 115/63; PULSE 69; RESP 18; TEMP 96; O2SAT 99
[2017-02-22] MEDS: SODIUM CHLORIDE 0.9% FLUSH 10 ML FLUSH IV FLUSH SCH ×2 (09:38→21:36)
[2017-02-22] MEDS: POTASSIUM CHLORIDE 10 MEQ CONTROLLED RELEASE TAB PO SCH (09:38)
[2017-02-22] MEDS: FAMOTIDINE 20 MG TAB PO SCH ×2 (09:38→21:36)
[2017-02-22] MEDS: BACLOFEN 20 MG TAB PO SCH ×4 (09:38→21:36)
[2017-02-22] MEDS: QUEtiapine FUMARATE 25 MG TAB PO SCH ×2 (09:38→14:00)
[2017-02-22] MEDS: POLYETHYLENE GLYCOL 17 GM PKG PO SCH (09:39)
[2017-02-22] MEDS: NYSTATIN 100,000 U/GM PWD 15 GM BTL TOPICAL SCH ×2 (09:39→21:00)
[2017-02-22] MEDS: SENNOSIDES 8.6 MG TAB PO SCH (09:39)
[2017-02-22 12:33] VITALS: BP 95/52; PULSE 81; RESP 20; TEMP 96.6; O2SAT 99
[2017-02-22] MEDS: ENOXAPARIN SODIUM 30 MG/0.3 ML SYRINGE SQ SCH (14:00)
--- NOTE | 2017-02-22 14:12 | PD.PLAS.PN ---
Subjective Remarks Patient being followed for multiple pressure ulcers. No acute complaints today. Objective Vital Signs Date Time Temp Pulse Resp B/P Pulse Ox O2 Delivery O2 Flow Rate FiO2 02/22/17 12:33 96.6 81 20 95/52 99 02/22/17 09:03 96.0 69 18 115/63 99 02/22/17 06:52 96.7 76 18 110/65 100 02/22/17 05:38 18 02/22/17 01:54 18 02/22/17 00:00 98.0 92 20 108/62 97 02/21/17 20:00 98.1 97 18 93/62 98 02/21/17 15:32 96.5 73 20 128/80 100 I/O 02/21/17 02/21/17 02/21/17 02/22/17 02/22/17 02/22/17 07:00 15:00 23:00 07:00 15:00 23:00 Intake Total 1080 ml Output Total 3000 ml 1200 ml 600 ml 1700 ml Balance -1920 ml -1200 ml -600 ml -1700 ml Intake Oral 1080 ml Output Urine Total 3000 ml 1200 ml 600 ml 1700 ml Exam Findings Dressings in place. Wounds are healing well. There is no evidence of infection. No odor. Drainage is serous. There is an area of thick, yellow necrotic tissue in the wound over the right ischium. Assessment and Plan Diagnosis: (1) Pressure ulcer of sacral region, stage 4 (2) Pressure ulcer of left hip, stage 4 (3) Pressure ulcer of left buttock, stage 4 Assessment and Plan Wounds are improving. The area of necrotic tissue is debrided as able at the bedside using scissor and forceps. Reviewed dressing protocol with RN and dressing is changed. Will continue to monitor and we are considering application of veriflow wound vac. Bibi Motta Feb 22, 2017 14:12
--- NOTE | 2017-02-22 14:36 | HHI.PR ---
Subjective Remarks Follow up for decubitus ulcer, left AKA, stump infection in patient with a history of paraplegia. Patient seen and examined today, lying in bed. Pt reported being "Sleepy" and stated " I just woke up about 2 minutes ago." Denies any new acute complaints overnight. Pt denied cough, fever, shortness of breath, or malaise. Per RN (Vianey) pt has been sleeping. No acute changes reported overnight or since start of shift. Objective Vitals Vital Signs Date Time Temp Pulse Resp B/P Pulse Ox O2 Delivery O2 Flow Rate FiO2 02/22/17 12:33 96.6 81 20 95/52 99 02/22/17 09:03 96.0 69 18 115/63 99 02/22/17 06:52 96.7 76 18 110/65 100 02/22/17 05:38 18 02/22/17 01:54 18 02/22/17 00:00 98.0 92 20 108/62 97 02/21/17 20:00 98.1 97 18 93/62 98 02/21/17 15:32 96.5 73 20 128/80 100 I/O 02/21/17 02/21/17 02/21/17 02/22/17 02/22/17 02/22/17 07:00 15:00 23:00 07:00 15:00 23:00 Intake Total 1080 ml 100 ml Output Total 3000 ml 1200 ml 600 ml 1700 ml Balance -1920 ml -1200 ml -600 ml -1600 ml Intake Oral 1080 ml IV Total 100 ml Output Urine Total 3000 ml 1200 ml 600 ml 1700 ml Objective Remarks GENERAL: Pt encountered laying in bed, sleeping. Pt had difficulty staying awake during visit. SKIN: Warm and dry. Right foot dark yet warm to touch. Toes of the right foot evidenced better color, more pink than black with dark color predominate over the foot. HEAD: Normocephalic. EYES: No scleral icterus. No injection or drainage. NECK: Supple, trachea midline. No lymphadenopathy. CARDIOVASCULAR: Regular rate and rhythm without murmurs, gallops, or rubs. RESPIRATORY: Breath sounds equal bilaterally. No accessory muscle use. GASTROINTESTINAL: Abdomen soft, non-tender, nondistended. Abdominal sounds noted to be present all quadrants. Colostomy noted left lower quadrant. MUSCULOSKELETAL: No cyanosis, or edema. PSYCHIATRIC: A&OX3,somnolent yet and cooperative. No overt signs of anxiety or depression. Speech was clear and fluent. Procedures left AKA VAC application Colostomy (01/26/17). Right hip decubuti debridement (01/26/17) Medications and IVs Current Medications Medications (Trade) Dose Ordered Sig/Vivien Route Start Time Stop Time Status Last Admin (NS Flush) 2 ml UNSCH PRN IV FLUSH 01/12/17 21:45 02/20/17 03:35 (NS Flush) 2 ml BID IV FLUSH 01/13/17 09:00 02/22/17 09:38 Naloxone HCl 0.4 mg 0.4 mg UNSCH PRN IV 01/12/17 21:45 (Unasyn Inj/NS Inj) 100 ml @ 200 mls/hr Q6H IV 01/14/17 16:00 02/22/17 09:40 (Santyl Oint) 1 applic MoTh TOPICAL 01/14/17 15:00 02/21/17 16:02 (KCl) 30 meq DAILY PO 01/15/17 13:45 02/22/17 09:38 (Lovenox Inj) 30 mg Q24H SQ 01/15/17 14:00 02/22/17 14:00 (Miralax) 17 gm DAILY PO 01/15/17 14:00 02/07/17 09:56 (Dulcolax Supp) 10 mg DAILY PRN RECTAL 01/17/17 00:30 01/17/17 00:48 (Senokot) 8.6 mg DAILY PO 01/17/17 00:30 02/21/17 08:18 (SEROquel) 12.5 mg BID@09,12 PO 01/17/17 14:00 02/22/17 14:00 (Pill Splitter) 1 ea UNSCH PRN OTHER 01/17/17 14:00 01/23/17 09:39 (Valium) 10 mg DAILY PRN PO 01/18/17 12:00 02/20/17 23:49 (Phazyme Chew) 125 mg DAILY PRN PO 01/29/17 11:30 (Zofran Inj) 4 mg Q6HR PRN IV PUSH 02/02/17 14:30 02/03/17 09:59 (Pepcid) 20 mg BID PO 02/08/17 21:00 02/22/17 09:38 (Desyrel) 50 mg HS PO 02/09/17 21:00 02/21/17 21:51 (Dilaudid) 1 mg Q6H PRN PO 02/12/17 20:00 02/22/17 09:39 ([place] 10-325 Mg) 1.5 tab Q6H PRN PO 02/14/17 14:00 02/22/17 10:57 (Lioresal) 20 mg QID PO 02/16/17 13:00 02/22/17 14:00 (Mycostatin Powder) 1 applic Q12HR TOPICAL 02/17/17 21:00 02/22/17 09:39 Urinary Catheter: Yes Assessment to: Continue Blood insert reason: Prolonged Immobilization Date of Insertion: Feb 06, 2017 A/P Assessment and Plan Mr. Sheehan is a 56 year old male with a history of T1 fracture with neurogenic bladder and bowel, PVD, chronic decubitus ulcer and lower ext BKA who presented to the ED on 01/12/2017 due to left leg wound. He recently was evaluated by multiple physicians including vascular surgery and he was offered IV abx, AKA as well as debridement for deep pelvic area osteomyelitis. Unfortunately, patient was extremely agitated, used foul language and left AMA to go to a wound care center outside [place]. During this present admission, patient was found to be hypotensive with prominent leukocytosis. He underwent L BKA revision /AKA and multiple sacral /ischial wounds debridement. - Left BKA stump infection/gangrene - Large Sacral decubitus ulcer. - Left pelvic area osteomyelitis. - UTI with MDRO Acinetobacter - s/p Left AKA and debridement of the decubiti. - Infected with MDRO acinetobacter, ID stated pt will need to be on Zosyn x 4 weeks, and there is not an oral agent available to address his antibiotic coverage. - s/p Colostomy. - Per ID recommendations, continue Unasyn for 8 weeks (started on 01/14/2017). - Continue Baclofen. Increase [place] to home dose 10/325 Q6hrs PRN. - For nausea, we will add Zofran. - Baclofen 20 mg PO QID. Continue [place] 15/650mg PO q6h PRN per pain scale. Continue Dilaudid PO breakthrough pain. -- Multipodus boot for ankle wound, right. - Adjustment disorder. mood improved. Started on Valium 10 mg po daily / - Microcytic anemia- iron studies suggestive of chronic disease. Low serum Iron. po Iron daily - Paraplegic with neurogenic bladder - Continue Blood catheter. -Insomnia -Initiate Trazodone 50 mg q hs DNR. DVT Prophylaxis: Lovenox 30mg Q24hrs. GI prophylaxis: Pepcid 20 mg BID Discussed with the patient, nurse (Vianey) and Dr. Mcgowan. Discharge Planning CM following and assessing needs for discharge to either SNF or home. CM continues to discuss placement with facilities. Agustin Powell Jr. Feb 22, 2017 14:36
[2017-02-22 20:00] VITALS: BP 124/71; PULSE 102; RESP 19; TEMP 97.6; O2SAT 97
[2017-02-22] MEDS: traZODone HCL 50 MG TAB PO SCH (21:36)
[2017-02-22] MEDS: DIAZEPAM 10 MG TAB PO PRN (21:47)
[2017-02-23] VITALS: BP 114/66; PULSE 89; RESP 18; TEMP 96.2; O2SAT 99
[2017-02-23] MEDS: AMPICILLIN-SULBACTAM INJ 3 GM in SODIUM CHLORIDE 0.9% INJ 100 ML IV SCH ×4 (04:21→21:58)
[2017-02-23] MEDS: ACETAMINOPHEN/HYDROcodone 325 MG/10 MG TAB PO PRN ×4 (04:21→21:58)
[2017-02-23] MEDS: HYDROmorphone HCL 2 MG TAB PO PRN ×3 (05:09→19:53)
[2017-02-23 06:46] VITALS: BP 118/69; PULSE 84; RESP 18; TEMP 95.6; O2SAT 100
[2017-02-23 08:17] VITALS: BP 123/80; PULSE 84; RESP 18; TEMP 95.4; O2SAT 100
[2017-02-23] MEDS: SENNOSIDES 8.6 MG TAB PO SCH (08:30)
[2017-02-23] MEDS: QUEtiapine FUMARATE 25 MG TAB PO SCH ×2 (08:30→14:04)
[2017-02-23] MEDS: POTASSIUM CHLORIDE 10 MEQ CONTROLLED RELEASE TAB PO SCH (08:30)
[2017-02-23] MEDS: BACLOFEN 20 MG TAB PO SCH ×4 (08:30→19:53)
[2017-02-23] MEDS: SODIUM CHLORIDE 0.9% FLUSH 10 ML FLUSH IV FLUSH SCH ×2 (08:31→19:53)
[2017-02-23] MEDS: FAMOTIDINE 20 MG TAB PO SCH ×2 (08:31→19:53)
[2017-02-23] MEDS: POLYETHYLENE GLYCOL 17 GM PKG PO SCH (08:31)
[2017-02-23] MEDS: NYSTATIN 100,000 U/GM PWD 15 GM BTL TOPICAL SCH ×2 (08:31→19:55)
[2017-02-23] MEDS: ASCORBIC ACID 500 MG TAB PO SCH ×2 (12:00→16:04)
[2017-02-23 12:27] VITALS: BP 101/67; PULSE 75; RESP 18; TEMP 98.3; O2SAT 97
[2017-02-23] MEDS: ENOXAPARIN SODIUM 30 MG/0.3 ML SYRINGE SQ SCH (14:04)
[2017-02-23] MEDS: FERROUS SULFATE 325 MG (65 MG ELEMENTAL IRON) TAB PO SCH ×2 (14:04→16:04)
[2017-02-23 16:27] VITALS: BP 103/64; PULSE 102; RESP 20; TEMP 98.7; O2SAT 98
--- NOTE | 2017-02-23 16:50 | HHI.PR ---
Subjective Remarks Follow up for decubitus ulcer, left AKA, stump infection in patient with a history of paraplegia. Patient seen and examined today, lying in bed. NAD Pt noted he can move his right foot for the first time in 12 years. He could not explain "why this has happened." Stated he could not explain why he was so lethargic the past two days. Noted pain medication schedule needed to be adjusted as "medications are too close together." Denies any new acute complaints overnight. Pt denied cough, fever, shortness of breath, or malaise. Per RN (Vianey) pt without acute changes reported overnight or since start of shift. Objective Vitals Vital Signs Date Time Temp Pulse Resp B/P Pulse Ox O2 Delivery O2 Flow Rate FiO2 02/23/17 16:27 98.7 102 20 103/64 98 02/23/17 12:27 98.3 75 18 101/67 97 02/23/17 08:17 95.4 84 18 123/80 100 02/23/17 06:46 95.6 84 18 118/69 100 02/23/17 06:05 20 02/23/17 05:00 20 02/23/17 00:00 96.2 89 18 114/66 99 02/22/17 20:00 97.6 102 19 124/71 97 I/O 02/22/17 02/22/17 02/22/17 02/23/17 02/23/17 02/23/17 07:00 15:00 23:00 07:00 15:00 23:00 Intake Total 100 ml 240 ml Output Total 1700 ml 1000 ml 1000 ml 900 ml Balance -1600 ml -1000 ml -760 ml -900 ml Intake Oral 240 ml IV Total 100 ml Output Urine Total 1700 ml 1000 ml 1000 ml 900 ml Objective Remarks GENERAL: Pt encountered laying in bed, awake. SKIN: Warm and dry. Right foot dark yet warm to touch. Toes of the right foot evidenced better color. HEAD: Normocephalic. EYES: No scleral icterus. No injection or drainage. NECK: Supple, trachea midline. No lymphadenopathy. CARDIOVASCULAR: Regular rate and rhythm without murmurs, gallops, or rubs. RESPIRATORY: Breath sounds equal bilaterally. No accessory muscle use. GASTROINTESTINAL: Abdomen soft, non-tender, nondistended. Abdominal sounds noted to be present all quadrants. Colostomy noted left lower quadrant. MUSCULOSKELETAL: No cyanosis, or edema. PSYCHIATRIC: A&OX3,somnolent yet and cooperative. No overt signs of anxiety or depression. Speech was clear and fluent. Procedures left AKA VAC application Colostomy (01/26/17). Right hip decubuti debridement (01/26/17) Medications and IVs Current Medications Medications (Trade) Dose Ordered Sig/Vivien Route Start Time Stop Time Status Last Admin (NS Flush) 2 ml UNSCH PRN IV FLUSH 01/12/17 21:45 02/20/17 03:35 (NS Flush) 2 ml BID IV FLUSH 01/13/17 09:00 02/23/17 08:31 Naloxone HCl 0.4 mg 0.4 mg UNSCH PRN IV 01/12/17 21:45 (Unasyn Inj/NS Inj) 100 ml @ 200 mls/hr Q6H IV 01/14/17 16:00 02/23/17 16:05 (Santyl Oint) 1 applic MoTh TOPICAL 01/14/17 15:00 02/21/17 16:02 (KCl) 30 meq DAILY PO 01/15/17 13:45 02/23/17 08:30 (Lovenox Inj) 30 mg Q24H SQ 01/15/17 14:00 02/23/17 14:04 (Miralax) 17 gm DAILY PO 01/15/17 14:00 02/07/17 09:56 (Dulcolax Supp) 10 mg DAILY PRN RECTAL 01/17/17 00:30 01/17/17 00:48 (Senokot) 8.6 mg DAILY PO 01/17/17 00:30 02/21/17 08:18 (SEROquel) 12.5 mg BID@09,12 PO 01/17/17 14:00 02/23/17 14:04 (Pill Splitter) 1 ea UNSCH PRN OTHER 01/17/17 14:00 01/23/17 09:39 (Valium) 10 mg DAILY PRN PO 01/18/17 12:00 02/22/17 21:47 (Phazyme Chew) 125 mg DAILY PRN PO 01/29/17 11:30 (Zofran Inj) 4 mg Q6HR PRN IV PUSH 02/02/17 14:30 02/03/17 09:59 (Pepcid) 20 mg BID PO 02/08/17 21:00 02/23/17 08:31 (Desyrel) 50 mg HS PO 02/09/17 21:00 02/22/17 21:36 (Dilaudid) 1 mg Q6H PRN PO 02/12/17 20:00 02/23/17 14:04 ([place] 10-325 Mg) 1.5 tab Q6H PRN PO 02/14/17 14:00 02/23/17 16:04 (Lioresal) 20 mg QID PO 02/16/17 13:00 02/23/17 14:04 (Mycostatin Powder) 1 applic Q12HR TOPICAL 02/17/17 21:00 02/23/17 08:31 (Ferrous Sulfate) 325 mg BID@ PO 02/23/17 12:00 02/23/17 16:04 (Vitamin C) 500 mg BIDAC PO 02/23/17 12:00 02/23/17 16:04 Urinary Catheter: Yes Assessment to: Continue Blood insert reason: Prolonged Immobilization Date of Insertion: Feb 06, 2017 A/P Assessment and Plan Mr. Sheehan is a 56 year old male with a history of T1 fracture with neurogenic bladder and bowel, PVD, chronic decubitus ulcer and lower ext BKA who presented to the ED on 01/12/2017 due to left leg wound. He recently was evaluated by multiple physicians including vascular surgery and he was offered IV abx, AKA as well as debridement for deep pelvic area osteomyelitis. Unfortunately, patient was extremely agitated, used foul language and left AMA to go to a wound care center outside [place]. During this present admission, patient was found to be hypotensive with prominent leukocytosis. He underwent L BKA revision /AKA and multiple sacral /ischial wounds debridement. - Left BKA stump infection/gangrene - Large Sacral decubitus ulcer. - Left pelvic area osteomyelitis. - UTI with MDRO Acinetobacter - s/p Left AKA and debridement of the decubiti. - Infected with MDRO acinetobacter, ID stated pt will need to be on Zosyn x 4 weeks, and there is not an oral agent available to address his antibiotic coverage. - s/p Colostomy. - Per ID recommendations, continue Unasyn for 8 weeks (started on 01/14/2017). - Continue Baclofen. Increase [place] to home dose 10/325 Q6hrs PRN. - For nausea, we will add Zofran. - Baclofen 20 mg PO QID. Continue [place] 15/650mg PO q6h PRN per pain scale. Continue Dilaudid PO breakthrough pain. -- Multipodus boot for ankle wound, right. -Right foot moving, PT working with pt. - Adjustment disorder. mood improved. Started on Valium 10 mg po daily 01/18 - Microcytic anemia- iron studies suggestive of chronic disease. Low serum Iron. po Iron daily - Paraplegic with neurogenic bladder - Continue Blood catheter. -Insomnia -Initiate Trazodone 50 mg q hs DNR. DVT Prophylaxis: Lovenox 30mg Q24hrs. GI prophylaxis: Pepcid 20 mg BID Discussed with the patient, nurse (Vianey) and Dr. Otero. Discharge Planning CM following and assessing needs for discharge to either SNF or home. CM continues to discuss placement with facilities. Agustin Powell Jr. Feb 23, 2017 16:50
[2017-02-23] MEDS: traZODone HCL 50 MG TAB PO SCH (19:53)
[2017-02-23 20:14] VITALS: BP 105/68; PULSE 115; RESP 18; TEMP 97.2; O2SAT 97
[2017-02-24] VITALS: BP 112/68; PULSE 88; RESP 18; TEMP 97; O2SAT 99
[2017-02-24] MEDS: DIAZEPAM 10 MG TAB PO PRN ×2 (01:04→16:45)
[2017-02-24] MEDS: HYDROmorphone HCL 2 MG TAB PO PRN ×4 (01:05→20:16)
[2017-02-24] MEDS: AMPICILLIN-SULBACTAM INJ 3 GM in SODIUM CHLORIDE 0.9% INJ 100 ML IV SCH ×4 (03:31→22:35)
[2017-02-24] MEDS: ACETAMINOPHEN/HYDROcodone 325 MG/10 MG TAB PO PRN ×4 (03:54→22:35)
[2017-02-24 04:00] VITALS: BP 120/55; PULSE 113; RESP 22; TEMP 98.7; O2SAT 98
[2017-02-24] MEDS: ASCORBIC ACID 500 MG TAB PO SCH ×2 (06:18→15:38)
[2017-02-24 08:00] VITALS: BP 118/74; PULSE 77; RESP 20; TEMP 96.6; O2SAT 97
[2017-02-24] MEDS: SENNOSIDES 8.6 MG TAB PO SCH (08:47)
[2017-02-24] MEDS: BACLOFEN 20 MG TAB PO SCH ×4 (08:47→20:15)
[2017-02-24] MEDS: POTASSIUM CHLORIDE 10 MEQ CONTROLLED RELEASE TAB PO SCH (08:47)
[2017-02-24] MEDS: FAMOTIDINE 20 MG TAB PO SCH ×2 (08:48→20:16)
[2017-02-24] MEDS: QUEtiapine FUMARATE 25 MG TAB PO SCH ×2 (08:48→12:15)
[2017-02-24] MEDS: SODIUM CHLORIDE 0.9% FLUSH 10 ML FLUSH IV FLUSH SCH ×2 (08:50→20:16)
[2017-02-24] MEDS: NYSTATIN 100,000 U/GM PWD 15 GM BTL TOPICAL SCH ×2 (08:51→20:17)
[2017-02-24] MEDS: POLYETHYLENE GLYCOL 17 GM PKG PO SCH (09:00)
[2017-02-24] MEDS: FERROUS SULFATE 325 MG (65 MG ELEMENTAL IRON) TAB PO SCH ×2 (12:14→17:27)
[2017-02-24 12:15] VITALS: BP 97/67; PULSE 87; RESP 20; TEMP 96.9; O2SAT 100
[2017-02-24 12:40] LABS: AUTOMATED NEUTROPHIL # 3.4 TH/MM3 (1.8-7.7); BASOPHIL # 0.1 TH/MM3 (0-0.2); EOSINOPHIL # 0.5 TH/MM3 (0-0.4); EOSINOPHIL % 6.9 % (0.0-4.0); HEMATOCRIT 31.6 % (39.0-51.0); LYMPH % 31.8 % (9.0-44.0); LYMPHOCYTE # 2.2 TH/MM3 (1.0-4.8); MEAN CELL VOLUME 76.6 FL (80.0-100.0); MEAN CORPUSCULAR HEMOGLOBIN 23.2 PG (27.0-34.0); MEAN CORPUSCULAR HGB CONC 30.3 % (32.0-36.0); MONO % 10.5 % (0.0-8.0); NEUT % 49.8 % (16.0-70.0); PLATELET COUNT 385 TH/MM3 (150-450); RED BLOOD COUNT 4.13 MIL/MM3 (4.50-5.90); RED CELL DISTRIBUTION WIDTH 23.3 % (11.6-17.2); WHITE BLOOD COUNT 6.9 TH/MM3 (4.0-11.0)
[2017-02-24 12:41] LABS: HEMO FLAGS AUTO DIFF
[2017-02-24 13:21] LABS: OVALOCYTES 1+ (NORMAL); PLATELET ESTIMATE SMEAR NORMAL (NORMAL); PLATELET MORPHOLOGY NORMAL (NORMAL)
[2017-02-24 13:23] LABS: SCAN/DIFF AUTO DIFF CONFIRMED
[2017-02-24] MEDS: ENOXAPARIN SODIUM 30 MG/0.3 ML SYRINGE SQ SCH (13:44)
--- NOTE | 2017-02-24 14:37 | HHI.PR ---
Subjective Remarks Follow up for decubitus ulcer, left AKA, stump infection in patient with a history of paraplegia. Patient seen and examined today, lying in bed. NAD Pt noted he can move his right foot for the first time in 13 years. He could not explain "why this has happened." Pt stated injury happened "13 years go on my birthday." Pt stated he is sleeping well and sleeping medication "knocks my a$$ out." Pt declined change in sleeping medication despite "being medically hung over the next day." Noted pain medication schedule was adjusted, spoke of how his current 1 mg of oral Dilaudid is ineffective Denies any new acute complaints overnight. Pt denied cough, fever, shortness of breath, NVD, or malaise. Per RN's (Mita) pt without acute changes reported overnight or since start of shift. Objective Vitals Vital Signs Date Time Temp Pulse Resp B/P Pulse Ox O2 Delivery O2 Flow Rate FiO2 02/24/17 12:15 96.9 87 20 97/67 100 02/24/17 08:00 96.6 77 20 118/74 97 02/24/17 07:00 20 02/24/17 04:47 20 02/24/17 04:00 98.7 113 22 120/55 98 02/24/17 00:00 97.0 88 18 112/68 99 02/23/17 20:14 97.2 115 18 105/68 97 02/23/17 16:27 98.7 102 20 103/64 98 I/O 02/23/17 02/23/17 02/23/17 02/24/17 02/24/17 02/24/17 07:00 15:00 23:00 07:00 15:00 23:00 Intake Total 240 ml 0 ml 0 ml 100 ml Output Total 1000 ml 2000 ml 1250 ml Balance -760 ml -2000 ml -1250 ml 100 ml Intake Oral 240 ml IV Total 0 ml 0 ml 100 ml Output Urine Total 1000 ml 2000 ml 1250 ml Result Diagram: 02/24/17 1156 Objective Remarks GENERAL: Pt encountered laying in bed, awake, eating Snicker[employer] candy bars. SKIN: Warm and dry. Right foot dark yet warm to touch. Toes of the right foot evidenced better color. HEAD: Normocephalic. EYES: No scleral icterus. No injection or drainage. NECK: Supple, trachea midline. No lymphadenopathy. CARDIOVASCULAR: Regular rate and rhythm without murmurs, gallops, or rubs. RESPIRATORY: Breath sounds equal bilaterally. No accessory muscle use. GASTROINTESTINAL: Abdomen soft, non-tender, nondistended. Abdominal sounds noted to be decreased all quadrants. Colostomy noted left lower quadrant. MUSCULOSKELETAL: No cyanosis, or edema. Moves foot on command. PSYCHIATRIC: A&OX3,pleasant and cooperative. No overt signs of anxiety or depression. Speech was clear and fluent.Pt continues to be pleased and excited with recent movement of foot. 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 Procedures left AKA VAC application Colostomy (01/26/17). Right hip decubuti debridement (01/26/17) Medications and IVs Current Medications Medications (Trade) Dose Ordered Sig/Vivien Route Start Time Stop Time Status Last Admin (NS Flush) 2 ml UNSCH PRN IV FLUSH 01/12/17 21:45 02/20/17 03:35 (NS Flush) 2 ml BID IV FLUSH 01/13/17 09:00 02/24/17 08:50 Naloxone HCl 0.4 mg 0.4 mg UNSCH PRN IV 01/12/17 21:45 (Unasyn Inj/NS Inj) 100 ml @ 200 mls/hr Q6H IV 01/14/17 16:00 02/24/17 10:02 (Santyl Oint) 1 applic MoTh TOPICAL 01/14/17 15:00 02/21/17 16:02 (KCl) 30 meq DAILY PO 01/15/17 13:45 02/24/17 08:47 (Lovenox Inj) 30 mg Q24H SQ 01/15/17 14:00 02/24/17 13:44 (Miralax) 17 gm DAILY PO 01/15/17 14:00 02/07/17 09:56 (Dulcolax Supp) 10 mg DAILY PRN RECTAL 01/17/17 00:30 01/17/17 00:48 (Senokot) 8.6 mg DAILY PO 01/17/17 00:30 02/24/17 08:47 (SEROquel) 12.5 mg BID@09,12 PO 01/17/17 14:00 02/24/17 12:15 (Pill Splitter) 1 ea UNSCH PRN OTHER 01/17/17 14:00 01/23/17 09:39 (Valium) 10 mg DAILY PRN PO 01/18/17 12:00 02/24/17 01:04 (Phazyme Chew) 125 mg DAILY PRN PO 01/29/17 11:30 (Zofran Inj) 4 mg Q6HR PRN IV PUSH 02/02/17 14:30 02/03/17 09:59 (Pepcid) 20 mg BID PO 02/08/17 21:00 02/24/17 08:48 (Desyrel) 50 mg HS PO 02/09/17 21:00 02/23/17 19:53 ([place] 10-325 Mg) 1.5 tab Q6H PRN PO 02/14/17 14:00 02/24/17 10:02 (Lioresal) 20 mg QID PO 02/16/17 13:00 02/24/17 13:13 (Mycostatin Powder) 1 applic Q12HR TOPICAL 02/17/17 21:00 02/24/17 08:51 (Ferrous Sulfate) 325 mg BID@ PO 02/23/17 12:00 02/24/17 12:14 (Vitamin C) 500 mg BIDAC PO 02/23/17 12:00 02/24/17 06:18 (Dilaudid) 2 mg Q6H PRN PO 02/24/17 14:00 02/24/17 12:14 Urinary Catheter: Yes Assessment to: Continue Blood insert reason: Prolonged Immobilization Date of Insertion: Feb 06, 2017 A/P Assessment and Plan Mr. Sheehan is a 56 year old male with a history of T1 fracture with neurogenic bladder and bowel, PVD, chronic decubitus ulcer and lower ext BKA who presented to the ED on 01/12/2017 due to left leg wound. He recently was evaluated by multiple physicians including vascular surgery and he was offered IV abx, AKA as well as debridement for deep pelvic area osteomyelitis. Unfortunately, patient was extremely agitated, used foul language and left AMA to go to a wound care center outside [place]. During this present admission, patient was found to be hypotensive with prominent leukocytosis. He underwent L BKA revision /AKA and multiple sacral /ischial wounds debridement. - Left BKA stump infection/gangrene - Large Sacral decubitus ulcer. - Left pelvic area osteomyelitis. - UTI with MDRO Acinetobacter - s/p Left AKA and debridement of the decubiti. - Infected with MDRO acinetobacter, ID stated pt will need to be on Zosyn x 4 weeks, and there is not an oral agent available to address his antibiotic coverage. - s/p Colostomy. - Per ID recommendations, continue Unasyn for 8 weeks (started on 01/14/2017), last dose to be scheduled for 03/11/17 - Continue Baclofen. Increase [place] to home dose 10/325 Q6hrs PRN. - For nausea, we will add Zofran. - Baclofen 20 mg PO QID. Continue [place] 15/650mg PO q6h PRN per pain scale. Continue Dilaudid PO breakthrough pain. -- Multipodus boot for ankle wound, right. -Right foot moving, PT working with pt. -Dilaudid 2 mg po q 6hrs for breakthrough pain. - Adjustment disorder. mood improved. Started on Valium 10 mg po daily 01/18 - Microcytic anemia- iron studies suggestive of chronic disease. Low serum Iron. po Iron daily - Paraplegic with neurogenic bladder - Continue Blood catheter. -Insomnia -Initiate Trazodone 50 mg q hs DNR. DVT Prophylaxis: Lovenox 30mg Q24hrs. GI prophylaxis: Pepcid 20 mg BID Discussed with the patient, nurses (Rachelle and Monique) and Dr. Otero. Discharge Planning CM following and assessing needs for discharge to either SNF or home. CM continues to discuss placement with facilities. Agustin Powell Jr. Feb 24, 2017 14:37
[2017-02-24 14:41] LABS: ANION GAP 8 MEQ/L (5-15); AST (GOT) 22 U/L (15-37); BICARBONATE 27.1 MEQ/L (21.0-32.0); BLOOD UREA NITROGEN 10 MG/DL (7-18); CHLORIDE 103 MEQ/L (98-107); GLOMERULAR FILTRATION RATE 115 ML/MIN (>89); POTASSIUM 4.1 MEQ/L (3.5-5.1); SODIUM (NA) 138 MEQ/L (136-145)
[2017-02-24 14:42] LABS: ALT (GPT) 28 U/L (12-78)
[2017-02-24 14:44] LABS: ALKALINE PHOSPHATASE 73 U/L (45-117); TOTAL BILIRUBIN ADULT 0.2 MG/DL (0.2-1.0); TRANSFERRIN IRON PROFILE 150 MG/DL (200-360)
[2017-02-24] MEDS: COLLAGENASE OINT 30 GM TUBE TOPICAL SCH (15:38)
--- NOTE | 2017-02-24 15:49 | PD.PLAS.PN ---
Subjective Remarks Patient has no new complaints. Objective Vital Signs Date Time Temp Pulse Resp B/P Pulse Ox O2 Delivery O2 Flow Rate FiO2 02/24/17 12:15 96.9 87 20 97/67 100 02/24/17 08:00 96.6 77 20 118/74 97 02/24/17 07:00 20 02/24/17 04:47 20 02/24/17 04:00 98.7 113 22 120/55 98 02/24/17 00:00 97.0 88 18 112/68 99 02/23/17 20:14 97.2 115 18 105/68 97 02/23/17 16:27 98.7 102 20 103/64 98 I/O 02/23/17 02/23/17 02/23/17 02/24/17 02/24/17 02/24/17 07:00 15:00 23:00 07:00 15:00 23:00 Intake Total 240 ml 0 ml 0 ml 100 ml Output Total 1000 ml 2000 ml 1250 ml Balance -760 ml -2000 ml -1250 ml 100 ml Intake Oral 240 ml IV Total 0 ml 0 ml 100 ml Output Urine Total 1000 ml 2000 ml 1250 ml Laboratory Tests Test 02/24/17 11:56 White Blood Count 6.9 Red Blood Count 4.13 Hemoglobin 9.6 Hematocrit 31.6 Mean Corpuscular Volume 76.6 Mean Corpuscular Hemoglobin 23.2 Mean Corpuscular Hemoglobin 30.3 Concent Red Cell Distribution Width 23.3 Platelet Count 385 Mean Platelet Volume 6.9 Neutrophils (%) (Auto) 49.8 Lymphocytes (%) (Auto) 31.8 Monocytes (%) (Auto) 10.5 Eosinophils (%) (Auto) 6.9 Basophils (%) (Auto) 1.0 Neutrophils # (Auto) 3.4 Lymphocytes # (Auto) 2.2 Monocytes # (Auto) 0.7 Eosinophils # (Auto) 0.5 Basophils # (Auto) 0.1 CBC Comment AUTO DIFF Differential Comment AUTO DIFF CONFIRMED Platelet Estimate NORMAL Platelet Morphology Comment NORMAL Ovalocytes 1+ Sodium Level 138 Potassium Level 4.1 Chloride Level 103 Carbon Dioxide Level 27.1 Anion Gap 8 Blood Urea Nitrogen 10 Creatinine 0.71 Estimat Glomerular Filtration 115 Rate Random Glucose 97 Calcium Level 9.1 Iron Level 31 Total Iron Binding Capacity 210 Percent Iron Saturation 14.8 Total Bilirubin 0.2 Aspartate Amino Transf 22 (AST/SGOT) Alanine Aminotransferase 28 (ALT/SGPT) Alkaline Phosphatase 73 Total Protein 7.1 Albumin 2.3 Result Diagram: 02/24/17 1156 02/24/17 1156 Exam Findings Dressings in place. Wounds are healing well. There is no evidence of infection. No odor. Drainage is serous. Periwound skin is healing well. Assessment and Plan Diagnosis: (1) Pressure ulcer of sacral region, stage 4 (2) Pressure ulcer of left hip, stage 4 (3) Pressure ulcer of left buttock, stage 4 Assessment and Plan Recommend application of wound vac veraflow with cleanse choice dressing. This is discussed with RN and ordered. The exam, history, and the medical decision-making described in the above note were completed with the assistance of the mid-level provider. I reviewed and agree with the findings presented. I attest that I had a [id number] encounter with the patient on the same day, and personally performed and documented my assessment and findings in the medical record. Vesta Kiser M.D. Bibi Motta Feb 24, 2017 15:49
[2017-02-24 16:14] VITALS: BP 93/68; PULSE 94; RESP 20; TEMP 97.4; O2SAT 100
[2017-02-24 20:00] VITALS: BP 88/68; PULSE 101; RESP 18; TEMP 97.4; O2SAT 100
[2017-02-24] MEDS: traZODone HCL 50 MG TAB PO SCH (20:16)
[2017-02-25] VITALS: BP 114/61; PULSE 93; RESP 18; TEMP 97.8; O2SAT 99
[2017-02-25 04:00] VITALS: BP 120/71; PULSE 82; RESP 16; TEMP 97.8; O2SAT 96
[2017-02-25] MEDS: ACETAMINOPHEN/HYDROcodone 325 MG/10 MG TAB PO PRN ×3 (04:42→17:56)
[2017-02-25] MEDS: AMPICILLIN-SULBACTAM INJ 3 GM in SODIUM CHLORIDE 0.9% INJ 100 ML IV SCH ×4 (04:43→21:15)
[2017-02-25] MEDS: ASCORBIC ACID 500 MG TAB PO SCH ×2 (05:40→17:56)
[2017-02-25] MEDS: HYDROmorphone HCL 2 MG TAB PO PRN ×3 (05:41→21:15)
[2017-02-25 08:00] VITALS: BP 125/67; PULSE 72; RESP 18; TEMP 96.7; O2SAT 100
[2017-02-25] MEDS: POLYETHYLENE GLYCOL 17 GM PKG PO SCH (09:00)
[2017-02-25] MEDS: NYSTATIN 100,000 U/GM PWD 15 GM BTL TOPICAL SCH ×2 (09:00→21:00)
[2017-02-25] MEDS: SODIUM CHLORIDE 0.9% FLUSH 10 ML FLUSH IV FLUSH SCH ×2 (09:29→21:15)
[2017-02-25] MEDS: POTASSIUM CHLORIDE 10 MEQ CONTROLLED RELEASE TAB PO SCH (09:30)
[2017-02-25] MEDS: FAMOTIDINE 20 MG TAB PO SCH ×2 (09:32→21:14)
[2017-02-25] MEDS: BACLOFEN 20 MG TAB PO SCH ×4 (09:32→21:14)
[2017-02-25] MEDS: SENNOSIDES 8.6 MG TAB PO SCH (09:32)
[2017-02-25] MEDS: QUEtiapine FUMARATE 25 MG TAB PO SCH ×2 (09:32→12:19)
[2017-02-25] MEDS: FERROUS SULFATE 325 MG (65 MG ELEMENTAL IRON) TAB PO SCH ×2 (12:18→17:56)
[2017-02-25 12:36] VITALS: BP 98/57; PULSE 99; RESP 19; TEMP 98.6; O2SAT 98
--- NOTE | 2017-02-25 12:46 | HHI.PR ---
Subjective Remarks Follow up for decubitus ulcer, left AKA, stump infection in patient with a history of paraplegia. Patient seen and examined today, lying in bed. NAD Pt reported he continues to be pleased with right foot movement and is working with PT on improving strength and use. Pt stated he is sleeping well and sleeping medication denied having "medication hangover" this morning. Noted pain medication schedule was adjusted, spoke of how recent medication change has been helpful in controlling pain. Denies any new acute complaints overnight. Pt denied cough, fever, shortness of breath, NVD, or malaise. Per RN's (Mita) pt without acute changes reported overnight or since start of shift. Objective Vitals Vital Signs Date Time Temp Pulse Resp B/P Pulse Ox O2 Delivery O2 Flow Rate FiO2 02/25/17 12:36 98.6 99 19 98/57 98 02/25/17 08:00 96.7 72 18 125/67 100 02/25/17 06:41 20 02/25/17 05:41 8 02/25/17 04:00 97.8 82 16 120/71 96 02/25/17 00:00 97.8 93 18 114/61 99 02/24/17 20:00 97.4 101 18 88/68 100 02/24/17 16:14 97.4 94 20 93/68 100 I/O 02/24/17 02/24/17 02/24/17 02/25/17 02/25/17 02/25/17 06:59 14:59 22:59 06:59 14:59 22:59 Intake Total 0 ml 580 ml 100 ml 200 ml Output Total 2350 ml 1250 ml 1750 ml Balance -2350 ml -670 ml -1650 ml 200 ml Intake Oral 480 ml IV Total 0 ml 100 ml 100 ml 200 ml Output Urine Total 2350 ml 1250 ml 1750 ml Result Diagram: 02/24/17 1156 02/24/17 1156 Objective Remarks GENERAL: Pt encountered laying in bed, awake, eating breakfast. SKIN: Warm and dry. Right foot dark yet warm to touch. Toes of the right foot evidenced better color. HEAD: Normocephalic. EYES: No scleral icterus. No injection or drainage. NECK: Supple, trachea midline. No lymphadenopathy. CARDIOVASCULAR: Regular rate and rhythm without murmurs, gallops, or rubs. RESPIRATORY: Breath sounds equal bilaterally. No accessory muscle use. GASTROINTESTINAL: Abdomen soft, non-tender, nondistended. Abdominal sounds noted to be decre all quadrants. Colostomy noted left lower quadrant. MUSCULOSKELETAL: No cyanosis, or edema. Moves foot on command. PSYCHIATRIC: A&OX3,pleasant and cooperative. No overt signs of anxiety or depression. Speech was clear and fluent.Pt continues to be pleased and excited with recent movement of foot. Procedures left AKA VAC application Colostomy (01/26/17). Right hip decubuti debridement (01/26/17) Medications and IVs Current Medications Medications (Trade) Dose Ordered Sig/Vivien Route Start Time Stop Time Status Last Admin (NS Flush) 2 ml UNSCH PRN IV FLUSH 01/12/17 21:45 02/20/17 03:35 (NS Flush) 2 ml BID IV FLUSH 01/13/17 09:00 02/25/17 09:29 Naloxone HCl 0.4 mg 0.4 mg UNSCH PRN IV 01/12/17 21:45 (Unasyn Inj/NS Inj) 100 ml @ 200 mls/hr Q6H IV 01/14/17 16:00 02/25/17 09:30 (Santyl Oint) 1 applic MoTh TOPICAL 01/14/17 15:00 02/24/17 15:38 (KCl) 30 meq DAILY PO 01/15/17 13:45 02/25/17 09:30 (Lovenox Inj) 30 mg Q24H SQ 01/15/17 14:00 02/24/17 13:44 (Miralax) 17 gm DAILY PO 01/15/17 14:00 02/07/17 09:56 (Dulcolax Supp) 10 mg DAILY PRN RECTAL 01/17/17 00:30 01/17/17 00:48 (Senokot) 8.6 mg DAILY PO 01/17/17 00:30 02/25/17 09:32 (SEROquel) 12.5 mg BID@09,12 PO 01/17/17 14:00 02/25/17 12:19 (Pill Splitter) 1 ea UNSCH PRN OTHER 01/17/17 14:00 01/23/17 09:39 (Valium) 10 mg DAILY PRN PO 01/18/17 12:00 02/24/17 16:45 (Phazyme Chew) 125 mg DAILY PRN PO 01/29/17 11:30 (Zofran Inj) 4 mg Q6HR PRN IV PUSH 02/02/17 14:30 02/03/17 09:59 (Pepcid) 20 mg BID PO 02/08/17 21:00 02/25/17 09:32 (Desyrel) 50 mg HS PO 02/09/17 21:00 02/24/17 20:16 ([place] 10-325 Mg) 1.5 tab Q6H PRN PO 02/14/17 14:00 02/25/17 10:28 (Lioresal) 20 mg QID PO 02/16/17 13:00 02/25/17 13:14 (Mycostatin Powder) 1 applic Q12HR TOPICAL 02/17/17 21:00 02/24/17 20:17 (Ferrous Sulfate) 325 mg BID@ PO 02/23/17 12:00 02/25/17 12:18 (Vitamin C) 500 mg BIDAC PO 02/23/17 12:00 02/25/17 05:40 (Dilaudid) 2 mg Q6H PRN PO 02/24/17 14:00 02/25/17 12:25 Date of Insertion: Feb 06, 2017 A/P Assessment and Plan Mr. Sheehan is a 56 year old male with a history of T1 fracture with neurogenic bladder and bowel, PVD, chronic decubitus ulcer and lower ext BKA who presented to the ED on 01/12/2017 due to left leg wound. He recently was evaluated by multiple physicians including vascular surgery and he was offered IV abx, AKA as well as debridement for deep pelvic area osteomyelitis. Unfortunately, patient was extremely agitated, used foul language and left AMA to go to a wound care center outside [place]. During this present admission, patient was found to be hypotensive with prominent leukocytosis. He underwent L BKA revision /AKA and multiple sacral /ischial wounds debridement. - Left BKA stump infection/gangrene - Large Sacral decubitus ulcer. - Left pelvic area osteomyelitis. - UTI with MDRO Acinetobacter - s/p Left AKA and debridement of the decubiti. - Infected with MDRO acinetobacter, ID stated pt will need to be on Zosyn x 4 weeks, and there is not an oral agent available to address his antibiotic coverage. - s/p Colostomy. - Per ID recommendations, continue Unasyn for 8 weeks (started on 01/14/2017), last dose to be scheduled for 03/11/17 - Continue Baclofen. Increase [place] to home dose 10/325 Q6hrs PRN. - For nausea, we will add Zofran. - Baclofen 20 mg PO QID. Continue [place] 15/650mg PO q6h PRN per pain scale. Continue Dilaudid PO breakthrough pain. -- Multipodus boot for ankle wound, right. -Right foot moving, PT working with pt. -Dilaudid 2 mg po q 6hrs for breakthrough pain. - Adjustment disorder. mood improved. Started on Valium 10 mg po daily 01/18 - Microcytic anemia- iron studies suggestive of chronic disease. Low serum Iron. po Iron daily - Paraplegic with neurogenic bladder - Continue Blood catheter. -Insomnia -Initiate Trazodone 50 mg q hs DNR. DVT Prophylaxis: Lovenox 30mg Q24hrs. GI prophylaxis: Pepcid 20 mg BID Discussed with the patient, nurses (Rachelle and Monique) and Dr. Otero. Discharge Planning CM following and assessing needs for discharge to either SNF or home. CM continues to discuss placement with facilities. Agustin Powell Jr. Feb 25, 2017 12:46
[2017-02-25] MEDS: ENOXAPARIN SODIUM 30 MG/0.3 ML SYRINGE SQ SCH (14:12)
[2017-02-25 16:00] VITALS: BP 119/68; PULSE 104; RESP 20; TEMP 99; O2SAT 99
--- NOTE | 2017-02-25 19:32 | PD.WCN.NOT ---
Neg Pressure Wound Therapy Wound Location Wound Location: Sacrum Wound Description Length: 12.4cm Width: 9.8cm Depth: 2.7cm Undermining: from 6 to 12 o'clock deepest at 8 o'clock at 3.1 cm Wound bed appearance: Wound is noted with ~40% clean red non granulation tissue, ~10% bone, ~10% facia ,~20% muscle, ~10% yellow slough, ~10% adipose tissue.Minimal active sero- sanguinous drainage noted without foul odor. Periwound appearance: Unremarkable Settings Suction: 125 mmHg, Intermittent Intensity: Low Other Information: Bridged, Windowpaned Foam type: Black Number of pieces: 2 Additonal Information Wound VAC suction is intermittent due to periodic instillation and soaking of wound with normal saline. Instillation of saline is every 3 hours for 10 minutes. Wound VAC Veraflow applied to sacrum and L ischial wounds and bridged just above L hip, with 2 trac pads. Veraflow Wound VAC applied to both Sacral and L ischial stage 4 pressure injury wounds. both wounds are on 1 VAC machine Wound Location Wound Location: L ischial Wound Description Length: 10.5cm Width: 4.9 cm Depth: 3 cm Undermining: undermining is noted between 10 and 1 o'clock with the deepest being at 12 o' clock 2.6cm Wound bed appearance: L ischial wound bed presents with ~50% red non granulation tissue and ~20% facia , ~10% adipose and ~20% muscle tissue . Wound is a stage 4 pressure injury Periwound appearance: Unremarkable Settings Suction: 125 mmHg, Intermittent Intensity: Low Other Information: Bridged, Windowpaned Foam type: Black Number of pieces: 1 Additonal Information Wound VAC suction is intermittent due to periodic instillation and soaking of wound with normal saline. Instillation of saline is every 3 hours for 10 minutes. Wound VAC Veraflow applied to sacrum and L ischial wounds and bridged just above L hip.,with 2 trac pads. Veraflow Wound VAC applied to both Sacral and L ischial stage 4 pressure injury wounds. both wounds are on 1 VAC machine. Wound Location Wound Location: L trochanter Wound Description Length: 4.7 Width: 3.3 Depth: 3 cm Tunneling: Wound has tunneling at 7 o'clock 4.6 cm Wound bed appearance: Wound to L hip presents with ~80% pale red tissue and ~20% yellow tissue. bone is palpated in center of wound but not visualized. Wound is stage 4 pressure injury Periwound appearance: Unremarkable Settings Suction: 125 mmHg, Continuous Intensity: Low Other Information: Bridged, Windowpaned Foam type: Black Number of pieces: 1 Additonal Information R trochanter wound is noted with ~30% red non granulation tissue , ~30% facia, ~ 20% yellow slough, ~20% adipose tissue. Wound has no active drainage or foul odor. Wound measurements are as follows 4.6 cm x 4cmx 2 cm, with undermining at 1 to 10 o'clock. Deepest at 5 o'clock 1.2cm. Placed standard wound VAC to L trochanter and R trochanter wounds Cleansed both wounds with wound cleanser and Coiled 1 piece of VAC granufoam in to each wound bed. Skin prep sprayed to each periwound before window paning wound and bridging VAC drape to L and R thigh. Wound to L trochanter was bridged to L anterior thigh. R trochanter wound was bridged to R anterior thigh. All exposed foam was covered with additional VAC drape before applying Sensi trac pads to bridged areas. Used Y connector to connect both wounds to 1 standard VAC. Wound VAC suctioning at 125 without leaks. Next wound VAC change will be on Tuesday Missy Huerta MOOSE Feb 25, 2017 19:32
[2017-02-25 20:00] VITALS: BP 95/66; PULSE 105; RESP 18; TEMP 98; O2SAT 95
[2017-02-25] MEDS: traZODone HCL 50 MG TAB PO SCH (21:14)
[2017-02-26] VITALS: BP 103/71; PULSE 90; RESP 20; TEMP 97.6; O2SAT 98
[2017-02-26] MEDS: AMPICILLIN-SULBACTAM INJ 3 GM in SODIUM CHLORIDE 0.9% INJ 100 ML IV SCH ×4 (04:00→21:47)
[2017-02-26] MEDS: ASCORBIC ACID 500 MG TAB PO SCH ×2 (06:49→15:34)
[2017-02-26] MEDS: HYDROmorphone HCL 2 MG TAB PO PRN ×3 (06:55→18:40)
[2017-02-26 08:00] VITALS: BP 115/59; PULSE 93; RESP 18; TEMP 98.1; O2SAT 98
[2017-02-26] MEDS: FAMOTIDINE 20 MG TAB PO SCH ×2 (08:39→21:46)
[2017-02-26] MEDS: POLYETHYLENE GLYCOL 17 GM PKG PO SCH (08:39)
[2017-02-26] MEDS: POTASSIUM CHLORIDE 10 MEQ CONTROLLED RELEASE TAB PO SCH (08:40)
[2017-02-26] MEDS: ACETAMINOPHEN/HYDROcodone 325 MG/10 MG TAB PO PRN ×3 (08:41→21:46)
[2017-02-26] MEDS: SENNOSIDES 8.6 MG TAB PO SCH (08:41)
[2017-02-26] MEDS: BACLOFEN 20 MG TAB PO SCH ×4 (08:41→21:46)
[2017-02-26] MEDS: QUEtiapine FUMARATE 25 MG TAB PO SCH ×2 (08:42→12:47)
[2017-02-26] MEDS: NYSTATIN 100,000 U/GM PWD 15 GM BTL TOPICAL SCH ×2 (08:43→21:46)
[2017-02-26] MEDS: SODIUM CHLORIDE 0.9% FLUSH 10 ML FLUSH IV FLUSH SCH ×2 (08:44→21:46)
[2017-02-26 11:56] VITALS: BP 98/59; PULSE 85; RESP 18; TEMP 96.2; O2SAT 99
[2017-02-26] MEDS: FERROUS SULFATE 325 MG (65 MG ELEMENTAL IRON) TAB PO SCH ×2 (12:46→16:55)
--- NOTE | 2017-02-26 14:07 | HHI.PR ---
Subjective Remarks Follow up for decubitus ulcer, left AKA, stump infection in patient with a history of paraplegia. Patient seen and examined today, lying in bed, awaiting breakfast, NAD Pt stated he is sleeping well. Noted pain medication schedule "is off today and we need to get it so that there are three hours between them (Dilaudid administration and [place])". Pt spoke of being placed on two wound vacs. Denies any new acute complaints overnight. Pt denied cough, fever, shortness of breath, NVD, or malaise. Per RN's (Hussain) pt without acute changes reported overnight or since start of shift. Objective Vitals Vital Signs Date Time Temp Pulse Resp B/P Pulse Ox O2 Delivery O2 Flow Rate FiO2 02/26/17 11:56 96.2 85 18 98/59 99 02/26/17 08:00 98.1 93 18 115/59 98 02/26/17 00:00 97.6 90 20 103/71 98 02/25/17 20:00 98.0 105 18 95/66 95 02/25/17 16:00 99.0 104 20 119/68 99 I/O 02/25/17 02/25/17 02/25/17 02/26/17 02/26/17 02/26/17 07:00 15:00 23:00 07:00 15:00 23:00 Intake Total 200 ml Output Total 1150 ml Balance 200 ml -1150 ml IV Total 200 ml Output Urine Total 1150 ml # Bowel Movements 2 Result Diagram: 02/24/17 1156 02/24/17 1156 Objective Remarks GENERAL: Pt encountered laying in bed, awake, awaiting breakfast. SKIN: Warm and dry. Right foot dark yet warm to touch. Toes of the right foot evidenced better color. HEAD: Normocephalic. EYES: No scleral icterus. No injection or drainage. NECK: Supple, trachea midline. No lymphadenopathy. CARDIOVASCULAR: Regular rate and rhythm without murmurs, gallops, or rubs. RESPIRATORY: Breath sounds equal bilaterally. No accessory muscle use. GASTROINTESTINAL: Abdomen soft, non-tender, nondistended. Abdominal sounds noted to be present all quadrants. Colostomy noted left lower quadrant. MUSCULOSKELETAL: No cyanosis, or edema. Moves foot on command. PSYCHIATRIC: A&OX3,pleasant and cooperative. No overt signs of anxiety or depression. Speech was clear and fluent. Procedures left AKA VAC application Colostomy (01/26/17). Right hip decubuti debridement (01/26/17) Medications and IVs Current Medications Medications (Trade) Dose Ordered Sig/Vivien Route Start Time Stop Time Status Last Admin (NS Flush) 2 ml UNSCH PRN IV FLUSH 01/12/17 21:45 02/20/17 03:35 (NS Flush) 2 ml BID IV FLUSH 01/13/17 09:00 02/26/17 08:44 Naloxone HCl 0.4 mg 0.4 mg UNSCH PRN IV 01/12/17 21:45 (Unasyn Inj/NS Inj) 100 ml @ 200 mls/hr Q6H IV 01/14/17 16:00 02/26/17 08:43 (Santyl Oint) 1 applic MoTh TOPICAL 01/14/17 15:00 02/24/17 15:38 (KCl) 30 meq DAILY PO 01/15/17 13:45 02/26/17 08:40 (Lovenox Inj) 30 mg Q24H SQ 01/15/17 14:00 02/25/17 14:12 (Miralax) 17 gm DAILY PO 01/15/17 14:00 02/07/17 09:56 (Dulcolax Supp) 10 mg DAILY PRN RECTAL 01/17/17 00:30 01/17/17 00:48 (Senokot) 8.6 mg DAILY PO 01/17/17 00:30 02/26/17 08:41 (SEROquel) 12.5 mg BID@09,12 PO 01/17/17 14:00 02/26/17 12:47 (Pill Splitter) 1 ea UNSCH PRN OTHER 01/17/17 14:00 01/23/17 09:39 (Valium) 10 mg DAILY PRN PO 01/18/17 12:00 02/24/17 16:45 (Phazyme Chew) 125 mg DAILY PRN PO 01/29/17 11:30 (Zofran Inj) 4 mg Q6HR PRN IV PUSH 02/02/17 14:30 02/03/17 09:59 (Pepcid) 20 mg BID PO 02/08/17 21:00 02/26/17 08:39 (Desyrel) 50 mg HS PO 02/09/17 21:00 02/25/17 21:14 ([place] 10-325 Mg) 1.5 tab Q6H PRN PO 02/14/17 14:00 02/26/17 08:41 (Lioresal) 20 mg QID PO 02/16/17 13:00 02/26/17 12:47 (Mycostatin Powder) 1 applic Q12HR TOPICAL 02/17/17 21:00 02/25/17 21:00 (Ferrous Sulfate) 325 mg BID@ PO 02/23/17 12:00 02/26/17 12:46 (Vitamin C) 500 mg BIDAC PO 02/23/17 12:00 02/26/17 06:49 (Dilaudid) 2 mg Q6H PRN PO 02/24/17 14:00 02/26/17 12:48 Urinary Catheter: Yes Date of Insertion: Feb 06, 2017 A/P Assessment and Plan Mr. Sheehan is a 56 year old male with a history of T1 fracture with neurogenic bladder and bowel, PVD, chronic decubitus ulcer and lower ext BKA who presented to the ED on 01/12/2017 due to left leg wound. He recently was evaluated by multiple physicians including vascular surgery and he was offered IV abx, AKA as well as debridement for deep pelvic area osteomyelitis. Unfortunately, patient was extremely agitated, used foul language and left AMA to go to a wound care center outside [place]. During this present admission, patient was found to be hypotensive with prominent leukocytosis. He underwent L BKA revision /AKA and multiple sacral /ischial wounds debridement. Pain medication schedule discussed with RN. Pt continues on IV antibiotics per Infectious disease. Wound care report reviewed; wound vacs placed and pain medication is controlling pain. Continue current pain medication regimen. - Left BKA stump infection/gangrene - Large Sacral decubitus ulcer. - Left pelvic area osteomyelitis. - UTI with MDRO Acinetobacter - s/p Left AKA and debridement of the decubiti. - Infected with MDRO acinetobacter, ID stated pt will need to be on Zosyn x 4 weeks, and there is not an oral agent available to address his antibiotic coverage. - s/p Colostomy. - Per ID recommendations, continue Unasyn for 8 weeks (started on 01/14/2017), last dose to be scheduled for 03/11/17 - Continue Baclofen. Increase [place] to home dose 10/325 Q6hrs PRN. - For nausea, we will add Zofran. - Baclofen 20 mg PO QID. Continue [place] 15/650mg PO q6h PRN per pain scale. Continue Dilaudid PO breakthrough pain. -- Multipodus boot for ankle wound, right. -Right foot moving, PT working with pt. -Dilaudid 2 mg po q 6hrs for breakthrough pain. - Adjustment disorder. mood improved. Started on Valium 10 mg po daily 01/18 - Microcytic anemia- iron studies suggestive of chronic disease. Low serum Iron. po Iron daily - Paraplegic with neurogenic bladder - Continue Blood catheter. -Insomnia -Initiate Trazodone 50 mg q hs DNR. DVT Prophylaxis: Lovenox 30mg Q24hrs. GI prophylaxis: Pepcid 20 mg BID Discussed with the patient, nurse and Dr. Otero. Discharge Planning CM following and assessing needs for discharge to either SNF or home. CM continues to discuss placement with facilities. Agustin Powell Jr. Feb 26, 2017 14:07
[2017-02-26 16:00] VITALS: BP 127/70; PULSE 75; RESP 18; TEMP 96.3; O2SAT 99
[2017-02-26] MEDS: ENOXAPARIN SODIUM 30 MG/0.3 ML SYRINGE SQ SCH (16:54)
[2017-02-26 21:30] VITALS: BP 109/61; PULSE 100; RESP 17; TEMP 97.1; O2SAT 98
[2017-02-26] MEDS: traZODone HCL 50 MG TAB PO SCH (21:46)
[2017-02-27] MEDS: HYDROmorphone HCL 2 MG TAB PO PRN ×4 (00:25→19:27)
[2017-02-27 00:35] VITALS: BP 110/60; PULSE 101; RESP 18; TEMP 98.8; O2SAT 97
[2017-02-27] MEDS: AMPICILLIN-SULBACTAM INJ 3 GM in SODIUM CHLORIDE 0.9% INJ 100 ML IV SCH ×4 (03:52→22:23)
[2017-02-27] MEDS: ACETAMINOPHEN/HYDROcodone 325 MG/10 MG TAB PO PRN ×4 (03:53→22:22)
[2017-02-27 04:20] VITALS: BP 99/60; PULSE 81; RESP 17; TEMP 97.3; O2SAT 97
[2017-02-27] MEDS: ASCORBIC ACID 500 MG TAB PO SCH ×2 (06:26→16:08)
[2017-02-27 08:11] VITALS: BP 114/66; PULSE 74; RESP 18; TEMP 96.7; O2SAT 99
[2017-02-27] MEDS: NYSTATIN 100,000 U/GM PWD 15 GM BTL TOPICAL SCH ×2 (09:00→21:00)
[2017-02-27] MEDS: POLYETHYLENE GLYCOL 17 GM PKG PO SCH (09:00)
[2017-02-27] MEDS: POTASSIUM CHLORIDE 10 MEQ CONTROLLED RELEASE TAB PO SCH (09:54)
[2017-02-27] MEDS: FAMOTIDINE 20 MG TAB PO SCH ×2 (09:57→22:22)
[2017-02-27] MEDS: SENNOSIDES 8.6 MG TAB PO SCH (09:57)
[2017-02-27] MEDS: QUEtiapine FUMARATE 25 MG TAB PO SCH ×2 (09:57→13:09)
[2017-02-27] MEDS: BACLOFEN 20 MG TAB PO SCH ×4 (09:57→22:23)
[2017-02-27] MEDS: SODIUM CHLORIDE 0.9% FLUSH 10 ML FLUSH IV FLUSH SCH ×2 (09:58→22:23)
--- NOTE | 2017-02-27 11:04 | RADRPT ---
EXAM DATE/TIME: 02/27/2017 10:34 [facility] COMPARISON: CHEST SINGLE AP, January 12, 2017, 18:02. INDICATIONS : Chest pain. MEDICAL HISTORY : None. SURGICAL HISTORY : Fusion, cervical. ENCOUNTER: Initial ACUITY: 1 day PAIN SCORE: 110 LOCATION: Bilateral chest FINDINGS: A single view of the chest demonstrates the lungs to be symmetrically aerated without evidence of mas s, infiltrate or effusion. The cardiomediastinal contours are unremarkable. Osseous structures are intact. CONCLUSION: No acute disease. No significant change has occurred. Krzysztof Lopez MD on February 27, 2017 at 11:02 Board Certified Radiologist. This report was verified electronically.
--- NOTE | 2017-02-27 12:46 | EKG ---
Date Performed: 02/27/2017 Time Performed: 10:22:48 PTAGE: 56 years EKG: Sinus rhythm WITH OCCASIONAL SUPRAVENTRICULAR PREMATURE COMPLEXES BORDERLINE ECG PREVIOUS TRACING : 03/02/2016 08.46 Since prior tracing, sinus rate has increased. DOCTOR: Napoleon Foreman Interpretating Date/Time 02/27/2017 12:43:21
[2017-02-27] MEDS: FERROUS SULFATE 325 MG (65 MG ELEMENTAL IRON) TAB PO SCH ×2 (13:07→16:08)
[2017-02-27] MEDS: ENOXAPARIN SODIUM 30 MG/0.3 ML SYRINGE SQ SCH (13:07)
[2017-02-27 13:08] VITALS: BP 101/76; PULSE 68; RESP 18; TEMP 96.8; O2SAT 96
[2017-02-27 14:09] LABS: ANION GAP 4 MEQ/L (5-15); AST (GOT) 26 U/L (15-37); BICARBONATE 29.8 MEQ/L (21.0-32.0); BLOOD UREA NITROGEN 15 MG/DL (7-18); CHLORIDE 105 MEQ/L (98-107); GLOMERULAR FILTRATION RATE 110 ML/MIN (>89); MAGNESIUM 2.2 MG/DL (1.5-2.5); POTASSIUM 4.1 MEQ/L (3.5-5.1); SODIUM (NA) 139 MEQ/L (136-145)
[2017-02-27 14:10] LABS: ALT (GPT) 34 U/L (12-78)
--- NOTE | 2017-02-27 14:10 | HHI.PR ---
Subjective Remarks Follow up for decubitus ulcer, left AKA, stump infection in patient with a history of paraplegia. Patient seen and examined today, lying in bed, Pt stated he is sleeping well and requesting for decrease in sleeping medication. Noted pain medication schedule is "set right." Denies any new acute complaints overnight. During visit pt complained of chest pain, sudden onset this morning after movement in bed. pt said it was unrelenting without radiation to his neck, back , or left arm. Diaphoresis was denied. Pt denied previous cardiac disease history as well as having undergone cardiac catheterization. Pt denied cough, fever, shortness of breath, NVD, or malaise. Per RN's (Tahjtony) pt without acute changes reported overnight or since start of shift. Objective Vitals Vital Signs Date Time Temp Pulse Resp B/P Pulse Ox O2 Delivery O2 Flow Rate FiO2 02/27/17 13:08 96.8 68 18 101/76 96 02/27/17 08:11 96.7 74 18 114/66 99 02/27/17 04:20 97.3 81 17 99/60 97 02/27/17 00:35 98.8 101 18 110/60 97 02/26/17 21:30 97.1 100 17 109/61 98 02/26/17 16:00 96.3 75 18 127/70 99 I/O 02/26/17 02/26/17 02/26/17 02/27/17 02/27/17 02/27/17 07:00 15:00 23:00 07:00 15:00 23:00 Intake Total 960 ml 950 ml 2490 ml Output Total 1800 ml 900 ml 1700 ml Balance -840 ml 50 ml 790 ml Intake Oral 960 ml 950 ml 2290 ml IV Total 200 ml Output Urine Total 1800 ml 900 ml 1200 ml Stool Total 0 ml 0 ml Drainage Total 500 ml # Bowel Movements 1 Result Diagram: 02/24/17 1156 02/24/17 1156 Imaging Last Impressions Chest X-Ray 02/27/17 0000 Signed Impressions: Service Date/Time: Monday, February 27, 2017 10:34 - CONCLUSION: No acute disease. No significant change has occurred. Krzysztof Lopez MD Objective Remarks GENERAL: Pt encountered laying in bed, awake. Well appearing. SKIN: Warm and dry. Right foot dark yet warm to touch. Toes of the right foot evidenced better color. HEAD: Normocephalic. EYES: No scleral icterus. No injection or drainage. NECK: Supple, trachea midline. No lymphadenopathy. CARDIOVASCULAR: Regular rate and rhythm without murmurs, gallops, or rubs. RESPIRATORY: Breath sounds equal bilaterally. No accessory muscle use. GASTROINTESTINAL: Abdomen soft, non-tender, nondistended. Abdominal sounds noted to be decreased in all quadrants. Colostomy noted left lower quadrant. MUSCULOSKELETAL: No cyanosis, or edema. Moves foot on command. PSYCHIATRIC: A&OX3,pleasant and cooperative. No overt signs of anxiety or depression. Speech was clear and fluent. Pt calm while describing chest pain. Procedures left AKA VAC application Colostomy (01/26/17). Right hip decubuti debridement (01/26/17) Medications and IVs Current Medications Medications (Trade) Dose Ordered Sig/Vivien Route Start Time Stop Time Status Last Admin (NS Flush) 2 ml UNSCH PRN IV FLUSH 01/12/17 21:45 02/20/17 03:35 (NS Flush) 2 ml BID IV FLUSH 01/13/17 09:00 02/27/17 09:58 Naloxone HCl 0.4 mg 0.4 mg UNSCH PRN IV 01/12/17 21:45 (Unasyn Inj/NS Inj) 100 ml @ 200 mls/hr Q6H IV 01/14/17 16:00 02/27/17 09:58 (Santyl Oint) 1 applic MoTh TOPICAL 01/14/17 15:00 02/24/17 15:38 (KCl) 30 meq DAILY PO 01/15/17 13:45 02/27/17 09:54 (Lovenox Inj) 30 mg Q24H SQ 01/15/17 14:00 02/27/17 13:07 (Miralax) 17 gm DAILY PO 01/15/17 14:00 02/07/17 09:56 (Dulcolax Supp) 10 mg DAILY PRN RECTAL 01/17/17 00:30 01/17/17 00:48 (Senokot) 8.6 mg DAILY PO 01/17/17 00:30 02/27/17 09:57 (SEROquel) 12.5 mg BID@09,12 PO 01/17/17 14:00 02/27/17 13:09 (Pill Splitter) 1 ea UNSCH PRN OTHER 01/17/17 14:00 01/23/17 09:39 (Valium) 10 mg DAILY PRN PO 01/18/17 12:00 02/24/17 16:45 (Phazyme Chew) 125 mg DAILY PRN PO 01/29/17 11:30 (Zofran Inj) 4 mg Q6HR PRN IV PUSH 02/02/17 14:30 02/03/17 09:59 (Pepcid) 20 mg BID PO 02/08/17 21:00 02/27/17 09:57 (Desyrel) 50 mg HS PO 02/09/17 21:00 02/26/17 21:46 ([place] 10-325 Mg) 1.5 tab Q6H PRN PO 02/14/17 14:00 02/27/17 09:55 (Lioresal) 20 mg QID PO 02/16/17 13:00 02/27/17 13:09 (Mycostatin Powder) 1 applic Q12HR TOPICAL 02/17/17 21:00 02/26/17 21:46 (Ferrous Sulfate) 325 mg BID@, PO 02/23/17 12:00 02/27/17 13:07 (Vitamin C) 500 mg BIDAC PO 02/23/17 12:00 02/27/17 06:26 (Dilaudid) 2 mg Q6H PRN PO 02/24/17 14:00 02/27/17 13:08 Urinary Catheter: Yes Assessment to: Continue Blood insert reason: Prolonged Immobilization Date of Insertion: Feb 06, 2017 A/P Assessment and Plan Mr. Sheehan is a 56 year old male with a history of T1 fracture with neurogenic bladder and bowel, PVD, chronic decubitus ulcer and lower ext BKA who presented to the ED on 01/12/2017 due to left leg wound. He recently was evaluated by multiple physicians including vascular surgery and he was offered IV abx, AKA as well as debridement for deep pelvic area osteomyelitis. Unfortunately, patient was extremely agitated, used foul language and left AMA to go to a wound care center outside [place]. During this present admission, patient was found to be hypotensive with prominent leukocytosis. He underwent L BKA revision /AKA and multiple sacral /ischial wounds debridement. Chest pain work-up ordered: EKG, serial troponin, chest x-ray, labs. Telemetry ordered. Case discussed with Dr. Otero. Iron studies resulted that had been previously ordered indicated anemia is improving. - Left BKA stump infection/gangrene - Large Sacral decubitus ulcer. - Left pelvic area osteomyelitis. - UTI with MDRO Acinetobacter - s/p Left AKA and debridement of the decubiti. - Infected with MDRO acinetobacter, ID stated pt will need to be on Zosyn x 4 weeks, and there is not an oral agent available to address his antibiotic coverage. - s/p Colostomy. - Per ID recommendations, continue Unasyn for 8 weeks (started on 01/14/2017), last dose to be scheduled for 03/11/17 - Continue Baclofen. Increase [place] to home dose 10/325 Q6hrs PRN. - For nausea, we will add Zofran. - Baclofen 20 mg PO QID. Continue [place] 15/650mg PO q6h PRN per pain scale. Continue Dilaudid PO breakthrough pain. -- Multipodus boot for ankle wound, right. -Right foot moving, PT working with pt. -Dilaudid 2 mg po q 6hrs for breakthrough pain. - Adjustment disorder. mood improved. Started on Valium 10 mg po daily 01/18 - Microcytic anemia- iron studies suggestive of chronic disease. Low serum Iron. po Iron daily. Improving. - Paraplegic with neurogenic bladder - Continue Blood catheter. -Insomnia -Initiate Trazodone 50 mg q hs DNR. DVT Prophylaxis: Lovenox 30mg Q24hrs. GI prophylaxis: Pepcid 20 mg BID Discussed with the patient, nurse and Dr. Otero. Discharge Planning CM following and assessing needs for discharge to either SNF or home. CM continues to discuss placement with facilities. Agustin Powell Jr. Feb 27, 2017 14:10
[2017-02-27 14:13] LABS: ALKALINE PHOSPHATASE 72 U/L (45-117); TOTAL BILIRUBIN ADULT 0.2 MG/DL (0.2-1.0)
[2017-02-27 16:46] VITALS: BP 99/66; PULSE 80; RESP 18; TEMP 95.8; O2SAT 100
[2017-02-27 20:57] VITALS: BP_SYST 109; BP_SYST 125; BP_DIAS 59; BP_DIAS 70; PULSE 67; RESP 20; TEMP 97.3; O2SAT 98
[2017-02-27] MEDS: traZODone HCL 50 MG TAB PO SCH (22:23)
[2017-02-28] VITALS: BP 110/63; PULSE 85; RESP 20; TEMP 97.5; O2SAT 100
[2017-02-28 01:09] VITALS: PULSE 73
[2017-02-28] MEDS: HYDROmorphone HCL 2 MG TAB PO PRN ×4 (01:27→19:44)
[2017-02-28] MEDS: AMPICILLIN-SULBACTAM INJ 3 GM in SODIUM CHLORIDE 0.9% INJ 100 ML IV SCH ×4 (05:00→21:27)
[2017-02-28] MEDS: ACETAMINOPHEN/HYDROcodone 325 MG/10 MG TAB PO PRN ×3 (05:00→17:14)
[2017-02-28] MEDS: ASCORBIC ACID 500 MG TAB PO SCH ×2 (06:43→16:15)
[2017-02-28 07:58] VITALS: BP_SYST 62; BP_SYST 92; BP_DIAS 62; PULSE 88; RESP 20; TEMP 96.9; O2SAT 99
[2017-02-28] MEDS: SODIUM CHLORIDE 0.9% FLUSH 10 ML FLUSH IV FLUSH SCH ×2 (09:00→21:27)
[2017-02-28] MEDS: NYSTATIN 100,000 U/GM PWD 15 GM BTL TOPICAL SCH ×2 (09:00→21:00)
[2017-02-28] MEDS: POLYETHYLENE GLYCOL 17 GM PKG PO SCH (09:00)
[2017-02-28] MEDS: QUEtiapine FUMARATE 25 MG TAB PO SCH ×2 (09:40→11:19)
[2017-02-28] MEDS: POTASSIUM CHLORIDE 10 MEQ CONTROLLED RELEASE TAB PO SCH (09:40)
[2017-02-28] MEDS: BACLOFEN 20 MG TAB PO SCH ×4 (09:41→21:26)
[2017-02-28] MEDS: FAMOTIDINE 20 MG TAB PO SCH ×2 (09:41→21:26)
[2017-02-28] MEDS: SENNOSIDES 8.6 MG TAB PO SCH (09:42)
[2017-02-28] MEDS: FERROUS SULFATE 325 MG (65 MG ELEMENTAL IRON) TAB PO SCH ×2 (11:19→16:15)
--- NOTE | 2017-02-28 12:00 | HHI.PR ---
Subjective Remarks Follow up for decubitus ulcer, left AKA, stump infection in patient with a history of paraplegia. Patient seen and examined, RN at beside. Patient awake, alert, sitting up in bed in no apparent distress eating breakfast. Denies any new acute events overnight. Continued wound vac to sacrum ulcer, in place, irrigation continued, tolerating well. Wound care nurse to change vac dressing today. Tolerating PO intake, denies any abdominal pain, n/v, or diarrhea. Positive BM. Colostomy continued, stoma pink and clean. Objective Vitals Vital Signs Date Time Temp Pulse Resp B/P Pulse Ox O2 Delivery O2 Flow Rate FiO2 02/28/17 07:58 96.9 88 20 62/ 99 02/28/17 01:09 73 02/28/17 00:00 97.5 85 20 110/63 100 02/27/17 20:57 97.3 67 20 109/70 98 02/27/17 16:46 95.8 80 18 99/66 100 02/27/17 13:08 96.8 68 18 101/76 96 I/O 02/27/17 02/27/17 02/27/17 02/28/17 02/28/17 02/28/17 07:00 15:00 23:00 07:00 15:00 23:00 Intake Total 2490 ml 222 ml 1570 ml Output Total 1700 ml 2500 ml 1400 ml Balance 790 ml -2278 ml 170 ml Intake Oral 2290 ml 222 ml 1370 ml IV Total 200 ml 200 ml Output Urine Total 1200 ml 2500 ml 1200 ml Stool Total 0 ml 200 ml Drainage Total 500 ml Result Diagram: 02/24/17 1156 02/27/17 1300 Imaging Last Impressions Chest X-Ray 02/27/17 0000 Signed Impressions: Service Date/Time: Monday, February 27, 2017 10:34 - CONCLUSION: No acute disease. No significant change has occurred. Krzysztof Lopez MD Objective Remarks GENERAL: Well-nourished, well-developed patient, awake, alert and lying in bed comfortably. SKIN: Warm and dry. No rash. Multiple hip and sacral wounds, wound VAC in place. HEENT: Normocephalic. Atraumatic. Pupils equal and round. No scleral icterus. No injection or drainage. No nasal bleeding or discharge. Mucous membranes pink and moist. NECK: Supple. Trachea midline. CARDIOVASCULAR: Regular rate and rhythm. S1, S2 noted. No murmur appreciated. RESPIRATORY: No accessory muscle use. Clear to auscultation. Breath sounds equal bilaterally. GASTROINTESTINAL: Abdomen soft, non-tender, nondistended. Normoactive bowel sounds x4. Left lower colostomy noted, pink stoma, c/d/i, formed brown colored stool noted. MUSCULOSKELETAL: Left BKA incision clean and healed. Right lower foot ecchymosis with dressing to right ankle, c/d/i. NEUROLOGICAL: Awake and alert. No obvious cranial nerve deficits. Motor grossly within normal limits. 5/5 muscle strength in bilateral upper and lower extremities. Normal speech. PSYCHIATRIC: Appropriate mood and affect; insight and judgment normal. Procedures left AKA VAC application Colostomy (01/26/17). Right hip decubuti debridement (01/26/17) Urinary Catheter: Yes Assessment to: Continue Blood insert reason: Stage III/IV Press Ulcer Date of Insertion: Feb 06, 2017 A/P Assessment and Plan Mr. Sheehan is a 56 year old male with a history of T1 fracture with neurogenic bladder and bowel, PVD, chronic decubitus ulcer and lower ext BKA who presented to the ED on 01/12/2017 due to left leg wound. He recently was evaluated by multiple physicians including vascular surgery and he was offered IV abx, AKA as well as debridement for deep pelvic area osteomyelitis. Unfortunately, patient was extremely agitated, used foul language and left AMA to go to a wound care center outside [place]. During this present admission, patient was found to be hypotensive with prominent leukocytosis. He underwent L BKA revision /AKA and multiple sacral /ischial wounds debridement. Left BKA stump infection/gangrene: s/p Left AKA, debridement of the decubitus and colostomy. Large Sacral decubitus ulcer Left pelvic area osteomyelitis Right ankle wound - Wound culture growing Acinetobacter Baumannii/Haemol and Enterococcus faecalis on 01/13/17. - Wound care following patient, wound vac continued with irrigation. Due for change today 02/28/17. - Plastic surgery recommends continuing wound care. No surgery at this time. - Urine culture positive for Acinetobacter Baumannii/Haemol on 01/12/17 - ID following, recommendations are to continue Unasyn for 8 weeks (started on 01/14/2017, last dose scheduled 03/11/17). - Control pain. Baclofen 20 mg PO QID. Continue [place] 15/650mg PO q6h PRN per pain scale. Continue Dilaudid PO and IV breakthrough pain. States pain is well controlled with current regimen. - Multipodus boot for ankle wound, right. Microcytic anemia, chronic: CBC reviewed today, stable. Continue iron supplementation. Neurogenic bladder and sacral ulcer: Continue Blood catheter. Adjustment disorder. Depression Insomnia - Continue Valium 10 mg po daily. Mood much improved. - Continue Trazodone 50 mg q hs. - Continue Seroquel 12.5 mg PO BID. DVT Prophylaxis: Lovenox 30mg Q24hrs. GI prophylaxis: Pepcid 20 mg BID DNR Discharge Planning CM following and assessing needs for discharge to either SNF or home. CM continues to discuss placement with facilities. Last CM note: 02/25/17 9:55am: Pt in need of HHC for wound care and IVABX. CM unable to find staffing for C for pt to discharge home. Tr[facility] is unable to restart pt as they say they are unable to staff pt. Tammy Sawyer Feb 28, 2017 12:00
[2017-02-28 12:25] VITALS: PULSE 71
[2017-02-28] MEDS: ENOXAPARIN SODIUM 30 MG/0.3 ML SYRINGE SQ SCH (13:01)
[2017-02-28] MEDS: COLLAGENASE OINT 30 GM TUBE TOPICAL SCH (15:00)
[2017-02-28 17:30] VITALS: BP 102/57; PULSE 103; RESP 16; TEMP 99.4; O2SAT 97
--- NOTE | 2017-02-28 18:20 | PD.WCN.NOT ---
Neg Pressure Wound Therapy Wound Location Wound Location: Sacrum Wound Description Length: 13 cm Width: 10cm Depth: 2.4cm Undermining: from 7 to 11 o'clock deepest at 8 o'clock at 3.2 cm Wound bed appearance: Wound is noted with ~60% clean red granulation tissue, ~10% bone, ~10% facia,~10 % muscle, ~10% adipose tissue. Minimal active sero-sanguinous drainage noted without foul odor. Periwound appearance: Unremarkable Settings Suction: 125 mmHg, Intermittent Intensity: Low Other Information: Bridged, Windowpaned Foam type: Black, White Number of pieces: 2 Additonal Information Cleansed wound to sacrum with wound cleanser. Applied skin prep to periwound and up to L hip and L flank, before applying Simplace VAC drape to periwound. Bridged Simplace VAC drape up to L hip and L flank area.Applied 1 small piece of white VAC foam to undermined area. Applied Veraflow VAC granufoam cut in 1 long strip and coiled into wound bed bridged VAC Veraflow granufoam up to L hip and L flank. Applied stoma paste at 6 o'clock to seal wound VAC before covering all exposed foam with VAC Simplace drape. L ischial wound bridged together with sacral wound. Instillation trac pad applied to L flank area. Suction trac pad applied to L hip. Using fill assist, Instilled 28 ml of normal saline to wounds. Wounds soaked for 10 minutes before suctioning at 125 mm/hg. Wound VAC set to instill 28 ml normal saline to wounds every 2 hours. Wound VAC having trouble maintaining a seal with instillation phase due to wound drainage.Also noted some roofed and unroofed bulla next to previous trac pads. Covered opened unroofed bulla with Xeroform gauze to protect. Next VAC Veraflow change is on 02/28/2017 Wound Location Wound Location: L ischial Wound Description Length: 10cm Width: 6.5cm Depth: 2.2cm Undermining: undermining is noted between 10 and 1 o'clock with the deepest being at 12 o' clock 2.5cm Wound bed appearance: L ischial wound bed presents with ~60% red granulation tissue and ~10% facia, ~ 10% adipose and ~20% muscle tissue . Wound is a stage 4 pressure injury Settings Suction: 125 mmHg, Intermittent Intensity: Low Other Information: Bridged, Windowpaned Foam type: Black, White Number of pieces: 2 Additonal Information Cleansed wound to L ischial wound with wound cleanser. Applied skin prep to periwound and up to L hip and L flank, before applying Simplace VAC drape to periwound. Bridged Simplace VAC drape up to L hip and L flank area.Applied 1 small piece of white VAC foam to undermined area. Applied Veraflow VAC granufoam cut in 1 long strip and coiled into wound bed.Bridged VAC Veraflow granufoam up to L hip and L flank. Applied eakins seal at 6 o'clock to seal wound VAC before covering all exposed foam with VAC Simplace drape. L ischial wound bridged together with sacral wound. Instillation trac pad applied to L flank area. Suction trac pad applied to L hip. Using fill assist, Instilled 28 ml of normal saline to wounds. Wounds soaked for 10 minutes before suctioning at 125 mm/hg. Wound VAC set to instill 28 ml normal saline to wounds every 2 hours. Wound VAC having trouble maintaining a seal with instillation phase due to wound drainage. Also noted some roofed and unroofed bulla next to previous trac pads. Covered opened unroofed bulla with Xeroform gauze to protect. Next Veraflow VAc change is due in 03/03/2017 Wound Location Wound Location: L trochanter Wound Description Length: 5 Width: 3.1 Depth: 3.7 cm Tunneling: Wound has tunneling at 8 o'clock 4.3 cm Wound bed appearance: Wound to L hip presents with ~70% red granulation tissue ~30% white tissue. bone is palpated in center of wound but not visualized. Wound is stage 4 pressure injury. Wound has minimal sero-sanguinous drainage without odor Periwound appearance: Unremarkable Settings Suction: 125 mmHg, Continuous Intensity: Low Other Information: Bridged, Windowpaned Foam type: Black, White Number of pieces: 1 Additonal Information R trochanter wound is noted with ~50% red granulation tissue , ~30% facia, ~20 % adipose tissue. Wound has no active drainage or foul odor. Wound measurements are as follows 4cm x 3cmx 2.8 cm, with undermining at 8 to 3 o'clock. Deepest at 5 o'clock 1.2cm. Tunnel noted at 9 o'clock at 3.7 cm. Placed standard wound VAC to L trochanter and R trochanter wounds Cleansed both wounds with wound cleanser and Coiled 1 piece of VAC granufoam in to each wound bed. Additionally 1 piece of small white foam was cut into single small strip and packed into tunneled area of L trochanter wound and pulled back~1cm to allow for tissue growth.Skin prep sprayed to each periwound before window paning wound and bridging VAC drape to L and R thigh. Wound to L trochanter was bridged to L anterior thigh. R trochanter wound was bridged to R anterior thigh. All exposed foam was covered with additional VAC drape before applying Sensi trac pads to bridged areas. Used Y connector to connect both wounds to 1 standard VAC. Wound VAC suctioning at 125 without leaks. Next wound VAC change will be on 03/03/2017 Missy Huerta [facility] Feb 28, 2017 18:20
[2017-02-28 20:00] VITALS: BP 116/61; PULSE 71; PULSE 96; RESP 20; TEMP 98.8; O2SAT 98
[2017-02-28] MEDS: traZODone HCL 50 MG TAB PO SCH (21:26)
[2017-03-01] VITALS (8 sets, daily range): BP systolic 96–138; BP diastolic 56–69; PULSE 66–93; RESP 18–20; TEMP 97.1–98.7; O2SAT 91–100
[2017-03-01] MEDS: ACETAMINOPHEN/HYDROcodone 325 MG/10 MG TAB PO PRN ×4 (03:01→21:12)
[2017-03-01] MEDS: AMPICILLIN-SULBACTAM INJ 3 GM in SODIUM CHLORIDE 0.9% INJ 100 ML IV SCH ×4 (03:01→21:11)
[2017-03-01] MEDS: ASCORBIC ACID 500 MG TAB PO SCH ×2 (06:05→15:26)
[2017-03-01] MEDS: HYDROmorphone HCL 2 MG TAB PO PRN ×3 (06:06→18:53)
[2017-03-01] MEDS: POLYETHYLENE GLYCOL 17 GM PKG PO SCH (09:00)
[2017-03-01] MEDS: NYSTATIN 100,000 U/GM PWD 15 GM BTL TOPICAL SCH ×2 (09:00→21:13)
[2017-03-01] MEDS: POTASSIUM CHLORIDE 10 MEQ CONTROLLED RELEASE TAB PO SCH (09:09)
[2017-03-01] MEDS: SENNOSIDES 8.6 MG TAB PO SCH (09:09)
[2017-03-01] MEDS: BACLOFEN 20 MG TAB PO SCH ×4 (09:09→21:12)
[2017-03-01] MEDS: FAMOTIDINE 20 MG TAB PO SCH ×2 (09:09→21:12)
[2017-03-01] MEDS: QUEtiapine FUMARATE 25 MG TAB PO SCH ×2 (09:10→12:43)
[2017-03-01] MEDS: SODIUM CHLORIDE 0.9% FLUSH 10 ML FLUSH IV FLUSH SCH ×2 (09:20→21:13)
--- NOTE | 2017-03-01 10:02 | HHI.HP ---
HPI Service [facility] Hospitalists Primary Care Physician Non-Staff Admission Diagnosis L BKA stump gangrene; sacral decubiti; pelvis osteomyelitis; sepsis Diagnoses: Travel History International Travel<30 Days: No Contact w/Intl Traveler <30 Da: No Traveled to Known Affected Are: No History of Present Illness Patient is extremely poor historian. he is quite angry at the time of my arrival. He stated that multiple staff members have been telling him different things. He stated he was initially told that he was going to go to OR yesterday at 8 PM. Then the OR time was changed and he was quite mad about that. He refused to talk to me for history. He Advises me to look at the computer to get information instead. When asked whether he noticed any purulent discharge or draining from his stump , he stated he does not notice anything. He states [facility] told him to come here instead. Then he changed and reported it was the home health care nurse from [place] from told him that his wound was not doing well and which was why he came. Next and apart from that, patient would not give any further information. Therefore rest of the medical history is obtained from EMR. For any patient was sent from his home health care nurse because of worsening purulent discharge at his left BKA stump. He was also found to have low blood pressure while in ER but on review of medical records, this has been chronic as well. Patient has no reflex tachycardia, no lactic acid acidosis. Past Family Social History Past Medical History Paraplegia with decubitus ulcers/wheelchair bound History of UTIs History of T1 fracture Neurogenic bladder/bowel Peripheral vascular disease Depression Chronic tobacco abuse Likely underlying COPD Past Surgical History left tib fib fx cervical fusion left bka Allergies: Coded Allergies: Levaquin (Verified Allergy, Severe, 12/25/16) *MDRO Multi-Drug Resistant Organism (Verified Allergy, Unknown, 01/17/17) MDR-Acinetobacter baumannii (Urine) - 04/20/16, 12/25/16, 01/12/17 MDR-Acinetobacter baumannii (wounds)-12/25/16, 01/12/17 Septra (Verified Allergy, Unknown, 12/25/16) Family History does not remember, refused to answer Social History refused to answer Physical Exam Vital Signs Vital Signs Date Time Temp Pulse Resp B/P Pulse Ox O2 Delivery O2 Flow Rate FiO2 03/01/17 08:00 97.5 66 20 121/69 100 03/01/17 07:00 20 03/01/17 04:00 20 03/01/17 04:00 97.1 87 20 96/62 98 03/01/17 00:00 98.5 84 20 105/58 99 02/28/17 20:00 96 02/28/17 20:00 98.8 71 20 116/61 98 02/28/17 17:30 99.4 103 16 102/57 97 02/28/17 12:25 71 Physical Exam GENERAL: This is a well-nourished, well-developed patient, in no apparent distress. SKIN: No rashes, ecchymoses or lesions. Cool and dry. HEAD: Atraumatic. Normocephalic. No temporal or scalp tenderness. EYES: Pupils equal round and reactive. Extraocular motions intact. No scleral icterus. No injection or drainage. ENT: Nose without bleeding, purulent drainage or septal hematoma. Throat without erythema, tonsillar hypertrophy or exudate. Uvula midline. Airway patent. NECK: Trachea midline. No JVD or lymphadenopathy. Supple, nontender, no meningeal signs. CARDIOVASCULAR: Regular rate and rhythm without murmurs, gallops, or rubs. RESPIRATORY: Clear to auscultation. Breath sounds equal bilaterally. No wheezes , rales, or rhonchi. GASTROINTESTINAL: Abdomen soft, non-tender, nondistended. No hepato-splenomegaly , or palpable masses. No guarding. MUSCULOSKELETAL: Extremities without clubbing, cyanosis, or edema. No joint tenderness, effusion, or edema noted. No calf tenderness. Negative Homans sign bilaterally. NEUROLOGICAL: Awake and alert. Cranial nerves II through XII intact. Motor and sensory grossly within normal limits. Five out of 5 muscle strength in all muscle groups. Normal speech. Laboratory Laboratory Tests Test 02/28/17 12:33 Troponin I LESS THAN 0.02 Result Diagram: 02/27/17 Tammy Stoner Mar 01, 2017 10:02
[2017-03-01] MEDS: FERROUS SULFATE 325 MG (65 MG ELEMENTAL IRON) TAB PO SCH ×2 (12:42→17:25)
[2017-03-01] MEDS: ENOXAPARIN SODIUM 30 MG/0.3 ML SYRINGE SQ SCH (12:42)
--- NOTE | 2017-03-01 12:54 | HHI.PR ---
Subjective Remarks Follow up for decubitus ulcer, left AKA, stump infection in patient with a history of paraplegia. Patient seen and examined, sitting up in bed eating breakfast. RN at bedside. Patient states that pain is well controlled, tolerating wound vac change yesterday. Denies any new acute events overnight. Eating well. Does complain of occasional continued spasms in abdominal area, relieved by Baclofen. Denies any recent fever, chills, cough, shortness of breath, n/v, diarrhea. Objective Vitals Vital Signs Date Time Temp Pulse Resp B/P Pulse Ox O2 Delivery O2 Flow Rate FiO2 03/01/17 12:03 03/01/17 12:00 98.7 80 20 111/57 99 03/01/17 10:07 17 03/01/17 08:00 97.5 66 20 121/69 100 03/01/17 07:00 20 03/01/17 04:00 97.1 87 20 96/62 98 03/01/17 00:00 98.5 84 20 105/58 99 02/28/17 20:00 96 02/28/17 20:00 98.8 71 20 116/61 98 02/28/17 17:30 99.4 103 16 102/57 97 I/O 02/28/17 02/28/17 02/28/17 03/01/17 03/01/17 03/01/17 07:00 15:00 23:00 07:00 15:00 23:00 Intake Total 1570 ml 1280 ml 240 ml 200 ml Output Total 1400 ml 1400 ml 2200 ml Balance 170 ml -1400 ml 1280 ml -1960 ml 200 ml Intake Oral 1370 ml 1280 ml 240 ml IV Total 200 ml 200 ml Output Urine Total 1200 ml 1400 ml 2200 ml Stool Total 200 ml # Voids 1 # Bowel Movements 0 0 Result Diagram: 02/27/17 1300 Imaging Last Impressions Chest X-Ray 02/27/17 0000 Signed Impressions: Service Date/Time: Monday, February 27, 2017 10:34 - CONCLUSION: No acute disease. No significant change has occurred. Krzysztof Lopez MD Objective Remarks GENERAL: Well-nourished, well-developed patient, awake, alert and lying in bed comfortably. SKIN: Warm and dry. No rash. Multiple hip and sacral wounds, wound VAC in place. HEENT: Normocephalic. Atraumatic. Pupils equal and round. No scleral icterus. No injection or drainage. No nasal bleeding or discharge. Mucous membranes pink and moist. NECK: Supple. Trachea midline. CARDIOVASCULAR: Regular rate and rhythm. S1, S2 noted. No murmur appreciated. RESPIRATORY: No accessory muscle use. Clear to auscultation. Breath sounds equal bilaterally. GASTROINTESTINAL: Abdomen soft, non-tender, nondistended. Normoactive bowel sounds x4. Left lower colostomy noted, pink stoma, c/d/i, formed brown colored stool noted. MUSCULOSKELETAL: Left BKA incision clean and healed. Right lower foot ecchymosis with dressing to right ankle, c/d/i. NEUROLOGICAL: Awake and alert. No obvious cranial nerve deficits. Motor grossly within normal limits. 5/5 muscle strength in bilateral upper and lower extremities. Normal speech. PSYCHIATRIC: Appropriate mood and affect; insight and judgment normal. Procedures left AKA VAC application Colostomy (01/26/17). Right hip decubuti debridement (01/26/17) Urinary Catheter: Yes Assessment to: Continue Blood insert reason: Stage III/IV Press Ulcer Date of Insertion: Feb 06, 2017 A/P Assessment and Plan Mr. Sheehan is a 56 year old male with a history of T1 fracture with neurogenic bladder and bowel, PVD, chronic decubitus ulcer and lower ext BKA who presented to the ED on 01/12/2017 due to left leg wound. He recently was evaluated by multiple physicians including vascular surgery and he was offered IV abx, AKA as well as debridement for deep pelvic area osteomyelitis. Unfortunately, patient was extremely agitated, used foul language and left AMA to go to a wound care center outside [place]. During this present admission, patient was found to be hypotensive with prominent leukocytosis. He underwent L BKA revision /AKA and multiple sacral /ischial wounds debridement. Left BKA stump infection/gangrene: s/p Left AKA, debridement of the decubitus and colostomy. Large Sacral decubitus ulcer Left pelvic area osteomyelitis Right ankle wound - Wound culture growing Acinetobacter Baumannii/Haemol and Enterococcus faecalis on 01/13/17. - Wound care following patient, wound vac continued with irrigation. Due for change today 02/28/17. - Plastic surgery recommends continuing wound care. No surgery at this time. - Urine culture positive for Acinetobacter Baumannii/Haemol on 01/12/17 - ID following, recommendations are to continue Unasyn for 8 weeks (started on 01/14/2017, last dose scheduled 03/11/17). - Control pain. Baclofen 20 mg PO QID. Continue [place] 15/650mg PO q6h PRN per pain scale. Continue Dilaudid PO and IV breakthrough pain. - Multipodus boot for ankle wound, right. Microcytic anemia, chronic: Continue iron supplementation. Neurogenic bladder and sacral ulcer: Continue Blood catheter. Adjustment disorder. Depression Insomnia - Continue Valium 10 mg po daily. Mood much improved. - Continue Trazodone 50 mg q hs. - Continue Seroquel 12.5 mg PO BID. DVT Prophylaxis: Lovenox 30mg Q24hrs. GI prophylaxis: Pepcid 20 mg BID DNR Discharge Planning CM following and assessing needs for discharge to either SNF or home. CM continues to discuss placement with facilities. Last CM note: 02/25/17 9:55am: Pt in need of HHC for wound care and IVABX. CM unable to find staffing for HHC for pt to discharge home. [facility] is unable to restart pt as they say they are unable to staff pt. Tammy Sawyer Mar 01, 2017 12:54
[2017-03-01] MEDS: DIAZEPAM 10 MG TAB PO PRN (17:25)
[2017-03-01] MEDS: traZODone HCL 50 MG TAB PO SCH (21:11)
[2017-03-02] VITALS (7 sets, daily range): BP systolic 94–115; BP diastolic 56–64; PULSE 72–104; RESP 16–20; TEMP 97.3–99.3; O2SAT 98–100
[2017-03-02] MEDS: ACETAMINOPHEN/HYDROcodone 325 MG/10 MG TAB PO PRN ×4 (03:44→23:41)
[2017-03-02] MEDS: AMPICILLIN-SULBACTAM INJ 3 GM in SODIUM CHLORIDE 0.9% INJ 100 ML IV SCH ×4 (03:44→21:46)
[2017-03-02] MEDS: SODIUM CHLORIDE 0.9% FLUSH 10 ML FLUSH IV FLUSH PRN (03:45)
[2017-03-02] MEDS: ASCORBIC ACID 500 MG TAB PO SCH ×2 (05:12→16:21)
[2017-03-02] MEDS: FAMOTIDINE 20 MG TAB PO SCH ×2 (08:23→21:45)
[2017-03-02] MEDS: SENNOSIDES 8.6 MG TAB PO SCH (08:23)
[2017-03-02] MEDS: HYDROmorphone HCL 2 MG TAB PO PRN ×3 (08:24→21:46)
[2017-03-02] MEDS: QUEtiapine FUMARATE 25 MG TAB PO SCH ×2 (08:24→13:05)
[2017-03-02] MEDS: SODIUM CHLORIDE 0.9% FLUSH 10 ML FLUSH IV FLUSH SCH ×2 (08:24→21:45)
[2017-03-02] MEDS: POTASSIUM CHLORIDE 10 MEQ CONTROLLED RELEASE TAB PO SCH (08:24)
[2017-03-02] MEDS: BACLOFEN 20 MG TAB PO SCH ×4 (08:24→21:45)
[2017-03-02] MEDS: POLYETHYLENE GLYCOL 17 GM PKG PO SCH (09:00)
[2017-03-02] MEDS: NYSTATIN 100,000 U/GM PWD 15 GM BTL TOPICAL SCH ×2 (09:00→21:49)
--- NOTE | 2017-03-02 11:53 | HHI.PR ---
Subjective Remarks Follow up for decubitus ulcer, left AKA, stump infection in patient with a history of paraplegia. Patient seen and examined. Patient requesting "increase of Dilaudid from 1 mg to 10mg if possible". Complaints of muscle spasms in abdomen "he's had his entire life". States these spasms are controlled most of the time by Baclofen. Eating well. Denies any recent fever, chills, cough, shortness of breath, abdominal pain, n/v, diarrhea or dysuria. Objective Vitals Vital Signs Date Time Temp Pulse Resp B/P Pulse Ox O2 Delivery O2 Flow Rate FiO2 03/02/17 11:15 18 03/02/17 09:24 19 03/02/17 08:00 97.6 84 19 104/57 100 03/02/17 04:00 97.3 82 18 103/62 98 03/02/17 00:00 97.9 98 20 94/64 99 03/01/17 20:00 97.6 90 18 113/56 98 03/01/17 18:00 93 03/01/17 16:00 98.5 84 20 109/65 99 03/01/17 12:03 03/01/17 12:00 98.7 80 20 111/57 99 I/O 03/01/17 03/01/17 03/01/17 03/02/17 03/02/17 03/02/17 07:00 15:00 23:00 07:00 15:00 23:00 Intake Total 240 ml 680 ml 200 ml Output Total 2200 ml 1750 ml 1350 ml Balance -1960 ml -1070 ml -1350 ml 200 ml Intake Oral 240 ml 480 ml IV Total 200 ml 200 ml Output Urine Total 2200 ml 1750 ml 1350 ml # Bowel Movements 0 Result Diagram: 02/27/17 1300 Imaging Last Impressions Chest X-Ray 02/27/17 0000 Signed Impressions: Service Date/Time: Monday, February 27, 2017 10:34 - CONCLUSION: No acute disease. No significant change has occurred. Krzysztof Lopez MD Objective Remarks GENERAL: Well-nourished, well-developed patient, awake, alert and lying in bed comfortably. SKIN: Warm and dry. No rash. Multiple hip and sacral wounds, wound VAC in place. HEENT: Normocephalic. Atraumatic. Pupils equal and round. No scleral icterus. No injection or drainage. No nasal bleeding or discharge. Mucous membranes pink and moist. NECK: Supple. Trachea midline. CARDIOVASCULAR: Regular rate and rhythm. S1, S2 noted. No murmur appreciated. RESPIRATORY: No accessory muscle use. Clear to auscultation. Breath sounds equal bilaterally. GASTROINTESTINAL: Abdomen soft, non-tender, nondistended. Normoactive bowel sounds x4. Left lower colostomy noted, pink stoma, c/d/i, formed brown colored stool noted. MUSCULOSKELETAL: Left BKA incision clean and healed. Right lower foot ecchymosis with dressing to right ankle, c/d/i. NEUROLOGICAL: Awake and alert. No obvious cranial nerve deficits. Motor grossly within normal limits. 5/5 muscle strength in bilateral upper and lower extremities. Normal speech. PSYCHIATRIC: Appropriate mood and affect; insight and judgment normal. Procedures left AKA VAC application Colostomy (01/26/17). Right hip decubuti debridement (01/26/17) Urinary Catheter: Yes Assessment to: Continue Blood insert reason: Stage III/IV Press Ulcer Date of Insertion: Feb 06, 2017 A/P Assessment and Plan Mr. Sheehan is a 56 year old male with a history of T1 fracture with neurogenic bladder and bowel, PVD, chronic decubitus ulcer and lower ext BKA who presented to the ED on 01/12/2017 due to left leg wound. He recently was evaluated by multiple physicians including vascular surgery and he was offered IV abx, AKA as well as debridement for deep pelvic area osteomyelitis. Unfortunately, patient was extremely agitated, used foul language and left AMA to go to a wound care center outside [place]. During this present admission, patient was found to be hypotensive with prominent leukocytosis. He underwent L BKA revision /AKA and multiple sacral /ischial wounds debridement. Left BKA stump infection/gangrene: s/p Left AKA, debridement of the decubitus and colostomy. Large Sacral decubitus ulcer Left pelvic area osteomyelitis Right ankle wound - Wound culture growing Acinetobacter Baumannii/Haemol and Enterococcus faecalis on 01/13/17. - Wound care following patient, wound vac continued with irrigation. Due for change tomorrow 03/03/17. - Plastic surgery recommends continuing wound care. No surgery at this time. - Urine culture positive for Acinetobacter Baumannii/Haemol on 01/12/17 - ID following, recommendations are to continue Unasyn for 8 weeks (started on 01/14/2017, last dose scheduled 03/11/17). - Control pain. Baclofen 20 mg PO QID. Continue [place] 15/650mg PO q6h PRN per pain scale. Continue Dilaudid PO and IV breakthrough pain. - Multipodus boot for ankle wound, right. Microcytic anemia, chronic: Continue iron supplementation. Neurogenic bladder and sacral ulcer: Continue Blood catheter. Adjustment disorder. Depression Insomnia - Continue Valium 10 mg po daily. - Continue Trazodone 50 mg q hs. - Continue Seroquel 12.5 mg PO BID. DVT Prophylaxis: Lovenox 30mg Q24hrs. GI prophylaxis: Pepcid 20 mg BID DNR Discharge Planning CM following and assessing needs for discharge to either SNF or home. CM continues to discuss placement with facilities. Last CM note: 02/25/17 9:55am: Pt in need of HHC for wound care and IVABX. CM unable to find staffing for HHC for pt to discharge home. Tr[facility] is unable to restart pt as they say they are unable to staff pt. Tammy Sawyer Mar 02, 2017 11:52
[2017-03-02] MEDS: FERROUS SULFATE 325 MG (65 MG ELEMENTAL IRON) TAB PO SCH ×2 (13:05→16:19)
[2017-03-02] MEDS: ENOXAPARIN SODIUM 30 MG/0.3 ML SYRINGE SQ SCH (15:08)
[2017-03-02] MEDS: traZODone HCL 50 MG TAB PO SCH (21:45)
[2017-03-03] VITALS (7 sets, daily range): BP systolic 94–150; BP diastolic 53–77; PULSE 68–97; RESP 18–20; TEMP 97.2–98.9; O2SAT 98–100
[2017-03-03] MEDS: AMPICILLIN-SULBACTAM INJ 3 GM in SODIUM CHLORIDE 0.9% INJ 100 ML IV SCH ×4 (04:46→20:48)
[2017-03-03] MEDS: HYDROmorphone HCL 2 MG TAB PO PRN ×3 (04:47→17:00)
[2017-03-03] MEDS: ASCORBIC ACID 500 MG TAB PO SCH ×2 (05:55→17:53)
[2017-03-03] MEDS: ACETAMINOPHEN/HYDROcodone 325 MG/10 MG TAB PO PRN ×2 (05:55→18:50)
[2017-03-03] MEDS: NYSTATIN 100,000 U/GM PWD 15 GM BTL TOPICAL SCH ×2 (09:00→20:49)
[2017-03-03] MEDS: SODIUM CHLORIDE 0.9% FLUSH 10 ML FLUSH IV FLUSH SCH ×2 (09:00→20:48)
[2017-03-03] MEDS: POLYETHYLENE GLYCOL 17 GM PKG PO SCH (09:00)
[2017-03-03] MEDS: FAMOTIDINE 20 MG TAB PO SCH ×2 (09:11→20:48)
[2017-03-03] MEDS: POTASSIUM CHLORIDE 10 MEQ CONTROLLED RELEASE TAB PO SCH (09:12)
[2017-03-03] MEDS: QUEtiapine FUMARATE 25 MG TAB PO SCH ×2 (09:12→12:19)
[2017-03-03] MEDS: SENNOSIDES 8.6 MG TAB PO SCH (09:12)
[2017-03-03] MEDS: BACLOFEN 20 MG TAB PO SCH ×4 (09:12→20:48)
[2017-03-03] MEDS: FERROUS SULFATE 325 MG (65 MG ELEMENTAL IRON) TAB PO SCH ×2 (12:19→17:53)
--- NOTE | 2017-03-03 14:03 | HHI.PR ---
Subjective Remarks Follow up for decubitus ulcer, left AKA, stump infection in patient with a history of paraplegia. Patient seen and examined, quitline counselor at bedside changing wound vac dressing. Patient denies any new acute complaints. Pain still worse with dressing changes. Denies any new acute events overnight. Tolerating PO intake. Denies any recent fever, chills, cough, shortness of breath, abdominal pain, n/v, diarrhea or dysuria. Objective Vitals Vital Signs Date Time Temp Pulse Resp B/P Pulse Ox O2 Delivery O2 Flow Rate FiO2 03/03/17 13:52 70 03/03/17 12:00 97.2 97 18 105/59 99 03/03/17 08:00 97.5 78 18 107/69 99 03/03/17 04:00 97.8 68 20 150/77 99 03/03/17 00:00 97.6 78 20 110/57 100 03/02/17 20:55 97.3 104 16 103/56 98 03/02/17 20:00 72 03/02/17 16:08 17 03/02/17 16:00 99.3 96 19 115/61 100 I/O 03/02/17 03/02/17 03/02/17 03/03/17 03/03/17 03/03/17 06:59 14:59 22:59 06:59 14:59 22:59 Intake Total 200 ml 720 ml 480 ml Output Total 1150 ml 1650 ml Balance 200 ml -430 ml -1170 ml Intake Oral 720 ml 480 ml IV Total 200 ml Output Urine Total 1150 ml 1650 ml Result Diagram: 02/27/17 1300 Imaging Last Impressions Chest X-Ray 02/27/17 0000 Signed Impressions: Service Date/Time: Monday, February 27, 2017 10:34 - CONCLUSION: No acute disease. No significant change has occurred. Krzysztof Lopez MD Objective Remarks GENERAL: Well-nourished, well-developed patient, awake, alert and lying in bed comfortably. SKIN: Warm and dry. No rash. Multiple hip and sacral wounds, wound VAC in place. HEENT: Normocephalic. Atraumatic. Pupils equal and round. No scleral icterus. No injection or drainage. No nasal bleeding or discharge. Mucous membranes pink and moist. NECK: Supple. Trachea midline. CARDIOVASCULAR: Regular rate and rhythm. S1, S2 noted. No murmur appreciated. RESPIRATORY: No accessory muscle use. Clear to auscultation. Breath sounds equal bilaterally. GASTROINTESTINAL: Abdomen soft, non-tender, nondistended. Normoactive bowel sounds x4. Left lower colostomy noted, pink stoma, c/d/i, formed brown colored stool noted. MUSCULOSKELETAL: Left BKA incision clean and healed. Right lower foot ecchymosis with dressing to right ankle, c/d/i. NEUROLOGICAL: Awake and alert. No obvious cranial nerve deficits. Motor grossly within normal limits. 5/5 muscle strength in bilateral upper and lower extremities. Normal speech. PSYCHIATRIC: Appropriate mood and affect; insight and judgment normal. Procedures left AKA VAC application Colostomy (01/26/17). Right hip decubuti debridement (01/26/17) Urinary Catheter: Yes Assessment to: Continue Blood insert reason: Stage III/IV Press Ulcer Date of Insertion: Feb 06, 2017 A/P Assessment and Plan Mr. Sheehan is a 56 year old male with a history of T1 fracture with neurogenic bladder and bowel, PVD, chronic decubitus ulcer and lower ext BKA who presented to the ED on 01/12/2017 due to left leg wound. He recently was evaluated by multiple physicians including vascular surgery and he was offered IV abx, AKA as well as debridement for deep pelvic area osteomyelitis. Unfortunately, patient was extremely agitated, used foul language and left AMA to go to a wound care center outside [place]. During this present admission, patient was found to be hypotensive with prominent leukocytosis. He underwent L BKA revision /AKA and multiple sacral /ischial wounds debridement. Left BKA stump infection/gangrene: s/p Left AKA, debridement of the decubitus and colostomy. Large Sacral decubitus ulcer Left pelvic area osteomyelitis Right ankle wound - Wound culture growing Acinetobacter Baumannii/Haemol and Enterococcus faecalis on 01/13/17. - Wound care following patient, wound vac continued with irrigation. Due for change tomorrow 03/03/17. - Plastic surgery recommends continuing wound care. No surgery at this time. - Urine culture positive for Acinetobacter Baumannii/Haemol on 01/12/17 - ID following, recommendations are to continue Unasyn for 8 weeks (started on 01/14/2017, last dose scheduled 03/11/17). - Control pain. Baclofen 20 mg PO QID. Continue [place] 15/650mg PO q6h PRN per pain scale. Continue Dilaudid PO PRN breakthrough pain. [place] 10/325 mg PO q6hr PRN per pain scale. Microcytic anemia, chronic: Continue iron supplementation. Neurogenic bladder and sacral ulcer: Continue Blood catheter. Adjustment disorder. Depression Insomnia - Continue Valium 10 mg po daily. - Continue Trazodone 50 mg q hs. - Continue Seroquel 12.5 mg PO BID. DVT Prophylaxis: Lovenox 30mg Q24hrs. GI prophylaxis: Pepcid 20 mg BID DNR Discharge Planning CM following and assessing needs for discharge to either SNF or home. CM continues to discuss placement with facilities. Last CM note: * 03/03/17 CM attempting to complete [employer] forms x2 for wound vac x2. Forms signed by MD but details of wounds to be provided by [facility]. CM left messages for [facility]. CM will continue to follow for completion of wound vac forms/ MD orders. Tammy Sawyer Mar 03, 2017 14:03
[2017-03-03] MEDS: COLLAGENASE OINT 30 GM TUBE TOPICAL SCH (15:00)
[2017-03-03] MEDS: ENOXAPARIN SODIUM 30 MG/0.3 ML SYRINGE SQ SCH (17:53)
[2017-03-03] MEDS: traZODone HCL 50 MG TAB PO SCH (20:48)
[2017-03-04] VITALS (7 sets, daily range): BP systolic 92–124; BP diastolic 57–62; PULSE 72–92; RESP 18; TEMP 97.2–98.1; O2SAT 99–100
[2017-03-04] MEDS: AMPICILLIN-SULBACTAM INJ 3 GM in SODIUM CHLORIDE 0.9% INJ 100 ML IV SCH ×4 (04:45→21:08)
[2017-03-04] MEDS: ASCORBIC ACID 500 MG TAB PO SCH ×3 (04:46→17:36)
[2017-03-04] MEDS: ACETAMINOPHEN/HYDROcodone 325 MG/10 MG TAB PO PRN ×4 (04:46→23:35)
[2017-03-04] MEDS: BACLOFEN 20 MG TAB PO SCH ×4 (08:17→20:02)
[2017-03-04] MEDS: POLYETHYLENE GLYCOL 17 GM PKG PO SCH (08:17)
[2017-03-04] MEDS: HYDROmorphone HCL 2 MG TAB PO PRN ×3 (08:17→21:07)
[2017-03-04] MEDS: FAMOTIDINE 20 MG TAB PO SCH ×2 (08:18→20:01)
[2017-03-04] MEDS: SENNOSIDES 8.6 MG TAB PO SCH (08:18)
[2017-03-04] MEDS: POTASSIUM CHLORIDE 10 MEQ CONTROLLED RELEASE TAB PO SCH (08:18)
[2017-03-04] MEDS: QUEtiapine FUMARATE 25 MG TAB PO SCH ×2 (08:18→14:21)
[2017-03-04] MEDS: NYSTATIN 100,000 U/GM PWD 15 GM BTL TOPICAL SCH ×2 (08:21→20:02)
[2017-03-04] MEDS: SODIUM CHLORIDE 0.9% FLUSH 10 ML FLUSH IV FLUSH SCH ×2 (08:22→20:02)
--- NOTE | 2017-03-04 13:37 | HHI.PR ---
Subjective Remarks Follow up for decubitus ulcer, left AKA, stump infection in patient with a history of paraplegia. Patient seen and examined, lying in bed sleeping. Awakens to voice. Denies any new acute complaints overnight. Continued wound VAC x 2. Spoke to RN, no new changes. Patient denies any recent fever, chills, cough, shortness of breath, abdominal pain, nausea, vomiting, diarrhea or dysuria. Objective Vitals Vital Signs Date Time Temp Pulse Resp B/P Pulse Ox O2 Delivery O2 Flow Rate FiO2 03/04/17 12:00 97.7 92 18 92/58 99 03/04/17 11:19 77 03/04/17 08:00 97.4 75 18 118/58 99 03/04/17 04:00 97.7 72 18 113/62 99 03/04/17 00:00 97.2 76 18 107/62 100 03/03/17 20:00 98.3 94 18 94/53 98 03/03/17 16:00 98.9 95 18 94/56 99 03/03/17 13:52 70 I/O 03/03/17 03/03/17 03/03/17 03/04/17 03/04/17 03/04/17 07:00 15:00 23:00 07:00 15:00 23:00 Intake Total 480 ml 700 ml 600 ml Output Total 1650 ml 1350 ml 900 ml 800 ml Balance -1170 ml -650 ml -300 ml -800 ml Intake Oral 480 ml 700 ml 600 ml Output Urine Total 1650 ml 1350 ml 900 ml 800 ml Imaging Last Impressions Chest X-Ray 02/27/17 0000 Signed Impressions: Service Date/Time: Monday, February 27, 2017 10:34 - CONCLUSION: No acute disease. No significant change has occurred. Krzysztof Lopez MD Objective Remarks GENERAL: Well-nourished, well-developed patient, awake, alert and lying in bed comfortably. SKIN: Warm and dry. No rash. Multiple hip and sacral wounds, wound VAC in place. HEENT: Normocephalic. Atraumatic. Pupils equal and round. No scleral icterus. No injection or drainage. No nasal bleeding or discharge. Mucous membranes pink and moist. NECK: Supple. Trachea midline. CARDIOVASCULAR: Regular rate and rhythm. S1, S2 noted. No murmur appreciated. RESPIRATORY: No accessory muscle use. Clear to auscultation. Breath sounds equal bilaterally. GASTROINTESTINAL: Abdomen soft, non-tender, nondistended. Normoactive bowel sounds x4. Left lower colostomy noted, pink stoma, c/d/i, formed brown colored stool noted. MUSCULOSKELETAL: Left BKA incision clean and healed. Right lower foot ecchymosis with dressing to right ankle, c/d/i. NEUROLOGICAL: Awake and alert. No obvious cranial nerve deficits. Motor grossly within normal limits. 5/5 muscle strength in bilateral upper and lower extremities. Normal speech. PSYCHIATRIC: Appropriate mood and affect; insight and judgment normal. Procedures left AKA VAC application Colostomy (01/26/17). Right hip decubuti debridement (01/26/17) Urinary Catheter: Yes Assessment to: Continue Date of Insertion: Feb 06, 2017 A/P Assessment and Plan Mr. Sheehan is a 56 year old male with a history of T1 fracture with neurogenic bladder and bowel, PVD, chronic decubitus ulcer and lower ext BKA who presented to the ED on 01/12/2017 due to left leg wound. He recently was evaluated by multiple physicians including vascular surgery and he was offered IV abx, AKA as well as debridement for deep pelvic area osteomyelitis. Unfortunately, patient was extremely agitated, used foul language and left AMA to go to a wound care center outside [place]. During this present admission, patient was found to be hypotensive with prominent leukocytosis. He underwent L BKA revision /AKA and multiple sacral /ischial wounds debridement. Left BKA stump infection/gangrene: s/p Left AKA, debridement of the decubitus and colostomy. Large Sacral decubitus ulcer Left pelvic area osteomyelitis Right ankle wound - Wound culture growing Acinetobacter Baumannii/Haemol and Enterococcus faecalis on 01/13/17. - Wound care following patient, wound vac continued with irrigation. Due for change tomorrow 03/03/17. - Plastic surgery recommends continuing wound care. No surgery at this time. - Urine culture positive for Acinetobacter Baumannii/Haemol on 01/12/17 - ID following, recommendations are to continue Unasyn for 8 weeks (started on 01/14/2017, last dose scheduled 03/11/17). - Control pain. Baclofen 20 mg PO QID. Continue [place] 15/650mg PO q6h PRN per pain scale. Continue Dilaudid PO PRN breakthrough pain. [place] 10/325 mg PO q6hr PRN per pain scale. Microcytic anemia, chronic: Continue iron supplementation. Neurogenic bladder and sacral ulcer: Continue Blood catheter. Adjustment disorder. Depression Insomnia - Continue Valium 10 mg po daily. - Continue Trazodone 50 mg q hs. - Continue Seroquel 12.5 mg PO BID. DVT Prophylaxis: Lovenox 30mg Q24hrs. GI prophylaxis: Pepcid 20 mg BID DNR Discharge Planning CM following and assessing needs for discharge to either SNF or home. CM continues to discuss placement with facilities. Last CM note: * 03/04/17 CM spoke to Anil Lofton CM as well as loading unit operator regarding wound care documentation for Wound VAC forms. Per manager technical sales [facility] contacted and to complete documentation. CM attempted to follow up with [facility] via [employer] with no return call. CM will continue to follow for completion of [employer] forms. Tammy Sawyer Mar 04, 2017 13:37
--- NOTE | 2017-03-04 13:55 | PD.WCN.NOT ---
Neg Pressure Wound Therapy Wound Location Wound Location: Sacrum Wound Description Undermining: Wound bed appearance: Wound is noted with ~60% clean red granulation tissue, ~10% bone, ~10% facia,~10 % muscle, ~10% adipose tissue. Minimal active sero-sanguinous drainage noted without foul odor. Periwound appearance: Unremarkable Settings Suction: 125 mmHg, Intermittent Intensity: Low Other Information: Bridged, Windowpaned Foam type: Black, White Number of pieces: 2 Additonal Information Late entry: Wound vac changed on 03/03/2017 at 1030 am. Cleansed wound to sacrum with wound cleanser. Applied skin prep to periwound and up to L hip and L flank, before applying VAC drape to periwound. Bridged VAC drape up to L hip and L flank area.Applied 1 small piece of white VAC foam to undermined area. Applied Veraflow VAC granufoam 1 large piece into wound bed bridged VAC Veraflow granufoam up to L thigh and L hip. Applied stoma paste at 6 o'clock to seal wound VAC before covering all exposed foam with VAC Simplace drape. L ischial wound bridged together with sacral wound. Instillation trac pad applied to L hip area. Suction trac pad applied to L thigh. Using fill assist, Instilled 28 ml of normal saline to wounds. Wounds soaked for 10 minutes before suctioning at 125 mm/hg. Wound VAC set to instill 28 ml normal saline to wounds every hour.Also noted some roofed and unroofed bulla next to previous trac pads. Covered opened unroofed bulla with Xeroform gauze to protect. Next VAC Veraflow change is on Tuesday03/07/2017 Wound Location Wound Location: L ischial Wound Description Wound bed appearance: L ischial wound bed presents with ~60% red granulation tissue and ~10% facia, ~ 10% adipose and ~20% muscle tissue . Wound is a stage 4 pressure injury Periwound appearance: Unremarkable Settings Suction: 125 mmHg, Intermittent Intensity: Low Other Information: Bridged, Windowpaned Foam type: Black, White Number of pieces: 2 Additonal Information Late entry: Wound vac changed on 03/03/2017 at 1030 am Cleansed wound to L ischial wound with wound cleanser. Applied skin prep to periwound and up to L hip and L flank, before applying VAC drape to periwound. Bridged VAC drape up to L thigh and L hip area.Applied 1 small piece of white VAC foam to undermined area. Applied Veraflow VAC granufoam cut in 1 long strip and coiled into wound bed.Bridged VAC Veraflow granufoam up to L thigh and L hip . Applied eakins seal and stoma paste at 6 o'clock to seal wound VAC before covering all exposed foam with VAC drape. L ischial wound bridged together with sacral wound. Instillation trac pad applied to L hip area. Suction trac pad applied to L tthigh . Using fill assist, Instilled 28 ml of normal saline to wounds. Wounds soaked for 10 minutes before suctioning at 125 mm/hg. Wound VAC set to instill 28 ml normal saline to wounds 1 hour. . Also noted some roofed and unroofed bulla next to previous trac pads. Covered opened unroofed bulla with Xeroform gauze to protect. Next Veraflow VAC change is due in Tuesday Wound Location Wound Location: L trochanter Wound Description Wound bed appearance: Wound to L hip presents with ~70% red granulation tissue ~30% white tissue. bone is palpated in center of wound but not visualized. Wound is stage 4 pressure injury. Wound has minimal sero-sanguinous drainage without odor Periwound appearance: Unremarkable Settings Suction: 125 mmHg, Continuous Intensity: Low Other Information: Bridged, Windowpaned Foam type: Black, White Number of pieces: 2 Additonal Information Late entry: Wound vac changed on 03/03/2017 at 1030 am. R trochanter wound is noted with ~50% red granulation tissue , ~30% facia, ~20 % adipose tissue. Wound has no active drainage or foul odor. Placed standard wound VAC to L trochanter and R trochanter wounds Cleansed both wounds with wound cleanser and Coiled 1 piece of VAC granufoam in to each wound bed. Additionally 1 piece of small white foam was cut into single small strip and packed into tunneled area of L and R trochanter wound and pulled back~1cm to allow for tissue growth.Skin prep sprayed to each periwound before window paning wound and bridging VAC drape to L and R thigh. Wound to L trochanter was bridged to L anterior thigh. R trochanter wound was bridged to R anterior thigh. All exposed foam was covered with additional VAC drape before applying Sensi trac pads to bridged areas. Used Y connector to connect both wounds to 1 standard VAC. Wound VAC suctioning at 125 without leaks. Next wound VAC change will be on Tuesday03/07/2017 Missy Huerta [facility] Mar 04, 2017 13:55
[2017-03-04] MEDS: ENOXAPARIN SODIUM 30 MG/0.3 ML SYRINGE SQ SCH (14:21)
[2017-03-04] MEDS: FERROUS SULFATE 325 MG (65 MG ELEMENTAL IRON) TAB PO SCH ×2 (14:21→17:37)
[2017-03-04] MEDS ORDERED: KETOROLAC TROMETHAMINE 30 MG/ML (IVP) VIAL IV PUSH ONE (19:15)
[2017-03-04] MEDS: traZODone HCL 50 MG TAB PO SCH (20:01)
[2017-03-05] VITALS: BP 95/56; PULSE 71; RESP 18; TEMP 97.5; O2SAT 99
[2017-03-05] MEDS: AMPICILLIN-SULBACTAM INJ 3 GM in SODIUM CHLORIDE 0.9% INJ 100 ML IV SCH ×4 (04:34→21:04)
[2017-03-05] MEDS: HYDROmorphone HCL 2 MG TAB PO PRN ×3 (04:39→17:31)
[2017-03-05] MEDS: ACETAMINOPHEN/HYDROcodone 325 MG/10 MG TAB PO PRN ×3 (08:28→21:03)
[2017-03-05] MEDS: BACLOFEN 20 MG TAB PO SCH ×4 (08:29→21:02)
[2017-03-05] MEDS: POTASSIUM CHLORIDE 10 MEQ CONTROLLED RELEASE TAB PO SCH (08:30)
[2017-03-05] MEDS: QUEtiapine FUMARATE 25 MG TAB PO SCH ×2 (08:31→12:03)
[2017-03-05] MEDS: FAMOTIDINE 20 MG TAB PO SCH ×2 (08:31→21:02)
[2017-03-05] MEDS: NYSTATIN 100,000 U/GM PWD 15 GM BTL TOPICAL SCH ×2 (08:32→21:02)
[2017-03-05] MEDS: SENNOSIDES 8.6 MG TAB PO SCH (08:32)
[2017-03-05] MEDS: SODIUM CHLORIDE 0.9% FLUSH 10 ML FLUSH IV FLUSH SCH ×2 (08:32→21:04)
[2017-03-05] MEDS: POLYETHYLENE GLYCOL 17 GM PKG PO SCH (08:32)
[2017-03-05 08:37] VITALS: BP 123/69; PULSE 71; RESP 16; TEMP 98; O2SAT 99
[2017-03-05] MEDS: FERROUS SULFATE 325 MG (65 MG ELEMENTAL IRON) TAB PO SCH ×2 (12:03→17:30)
[2017-03-05 12:07] VITALS: BP 111/58; PULSE 76; RESP 16; TEMP 98.1; O2SAT 99
[2017-03-05] MEDS: DIAZEPAM 10 MG TAB PO PRN (12:08)
[2017-03-05 14:00] VITALS: PULSE 68
[2017-03-05] MEDS: ENOXAPARIN SODIUM 30 MG/0.3 ML SYRINGE SQ SCH (14:18)
--- NOTE | 2017-03-05 16:51 | HHI.PR ---
Subjective Remarks Follow up for decubitus ulcer, left AKA, stump infection in patient with a history of paraplegia. Patient seen and examined, complaint of neuropathic pain in leg and continued generalized pain despite current pain medication regimen. Eating well. Continued wound vac. Denies any new acute complaints. Afebrile. VSS. Objective Vitals Vital Signs Date Time Temp Pulse Resp B/P Pulse Ox O2 Delivery O2 Flow Rate FiO2 03/05/17 14:00 68 03/05/17 12:07 98.1 76 16 111/58 99 03/05/17 08:37 98.0 71 16 123/69 99 03/05/17 00:00 97.5 71 18 95/56 99 03/04/17 20:00 98.1 83 18 124/57 99 I/O 03/04/17 03/04/17 03/04/17 03/05/17 03/05/17 03/05/17 07:00 15:00 23:00 07:00 15:00 23:00 Intake Total 960 ml 850 ml 720 ml Output Total 800 ml 1500 ml 800 ml 950 ml Balance -800 ml -540 ml 50 ml -230 ml Intake Oral 960 ml 850 ml 720 ml Output Urine Total 800 ml 1500 ml 800 ml 950 ml # Bowel Movements 0 Imaging Last Impressions Chest X-Ray 02/27/17 0000 Signed Impressions: Service Date/Time: Monday, February 27, 2017 10:34 - CONCLUSION: No acute disease. No significant change has occurred. Krzysztof Lopez MD Objective Remarks GENERAL: Well-nourished, well-developed patient, awake, alert and lying in bed comfortably. SKIN: Warm and dry. No rash. Multiple hip and sacral wounds, wound VAC in place. HEENT: Normocephalic. Atraumatic. Pupils equal and round. No scleral icterus. No injection or drainage. No nasal bleeding or discharge. Mucous membranes pink and moist. NECK: Supple. Trachea midline. CARDIOVASCULAR: Regular rate and rhythm. S1, S2 noted. No murmur appreciated. RESPIRATORY: No accessory muscle use. Clear to auscultation. Breath sounds equal bilaterally. GASTROINTESTINAL: Abdomen soft, non-tender, nondistended. Normoactive bowel sounds x4. Left lower colostomy noted, pink stoma, c/d/i, formed brown colored stool noted. MUSCULOSKELETAL: Left BKA incision clean and healed. Right lower foot ecchymosis with dressing to right ankle, c/d/i. Right DP pulse 1+. NEUROLOGICAL: Awake and alert. No obvious cranial nerve deficits. Motor grossly within normal limits. 5/5 muscle strength in bilateral upper and lower extremities. Normal speech. PSYCHIATRIC: Appropriate mood and affect; insight and judgment normal. Procedures left AKA VAC application Colostomy (01/26/17). Right hip decubuti debridement (01/26/17) Date of Insertion: Feb 06, 2017 A/P Assessment and Plan Mr. Sheehan is a 56 year old male with a history of T1 fracture with neurogenic bladder and bowel, PVD, chronic decubitus ulcer and lower ext BKA who presented to the ED on 01/12/2017 due to left leg wound. He recently was evaluated by multiple physicians including vascular surgery and he was offered IV abx, AKA as well as debridement for deep pelvic area osteomyelitis. Unfortunately, patient was extremely agitated, used foul language and left AMA to go to a wound care center outside [place]. During this present admission, patient was found to be hypotensive with prominent leukocytosis. He underwent L BKA revision /AKA and multiple sacral /ischial wounds debridement. Left BKA stump infection/gangrene: s/p Left AKA, debridement of the decubitus and colostomy. Large Sacral decubitus ulcer Left pelvic area osteomyelitis Right ankle wound - Wound culture growing Acinetobacter Baumannii/Haemol and Enterococcus faecalis on 01/13/17. - Wound care following patient, wound vac continued with irrigation. - Plastic surgery recommends continuing wound care. No surgery at this time. - Urine culture positive for Acinetobacter Baumannii/Haemol on 01/12/17 - ID following, recommendations are to continue Unasyn for 8 weeks (started on 01/14/2017, last dose scheduled 03/11/17). - Control pain. Baclofen 20 mg PO QID. Continue [place] 15/650mg PO q6h PRN per pain scale. Continue Dilaudid PO PRN breakthrough pain. [place] 10/325 mg PO q6hr PRN per pain scale. - Will add Neurontin 100 mg PO TID. Monitor neuropathic pain. Microcytic anemia, chronic: Continue iron supplementation. Neurogenic bladder and sacral ulcer: Continue Blood catheter. Adjustment disorder. Depression Insomnia - Continue Valium 10 mg po daily. - Continue Trazodone 50 mg q hs. - Continue Seroquel 12.5 mg PO BID. DVT Prophylaxis: Lovenox 30mg Q24hrs. GI prophylaxis: Pepcid 20 mg BID DNR Discharge Planning CM following and assessing needs for discharge to either SNF or home. CM continues to discuss placement with facilities. Last CM note: * 03/04/17 Completed [employer] forms faxed to [facility] with clinicals. left for Marilee - [facility] rep who is anticipating the forms. CM will continue to follow for [employer] auth and delivery of wound vac Tammy Sawyer Mar 05, 2017 16:51
[2017-03-05] MEDS: GABAPENTIN 100 MG CAP PO SCH (17:29)
[2017-03-05] MEDS: ASCORBIC ACID 500 MG TAB PO SCH (17:31)
[2017-03-05 20:35] VITALS: BP 111/58; PULSE 83; RESP 16; TEMP 98.3; O2SAT 97
[2017-03-05] MEDS: traZODone HCL 50 MG TAB PO SCH (21:02)
[2017-03-06] VITALS (7 sets, daily range): BP systolic 91–119; BP diastolic 54–66; PULSE 74–97; RESP 16–21; TEMP 97.3–99.3; O2SAT 95–100
[2017-03-06] MEDS: HYDROmorphone HCL 2 MG TAB PO PRN ×3 (03:17→16:03)
[2017-03-06] MEDS: AMPICILLIN-SULBACTAM INJ 3 GM in SODIUM CHLORIDE 0.9% INJ 100 ML IV SCH ×4 (03:17→20:46)
[2017-03-06] MEDS: ASCORBIC ACID 500 MG TAB PO SCH ×2 (06:08→16:02)
[2017-03-06] MEDS: ACETAMINOPHEN/HYDROcodone 325 MG/10 MG TAB PO PRN ×3 (06:08→18:17)
[2017-03-06 08:24] LABS: AUTOMATED NEUTROPHIL # 5.6 TH/MM3 (1.8-7.7); BASOPHIL # 0.1 TH/MM3 (0-0.2); BASOPHIL % 0.7 % (0.0-2.0); EOSINOPHIL # 0.4 TH/MM3 (0-0.4); EOSINOPHIL % 4.6 % (0.0-4.0); HEMATOCRIT 32.3 % (39.0-51.0); HEMO FLAGS DIFF FINAL; LYMPH % 18.4 % (9.0-44.0); LYMPHOCYTE # 1.6 TH/MM3 (1.0-4.8); MEAN CELL VOLUME 77.7 FL (80.0-100.0); MEAN CORPUSCULAR HEMOGLOBIN 24.7 PG (27.0-34.0); MEAN CORPUSCULAR HGB CONC 31.8 % (32.0-36.0); MONO % 10.4 % (0.0-8.0); NEUT % 65.9 % (16.0-70.0); PLATELET COUNT 398 TH/MM3 (150-450); RED BLOOD COUNT 4.15 MIL/MM3 (4.50-5.90); RED CELL DISTRIBUTION WIDTH 22.7 % (11.6-17.2); WHITE BLOOD COUNT 8.5 TH/MM3 (4.0-11.0)
[2017-03-06 08:48] LABS: BICARBONATE 27.3 MEQ/L (21.0-32.0); POTASSIUM 4.1 MEQ/L (3.5-5.1)
[2017-03-06] MEDS: NYSTATIN 100,000 U/GM PWD 15 GM BTL TOPICAL SCH ×2 (09:00→20:47)
[2017-03-06] MEDS: QUEtiapine FUMARATE 25 MG TAB PO SCH ×2 (09:00→12:31)
[2017-03-06] MEDS: POLYETHYLENE GLYCOL 17 GM PKG PO SCH (09:00)
--- NOTE | 2017-03-06 09:02 | HHI.PR ---
Subjective Remarks Follow up for decubitus ulcer, left AKA, stump infection in patient with a history of paraplegia. Patient seen and examined, sitting up in bed eating breakfast. Continued pain, Neurontin restarted. Denies any new acute events overnight. Tolerating PO intake. Denies any recent fever, chills, cough, shortness of breath, abdominal pain, n/v, diarrhea or dysuria Objective Vitals Vital Signs Date Time Temp Pulse Resp B/P Pulse Ox O2 Delivery O2 Flow Rate FiO2 03/06/17 08:08 97.7 74 16 97/66 98 03/06/17 05:32 97.4 75 16 119/56 95 03/06/17 04:20 19 03/06/17 00:45 97.3 76 16 110/60 98 03/05/17 22:08 18 03/05/17 20:35 98.3 83 16 111/58 97 03/05/17 14:00 68 03/05/17 12:07 98.1 76 16 111/58 99 I/O 03/05/17 03/05/17 03/05/17 03/06/17 03/06/17 03/06/17 06:59 14:59 22:59 06:59 14:59 22:59 Intake Total 720 ml 360 ml Output Total 950 ml 2600 ml Balance -230 ml -2240 ml Intake Oral 720 ml 360 ml Output Urine Total 950 ml 2600 ml # Bowel Movements 0 Result Diagram: 03/06/17 0725 03/06/17 0725 Imaging Last Impressions Chest X-Ray 02/27/17 0000 Signed Impressions: Service Date/Time: Monday, February 27, 2017 10:34 - CONCLUSION: No acute disease. No significant change has occurred. Krzysztof Lopez MD Objective Remarks GENERAL: Well-nourished, well-developed patient, awake, alert and lying in bed comfortably. SKIN: Warm and dry. No rash. Multiple hip and sacral wounds, wound VAC in place , continuous suction and irrigation continued. HEENT: Normocephalic. Atraumatic. Pupils equal and round. No scleral icterus. No injection or drainage. No nasal bleeding or discharge. Mucous membranes pink and moist. NECK: Supple. Trachea midline. CARDIOVASCULAR: Regular rate and rhythm. S1, S2 noted. No murmur appreciated. RESPIRATORY: No accessory muscle use. Clear to auscultation. Breath sounds equal bilaterally. GASTROINTESTINAL: Abdomen soft, non-tender, nondistended. Normoactive bowel sounds x4. Left lower colostomy noted, pink stoma, c/d/i, formed brown colored stool noted. MUSCULOSKELETAL: Left BKA incision clean and healed. Right lower foot ecchymosis with dressing to right ankle, c/d/i. Right DP pulse 1+. NEUROLOGICAL: Awake and alert. No obvious cranial nerve deficits. Motor grossly within normal limits. 5/5 muscle strength in bilateral upper and lower extremities. Normal speech. PSYCHIATRIC: Appropriate mood and affect; insight and judgment normal. Procedures left AKA VAC application Colostomy (01/26/17). Right hip decubuti debridement (01/26/17) Urinary Catheter: Yes Assessment to: Continue Date of Insertion: Feb 06, 2017 A/P Assessment and Plan Mr. Sheehan is a 56 year old male with a history of T1 fracture with neurogenic bladder and bowel, PVD, chronic decubitus ulcer and lower ext BKA who presented to the ED on 01/12/2017 due to left leg wound. He recently was evaluated by multiple physicians including vascular surgery and he was offered IV abx, AKA as well as debridement for deep pelvic area osteomyelitis. Unfortunately, patient was extremely agitated, used foul language and left AMA to go to a wound care center outside [place]. During this present admission, patient was found to be hypotensive with prominent leukocytosis. He underwent L BKA revision /AKA and multiple sacral /ischial wounds debridement. Left BKA stump infection/gangrene: s/p Left AKA, debridement of the decubitus and colostomy. Large Sacral decubitus ulcer Left pelvic area osteomyelitis Right ankle wound - Wound culture growing Acinetobacter Baumannii/Haemol and Enterococcus faecalis on 01/13/17. - Wound care following patient, wound vac continued with irrigation. - Plastic surgery recommends continuing wound care. No surgery at this time. - Urine culture positive for Acinetobacter Baumannii/Haemol on 01/12/17 - ID following, recommendations are to continue Unasyn for 8 weeks (started on 01/14/2017, last dose scheduled 03/11/17). - Control pain. Baclofen 20 mg PO QID. Continue Dilaudid PO PRN breakthrough pain. [place] 10/325 mg PO q6hr PRN per pain scale. - Neurontin 100 mg PO TID. Monitor neuropathic pain. Microcytic anemia, chronic: Continue iron supplementation. Neurogenic bladder and sacral ulcer: Continue Blood catheter. Adjustment disorder. Depression Insomnia - Continue Valium 10 mg po daily. - Continue Trazodone 50 mg q hs. - Continue Seroquel 12.5 mg PO BID. DVT Prophylaxis: Lovenox 30mg Q24hrs. GI prophylaxis: Pepcid 20 mg BID DNR Discharge Planning CM following and assessing needs for discharge to either SNF or home. CM continues to discuss placement with facilities. Last CM note: * 03/04/17 Completed [employer] forms faxed to [facility] with clinicals. left for Marilee - [facility] rep who is anticipating the forms. CM will continue to follow for [employer] auth and delivery of wound vac Tammy Sawyer Mar 06, 2017 09:02
[2017-03-06] MEDS: SENNOSIDES 8.6 MG TAB PO SCH (09:27)
[2017-03-06] MEDS: POTASSIUM CHLORIDE 10 MEQ CONTROLLED RELEASE TAB PO SCH (09:27)
[2017-03-06] MEDS: GABAPENTIN 100 MG CAP PO SCH ×3 (09:28→18:18)
[2017-03-06] MEDS: FAMOTIDINE 20 MG TAB PO SCH ×2 (09:28→20:46)
[2017-03-06] MEDS: BACLOFEN 20 MG TAB PO SCH ×4 (09:29→20:46)
[2017-03-06] MEDS: SODIUM CHLORIDE 0.9% FLUSH 10 ML FLUSH IV FLUSH SCH ×2 (09:30→20:46)
[2017-03-06] MEDS: FERROUS SULFATE 325 MG (65 MG ELEMENTAL IRON) TAB PO SCH ×2 (12:31→16:02)
[2017-03-06] MEDS: ENOXAPARIN SODIUM 30 MG/0.3 ML SYRINGE SQ SCH (14:59)
[2017-03-06] MEDS: traZODone HCL 50 MG TAB PO SCH (20:46)
[2017-03-07] VITALS (7 sets, daily range): BP systolic 102–125; BP diastolic 55–78; PULSE 67–99; RESP 18–19; TEMP 97.4–99.6; O2SAT 96–99
[2017-03-07] MEDS: ACETAMINOPHEN/HYDROcodone 325 MG/10 MG TAB PO PRN ×4 (00:18→18:35)
[2017-03-07] MEDS: AMPICILLIN-SULBACTAM INJ 3 GM in SODIUM CHLORIDE 0.9% INJ 100 ML IV SCH ×4 (03:28→20:54)
[2017-03-07] MEDS: ASCORBIC ACID 500 MG TAB PO SCH ×2 (06:18→15:49)
[2017-03-07] MEDS: FAMOTIDINE 20 MG TAB PO SCH ×2 (09:40→20:55)
[2017-03-07] MEDS: QUEtiapine FUMARATE 25 MG TAB PO SCH ×2 (09:41→12:47)
[2017-03-07] MEDS: POTASSIUM CHLORIDE 10 MEQ CONTROLLED RELEASE TAB PO SCH (09:41)
[2017-03-07] MEDS: BACLOFEN 20 MG TAB PO SCH ×4 (09:41→20:55)
[2017-03-07] MEDS: SENNOSIDES 8.6 MG TAB PO SCH (09:41)
[2017-03-07] MEDS: GABAPENTIN 100 MG CAP PO SCH ×3 (09:41→17:02)
[2017-03-07] MEDS: NYSTATIN 100,000 U/GM PWD 15 GM BTL TOPICAL SCH ×2 (09:42→20:56)
[2017-03-07] MEDS: HYDROmorphone HCL 2 MG TAB PO PRN ×2 (09:42→15:49)
[2017-03-07] MEDS: SODIUM CHLORIDE 0.9% FLUSH 10 ML FLUSH IV FLUSH SCH ×2 (09:42→20:55)
[2017-03-07] MEDS: POLYETHYLENE GLYCOL 17 GM PKG PO SCH (09:42)
[2017-03-07] MEDS: FERROUS SULFATE 325 MG (65 MG ELEMENTAL IRON) TAB PO SCH ×2 (12:47→17:02)
[2017-03-07] MEDS: ENOXAPARIN SODIUM 30 MG/0.3 ML SYRINGE SQ SCH (12:48)
[2017-03-07] MEDS ORDERED: HYDR-3583 PO (15:31)
[2017-03-07] MEDS ORDERED: DIAZ10 PO (15:31)
--- NOTE | 2017-03-07 15:34 | HHI.PR ---
Subjective Remarks Follow up for decubitus ulcer, left AKA, stump infection in patient with a history of paraplegia. Patient seen and examined, sitting up in bed awaiting breakfast and watching TV. Pt reported having "muscle spasms" that were in his right leg and "making it hard to breath." Pt denied having received am meds at time of visit (approximately 0930). Continued pain, Neurontin increased. Pt resisted having urinary catheter changed today eventually agreeing to it being changed. Denies any recent fever, chills, cough, shortness of breath, abdominal pain, n/v , diarrhea or dysuria. Per RN (Moon) pt without acute issues over night or since start of shift. Objective Vitals Vital Signs Date Time Temp Pulse Resp B/P Pulse Ox O2 Delivery O2 Flow Rate FiO2 03/07/17 12:00 98.7 80 18 114/56 98 03/07/17 08:04 98.5 70 18 118/71 96 03/07/17 05:25 97.4 67 18 122/61 99 03/07/17 01:51 18 03/07/17 00:43 98.2 88 18 102/58 99 03/06/17 21:06 99.3 97 21 91/54 100 03/06/17 15:58 98.3 80 16 98/59 96 I/O 03/06/17 03/06/17 03/06/17 03/07/17 03/07/17 03/07/17 07:00 15:00 23:00 07:00 15:00 23:00 Intake Total 360 ml 480 ml 600 ml 580 ml Output Total 2600 ml 850 ml 1800 ml 700 ml Balance -2240 ml -370 ml -1200 ml -120 ml Intake Oral 360 ml 480 ml 600 ml 580 ml Output Urine Total 2600 ml 850 ml 1800 ml 500 ml Stool Total 200 ml # Bowel Movements 0 Result Diagram: 03/06/1772403/06/17724 Objective Remarks GENERAL: Pt encountered laying in bed, awake. Well appearing. SKIN: Warm and dry. Right foot dark yet warm to touch. HEAD: Normocephalic. EYES: No scleral icterus. No injection or drainage. NECK: Supple, trachea midline. No lymphadenopathy. CARDIOVASCULAR: Regular rate and rhythm without murmurs, gallops, or rubs. RESPIRATORY: Breath sounds equal bilaterally and diminished. No accessory muscle use. GASTROINTESTINAL: Abdomen soft, non-tender, nondistended. Abdominal sounds noted to be decreased in right quadrants. Colostomy noted left lower quadrant. MUSCULOSKELETAL: No cyanosis, or edema. Moves foot on command. PSYCHIATRIC: A&OX3,pleasant and cooperative. No overt signs of anxiety or depression. Speech was clear and fluent. Procedures left AKA VAC application Colostomy (01/26/17). Right hip decubuti debridement (01/26/17) Medications and IVs Current Medications Medications (Trade) Dose Ordered Sig/Vivien Route Start Time Stop Time Status Last Admin (NS Flush) 2 ml UNSCH PRN IV FLUSH 01/12/17 21:45 03/02/17 03:45 (NS Flush) 2 ml BID IV FLUSH 01/13/17 09:00 03/07/17 09:42 Naloxone HCl 0.4 mg 0.4 mg UNSCH PRN IV 01/12/17 21:45 (Unasyn Inj/NS Inj) 100 ml @ 200 mls/hr Q6H IV 01/14/17 16:00 03/07/17 09:42 (Santyl Oint) 1 applic MoTh TOPICAL 01/14/17 15:00 03/03/17 15:00 (KCl) 30 meq DAILY PO 01/15/17 13:45 03/07/17 09:41 (Lovenox Inj) 30 mg Q24H SQ 01/15/17 14:00 03/07/17 12:48 (Miralax) 17 gm DAILY PO 01/15/17 14:00 03/04/17 08:17 (Dulcolax Supp) 10 mg DAILY PRN RECTAL 01/17/17 00:30 01/17/17 00:48 (Senokot) 8.6 mg DAILY PO 01/17/17 00:30 03/07/17 09:41 (SEROquel) 12.5 mg BID@09,12 PO 01/17/17 14:00 03/07/17 12:47 (Pill Splitter) 1 ea UNSCH PRN OTHER 01/17/17 14:00 01/23/17 09:39 (Valium) 10 mg DAILY PRN PO 01/18/17 12:00 03/05/17 12:08 (Phazyme Chew) 125 mg DAILY PRN PO 01/29/17 11:30 (Zofran Inj) 4 mg Q6HR PRN IV PUSH 02/02/17 14:30 02/03/17 09:59 (Pepcid) 20 mg BID PO 02/08/17 21:00 03/07/17 09:40 (Desyrel) 50 mg HS PO 02/09/17 21:00 03/06/17 20:46 ([place] 10-325 Mg) 1.5 tab Q6H PRN PO 02/14/17 14:00 03/07/17 12:48 (Lioresal) 20 mg QID PO 02/16/17 13:00 03/07/17 12:46 (Mycostatin Powder) 1 applic Q12HR TOPICAL 02/17/17 21:00 03/07/17 09:42 (Ferrous Sulfate) 325 mg BID@ PO 02/23/17 12:00 03/07/17 12:47 (Vitamin C) 500 mg BIDAC PO 02/23/17 12:00 03/07/17 06:18 (Dilaudid) 2 mg Q6H PRN PO 02/24/17 14:00 03/07/17 09:42 (Neurontin) 200 mg TID PO 03/07/17 13:00 03/07/17 12:47 Urinary Catheter: Yes Assessment to: Continue Blood insert reason: Prolonged Immobilization Date of Insertion: Feb 06, 2017 A/P Assessment and Plan Mr. Sheehan is a 56 year old male with a history of T1 fracture with neurogenic bladder and bowel, PVD, chronic decubitus ulcer and lower ext BKA who presented to the ED on 01/12/2017 due to left leg wound. He recently was evaluated by multiple physicians including vascular surgery and he was offered IV abx, AKA as well as debridement for deep pelvic area osteomyelitis. Unfortunately, patient was extremely agitated, used foul language and left AMA to go to a wound care center outside [place]. During this present admission, patient was found to be hypotensive with prominent leukocytosis. He underwent L BKA revision /AKA and multiple sacral /ischial wounds debridement. IV antibiotics to be completed this Tuesday (per infectious disease note of ), awaiting infectious disease input. Anemia evidencing slight improvement.Gabapentin increased to 200 mg TID. Left BKA stump infection/gangrene: s/p Left AKA, debridement of the decubitus and colostomy. Large Sacral decubitus ulcer Left pelvic area osteomyelitis Right ankle wound - Wound culture growing Acinetobacter Baumannii/Haemol and Enterococcus faecalis on 01/13/17. - Wound care following patient, wound vac continued with irrigation. - Plastic surgery recommends continuing wound care. No surgery at this time. - Urine culture positive for Acinetobacter Baumannii/Haemol on 01/12/17 - ID following, recommendations are to continue Unasyn for 8 weeks (started on 01/14/2017). - Control pain. Baclofen 20 mg PO QID. Continue Dilaudid PO PRN breakthrough pain. [place] 10/325 mg PO q6hr PRN per pain scale. - Neurontin 200 mg PO TID. Monitor neuropathic pain. Microcytic anemia, chronic: Continue iron supplementation. Neurogenic bladder and sacral ulcer: Continue Blood catheter. Adjustment disorder. Depression Insomnia - Continue Valium 10 mg po daily. - Continue Trazodone 50 mg q hs. - Continue Seroquel 12.5 mg PO BID. DVT Prophylaxis: Lovenox 30mg Q24hrs. GI prophylaxis: Pepcid 20 mg BID DNR Case discussed with pt, RN, and Dr. Diop. Discharge Planning CM following and assessing needs for discharge to either SNF or home. CM continues to discuss placement with facilities. Pt requesting hospital bed for home, order place to case management. Agustin Powell Jr. Mar 07, 2017 15:34
--- NOTE | 2017-03-07 16:45 | PD.WCN.NOT ---
Neg Pressure Wound Therapy Wound Location Wound Location: Sacrum Wound Description Undermining: Wound bed appearance: Wound is noted with ~60% clean red granulation tissue, ~10% bone, ~10% facia,~10 % muscle, ~10% adipose tissue. Minimal active sero-sanguinous drainage noted without foul odor. Periwound appearance: Unremarkable Settings Suction: 125 mmHg, Intermittent Intensity: Low Other Information: Bridged, Windowpaned Foam type: Black Number of pieces: 2 Additonal Information Patient seen on fo Veraflow VAC change. Dressing changed with Esther MENDES and health underwriter.Cleansed wound to sacrum with wound cleanser. Applied skin prep to periwound and up to L hip and L thigh, before applying VAC drape to periwound. Bridged VAC drape up to L hip and L thigh area.Applied 1 small piece of Veraflow granufoam in deeper area of wound. Applied [place] VAC granufoam 1 large piece into wound bed bridged VAC Ver[place]low granufoam up to L thigh and L hip. Applied stoma paste at 6 o'clock to seal wound VAC before covering all exposed foam with VAC Simplace drape. L ischial wound bridged together with sacral wound. Instillation trac pad applied to L hip area. Suction trac pad applied to L thigh. Instilled 28 ml of normal saline to wounds. Wounds soaked for 10 minutes before suctioning at 125 mm/hg. Wound VAC set to instill 28 ml normal saline to wounds every hour.Also noted some roofed and unroofed bulla next to previous trac pads. Next VAC Veraflow change is on 03/10/2017 Wound Location Wound Location: L ischial Wound Description Wound bed appearance: L ischial wound bed presents with ~60% red granulation tissue and ~10% facia, ~ 10% adipose and ~20% muscle tissue . Wound is a stage 4 pressure injury Periwound appearance: Other (partial thickness skin loss between 4 and 6 oclock ) Settings Suction: 125 mmHg, Intermittent Intensity: Low Other Information: Bridged, Windowpaned Foam type: Black, White Number of pieces: 2 Additonal Information Cleansed wound to L ischial wound with wound cleanser.Applied skin prep to periwound and up to L hip and L flank, before applying VAC drape to periwound. Bridged VAC drape up to L thigh and L hip area. Applied Ver[place]low VAC granufoam cut in 1 long strip and coiled into wound bed.Bridged VAC Veraflow granufoam up to L thigh and L hip . Applied eakins seal and stoma paste at 6 o'clock to seal wound VAC before covering all exposed foam with VAC drape. L ischial wound bridged together with sacral wound. Instillation trac pad applied to L hip area. Suction trac pad applied to L thigh . Using fill assist, Instilled 28 ml of normal saline to wounds. Wounds soaked for 10 minutes before suctioning at 125 mm/hg. Wound VAC set to instill 28 ml normal saline to wounds 1 hour. . Also noted some roofed and unroofed bulla next to previous trac pads. Covered periwound partial thickness skin loss with Xeroform. Next Ver[place]low VAC change is due in 03/10/2017 Wound Location Wound Location: L trochanter Wound Description Wound bed appearance: Wound to L hip presents with ~70% red granulation tissue ~30% white tissue. bone is palpated in center of wound but not visualized. Wound is stage 4 pressure injury. Wound has minimal sero-sanguinous drainage without odor Periwound appearance: Unremarkable Settings Suction: 125 mmHg, Continuous Intensity: Low Other Information: Bridged, Windowpaned Foam type: Black Number of pieces: 2 Additonal Information Standard wound VAC changed with Esther MENDES and health underwriter.R trochanter wound is noted with ~50% red granulation tissue , ~30% facia, ~20% adipose tissue. Wound has no active drainage or foul odor. Placed standard wound VAC to L trochanter and R trochanter wounds Cleansed both wounds with wound cleanser and Coiled 1 piece of VAC granufoam in to each wound bed. Additionally 1 piece of small white foam was cut into single small strip and packed into tunneled area of R trochanter wound and pulled back~1cm to allow for tissue growth.Skin prep sprayed to each periwound before window paning wound and bridging VAC drape to L and R thigh. Wound to L trochanter was bridged to L anterior thigh. R trochanter wound was bridged to R anterior thigh. All exposed foam was covered with additional VAC drape before applying Sensi trac pads to bridged areas. Used Y connector to connect both wounds to 1 standard VAC. Wound VAC suctioning at 125 without leaks. Next wound VAC change will be on 03/10/2017 Missy Huerta [facility] Mar 07, 2017 16:45
[2017-03-07] MEDS: traZODone HCL 50 MG TAB PO SCH (20:55)
[2017-03-08] MEDS: ACETAMINOPHEN/HYDROcodone 325 MG/10 MG TAB PO PRN ×4 (01:12→21:38)
[2017-03-08 02:14] VITALS: BP 120/66; PULSE 82; RESP 18; TEMP 98.5; O2SAT 99
[2017-03-08] MEDS: HYDROmorphone HCL 2 MG TAB PO PRN ×4 (03:57→23:50)
[2017-03-08] MEDS: AMPICILLIN-SULBACTAM INJ 3 GM in SODIUM CHLORIDE 0.9% INJ 100 ML IV SCH ×4 (03:57→21:38)
[2017-03-08 05:52] VITALS: BP 111/58; PULSE 76; RESP 20; TEMP 97.9; O2SAT 97
[2017-03-08] MEDS: ASCORBIC ACID 500 MG TAB PO SCH ×2 (06:21→17:04)
[2017-03-08] MEDS: POLYETHYLENE GLYCOL 17 GM PKG PO SCH (08:29)
[2017-03-08] MEDS: QUEtiapine FUMARATE 25 MG TAB PO SCH ×2 (08:29→12:59)
[2017-03-08] MEDS: FAMOTIDINE 20 MG TAB PO SCH ×2 (08:30→21:39)
[2017-03-08] MEDS: SENNOSIDES 8.6 MG TAB PO SCH (08:30)
[2017-03-08] MEDS: BACLOFEN 20 MG TAB PO SCH ×4 (08:30→21:39)
[2017-03-08] MEDS: POTASSIUM CHLORIDE 10 MEQ CONTROLLED RELEASE TAB PO SCH (08:30)
[2017-03-08] MEDS: GABAPENTIN 100 MG CAP PO SCH ×3 (08:30→17:03)
[2017-03-08] MEDS: SODIUM CHLORIDE 0.9% FLUSH 10 ML FLUSH IV FLUSH SCH ×2 (08:33→21:39)
[2017-03-08] MEDS: NYSTATIN 100,000 U/GM PWD 15 GM BTL TOPICAL SCH ×2 (08:37→21:39)
[2017-03-08] MEDS ORDERED: HOSP BED1 (08:42)
[2017-03-08 08:55] VITALS: BP 109/63; PULSE 69; RESP 18; TEMP 97.5; O2SAT 99
[2017-03-08] MEDS ORDERED: diphenhydrAMINE HCL 25 MG CAP PO PRN (11:15)
[2017-03-08 12:33] VITALS: BP 109/62; PULSE 80; RESP 18; TEMP 98.1; O2SAT 99
[2017-03-08] MEDS: FERROUS SULFATE 325 MG (65 MG ELEMENTAL IRON) TAB PO SCH ×2 (12:59→17:04)
[2017-03-08] MEDS: ENOXAPARIN SODIUM 30 MG/0.3 ML SYRINGE SQ SCH (13:00)
--- NOTE | 2017-03-08 15:07 | HHI.PR ---
Subjective Remarks Follow up for decubitus ulcer, left AKA, stump infection in patient with a history of paraplegia. Patient seen and examined, sitting up in bed and watching TV. Empty breakfast tray present. Pt reported "muscle spasms" were decreased, as compared to yesterday. Pt stated he felt the increased Neurontin "was helping." Pt reported urinary catheter had been changed. Discussed impending discharge with pt, questions answered fully and to the best of clinician's ability. Pt discussed wound on his "butt" and discussed size and presentation. Stated " it looks like I could put my fist in it." Noted right foot "seemed a bit tight yesterday and this morning." Pt denied any new issues or concerns. Denies any recent fever, chills, cough, shortness of breath, abdominal pain, n/v , diarrhea or dysuria. Per RN (Fredy) pt without acute issues over night or since start of shift. Objective Vitals Vital Signs Date Time Temp Pulse Resp B/P Pulse Ox O2 Delivery O2 Flow Rate FiO2 03/08/17 12:33 98.1 80 18 109/62 99 03/08/17 08:55 97.5 69 18 109/63 99 03/08/17 05:52 97.9 76 20 111/58 97 03/08/17 02:14 98.5 82 18 120/66 99 03/07/17 21:13 99.6 99 18 103/55 98 03/07/17 20:00 99.6 99 18 103/55 98 03/07/17 16:00 98.5 89 19 125/78 99 I/O 03/07/17 03/07/17 03/07/17 03/08/17 03/08/17 03/08/17 07:00 15:00 23:00 07:00 15:00 23:00 Intake Total 600 ml 580 ml Output Total 1800 ml 700 ml 1800 ml 1000 ml Balance -1200 ml -120 ml -1800 ml -1000 ml Intake Oral 600 ml 580 ml Output Urine Total 1800 ml 500 ml 1800 ml 1000 ml Stool Total 200 ml # Bowel Movements 0 Result Diagram: 03/06/17 0725 03/06/17 0725 Imaging Last Impressions Chest X-Ray 02/27/17 0000 Signed Impressions: Service Date/Time: Monday, February 27, 2017 10:34 - CONCLUSION: No acute disease. No significant change has occurred. Krzysztof Lopez MD Objective Remarks GENERAL: Pt encountered laying in bed, awake talking on cell phone. Well appearing. SKIN: Warm and dry. Right foot dark yet warm to touch, wrapped in gauze. Right forearm erythematous and pruritic at former IV site; shape is ovoid. HEAD: Normocephalic. EYES: No scleral icterus. No injection or drainage. NECK: Supple, trachea midline. No lymphadenopathy. CARDIOVASCULAR: Regular rate and rhythm without murmurs, gallops, or rubs. RESPIRATORY: Breath sounds equal bilaterally and diminished. No accessory muscle use. GASTROINTESTINAL: Abdomen soft, non-tender, nondistended. Abdominal sounds present in all quadrants. Colostomy noted left lower quadrant. MUSCULOSKELETAL: No cyanosis, or edema. Moves foot on command. PSYCHIATRIC: A&OX3,pleasant and cooperative. No overt signs of anxiety or depression. Speech was clear and fluent. Procedures left AKA VAC application Colostomy (01/26/17). Right hip decubuti debridement (01/26/17) Medications and IVs Current Medications Medications (Trade) Dose Ordered Sig/Vivien Route Start Time Stop Time Status Last Admin (NS Flush) 2 ml UNSCH PRN IV FLUSH 01/12/17 21:45 03/02/17 03:45 (NS Flush) 2 ml BID IV FLUSH 01/13/17 09:00 03/08/17 08:33 Naloxone HCl 0.4 mg 0.4 mg UNSCH PRN IV 01/12/17 21:45 (Unasyn Inj/NS Inj) 100 ml @ 200 mls/hr Q6H IV 01/14/17 16:00 03/08/17 11:14 (KCl) 30 meq DAILY PO 01/15/17 13:45 03/08/17 08:30 (Lovenox Inj) 30 mg Q24H SQ 01/15/17 14:00 03/07/17 12:48 (Miralax) 17 gm DAILY PO 01/15/17 14:00 03/08/17 08:29 (Dulcolax Supp) 10 mg DAILY PRN RECTAL 01/17/17 00:30 01/17/17 00:48 (Senokot) 8.6 mg DAILY PO 01/17/17 00:30 03/08/17 08:30 (SEROquel) 12.5 mg BID@09,12 PO 01/17/17 14:00 03/08/17 12:59 (Pill Splitter) 1 ea UNSCH PRN OTHER 01/17/17 14:00 01/23/17 09:39 (Valium) 10 mg DAILY PRN PO 01/18/17 12:00 03/05/17 12:08 (Phazyme Chew) 125 mg DAILY PRN PO 01/29/17 11:30 (Zofran Inj) 4 mg Q6HR PRN IV PUSH 02/02/17 14:30 02/03/17 09:59 (Pepcid) 20 mg BID PO 02/08/17 21:00 03/08/17 08:30 (Desyrel) 50 mg HS PO 02/09/17 21:00 03/07/17 20:55 ([place] 10-325 Mg) 1.5 tab Q6H PRN PO 02/14/17 14:00 03/08/17 14:39 (Lioresal) 20 mg QID PO 02/16/17 13:00 03/08/17 12:59 (Mycostatin Powder) 1 applic Q12HR TOPICAL 02/17/17 21:00 03/08/17 08:37 (Ferrous Sulfate) 325 mg BID@ PO 02/23/17 12:00 03/08/17 12:59 (Vitamin C) 500 mg BIDAC PO 02/23/17 12:00 03/08/17 06:21 (Dilaudid) 2 mg Q6H PRN PO 02/24/17 14:00 03/08/17 11:14 (Neurontin) 200 mg TID PO 03/07/17 13:00 03/08/17 12:59 (Benadryl) 25 mg Q4H PRN PO 03/08/17 11:15 Urinary Catheter: Yes Assessment to: Continue Blood insert reason: Prolonged Immobilization Date of Insertion: Feb 06, 2017 A/P Assessment and Plan Mr. Sheehan is a 56 year old male with a history of T1 fracture with neurogenic bladder and bowel, PVD, chronic decubitus ulcer and lower ext BKA who presented to the ED on 01/12/2017 due to left leg wound. He recently was evaluated by multiple physicians including vascular surgery and he was offered IV abx, AKA as well as debridement for deep pelvic area osteomyelitis. Unfortunately, patient was extremely agitated, used foul language and left AMA to go to a wound care center outside [place]. During this present admission, patient was found to be hypotensive with prominent leukocytosis. He underwent L BKA revision /AKA and multiple sacral /ischial wounds debridement. ID has said antibiotics can be stopped. Pt tolerating increased gabapentin; will increase on . Hospital bed ordered for pt. in advance of discharge. Benadryl ordered for pruritic condition. Monitor Left BKA stump infection/gangrene: s/p Left AKA, debridement of the decubitus and colostomy. Large Sacral decubitus ulcer Left pelvic area osteomyelitis Right ankle wound - Wound culture growing Acinetobacter Baumannii/Haemol and Enterococcus faecalis on 01/13/17. - Wound care following patient, wound vac continued with irrigation. - Plastic surgery recommends continuing wound care. No surgery at this time. - Urine culture positive for Acinetobacter Baumannii/Haemol on 01/12/17 - ID following, recommendations are to continue Unasyn for 8 weeks (started on 01/14/2017). - Control pain. Baclofen 20 mg PO QID. Continue Dilaudid PO PRN breakthrough pain. [place] 10/325 mg PO q6hr PRN per pain scale. - Neurontin 200 mg PO TID. Monitor neuropathic pain. Microcytic anemia, chronic: Continue iron supplementation. Neurogenic bladder and sacral ulcer: Continue Blood catheter. Adjustment disorder. Depression Insomnia - Continue Valium 10 mg po daily. - Continue Trazodone 50 mg q hs. - Continue Seroquel 12.5 mg PO BID. DVT Prophylaxis: Lovenox 30mg Q24hrs. GI prophylaxis: Pepcid 20 mg BID DNR Case discussed with pt, RN, enterprise architect manager, [facility] nurse coordinator and Dr. Diop. Discharge Planning CM following and assessing needs for discharge to either SNF or home. CM continues to discuss placement with facilities. Presently, it appears pt is to be discharged home with home care. Pt requesting hospital bed for home, order place to case management. Agustin Powell Jr. Mar 08, 2017 15:06
[2017-03-08 16:28] VITALS: BP 102/56; PULSE 82; RESP 18; TEMP 97.3; O2SAT 99
[2017-03-08 20:00] VITALS: BP 122/58; PULSE 80; RESP 20; TEMP 98.3; O2SAT 97
[2017-03-08] MEDS: traZODone HCL 50 MG TAB PO SCH (21:39)
[2017-03-09] VITALS (7 sets, daily range): BP systolic 96–118; BP diastolic 53–65; PULSE 63–88; RESP 18–20; TEMP 97.1–99; O2SAT 97–100
[2017-03-09] MEDS: ACETAMINOPHEN/HYDROcodone 325 MG/10 MG TAB PO PRN ×4 (03:42→22:19)
[2017-03-09] MEDS: AMPICILLIN-SULBACTAM INJ 3 GM in SODIUM CHLORIDE 0.9% INJ 100 ML IV SCH ×4 (03:43→22:20)
[2017-03-09] MEDS: ASCORBIC ACID 500 MG TAB PO SCH ×2 (06:17→16:27)
[2017-03-09] MEDS: HYDROmorphone HCL 2 MG TAB PO PRN ×2 (06:17→13:10)
[2017-03-09] MEDS: GABAPENTIN 100 MG CAP PO SCH ×3 (09:17→18:03)
[2017-03-09] MEDS: FAMOTIDINE 20 MG TAB PO SCH ×2 (09:17→22:19)
[2017-03-09] MEDS: POLYETHYLENE GLYCOL 17 GM PKG PO SCH (09:17)
[2017-03-09] MEDS: NYSTATIN 100,000 U/GM PWD 15 GM BTL TOPICAL SCH ×2 (09:18→22:19)
[2017-03-09] MEDS: SODIUM CHLORIDE 0.9% FLUSH 10 ML FLUSH IV FLUSH SCH ×2 (09:18→22:19)
[2017-03-09] MEDS: BACLOFEN 20 MG TAB PO SCH ×4 (09:18→22:19)
[2017-03-09] MEDS: POTASSIUM CHLORIDE 10 MEQ CONTROLLED RELEASE TAB PO SCH (09:18)
[2017-03-09] MEDS: QUEtiapine FUMARATE 25 MG TAB PO SCH ×2 (09:57→12:55)
[2017-03-09] MEDS: SENNOSIDES 8.6 MG TAB PO SCH (09:57)
[2017-03-09] MEDS: DIAZEPAM 10 MG TAB PO PRN (10:12)
[2017-03-09] MEDS ORDERED: [UNRECOGNIZED DRUG - OTHER] (12:31)
--- NOTE | 2017-03-09 12:43 | HHI.PR ---
Subjective Remarks Follow up for decubitus ulcer, left AKA, stump infection in patient with a history of paraplegia. Patient seen and examined, sitting up in bed and watching TV, breakfast tray present as pt was just starting to eat.Pt on phone talking about discharge plans. Pt reported "muscle spasms" were present and painful Discussed impending discharge with pt, questions answered fully and to the best of clinician's ability. Pt denied any new issues or concerns. Denies any recent fever, chills, cough, shortness of breath, abdominal pain, n/v , diarrhea or dysuria. Per RN (Monique) difficulty reported one of the wound vacs was leaking. Otherwise , pt without acute issues over night or since start of shift. Objective Vitals Vital Signs Date Time Temp Pulse Resp B/P Pulse Ox O2 Delivery O2 Flow Rate FiO2 03/09/17 12:30 99.0 84 20 106/55 97 03/09/17 07:54 97.1 65 20 118/65 100 03/09/17 04:00 98.1 65 18 114/63 99 03/09/17 00:50 98.4 81 20 99/57 97 03/08/17 20:00 98.3 80 20 122/58 97 03/08/17 16:28 97.3 82 18 102/56 99 I/O 03/08/17 03/08/17 03/08/17 03/09/17 03/09/17 03/09/17 07:00 15:00 23:00 07:00 15:00 23:00 Intake Total 480 ml Output Total 1000 ml 2150 ml 1200 ml Balance -1000 ml -1670 ml -1200 ml Intake Oral 480 ml Output Urine Total 1000 ml 2150 ml 1200 ml Result Diagram: 03/06/1772403/06/17724 Objective Remarks GENERAL: Pt encountered laying in bed, awake talking on phone. Well appearing. SKIN: Warm and dry. Right foot dark yet warm to touch, wrapped in gauze. Right forearm erythematous (redness decreased as compared to yesterday) at former IV site; shape is ovoid. HEAD: Normocephalic. EYES: No scleral icterus. No injection or drainage. NECK: Supple, trachea midline. No lymphadenopathy. CARDIOVASCULAR: Regular rate and rhythm without murmurs, gallops, or rubs. RESPIRATORY: Breath sounds equal bilaterally and diminished. No accessory muscle use. GASTROINTESTINAL: Abdomen soft, non-tender, nondistended. Abdominal sounds present in all quadrants. Colostomy noted left lower quadrant. MUSCULOSKELETAL: No cyanosis, or edema. Moves foot on command. PSYCHIATRIC: A&OX3,pleasant and cooperative. No overt signs of anxiety or depression. Speech was clear and fluent. Procedures left AKA VAC application Colostomy (01/26/17). Right hip decubuti debridement (01/26/17) Medications and IVs Current Medications Medications (Trade) Dose Ordered Sig/Vivien Route Start Time Stop Time Status Last Admin (NS Flush) 2 ml UNSCH PRN IV FLUSH 01/12/17 21:45 03/02/17 03:45 (NS Flush) 2 ml BID IV FLUSH 01/13/17 09:00 03/09/17 09:18 Naloxone HCl 0.4 mg 0.4 mg UNSCH PRN IV 01/12/17 21:45 (Unasyn Inj/NS Inj) 100 ml @ 200 mls/hr Q6H IV 01/14/17 16:00 03/09/17 09:58 (KCl) 30 meq DAILY PO 01/15/17 13:45 03/09/17 09:18 (Lovenox Inj) 30 mg Q24H SQ 01/15/17 14:00 03/07/17 12:48 (Miralax) 17 gm DAILY PO 01/15/17 14:00 03/09/17 09:17 (Dulcolax Supp) 10 mg DAILY PRN RECTAL 01/17/17 00:30 01/17/17 00:48 (Senokot) 8.6 mg DAILY PO 01/17/17 00:30 03/09/17 09:57 (SEROquel) 12.5 mg BID@09,12 PO 01/17/17 14:00 03/09/17 09:57 (Pill Splitter) 1 ea UNSCH PRN OTHER 01/17/17 14:00 01/23/17 09:39 (Valium) 10 mg DAILY PRN PO 01/18/17 12:00 03/09/17 10:12 (Phazyme Chew) 125 mg DAILY PRN PO 01/29/17 11:30 (Zofran Inj) 4 mg Q6HR PRN IV PUSH 02/02/17:30 02/03/17 09:59 (Pepcid) 20 mg BID PO 02/08/17 21:00 03/09/17 09:17 (Desyrel) 50 mg HS PO 02/09/17 21:00 03/08/17 21:39 ([place] 10-325 Mg) 1.5 tab Q6H PRN PO 02/14/17 14:00 03/09/17 09:58 (Lioresal) 20 mg QID PO 02/16/17 13:00 03/09/17 09:18 (Mycostatin Powder) 1 applic Q12HR TOPICAL 02/17/17 21:00 03/09/17 09:18 (Ferrous Sulfate) 325 mg BID@ PO 02/23/17 12:00 03/08/17 17:04 (Vitamin C) 500 mg BIDAC PO 02/23/17 12:00 03/09/17 06:17 (Dilaudid) 2 mg Q6H PRN PO 02/24/17 14:00 03/09/17 06:17 (Neurontin) 200 mg TID PO 03/07/17 13:00 03/09/17 09:17 (Benadryl) 25 mg Q4H PRN PO 03/08/17 11:15 Urinary Catheter: Yes Assessment to: Continue Blood insert reason: Prolonged Immobilization Date of Insertion: Mar 07, 2017 A/P Assessment and Plan Mr. Sheehan is a 56 year old male with a history of T1 fracture with neurogenic bladder and bowel, PVD, chronic decubitus ulcer and lower ext BKA who presented to the ED on 01/12/2017 due to left leg wound. He recently was evaluated by multiple physicians including vascular surgery and he was offered IV abx, AKA as well as debridement for deep pelvic area osteomyelitis. Unfortunately, patient was extremely agitated, used foul language and left AMA to go to a wound care center outside [place]. During this present admission, patient was found to be hypotensive with prominent leukocytosis. He underwent L BKA revision /AKA and multiple sacral /ischial wounds debridement. Pt tolerating increased gabapentin; will increase on . Air mattress ordered for pt. in advance of discharge. Wound care nurse consulted for wound vac leak. Advised RN to use PRN Valium for spasm. Left BKA stump infection/gangrene: s/p Left AKA, debridement of the decubitus and colostomy. Large Sacral decubitus ulcer Left pelvic area osteomyelitis Right ankle wound - Wound culture growing Acinetobacter Baumannii/Haemol and Enterococcus faecalis on 01/13/17. - Wound care following patient, wound vac continued with irrigation. - Plastic surgery recommends continuing wound care. No surgery at this time. - Urine culture positive for Acinetobacter Baumannii/Haemol on 01/12/17 - ID following, recommendations are to continue Unasyn for 8 weeks (started on 01/14/2017). - Control pain. Baclofen 20 mg PO QID. Continue Dilaudid PO PRN breakthrough pain. [place] 10/325 mg PO q6hr PRN per pain scale. - Neurontin 200 mg PO TID. Monitor neuropathic pain. Microcytic anemia, chronic: Continue iron supplementation. Neurogenic bladder and sacral ulcer: Continue Blood catheter. Adjustment disorder. Depression Insomnia - Continue Valium 10 mg po daily. - Continue Trazodone 50 mg q hs. - Continue Seroquel 12.5 mg PO BID. DVT Prophylaxis: Lovenox 30mg Q24hrs. GI prophylaxis: Pepcid 20 mg BID DNR Case discussed with pt, RN, disaster recovery manager, [facility] nurse coordinator and Dr. Diop. Discharge Planning CM following and assessing needs for discharge to either SNF or home. CM continues to discuss placement with facilities. Presently, it appears pt is to be discharged home with home care. Pt requesting hospital bed for home, order place to case management. Agustin Powell Jr. Mar 09, 2017 12:43
[2017-03-09] MEDS: FERROUS SULFATE 325 MG (65 MG ELEMENTAL IRON) TAB PO SCH ×2 (12:54→18:03)
[2017-03-09] MEDS: ENOXAPARIN SODIUM 30 MG/0.3 ML SYRINGE SQ SCH (13:09)
[2017-03-09] MEDS: traZODone HCL 50 MG TAB PO SCH (22:19)
[2017-03-10] VITALS: BP 95/51; PULSE 76; RESP 20; TEMP 97.4; O2SAT 98
[2017-03-10 00:09] VITALS: PULSE 79
[2017-03-10] MEDS: HYDROmorphone HCL 2 MG TAB PO PRN ×3 (02:13→15:15)
[2017-03-10] MEDS: DIAZEPAM 10 MG TAB PO PRN ×2 (02:19→17:17)
[2017-03-10] MEDS: AMPICILLIN-SULBACTAM INJ 3 GM in SODIUM CHLORIDE 0.9% INJ 100 ML IV SCH ×2 (03:44→11:41)
[2017-03-10 04:00] VITALS: BP 116/60; PULSE 64; RESP 20; TEMP 97.5; O2SAT 99
[2017-03-10] MEDS: ASCORBIC ACID 500 MG TAB PO SCH (06:05)
[2017-03-10] MEDS: ACETAMINOPHEN/HYDROcodone 325 MG/10 MG TAB PO PRN ×3 (06:06→17:16)
[2017-03-10 08:06] VITALS: BP 109/65; PULSE 70; RESP 20; TEMP 97.7; O2SAT 99
[2017-03-10] MEDS: QUEtiapine FUMARATE 25 MG TAB PO SCH ×2 (08:16→12:27)
[2017-03-10] MEDS: BACLOFEN 20 MG TAB PO SCH ×2 (08:16→12:27)
[2017-03-10] MEDS: SENNOSIDES 8.6 MG TAB PO SCH (08:16)
[2017-03-10] MEDS: POTASSIUM CHLORIDE 10 MEQ CONTROLLED RELEASE TAB PO SCH (08:16)
[2017-03-10] MEDS: FAMOTIDINE 20 MG TAB PO SCH (08:16)
[2017-03-10] MEDS: GABAPENTIN 100 MG CAP PO SCH ×2 (08:16→12:27)
[2017-03-10] MEDS: POLYETHYLENE GLYCOL 17 GM PKG PO SCH (08:20)
[2017-03-10] MEDS: SODIUM CHLORIDE 0.9% FLUSH 10 ML FLUSH IV FLUSH SCH (08:20)
[2017-03-10] MEDS: NYSTATIN 100,000 U/GM PWD 15 GM BTL TOPICAL SCH (08:20)
[2017-03-10 10:26] VITALS: PULSE 73
--- NOTE | 2017-03-10 10:58 | PD.PLAS.PN ---
Subjective Remarks Patient seen during dressing change with in-patient wound care nurses today. Objective Vital Signs Date Time Temp Pulse Resp B/P Pulse Ox O2 Delivery O2 Flow Rate FiO2 03/10/17 10:26 73 03/10/17 08:06 97.7 70 20 109/65 99 03/10/17 04:00 97.5 64 20 116/60 99 03/10/17 00:09 79 03/10/17 00:00 97.4 76 20 95/51 98 03/09/17 20:00 98.8 88 18 96/53 98 03/09/17 18:33 63 03/09/17 15:46 98.0 76 20 110/62 97 03/09/17 12:30 99.0 84 20 106/55 97 I/O 03/09/17 03/09/17 03/09/17 03/10/17 03/10/17 03/10/17 07:00 15:00 23:00 07:00 15:00 23:00 Intake Total 1380 ml 420 ml Output Total 1200 ml 550 ml 800 ml Balance -1200 ml 830 ml -380 ml Intake Oral 1380 ml 420 ml Output Urine Total 1200 ml 550 ml 800 ml Result Diagram: 03/06/1772403/06/17724 Exam Findings Vacs in place. Wounds are progressing well. Wound beds are mostly red/pink granulation tissue. See WOCN notes for measurements. No evidence of infection. No odor. Periwound skin intact and without cellulitis. Assessment and Plan Diagnosis: (1) Pressure ulcer of sacral region, stage 4 (2) Pressure ulcer of left hip, stage 4 (3) Pressure ulcer of left buttock, stage 4 Assessment and Plan Patient is due to be discharged today. Vac supplies have been ordered and are present in the room. Discussed with wound care nurses. They will apply standard vac in the same configuration. Patient will need home health for three times weekly vac dressing changes. Discharge Planning Patient to be discharged with wound vacs applied to the wounds. Will need home health for 3 times weekly dressing changes. Cleanse wounds with 0.25% Dakin's solution at the time of dressing change. Use skin prep on periwound skin. Patient should follow up with outpatient wound care in a few weeks. Bibi Motta Mar 10, 2017 10:58
--- NOTE | 2017-03-10 12:19 | PD.WCN.NOT ---
Wound Consult Additional Information: Patient seen with Ava BOWEN for [facility] [employer], scientific writer and Esther MENDES. JESSI wants patient on standard wound VAC for discharge on all wounds and if not discharged, wants patient be on [place] wound VAC for sacral and L ischial wounds. Spoke with Case management and Anil PATHAK [address] [place] [address] [place]. Patient is to be D/c today with [facility] to do dressing changes. Neg Pressure Wound Therapy Wound Location Wound Location: Sacrum Wound Description Length: 11.8 cm Width: 9.6 cm Depth: 2 cm Underminin to 9 o'clock 2.1 cm deepest at 8 o'clock. Wound bed appearance: Wound is noted with ~60% clean red granulation tissue, ~10% bone, ~10% facia,~10 % muscle, ~10% adipose tissue. Minimal active sero-sanguinous drainage noted without foul odor. Periwound appearance: Unremarkable Settings Suction: 125 mmHg, Continuous Intensity: Low Other Information: Bridged, Windowpaned Foam type: Black Number of pieces: 1 Additonal Information Patient seen on [address] [place] [address] for standard wound VAC dressing change. Dressing changed with Esther MENDES and scientific writer.Cleansed wound to sacrum with wound cleanser. Applied skin prep to periwound and up to L hip , before applying VAC drape to periwound. Bridged VAC drape up to L hip. Applied 1 large piece black granufoam into wound bed bridged VAC granufoam up to L hip. Covered all exposed foam with VAC drape. L ischial wound bridged together with sacral wound. Trac pad plced to bridged area on L hip.Wound VAC suctioning at 125 mm/ hg continuous with low leak rate. Patient to go home with home health care with next VAC dressing change on 03/14/2017 Wound Location Wound Location: L ischial Wound Description Length: 11cm Width: 4.3 cm Depth: 1.4cm Undermining: undermining is noted between 9 and 1 o'clock with the deepest being at 11 o' clock 1.8cm Wound bed appearance: L ischial wound bed presents with ~60% red granulation tissue and ~10% facia, ~ 10% adipose and ~20% muscle tissue . Wound is a stage 4 pressure injury Periwound appearance: Unremarkable Settings Suction: 125 mmHg, Continuous Intensity: Low Other Information: Bridged, Windowpaned Foam type: Black Number of pieces: 1 Additonal Information Cleansed wound to L ischial wound with wound cleanser.Applied skin prep to periwound and up to L hip before applying VAC drape to periwound. Bridged VAC drape up to L hip area. Applied VAC granufoam cut in 1 long strip and coiled into wound bed.Bridged VAC granufoam up to L hip . Applied eakins seal and stoma paste at 6 o'clock to seal wound VAC before covering all exposed foam with VAC drape. L ischial wound bridged together with sacral wound. Sensi trac pad applied to Lhip . Wound VAC suctioning at 125 mm/hg with low leak rate.Next Wound VAC change to be done by [facility] on Tuesday03/14/2017 Wound Location Wound Location: L trochanter Wound Description Length: 4.5 cm Width: 3cm Depth: 4cm Wound bed appearance: Wound to L hip presents with ~70% red granulation tissue ~30% white tissue. bone is palpated in center of wound but not visualized. Wound is stage 4 pressure injury. Wound has minimal sero-sanguinous drainage without odor Periwound appearance: Unremarkable Settings Suction: 125 mmHg, Continuous Intensity: Low Other Information: Bridged, Windowpaned Foam type: Black Number of pieces: 1 Additonal Information Standard wound VAC changed with Esther MENDES and scientific writer.R trochanter wound is noted with ~50% red granulation tissue , ~30% facia, ~20% adipose tissue. Wound has no active drainage or foul odor. Wound measures 4 cm x 3cm x 2 cm, Placed standard wound VAC to L trochanter and R trochanter wounds Cleansed both wounds with wound cleanser. Coiled 1 piece of VAC granufoam in to each wound bed.Skin prep sprayed to each periwound before window paning wound and bridging VAC drape to L and R thigh. Wound to L trochanter was bridged to L anterior thigh. R trochanter wound was bridged to R anterior thigh. All exposed foam was covered with additional VAC drape before applying Sensi trac pads to bridged areas. Used Y connector to connect both wounds to 1 standard VAC. Wound VAC suctioning at 125mm/hg without leaks. Next wound VAC change to be done by [facility] on 03/14/2017 Missy HuertaMauri Mar 10, 2017 12:19
[2017-03-10] MEDS: FERROUS SULFATE 325 MG (65 MG ELEMENTAL IRON) TAB PO SCH (12:27)
[2017-03-10] MEDS: ENOXAPARIN SODIUM 30 MG/0.3 ML SYRINGE SQ SCH (13:41)
[2017-03-10 15:57] VITALS: BP 104/60; PULSE 88; RESP 20; TEMP 97; O2SAT 98
--- NOTE | 2017-03-10 16:04 | HHI.PR ---
Subjective Remarks Follow up for decubitus ulcer, left AKA, stump infection in patient with a history of paraplegia. Patient seen and examined, laying a bed with wound care nurses attending to wounds. Pt reported muscle spasms of yesterday improved with Valium "and everything else we threw at it." Pt denied any new issues or concerns. Denies any recent fever, chills, cough, shortness of breath, abdominal pain, n/v , diarrhea or dysuria. Per RN (Fredy) pt without acute issues over night or since start of shift. Wound care nurse reported pt will need a second wound vac. Objective Vitals Vital Signs Date Time Temp Pulse Resp B/P Pulse Ox O2 Delivery O2 Flow Rate FiO2 03/10/17 10:26 73 03/10/17 08:06 97.7 70 20 109/65 99 03/10/17 04:00 97.5 64 20 116/60 99 03/10/17 00:09 79 03/10/17 00:00 97.4 76 20 95/51 98 03/09/17 20:00 98.8 88 18 96/53 98 03/09/17 18:33 63 I/O 03/09/17 03/09/17 03/09/17 03/10/17 03/10/17 03/10/17 07:00 15:00 23:00 07:00 15:00 23:00 Intake Total 1380 ml 420 ml Output Total 1200 ml 550 ml 800 ml Balance -1200 ml 830 ml -380 ml Intake Oral 1380 ml 420 ml Output Urine Total 1200 ml 550 ml 800 ml Result Diagram: 03/06/17 0725 03/06/17 0725 Objective Remarks GENERAL: Pt encountered laying in bed, awake wound care nurses tending to wounds. SKIN: Warm and dry. Right foot dark yet warm to touch, wrapped in gauze. Decubits wounds covered with foam, not able to visualize. HEAD: Normocephalic. EYES: No scleral icterus. No injection or drainage. NECK: Supple, trachea midline. No lymphadenopathy. CARDIOVASCULAR: Regular rate and rhythm without murmurs, gallops, or rubs. RESPIRATORY: Breath sounds equal bilaterally and diminished. No accessory muscle use. GASTROINTESTINAL: Abdomen soft, non-tender, nondistended. Abdominal sounds present in all quadrants. Colostomy noted left lower quadrant. MUSCULOSKELETAL: No cyanosis, or edema. Moves foot on command. PSYCHIATRIC: A&OX3,pleasant and cooperative. No overt signs of anxiety or depression. Speech was clear and fluent. Procedures left AKA VAC application Colostomy (01/26/17). Right hip decubuti debridement (01/26/17) Date of Insertion: Mar 07, 2017 A/P Assessment and Plan Mr. Sheehan is a 56 year old male with a history of T1 fracture with neurogenic bladder and bowel, PVD, chronic decubitus ulcer and lower ext BKA who presented to the ED on 01/12/2017 due to left leg wound. He recently was evaluated by multiple physicians including vascular surgery and he was offered IV abx, AKA as well as debridement for deep pelvic area osteomyelitis. Unfortunately, patient was extremely agitated, used foul language and left AMA to go to a wound care center outside [place]. During this present admission, patient was found to be hypotensive with prominent leukocytosis. He underwent L BKA revision /AKA and multiple sacral /ischial wounds debridement. Pt requiring second home wound vac, to be ordered. Pt to be discharged today. Left BKA stump infection/gangrene: s/p Left AKA, debridement of the decubitus and colostomy. Large Sacral decubitus ulcer Left pelvic area osteomyelitis Right ankle wound - Wound culture growing Acinetobacter Baumannii/Haemol and Enterococcus faecalis on 01/13/17. - Wound care following patient, wound vac continued with irrigation. - Plastic surgery recommends continuing wound care. No surgery at this time. - Urine culture positive for Acinetobacter Baumannii/Haemol on 01/12/17 - ID following, recommendations are to continue Unasyn for 8 weeks (started on 01/14/2017). - Control pain. Baclofen 20 mg PO QID. Continue Dilaudid PO PRN breakthrough pain. Broad Top 10/325 mg PO q6hr PRN per pain scale. - Neurontin 200 mg PO TID. Monitor neuropathic pain. Microcytic anemia, chronic: Continue iron supplementation. Neurogenic bladder and sacral ulcer: Continue Blood catheter. Adjustment disorder. Depression Insomnia - Continue Valium 10 mg po daily. - Continue Trazodone 50 mg q hs. - Continue Seroquel 12.5 mg PO BID. DVT Prophylaxis: Lovenox 30mg Q24hrs. GI prophylaxis: Pepcid 20 mg BID DNR Case discussed with pt, RN, manager park, [facility] nurse coordinator and Dr. Diop. Discharge Planning CM following and assessing needs for discharge to either SNF or home. CM continues to discuss placement with facilities. Pt requesting hospital bed for home, order place to case management. Pt requesting air mattress secondary to decubitus ulcers; ordered. Pt requiring second wound vac, per wound care nurse. Pt to be discharged home when durable medical goods have been delivered. Agustin Powell Jr. JESSI Mar 10, 2017 16:03
[2017-03-10] MEDS ORDERED: GABA100C4 PO (16:21)
--- NOTE | 2017-03-10 16:42 | HHI.DS ---
Discharge Summary Admission Date January 12, 2017 at 21:51 Discharge Date: Mar 10, 2017 Admitting Diagnosis L BKA stump gangrene; sacral decubiti; pelvis osteomyelitis; sepsis (1) PVD, recent left BKA Diagnosis: Principal (2) Pressure ulcer of left hip, stage 4 ICD Code: L89.224 Diagnosis: Principal (3) paraplegic, with multiple complications in recent years Diagnosis: Secondary (4) Pressure ulcer of sacral region, stage 4 ICD Code: L89.154 Diagnosis: Principal (5) Pressure ulcer of left buttock, stage 4 ICD Code: L89.324 Diagnosis: Principal (6) Anemia ICD Code: D64.9 Diagnosis: Secondary (7) Anxiety ICD Code: F41.9 Diagnosis: Secondary (8) neurogenic bladder Diagnosis: Secondary Procedures left AKA VAC application Colostomy (01/26/17). Right hip decubuti debridement (01/26/17) Brief History - From Admission Patient is extremely poor historian. he is quite angry at the time of my arrival. He stated that multiple staff members have been telling him different things. He stated he was initially told that he was going to go to OR yesterday at 8 PM. Then the OR time was changed and he was quite mad about that. He refused to talk to me for history. He Advises me to look at the computer to get information instead. When asked whether he noticed any purulent discharge or draining from his stump , he stated he does not notice anything. He states [facility] told him to come here instead. Then he changed and reported it was the home health care nurse from [place] from told him that his wound was not doing well and which was why he came. Next and apart from that, patient would not give any further information. Therefore rest of the medical history is obtained from EMR. For any patient was sent from his home health care nurse because of worsening purulent discharge at his left BKA stump. He was also found to have low blood pressure while in ER but on review of medical records, this has been chronic as well. Patient has no reflex tachycardia, no lactic acid acidosis. CBC/BMP: 03/06/17 0725 03/06/17 0725 Imaging Last Impressions Chest X-Ray 02/27/17 0000 Signed Impressions: Service Date/Time: Monday, February 27, 2017 10:34 - CONCLUSION: No acute disease. No significant change has occurred. Krzysztof Lopez MD PE at Discharge GENERAL: Pt encountered laying in bed, awake wound care nurses tending to wounds. SKIN: Warm and dry. Right foot dark yet warm to touch, wrapped in gauze. Decubits wounds covered with foam, not able to visualize. HEAD: Normocephalic. EYES: No scleral icterus. No injection or drainage. NECK: Supple, trachea midline. No lymphadenopathy. CARDIOVASCULAR: Regular rate and rhythm without murmurs, gallops, or rubs. RESPIRATORY: Breath sounds equal bilaterally and diminished. No accessory muscle use. GASTROINTESTINAL: Abdomen soft, non-tender, nondistended. Abdominal sounds present in all quadrants. Colostomy noted left lower quadrant. MUSCULOSKELETAL: No cyanosis, or edema. Moves foot on command. PSYCHIATRIC: A&OX3,pleasant and cooperative. No overt signs of anxiety or depression. Speech was clear and fluent. Hospital Course Mr. Sheehan is a 56 year old male with a history of T1 fracture with neurogenic bladder and bowel, PVD, chronic decubitus ulcer and lower ext BKA who presented to the ED on 01/12/2017 due to left leg wound. He recently was evaluated by multiple physicians including vascular surgery and he was offered IV abx, AKA as well as debridement for deep pelvic area osteomyelitis. Unfortunately, patient was extremely agitated, used foul language and left AMA to go to a wound care center outside [place]. During this present admission, patient was found to be hypotensive with prominent leukocytosis. He underwent L BKA revision /AKA and multiple sacral /ischial wounds debridement. He was admitted on and discharged on 03/10/17. The hospitalist service was involved with his care from admission until discharge. Over the course of his stay the following services were involved: Infectious Disease (Dr. Spencer López) Wound care (Bradley Long [facility]), (Plastic surgery (JESSI Lepe and Dr. Pete Kiser), Psychiatry (Dr. Doty), Palliative care (Flor Hastings) Surgery (Dr. Robertson). Procedures included an above the knee amputation, debridement, decubitus wounds , diverting colostomy. He underwent 6 weeks of IV antibiotics to address his pelvic osteomyelitis Pt Condition on Discharge: Stable Discharge Disposition: Disch w/ Home Health Serv Discharge Time: <= 30 minutes Discharge Instructions DIET: Follow Instructions for: As Tolerated, No Restrictions Activities you can perform: Regular-No Restrictions Other Activity Instructions: Patient is bedbound. Follow up Referrals: PCP Follow-up - 2 Weeks with Dustin Coleman D.o. New Medications: Hospital Bed - Electric ([facility] Bed - Electric) 1 Ea Ea 1 EA .ROUTE DIRECTED #1 EA ([air mattress]) #1 Diazepam (Valium) 10 Mg Tab 10 MG PO DAILY PRN anxiety #7 TAB Gabapentin (Gabapentin) 100 Mg Cap 300 MG PO TID Pain Days 30 Ref 0 CAP Hydrocodone-Acetaminophen (Hydrocodone-Acetaminophen) 10-325 mg Tab 1.5 TAB PO Q6H PRN PAIN SCALE 1 TO 10 #28 TAB Continued Medications: Finasteride (Finasteride) 5 Mg Tab 5 MG PO DAILY Do not crush. Manage Prostate Problems #30 Ref 0 TAB Furosemide (Furosemide) 40 Mg Tab 40 MG PO BID #60 Ref 0 TAB Lubiprostone (Amitiza) 24 Mcg Cap 24 MG PO DAILY Constipation Ref 0 CAP Potassium Chloride ER (Klor-Con 10) 10 Meq Tab 10 MEQ PO DAILY Electrolyte Replacement #30 Ref 0 TAB Discontinued Medications: Ciprofloxacin (Cipro) 250 Mg Tab 500 MG PO BID Infection Ref 0 TAB Agustin Powell Jr. Mar 10, 2017 16:42
--- NOTE | 2017-03-11 10:48 | HHI.FF ---
Face to Face Verification Diagnosis: (1) Pressure ulcer of left hip, stage 4 (2) Pressure ulcer of sacral region, stage 4 (3) Pressure ulcer of left buttock, stage 4 (4) paraplegic, with multiple complications in recent years Home Health Nursing Order: Wound care and dressing changes Instructions: Wound vac changes Tuesday, Tuesday and Tuesday. I have seen patient Boogie Sheehan on 03/11/17. My clinical findings support the need for the requested home health care services because: he has several stage 4 decubitus ulcers requiring two wound vacs. He is unable to make changes and will need wound care for the foreseeable future. Limited ability to care for self I certify that my clinical findings support that this patient is homebound because: pt recently underwent right amputation and flap revision and due to a T1 injury he is paralyzed and can't walk. While he does have upper body strength his current mobility is questionable. [id number] bed/chair Agustin Powell Jr. JESSI Mar 11, 2017 10:47
[2017-03-18] MEDS ORDERED: [UNRECOGNIZED DRUG - SUPPLY] EXTERNAL (15:32)
== END 2017-03-10 17:15 | disposition home health service (06) | DRG 463 ==
LOC: NEPC 15:39 → NEDA 21:51 → N04A 22:46 → N04B 01-16 06:57 → N05B 01-26 13:37
PROVIDERS: ADMIT Hospitalist; ATTEND Hospitalist
PROC: 30233N1 Transfusion of Nonautologous Red Blood Cells into Peripheral Vein, Percutaneous Approach (ICD-10-PCS; 2017-01-12)
PROC: 0KBP0ZZ Excision of Left Hip Muscle, Open Approach (ICD-10-PCS; 2017-01-13)
PROC: 0QB10ZZ Excision of Sacrum, Open Approach (ICD-10-PCS; 2017-01-13)
PROC: 0Y6D0Z3 Detachment at Left Upper Leg, Low, Open Approach (ICD-10-PCS; 2017-01-13)
PROC: 0QB10ZZ Excision of Sacrum, Open Approach (ICD-10-PCS; 2017-01-13)
PROC: 0Y6D0Z3 Detachment at Left Upper Leg, Low, Open Approach (ICD-10-PCS; principal; 2017-01-13 10:16)
PROC: 0HD6XZZ Extraction of Back Skin, External Approach (ICD-10-PCS; 2017-01-26)
PROC: 0D1N0Z4 Bypass Sigmoid Colon to Cutaneous, Open Approach (ICD-10-PCS; 2017-01-26)
PROC: 0D1N0Z4 Bypass Sigmoid Colon to Cutaneous, Open Approach (ICD-10-PCS; 2017-01-26)
PROC: 0DBN0ZZ Excision of Sigmoid Colon, Open Approach (ICD-10-PCS; 2017-01-26)
PROC: 0HDHXZZ Extraction of Right Upper Leg Skin, External Approach (ICD-10-PCS; 2017-01-26)
PROC: 0HB6XZZ Excision of Back Skin, External Approach (ICD-10-PCS; 2017-02-25)
DX: T87.44 Infection of amputation stump, left lower extremity (principal); L89.154 Pressure ulcer of sacral region, stage 4; A41.9 Sepsis, unspecified organism; L89.224 Pressure ulcer of left hip, stage 4; L89.324 Pressure ulcer of left buttock, stage 4; E46 Unspecified protein-calorie malnutrition; K59.2 Neurogenic bowel, not elsewhere classified; G82.20 Paraplegia, unspecified; M86.9 Osteomyelitis, unspecified; N39.0 Urinary tract infection, site not specified; T87.54 Necrosis of amputation stump, left lower extremity; N31.9 Neuromuscular dysfunction of bladder, unspecified; Z99.3 Dependence on wheelchair; Y83.5 Amputation of limb(s) as the cause of abnormal reaction of the patient, or of later complication, without mention of misadventure at the time of the procedure; I73.9 Peripheral vascular disease, unspecified; F32.9 Major depressive disorder, single episode, unspecified; J44.9 Chronic obstructive pulmonary disease, unspecified; F43.25 Adjustment disorder with mixed disturbance of emotions and conduct; Y83.8 Other surgical procedures as the cause of abnormal reaction of the patient, or of later complication, without mention of misadventure at the time of the procedure; G47.30 Sleep apnea, unspecified; Z87.440 Personal history of urinary (tract) infections; F17.200 Nicotine dependence, unspecified, uncomplicated; Z91.19 Patient's noncompliance with other medical treatment and regimen; F12.90 Cannabis use, unspecified, uncomplicated; L89.619 Pressure ulcer of right heel, unspecified stage; E87.6 Hypokalemia; I10 Essential (primary) hypertension; D50.9 Iron deficiency anemia, unspecified; K59.00 Constipation, unspecified; B95.2 Enterococcus as the cause of diseases classified elsewhere; Z51.5 Encounter for palliative care; Z66 Do not resuscitate; G89.29 Other chronic pain; G47.00 Insomnia, unspecified; M62.838 Other muscle spasm; R11.0 Nausea
CPT/HCPCS: 36430; 71010; 76937; 80048; 80053; 80202; 81001; 82565; 82728; 83540; 83550; 83605; 83735; 84100; 84484; 85025; 85027; 86403; 86850; 86900; 86901; 86920; 87015; 87040; 87070; 87077; 87086; 87102; 87116; 87149; 87176; 87186; 87205; 87206; 88307; 88311; 93005; 96365; J0295; J0690; J1170; J1650; J1885; J2185; J2370; J2405; J2543; J2710; J3010; J3370; J7030; J7050; J7120; P9016